=== PATIENT | male | born 1950 | race Caucasian/White ===

== ENCOUNTER 2019-04-28 14:21 | Inpatient (IN) | payer OTHER, MEDICARE ==
[2019-04-28] MEDS ORDERED: SODIUM CHLORIDE 0.9% 1,000 ML IV STA (14:56)
[2019-04-28] MEDS ORDERED: ONDANSETRON 4 MG/2 ML VIAL IVP STA (14:56)
--- NOTE | 2019-04-28 15:24 | ED ---
Nausea/Vomiting/Diarrhea HPI - General Source: patient, family Limitations: no limitations <Em Hall - Last Filed: 04/28/19 16:44> <Savannah Ariza - Last Filed: 05/03/19 15:07> - General Chief complaint: Nausea/Vomiting/Diarrhea Stated complaint: Nausea, Vomiting Time Seen by Provider: 04/28/19 14:30 - History of Present Illness Initial comments: 68-year-old male presented for chief complaint of nausea. Patient states he has been struggling with nausea since June 2018 secondary to what he believes is his Lasix therapy. Patient states he has also lost 60 pounds within the last 9 months. Patient states that nausea is chronic and comes and goes. He states it has been interfering with his activities of daily living. Patient states he feels weak. At times has vomiting randomly. Patient denies any severe abdominal pain he states that he has some cramping occasionally, patient upon arrival is tearful. (Em Hall) - Related Data Home Medications Medication Instructions Recorded Confirmed Acetaminophen Tab [Tylenol] 650 mg PO Q6H PRN 04/28/19 04/28/19 Lisinopril [Zestril] 20 mg PO BID 04/28/19 04/28/19 Omeprazole 20 mg PO DAILY 04/28/19 04/28/19 Pravastatin Sodium [Pravachol] 10 mg PO HS 04/28/19 04/28/19 Ranitidine HCl [Zantac] 150 mg PO BID 04/28/19 04/28/19 amLODIPine [Norvasc] 5 mg PO DAILY 04/28/19 04/28/19 Previous Rx's Medication Instructions Recorded Nicotine 21Mg/24Hr Patch [Habitrol] 1 patch TRANSDERM DAILY #30 patch 05/01/19 cloNIDine HCL [Catapres] 0.1 mg PO BID #60 tab 05/01/19 Allergies Allergy/AdvReac Type Severity Reaction Status Date / Time No Known Allergies Allergy Verified 04/28/19 15:22 Review of Systems ROS Other: All systems not noted in ROS Statement are negative. <Em Hall - Last Filed: 04/28/19 16:44> ROS Other: All systems not noted in ROS Statement are negative. <Savannah Ariza - Last Filed: 05/03/19 15:07> ROS Statement: Those systems with pertinent positive or pertinent negative responses have been documented in the HPI. Past Medical History Past Medical History: GERD/Reflux, Hyperlipidemia, Hypertension History of Any Multi-Drug Resistant Organisms: None Reported Past Surgical History: Back Surgery Past Psychological History: No Psychological Hx Reported Smoking Status: Former smoker Past Alcohol Use History: None Reported Past Drug Use History: None Reported <Em Hall - Last Filed: 04/28/19 16:44> General Exam Limitations: no limitations <Em Hall - Last Filed: 04/28/19 16:44> - General Exam Comments Initial Comments: General: The patient is awake and alert Eye: +3 mm pupils are equal, round and reactive to light, extra-ocular movements are intact. No nystagmus. There is normal conjunctiva bilaterally. No signs of icterus. Ears, nose, mouth and throat: There are dry mucous membranes and no oral lesions. Neck: The neck is supple, there is no tenderness or JVD. Cardiovascular: There is a regular rate and rhythm. No murmur, rub or gallop is appreciated. Respiratory: Lungs are clear to auscultation, respirations are non-labored, breath sounds are equal. No wheezes, stridor, rales, or rhonchi. Gastrointestinal: Soft, non-distended, diffusely tender abdomen without masses or organomegaly noted. There is no rebound or guarding present.. Bowel sounds are unremarkable. Musculoskeletal: Normal ROM, no tenderness. Strength 5/5. Sensation intact. Radial pulses equal bilaterally 2+. Neurological: A&O x 3. CN II-XII intact, There are no obvious motor or sensory deficits. Coordination appears grossly intact. Speech is normal. Skin: Skin is warm and dry and no rashes or lesions are noted. Psychiatric: Cooperative, appropriate mood & affect, normal judgment. (Em Hall) Course Vital Signs 04/28/19 04/28/19 04/28/19 14:23 15:16 16:26 Temperature 98.6 F Pulse Rate 88 79 88 Respiratory 20 18 18 Rate Blood Pressure 180/87 190/101 177/90 O2 Sat by Pulse 97 100 99 Oximetry 04/28/19 04/28/19 04/28/19 16:59 17:59 18:25 Temperature 97.9 F Pulse Rate 88 77 Respiratory 18 18 Rate Blood Pressure 168/100 184/95 O2 Sat by Pulse 99 98 Oximetry Medical Decision Making - Lab Data Result diagrams: 04/28/19 15:15 04/28/19 15:15 <Em Hall - Last Filed: 04/28/19 16:44> - Lab Data Result diagrams: 05/01/19 07:42 05/01/19 07:42 <Savannah Ariza - Last Filed: 05/03/19 15:07> - Medical Decision Making 68-year-old male presenting for vomiting and nausea. Patient sent by primary care provider for further evaluation. Patient is found to have moderate hyponatremia. Patient is dry and physical examination. Patient states the nausea that has been chronic since June 2018 began after taking Lasix. Patient was given IV hydration emergency department. Patient was placed on maintenance fluids. Patient was given Zofran for nausea which helped somewhat. Patient was then given additional dose of Reglan for continuous symptoms and emergency department. After discussed the case by attending provider Dr. Ariza we feel admission is appropriate for further evaluation. Patient agreeable and prefers admission. (Em Hall) I evaluated the patient myself. Due to the patients repetitive hospitalizations, hyponatremia and intractable nausea I did feel that admission was appropriate. I called and discussed the case with Dr. estrada who accepted admission of the patient. (Savannah Ariza) - Lab Data Lab Results 04/28/19 04/28/19 04/28/19 Range/Units 15:15 15:15 15:15 WBC 8.4 (3.8-10.6) k/uL RBC 4.43 (4.30-5.90) m/uL Hgb 13.8 (13.0-17.5) gm/dL Hct 39.6 (39.0-53.0) % MCV 89.4 (80.0-100.0) fL MCH 31.1 (25.0-35.0) pg MCHC 34.9 (31.0-37.0) g/dL RDW 13.5 (11.5-15.5) % Plt Count 258 (150-450) k/uL Neutrophils % 84 % Lymphocytes % 10 % Monocytes % 4 % Eosinophils % 1 % Basophils % 0 % Neutrophils # 7.1 (1.3-7.7) k/uL Lymphocytes # 0.8 L (1.0-4.8) k/uL Monocytes # 0.3 (0-1.0) k/uL Eosinophils # 0.1 (0-0.7) k/uL Basophils # 0.0 (0-0.2) k/uL Sodium 127 L (137-145) mmol/L Potassium 3.9 (3.5-5.1) mmol/L Chloride 92 L (98-107) mmol/L Carbon Dioxide 26 (22-30) mmol/L Anion Gap 9 mmol/L BUN 10 (9-20) mg/dL Creatinine 0.87 (0.66-1.25) mg/dL Est GFR (CKD-EPI)AfAm >90 (>60 ml/min/1.73 sqM) Est GFR (CKD-EPI)NonAf 88 (>60 ml/min/1.73 sqM) Glucose 97 (74-99) mg/dL Osmolality (280-301) mosm/kg Plasma Lactic Acid Arsenio 0.8 (0.7-2.0) mmol/L Uric Acid (3.5-8.5) mg/dL Calcium 8.9 (8.4-10.2) mg/dL Total Bilirubin 0.5 (0.2-1.3) mg/dL AST 20 (17-59) U/L ALT 22 (21-72) U/L Alkaline Phosphatase 57 (38-126) U/L Troponin I (0.000-0.034) ng/mL Total Protein 6.4 (6.3-8.2) g/dL Albumin 3.8 (3.5-5.0) g/dL Amylase 68 (30-110) U/L Lipase 158 (23-300) U/L TSH (0.465-4.680) mIU/L Cortisol ug/dL Urine Color Urine Appearance (Clear) Urine pH (5.0-8.0) Ur Specific [place] (1.001-1.035) Urine Protein (Negative) Urine Glucose (UA) (Negative) Urine Ketones (Negative) Urine Blood (Negative) Urine Nitrite (Negative) Urine Bilirubin (Negative) Urine Urobilinogen (<2.0) mg/dL Ur Leukocyte Esterase (Negative) Urine Osmolality (50-1400) mosm/kg Ur Random Creatinine mg/dL Ur Random Sodium mmol/L Ur Random Potassium mmol/L Ur Random Uric Acid mg/dL Ur Random Urea Nitrogn mg/dL 04/28/19 04/28/19 04/28/19 Range/Units 15:15 15:15 15:15 WBC (3.8-10.6) k/uL RBC (4.30-5.90) m/uL Hgb (13.0-17.5) gm/dL Hct (39.0-53.0) % MCV (80.0-100.0) fL MCH (25.0-35.0) pg MCHC (31.0-37.0) g/dL RDW (11.5-15.5) % Plt Count (150-450) k/uL Neutrophils % % Lymphocytes % % Monocytes % % Eosinophils % % Basophils % % Neutrophils # (1.3-7.7) k/uL Lymphocytes # (1.0-4.8) k/uL Monocytes # (0-1.0) k/uL Eosinophils # (0-0.7) k/uL Basophils # (0-0.2) k/uL Sodium (137-145) mmol/L Potassium (3.5-5.1) mmol/L Chloride (98-107) mmol/L Carbon Dioxide (22-30) mmol/L Anion Gap mmol/L BUN (9-20) mg/dL Creatinine (0.66-1.25) mg/dL Est GFR (CKD-EPI)AfAm (>60 ml/min/1.73 sqM) Est GFR (CKD-EPI)NonAf (>60 ml/min/1.73 sqM) Glucose (74-99) mg/dL Osmolality (280-301) mosm/kg Plasma Lactic Acid Arsenio (0.7-2.0) mmol/L Uric Acid (3.5-8.5) mg/dL Calcium (8.4-10.2) mg/dL Total Bilirubin (0.2-1.3) mg/dL AST (17-59) U/L ALT (21-72) U/L Alkaline Phosphatase (38-126) U/L Troponin I 0.014 (0.000-0.034) ng/mL Total Protein (6.3-8.2) g/dL Albumin (3.5-5.0) g/dL Amylase (30-110) U/L Lipase (23-300) U/L TSH (0.465-4.680) mIU/L Cortisol ug/dL Urine Color Colorless Urine Appearance Clear (Clear) Urine pH 7.0 (5.0-8.0) Ur Specific [place] 1.003 (1.001-1.035) Urine Protein Negative (Negative) Urine Glucose (UA) Negative (Negative) Urine Ketones Negative (Negative) Urine Blood Negative (Negative) Urine Nitrite Negative (Negative) Urine Bilirubin Negative (Negative) Urine Urobilinogen <2.0 (<2.0) mg/dL Ur Leukocyte Esterase Negative (Negative) Urine Osmolality (50-1400) mosm/kg Ur Random Creatinine 16.3 mg/dL Ur Random Sodium mmol/L Ur Random Potassium mmol/L Ur Random Uric Acid mg/dL Ur Random Urea Nitrogn mg/dL 04/28/19 04/28/19 04/28/19 Range/Units 15:15 15:15 15:15 WBC (3.8-10.6) k/uL RBC (4.30-5.90) m/uL Hgb (13.0-17.5) gm/dL Hct (39.0-53.0) % MCV (80.0-100.0) fL MCH (25.0-35.0) pg MCHC (31.0-37.0) g/dL RDW (11.5-15.5) % Plt Count (150-450) k/uL Neutrophils % % Lymphocytes % % Monocytes % % Eosinophils % % Basophils % % Neutrophils # (1.3-7.7) k/uL Lymphocytes # (1.0-4.8) k/uL Monocytes # (0-1.0) k/uL Eosinophils # (0-0.7) k/uL Basophils # (0-0.2) k/uL Sodium (137-145) mmol/L Potassium (3.5-5.1) mmol/L Chloride (98-107) mmol/L Carbon Dioxide (22-30) mmol/L Anion Gap mmol/L BUN (9-20) mg/dL Creatinine (0.66-1.25) mg/dL Est GFR (CKD-EPI)AfAm (>60 ml/min/1.73 sqM) Est GFR (CKD-EPI)NonAf (>60 ml/min/1.73 sqM) Glucose (74-99) mg/dL Osmolality (280-301) mosm/kg Plasma Lactic Acid Arsenio (0.7-2.0) mmol/L Uric Acid 2.1 L (3.5-8.5) mg/dL Calcium (8.4-10.2) mg/dL Total Bilirubin (0.2-1.3) mg/dL AST (17-59) U/L ALT (21-72) U/L Alkaline Phosphatase (38-126) U/L Troponin I (0.000-0.034) ng/mL Total Protein (6.3-8.2) g/dL Albumin (3.5-5.0) g/dL Amylase (30-110) U/L Lipase (23-300) U/L TSH 1.480 (0.465-4.680) mIU/L Cortisol 13 ug/dL Urine Color Urine Appearance (Clear) Urine pH (5.0-8.0) Ur Specific [place] (1.001-1.035) Urine Protein (Negative) Urine Glucose (UA) (Negative) Urine Ketones (Negative) Urine Blood (Negative) Urine Nitrite (Negative) Urine Bilirubin (Negative) Urine Urobilinogen (<2.0) mg/dL Ur Leukocyte Esterase (Negative) Urine Osmolality (50-1400) mosm/kg Ur Random Creatinine mg/dL Ur Random Sodium mmol/L Ur Random Potassium mmol/L Ur Random Uric Acid 6.9 mg/dL Ur Random Urea Nitrogn 98.0 mg/dL 04/28/19 04/28/19 04/28/19 Range/Units 15:15 15:15 15:15 WBC (3.8-10.6) k/uL RBC (4.30-5.90) m/uL Hgb (13.0-17.5) gm/dL Hct (39.0-53.0) % MCV (80.0-100.0) fL MCH (25.0-35.0) pg MCHC (31.0-37.0) g/dL RDW (11.5-15.5) % Plt Count (150-450) k/uL Neutrophils % % Lymphocytes % % Monocytes % % Eosinophils % % Basophils % % Neutrophils # (1.3-7.7) k/uL Lymphocytes # (1.0-4.8) k/uL Monocytes # (0-1.0) k/uL Eosinophils # (0-0.7) k/uL Basophils # (0-0.2) k/uL Sodium (137-145) mmol/L Potassium (3.5-5.1) mmol/L Chloride (98-107) mmol/L Carbon Dioxide (22-30) mmol/L Anion Gap mmol/L BUN (9-20) mg/dL Creatinine (0.66-1.25) mg/dL Est GFR (CKD-EPI)AfAm (>60 ml/min/1.73 sqM) Est GFR (CKD-EPI)NonAf (>60 ml/min/1.73 sqM) Glucose (74-99) mg/dL Osmolality 258 L (280-301) mosm/kg Plasma Lactic Acid Arsenio (0.7-2.0) mmol/L Uric Acid (3.5-8.5) mg/dL Calcium (8.4-10.2) mg/dL Total Bilirubin (0.2-1.3) mg/dL AST (17-59) U/L ALT (21-72) U/L Alkaline Phosphatase (38-126) U/L Troponin I (0.000-0.034) ng/mL Total Protein (6.3-8.2) g/dL Albumin (3.5-5.0) g/dL Amylase (30-110) U/L Lipase (23-300) U/L TSH (0.465-4.680) mIU/L Cortisol ug/dL Urine Color Urine Appearance (Clear) Urine pH (5.0-8.0) Ur Specific [place] (1.001-1.035) Urine Protein (Negative) Urine Glucose (UA) (Negative) Urine Ketones (Negative) Urine Blood (Negative) Urine Nitrite (Negative) Urine Bilirubin (Negative) Urine Urobilinogen (<2.0) mg/dL Ur Leukocyte Esterase (Negative) Urine Osmolality 148 (50-1400) mosm/kg Ur Random Creatinine mg/dL Ur Random Sodium mmol/L Ur Random Potassium 8.0 mmol/L Ur Random Uric Acid mg/dL Ur Random Urea Nitrogn mg/dL 04/28/19 Range/Units 15:15 WBC (3.8-10.6) k/uL RBC (4.30-5.90) m/uL Hgb (13.0-17.5) gm/dL Hct (39.0-53.0) % MCV (80.0-100.0) fL MCH (25.0-35.0) pg MCHC (31.0-37.0) g/dL RDW (11.5-15.5) % Plt Count (150-450) k/uL Neutrophils % % Lymphocytes % % Monocytes % % Eosinophils % % Basophils % % Neutrophils # (1.3-7.7) k/uL Lymphocytes # (1.0-4.8) k/uL Monocytes # (0-1.0) k/uL Eosinophils # (0-0.7) k/uL Basophils # (0-0.2) k/uL Sodium (137-145) mmol/L Potassium (3.5-5.1) mmol/L Chloride (98-107) mmol/L Carbon Dioxide (22-30) mmol/L Anion Gap mmol/L BUN (9-20) mg/dL Creatinine (0.66-1.25) mg/dL Est GFR (CKD-EPI)AfAm (>60 ml/min/1.73 sqM) Est GFR (CKD-EPI)NonAf (>60 ml/min/1.73 sqM) Glucose (74-99) mg/dL Osmolality (280-301) mosm/kg Plasma Lactic Acid Arsenio (0.7-2.0) mmol/L Uric Acid (3.5-8.5) mg/dL Calcium (8.4-10.2) mg/dL Total Bilirubin (0.2-1.3) mg/dL AST (17-59) U/L ALT (21-72) U/L Alkaline Phosphatase (38-126) U/L Troponin I (0.000-0.034) ng/mL Total Protein (6.3-8.2) g/dL Albumin (3.5-5.0) g/dL Amylase (30-110) U/L Lipase (23-300) U/L TSH (0.465-4.680) mIU/L Cortisol ug/dL Urine Color Urine Appearance (Clear) Urine pH (5.0-8.0) Ur Specific [place] (1.001-1.035) Urine Protein (Negative) Urine Glucose (UA) (Negative) Urine Ketones (Negative) Urine Blood (Negative) Urine Nitrite (Negative) Urine Bilirubin (Negative) Urine Urobilinogen (<2.0) mg/dL Ur Leukocyte Esterase (Negative) Urine Osmolality (50-1400) mosm/kg Ur Random Creatinine mg/dL Ur Random Sodium 43 mmol/L Ur Random Potassium mmol/L Ur Random Uric Acid mg/dL Ur Random Urea Nitrogn mg/dL Disposition Is patient prescribed a controlled substance at d/c from ED?: No Time of Disposition: 16:43 Decision to Admit Reason: Admit from EC Decision Date: 04/28/19 Decision Time: 16:43 <Em Hall - Last Filed: 04/28/19 16:44> <Savannah Ariza - Last Filed: 05/03/19 15:07> Clinical Impression: Hyponatremia, Vomiting, Nausea Disposition: ADMITTED IP TO THIS HOSP Condition: Stable
[2019-04-28 15:31] LABS: Appearance,Urine Clear (Clear); Bilirubin,Urine Negative (Negative); Blood,Urine Negative (Negative); Color,Urine Colorless; Glucose,Urine (UA) Negative (Negative); Ketones,Urine Negative (Negative); Leukocyte Esterase,Urine Negative (Negative); Nitrite,Urine Negative (Negative); Protein,Urine Negative (Negative); Specific Gravity,Urine 1.003 (1.001-1.035); Urobilinogen,Urine <2.0 mg/dL (<2.0)
[2019-04-28 15:41] LABS: ALT 22 U/L (21-72); AST 20 U/L (17-59); African American GFR (CKD) >90 (>60 ml/min/1.73 sqM); Albumin 3.8 g/dL (3.5-5.0); Alkaline Phosphatase 57 U/L (38-126); Amylase 68 U/L (30-110); Anion Gap 9 mmol/L; Blood Urea Nitrogen 10 mg/dL (9-20); Calcium 8.9 mg/dL (8.4-10.2); Carbon Dioxide 26 mmol/L (22-30); Chloride 92 mmol/L (98-107); Glucose 97 mg/dL (74-99); Potassium 3.9 mmol/L (3.5-5.1); Sodium 127 mmol/L (137-145); Total Bilirubin 0.5 mg/dL (0.2-1.3); Total Protein 6.4 g/dL (6.3-8.2)
[2019-04-28 15:42] LABS: Basophils % (A) 0 %; Eosinophils # (A) 0.1 k/uL (0-0.7); Eosinophils % (A) 1 %; HCT 39.6 % (39.0-53.0); HGB 13.8 gm/dL (13.0-17.5); Lymphocytes # (A) 0.8 k/uL (1.0-4.8); Lymphocytes % (A) 10 %; MCH 31.1 pg (25.0-35.0); MCHC 34.9 g/dL (31.0-37.0); MCV 89.4 fL (80.0-100.0); Mean Platelet Volume 6.3; Monocytes # (A) 0.3 k/uL (0-1.0); Monocytes % (A) 4 %; Neutrophils # (A) 7.1 k/uL (1.3-7.7); Neutrophils % (A) 84 %; Platelet Count 258 k/uL (150-450); RBC 4.43 m/uL (4.30-5.90); RDW 13.5 % (11.5-15.5); WBC 8.4 k/uL (3.8-10.6)
--- NOTE | 2019-04-28 16:15 | XR ---
EXAMINATION TYPE: XR chest 2V DATE OF EXAM: 04/28/2019 COMPARISON: None INDICATION: Pain nausea vomiting weakness TECHNIQUE: Frontal and lateral views of the chest are obtained. FINDINGS: The heart size is normal. The pulmonary vasculature is normal. The lungs are clear. IMPRESSION: 1. No acute pulmonary process.
--- NOTE | 2019-04-28 16:25 | CT ---
EXAMINATION TYPE: CT abdomen pelvis w con DATE OF EXAM: 04/28/2019 COMPARISON: None INDICATION: Nausea, vomiting, and low abdominal pain DLP: 720.9 mGycm, Automated exposure control for dose reduction was used. CONTRAST: 100 mL of Isovue 300. Study performed without Oral Contrast TECHNIQUE: Axial images were obtained from above the diaphragm to the pubic rami in the axial plane a t 5 mm thick sections. Reconstructed images are reviewed on the computer in the coronal plane. FINDINGS: Limited CT sections are obtained the lung bases. Pulmonary fibrosis at the posterior right lung base .. CT ABDOMEN: Liver: Normal Spleen: Normal Pancreas: Normal Adrenal glands: The adrenal glands are normal. Gallbladder: Normal Kidneys: No masses are evident. No hydronephrosis is present. There is a 2.8 cm cyst in the anterio r right mid kidney. 9 Hounsfield units. There is a 2.0 cm cyst in the posterior lateral left kidney m easuring 11 Hounsfield units. Delayed images were obtained through the kidneys, which remain unremark able. Aorta: Vascular calcification is within the aorta. Inferior vena cava: Normal. CT PELVIS: Loops of bowel within the abdomen and pelvis are normal. Study is performed without oral contrast limiting evaluation. Appendix: Visualized. No suspicious tubular structures are inflammatory changes are evident. Urinary bladder: Normal. Genitourinary structures: Prostate is prominent. Osseous structures: No suspicious lytic or sclerotic lesions. IMPRESSIONS: 1. Bilateral simple appearing renal cysts
[2019-04-28] MEDS ORDERED: NALOXONE 0.4 MG/ML 1 ML VIAL IV PRN (16:44)
[2019-04-28] MEDS ORDERED: METOCLOPRAMIDE 5 MG/ML 2 ML VIAL IVP STA (16:44)
[2019-04-28] MEDS: SODIUM CHLORIDE 0.9% 1,000 ML IV SCH (16:57)
[2019-04-28 17:34] LABS: Uric Acid 2.1 mg/dL (3.5-8.5)
[2019-04-28] MEDS ORDERED: amLODIPine 5 MG TAB PO STA (18:01)
[2019-04-28] MEDS ORDERED: TEMAZEPAM 15 MG CAP PO PRN (21:27)
[2019-04-28] MEDS ORDERED: HYDROcodone/APAP 5-325MG 1 EACH TAB PO PRN (21:27)
[2019-04-28] MEDS ORDERED: HYDROmorphone 0.5 MG/0.5 ML SYRINGE IVP PRN (21:27)
[2019-04-28] MEDS: LISINOPRIL 20 MG TAB PO SCH (23:02)
[2019-04-28 23:43] LABS: ALT 21 U/L (21-72); AST 18 U/L (17-59); African American GFR (CKD) >90 (>60 ml/min/1.73 sqM); Albumin 3.6 g/dL (3.5-5.0); Alkaline Phosphatase 41 U/L (38-126); Anion Gap 7 mmol/L; Blood Urea Nitrogen 8 mg/dL (9-20); Carbon Dioxide 26 mmol/L (22-30); Chloride 98 mmol/L (98-107); Glucose 84 mg/dL (74-99); Potassium 4.3 mmol/L (3.5-5.1); Sodium 131 mmol/L (137-145); Total Bilirubin 0.6 mg/dL (0.2-1.3); Total Protein 6.2 g/dL (6.3-8.2)
[2019-04-28 23:53] LABS: C Reactive Protein <5.0 mg/L (<10.0)
[2019-04-29] MEDS: SODIUM CHLORIDE 0.9% 1,000 ML IV SCH ×3 (02:15→20:27)
--- NOTE | 2019-04-29 05:19 | HP ---
HISTORY AND PHYSICAL DATE OF SERVICE: 04/28/2019 CHIEF COMPLAINT: Nausea, vomiting, weight loss. HISTORY OF PRESENT ILLNESS: This 68-year-old gentleman with a past medical history of multiple medical problems including CVA, TIA, GERD, hypertension, hyperlipidemia, history of back surgery, anxiety being followed by Dr. Rothman in the outpatient setting complaining of nausea, vomiting. Patient also started with nausea since June,. The patient was also admitted to [facility] a couple times according to him. The records are not available at this time. Currently the patient also reports weight loss of about 70 pounds during the several months. The patient also found to have severe hyponatremia with sodium 127. Patient admitted for further evaluation and treatment. Possibility of is suspected at this time. The patient also underwent a CAT scan of the abdomen and pelvis which showed bilateral simple appearing renal cyst and no other abnormality. There is no history of any fever, rigors or chills. No history of headache, loss of consciousness or seizures. PAST MEDICAL HISTORY: History of CVA, TIA, GERD, hypertension, hyperlipidemia, history of back surgery, tonsillectomy, anxiety. MEDICATIONS: Home medications are: 1. Norvasc 10 mg p.o. daily. 2. Zantac 150 mg p.o. b.i.d. 3. Pravachol 10 mg q.h.s. 4. Omeprazole 20 mg p.o. daily. 5. Zestril 20 mg p.o. b.i.d. 6. Tylenol 650 q.6 p.r.n. ALLERGIES: Allergies are none. FAMILY HISTORY: History of cancer, heart attack. SOCIAL HISTORY: Previous history of smoking, history of THC. REVIEW OF SYSTEMS: ENT: No diminished hearing or diminished vision. CARDIOVASCULAR SYSTEM: No angina. RESPIRATORY SYSTEM: No cough. GI: As mentioned earlier. : No dysuria. NERVOUS SYSTEM: No numbness. Generalized weakness. ALLERGY/IMMUNOLOGY: No asthma or hayfever. MUSCULOSKELETAL: As mentioned earlier. HEMATOLOGY/ONCOLOGY: No history of anemia. ENDOCRINE: No history of diabetes or hypothyroidism. CONSTITUTIONAL: As mentioned earlier. DERMATOLOGY: Negative. RHEUMATOLOGY: Negative. PSYCHIATRY: As mentioned earlier. PHYSICAL EXAMINATION: The patient is alert and oriented x3. Pulse 77, blood pressure 184/95, respiration 18, temperature 97.9, pulse ox 98% on room air. Blood pressure improved to 148/79. HEENT: Conjunctivae normal. Oral mucosa moist. Neck is no jugular venous distention. No carotid bruit. No lymph node enlargement. CARDIOVASCULAR: S1, S2, muffled. No S3, no S4. RESPIRATORY: Breath sounds diminished in the bases. No rhonchi, no crackles. ABDOMEN: Soft, scaphoid, nontender. No mass palpable. No ascites. No guarding. No rigidity. Bowel sounds present. LEGS: No edema, no swelling. NERVOUS SYSTEM: Higher function as mentioned earlier. Moves all 4 limbs. No focal motor or sensory deficits. There is some numbness around the left thigh, otherwise, no other motor deficit appreciated. SKIN: No ulcer, rash or bleeding. JOINTS: No active deforming arthropathy. LYMPHATICS: No lymphadenopathy of the neck, axillae or groin. LABS: CBC within normal limits. Sodium 127. ASSESSMENT: 1. Recurrent nausea, vomiting for evaluation, rule out acute gastritis. 2. Severe hyponatremia, possibly SIADH. 3. Elevated plasma lactic acid of undetermined etiology. 4. Weight loss of 70 pounds. 5. History of cerebrovascular accident, transient ischemic attack. 6. Gastroesophageal reflux disease. 7. Hypertension. 8. Hyperlipidemia. 9. History of back surgery. 10.History of anxiety. 11.Remote history of nicotine dependence. RECOMMENDATIONS AND DISCUSSION: In this 68-year-old gentleman who presented with multiple medical issues, at this time I recommend to continue current medication, provide symptomatic treatment, proton pump inhibitors empirically. Otherwise, I would also recommend gastroenterology evaluation for possible endoscopies. The patient has significant weight loss and gastrointestinal symptoms. Possibility of malignancy is high on the list, but however, I would also recommend a nephrology consultation for possible etiology of .The lactic acid elevated. There is no evidence of infection now, etiology unknown, possibly because of dehydration. We will hydrate the patient. Repeat lactic acid in the morning. Otherwise overall prognosis guarded because of multiple complex medical issues. Further recommendations to follow. A copy of dictation forwarded to Dr. Rothman who is the primary physician in the [facility]. MMODL / IJN: [id number] / MTDD
[2019-04-29 07:22] LABS: Basophils % (A) 1 %; Eosinophils # (A) 0.1 k/uL (0-0.7); Eosinophils % (A) 2 %; HGB 13.5 gm/dL (13.0-17.5); Lymphocytes # (A) 0.8 k/uL (1.0-4.8); Lymphocytes % (A) 15 %; MCH 29.9 pg (25.0-35.0); MCHC 32.8 g/dL (31.0-37.0); Mean Platelet Volume 6.8; Monocytes # (A) 0.3 k/uL (0-1.0); Monocytes % (A) 5 %; Neutrophils # (A) 4.3 k/uL (1.3-7.7); Neutrophils % (A) 77 %; Platelet Count 280 k/uL (150-450); RBC 4.51 m/uL (4.30-5.90); RDW 14.9 % (11.5-15.5); WBC 5.6 k/uL (3.8-10.6)
[2019-04-29] MEDS: PANTOPRAZOLE 40 MG TABLET PO SCH (07:34)
[2019-04-29] MEDS: ACETAMINOPHEN TAB 325 MG TAB PO PRN ×2 (07:38→14:08)
--- NOTE | 2019-04-29 08:35 | CT ---
EXAMINATION TYPE: CT chest wo con DATE OF EXAM: 04/29/2019 COMPARISON: None HISTORY: Weight loss CT DLP: 342.[address] of the chest was performed with lung and mediastinal window settings submitted. The la ck of contrast limits evaluation of the vascular, mediastinal and parenchymal structures including th e upper abdomen. LUNGS: Moderate emphysematous changes greatest right lower lobe. Calcified granuloma right upper lobe image 25. Noncalcified nodular density right upper lobe image 26 measures 4 mm. Additional noncalcif ied nodule right upper lobe image 30 measures 3 mm. Calcified pulmonary nodule right upper lobe image 32 measures 4 mm. Pleural-based nodular density right lower lobe image 36 measures 3 mm. Calcified n odule lateral segment right lower lobe. Nodular density right middle lobe measures 5 mm. 4 mm nodular density left lower lobe image 50. Calcified nodule left lower lobe. Calcified nodule left upper lobe image 33. Noncalcified nodular density left upper lobe image 30 measures of 4 mm. 6 mm nodule left l ower lobe pleural-based image 23. No evidence for infiltrate or mass. MEDIASTINUM/CK: Thoracic aorta is of normal caliber with limited evaluation given lack of contrast . The heart is not enlarged. Urinary artery calcifications identified. No evidence for mediastinal mass. No lymph nodes greater than 1cm. UPPER ABDOMEN: 2.7 cm hypoattenuating lesion right kidney may reflect a small cyst. Suspect nephrolit hiasis left kidney. OTHER: No significant other abnormality. IMPRESSION: 1. Nonspecific calcified and noncalcified pulmonary nodularity. Follow-up study in 6 months is advis ed. 2. Emphysematous changes.
[2019-04-29] MEDS: LISINOPRIL 20 MG TAB PO SCH ×2 (09:34→20:25)
[2019-04-29] MEDS: amLODIPine 5 MG TAB PO SCH (09:34)
[2019-04-29] MEDS: HEPARIN SODIUM,PORCINE 5,000 UNIT/ML 1 ML VIAL SQ SCH ×2 (09:34→20:25)
--- NOTE | 2019-04-29 12:39 | P.NPCON ---
History of Present Illness - Reason for Consult hyponatremia - History of Present Illness Reason for consultation: Hyponatremia History of present illness: Patient is a 68-year-old male seen in renal consultation for hyponatremia. Patient's sodium level was 127 on admission. He is currently maintained on IV fluids. Sodium level today is up to 131. Patient states he's been nauseous for the last few months. He's also lost over 50 pounds over the last 1 year. Oral intake has been poor. However he does admit to drinking a 2 L bottle of pop and also 2 bottles of water daily. He is not on any thiazide diuretics. No evidence of hypotension. Patient's CAT scan of the abdomen and pelvis revealed no evidence of hydronephrosis and no other acute abnormalities. No evidence of fluid overload. No edema. Denies use of nonsteroidals. No personal history of kidney disease. Urinalysis completely benign. Patient's urine osmolality was low and urine sodium was 43. Vital signs are stable. General: The patient appeared well nourished and normally developed. HEENT: Head exam is unremarkable. Neck is without jugular venous distension. LUNGS: Lungs are clear to auscultation and percussion. Breath sounds decreased. HEART: Rate and Rhythm are regular. First and second heart sounds normal. No mu rmurs, rubs or gallops. ABDOMEN: Abdominal exam reveals normal bowel sounds. Non-tender and non-dis tended. No evidence of peritonitis. EXTREMITITES: No clubbing, cyanosis, or edema. Past Medical History Past Medical History: CVA/TIA, GERD/Reflux, Hyperlipidemia, Hypertension History of Any Multi-Drug Resistant Organisms: None Reported Past Surgical History: Back Surgery, Tonsillectomy Past Anesthesia/Blood Transfusion Reactions: No Reported Reaction Past Psychological History: Anxiety Smoking Status: Former smoker Past Alcohol Use History: None Reported Additional Past Alcohol Use History / Comment(s): Start smoking at the age of 10, and still smokes a pack a day Past Drug Use History: None Reported - Past Family History Mother History Unknown: Yes Additional Family Medical History / Comment(s): of a heart attack Father Family Medical History: Cancer Additional Family Medical History / Comment(s): thoart cancer Medications and Allergies Home Medications Medication Instructions Recorded Confirmed Type Acetaminophen Tab [Tylenol Tab] 650 mg PO Q6H PRN 04/28/19 04/28/19 History Lisinopril [Zestril] 20 mg PO BID 04/28/19 04/28/19 History Omeprazole 20 mg PO DAILY 04/28/19 04/28/19 History Pravastatin Sodium [Pravachol] 10 mg PO HS 04/28/19 04/28/19 History Ranitidine HCl [Zantac] 150 mg PO BID 04/28/19 04/28/19 History amLODIPine [Norvasc] 5 mg PO DAILY 04/28/19 04/28/19 History Allergies Allergy/AdvReac Type Severity Reaction Status Date / Time No Known Allergies Allergy Verified 04/28/19 15:22 Physical Exam Vitals: Vital Signs Temp Pulse Pulse Resp BP BP Pulse Ox 04/29/19 07:00 98.9 F 79 17 164/88 97 04/29/19 04:12 16 04/29/19 02:05 98.3 F 73 16 147/85 98 04/29/19 00:15 16 04/28/19 20:15 18 04/28/19 20:01 98.2 F 80 18 148/79 97 04/28/19 18:25 97.9 F 04/28/19 17:59 77 18 184/95 98 04/28/19 16:59 88 18 168/100 99 04/28/19 16:26 88 18 177/90 99 04/28/19 15:16 79 18 190/101 100 04/28/19 14:23 98.6 F 88 20 180/87 97 Intake and Output 04/28/19 04/29/19 04/29/19 22:59 06:59 14:59 Intake Total 400 Output Total 650 1050 Balance -650 -650 Intake: Intake, IV Titration 400 Amount Sodium Chloride 0.9% 1, 400 000 ml @ 100 mls/hr IV . Q10H [facility] Rx#:[id number] Output: Urine 650 1050 Other: Voiding Method Urinal Urinal Urinal Results - Lab Results Most recent lab results Calcium 9.0 mg/dL (8.4-10.2) 04/28/19 22:58 04/29/19 06:36 04/28/19 22:58 Assessment and Plan Plan: Assessment: 1. Hypovolemic hyponatremia improving with IV hydration. Also component of poor solute intake in the setting of excessive fluid intake. Patient's low urine osmolality fits the picture. Additionally, nausea can induce SIADH. TSH normal. Uric acid level. 2. Benign hypertension. 3. Nausea with significant weight loss. Unclear etiology. No acute abnormality noted on CAT scan. GI consulted. Plan: Maintain normal saline at 100 mL an hour. 1200 mL fluid restriction. Encourage oral intake, particularly solute. Repeat electrolytes in the morning. Thank you for the consultation. I will continue to follow the patient during his hospital stay.
[2019-04-29 15:58] VITALS: BMI 23.4
[2019-04-29] MEDS ORDERED: PEG 3350-NA SULF,BICARB,CL/KCL 4,000 ML BOTTLE PO ONE (17:00)
[2019-04-29] MEDS: ALPRAZolam 0.25 MG TAB PO PRN (17:57)
[2019-04-29] MEDS: NICOTINE 21MG/24HR PATCH TRANSDERM SCH (19:00)
--- NOTE | 2019-04-29 19:51 | PN ---
PROGRESS NOTE DATE OF SERVICE: 04/29/2019. This 68-year-old gentleman admitted with nausea, vomiting and weight loss is being closely monitored at this time. The patient had multiple evaluations, including CT scan of abdomen and pelvis which showed bilateral simple-appearing renal cysts. CT of the chest was also done which showed nonspecific calcified and noncalcified pulmonary nodularity as well as emphysematous changes. The patient was also seen by Nephrology at this time for hyponatremia, thought to be mostly hypovolemic, improved with IV hydration. Past medical history reviewed. REVIEW OF SYSTEMS: CARDIOVASCULAR SYSTEM: No angina, palpitations. RESPIRATORY SYSTEM: As mentioned earlier. GI: As mentioned earlier. : No dysuria or retention. NERVOUS SYSTEM: No numbness, weakness. CURRENT MEDICATIONS: Reviewed. They include: 1. Tylenol 650 q.4 p.r.n. 2. [place] p.r.n. 3. Xanax 0.25 t.i.d. 4. Norvasc 5 mg daily. 5. Heparin 5000 units subcutaneously b.i.d. 6. Dilaudid p.r.n. 7. Zestril. 8. Narcan. 9. Protonix. 10.Restoril. PHYSICAL EXAMINATION: Alert, oriented x3. Pulse 77, blood pressure 116/78, respiration 16, temperature 98.4, pulse ox 98% on room air. HEENT: Conjunctivae normal. NECK: No jugular venous distention. CARDIOVASCULAR SYSTEM: S1, S2 muffled. RESPIRATORY SYSTEM: Breath sounds diminished at the bases. A few scattered rhonchi and crackles. ABDOMEN: Soft, non-tender. LEGS: No edema. No swelling. NERVOUS SYSTEM: No focal deficit. LABS: CBC within normal limits. Sodium 131. ASSESSMENT: 1. Recurrent nausea and vomiting for evaluation; possible acute gastritis; possibly hypovolemic in nature. 2. Severe hyponatremia, possibly syndrome of inappropriate antidiuretic hormone. 3. Weight loss of 70 pounds. Rule out gastrointestinal malignancy. 4. Elevated plasma lactic acid of undetermined etiology. 5. History of cerebrovascular accident, transient ischemic attack. 6. Gastroesophageal reflux disease. 7. Hypertension. 8. Hyperlipidemia. 9. History of back surgery. 10.History of anxiety. 11.Remote history of nicotine dependence. RECOMMENDATIONS AND DISCUSSION: I recommend to continue current medications, continue with the monitoring, symptomatic treatment. Otherwise, basic labs do not show any evidence of malignancy at this time. Sodium is improving with IV hydration; it mostly could be due to hypovolemic hyponatremia. I would also recommend a gastroenterology evaluation and possible endoscopies as well. The overall prognosis is guarded because of multiple complex medical issues. Further recommendations to follow. Discussed with the patient, who understands and agrees. MMODL / IJN: [id number] /
--- NOTE | 2019-04-29 23:27 | CONS ---
CONSULTATION DATE OF DICTATION: 04/29/2019. REASON FOR CONSULTATION: Abdominal pain, nausea, vomiting, weight loss. HISTORY OF PRESENT ILLNESS: The patient is a 68-year-old pleasant white male with a history of anxiety, depression, hypertension and hyperlipidemia who came into the emergency room complaining of abdominal discomfort, nausea, vomiting, worsening anxiety for the last several months' duration. He lost about 70 pounds in the last 10 months. He states his appetite has been decreasing. He denies any fever, chills, night sweats. He reports no rectal bleeding or melena. He did have a CT of the abdomen and pelvis done that showed small renal cysts; otherwise it was unremarkable. PAST MEDICAL HISTORY: His past medical history is significant for: 1. Gastroesophageal reflux disease, for which he takes Zantac on an outpatient basis. 2. History of hypertension. 3. Hyperlipidemia. 4. Severe anxiety and depression. 5. History of CVA in the past. 6. Chronic hepatitis C that was treated in 2000. MEDICATIONS: Medications at home include: 1. Norvasc. 2. Zantac. 3. Omeprazole. 4. Pravachol. 5. Zestril. 6. Tylenol. ALLERGIES: NONE. SOCIAL HISTORY: Prior history of smoking but no alcohol use. FAMILY HISTORY: Mother had coronary artery disease and [place]. Father had some kind of cancer. REVIEW OF SYSTEMS: CARDIOPULMONARY: He denies any chest pain or shortness of breath. GENITOURINARY: No dysuria or hematuria. MUSCULOSKELETAL: Unremarkable except for chronic back pain. PSYCHIATRY: Severe anxiety and depression. He feels the anxiety has been progressively getting worse lately and is part of the reason his appetite is decreased. NEUROLOGY: Unremarkable. ENT/VISION: Unremarkable. CONSTITUTIONAL: Weight loss of 70 pounds. No fever, chills, night sweats. ENDOCRINE: Unremarkable. HEMATOLOGY: Unremarkable. PHYSICAL EXAMINATION: He appears comfortable. No apparent distress. VITAL SIGNS: Stable. Blood pressure is 112/85, pulse rate 73, temperature 98.3. HEENT examination unremarkable. Conjunctivae pink. Sclerae anicteric. Oral cavity no lesions. NECK: No JVD or lymph node enlargement. CHEST: Clear to auscultation. HEART: Regular rate and rhythm. ABDOMEN: Soft. It was non-tender, non-distended. Bowel sounds are positive. No organomegaly. EXTREMITIES: No pedal edema. SKIN: No rashes. NEUROLOGIC: Alert and oriented x3. No focal deficits. LABS/IMAGING: Labs done at the time of admission to the hospital showed WBC 8.4, hemoglobin 13.8, platelets normal. Basic metabolic panel showed a sodium of 127, but today it is 131. BUN and creatinine normal. ALT, AST, T-bilirubin and alkaline phosphatase are normal. TSH is normal. Lipase is normal. Cortisol is 13. Urinalysis is negative. CT of the abdomen and pelvis shows renal cysts but otherwise unremarkable. IMPRESSION: 1. This is a patient who presented to the hospital with progressive weakness, fatigue, nausea, vomiting, abdominal pain and progressive weight loss of 70 pounds in the last [address] of the abdomen was unremarkable. 2. Severe anxiety. 3. Remote history of chronic hepatitis C infection that was treated in 2010 and had a sustained virological response. RECOMMENDATIONS: Will proceed with an EGD and colonoscopy tomorrow. Discussed with the patient risks, benefits and complications of the procedure and he is agreeable to it. In the meantime, continue with Protonix 40 mg daily. Further recommendations will follow based on the endoscopic evaluation. Thank you for this consultation. MMODL / IJN: [id number] /
[2019-04-30 07:50] LABS: Calcium 9.2 mg/dL (8.4-10.2)
[2019-04-30] MEDS: amLODIPine 5 MG TAB PO SCH (08:25)
[2019-04-30] MEDS: PANTOPRAZOLE 40 MG TABLET PO SCH (08:25)
[2019-04-30] MEDS: LISINOPRIL 20 MG TAB PO SCH ×2 (08:25→21:53)
[2019-04-30] MEDS: NICOTINE 21MG/24HR PATCH TRANSDERM SCH (08:25)
[2019-04-30] MEDS: HEPARIN SODIUM,PORCINE 5,000 UNIT/ML 1 ML VIAL SQ SCH ×2 (08:27→21:54)
[2019-04-30 09:42] LABS: Basophils # (A) 0.1 k/uL (0-0.2); Basophils % (A) 1 %; Eosinophils # (A) 0.1 k/uL (0-0.7); Eosinophils % (A) 2 %; HCT 44.6 % (39.0-53.0); HGB 14.6 gm/dL (13.0-17.5); Lymphocytes % (A) 19 %; MCH 29.6 pg (25.0-35.0); MCHC 32.8 g/dL (31.0-37.0); MCV 90.1 fL (80.0-100.0); Mean Platelet Volume 6.7; Monocytes # (A) 0.3 k/uL (0-1.0); Monocytes % (A) 6 %; Neutrophils # (A) 3.9 k/uL (1.3-7.7); Neutrophils % (A) 71 %; Platelet Count 273 k/uL (150-450); RBC 4.95 m/uL (4.30-5.90); RDW 13.7 % (11.5-15.5); WBC 5.5 k/uL (3.8-10.6)
[2019-04-30] MEDS ORDERED: hydrALAZINE HCL 20 MG/ML 1 ML VIAL IVP PRN (12:16)
--- NOTE | 2019-04-30 12:17 | P.PN ---
Subjective Patient is seen in follow-up for hyponatremia. Sodium level is 134 today. He is maintained on IV fluids. Feels tired as didn't sleep well last night. Vital signs are stable. General: The patient appeared well nourished and normally developed. HEENT: Head exam is unremarkable. Neck is without jugular venous distension. LUNGS: Lungs are clear to auscultation and percussion. Breath sounds decreased. HEART: Rate and Rhythm are regular. First and second heart sounds normal. No murmurs, rubs or gallops. ABDOMEN: Abdominal exam reveals normal bowel sounds. Non-tender and non- distended. No evidence of peritonitis. EXTREMITITES: No clubbing, cyanosis, or edema. Objective - Vital Signs Vital signs: Vital Signs Temp 98 F 04/30/19 07:00 Pulse 77 04/30/19 08:00 Resp 15 04/30/19 08:00 BP 160/96 04/30/19 07:00 Pulse Ox 97 04/30/19 07:00 Intake & Output 04/29/19 04/30/19 04/30/19 18:59 06:59 18:59 Intake Total 800 400 Balance 800 400 Weight 75.296 kg Intake: IV 800 Sodium Chloride 0.9% 1, 800 000 ml @ 100 mls/hr IV . Q10H [facility] Rx#:[id number] Oral 400 Other: Voiding Method Toilet Toilet Urinal Urinal # Bowel Movements 1 - Labs CBC & Chem 7: 04/30/19 07:16 04/30/19 07:16 Labs: Abnormal Lab Results - Last 24 Hours (Table) 04/30/19 Range/Units 07:16 Sodium 134 L (137-145) mmol/L Assessment and Plan Plan: Assessment: 1. Hypovolemic hyponatremia improving with IV hydration. Also component of poor solute intake in the setting of excessive fluid intake. Patient's low urine osmolality fits the picture. Additionally, nausea can induce SIADH. TSH normal. Uric acid level. 2. Benign hypertension. 3. Nausea with significant weight loss. Unclear etiology. No acute abnormality noted on CAT scan. GI following. Scheduled for EGD and colonoscopy today. Plan: Decrease NS to 70 mL an hour. 1200 mL fluid restriction. Encourage oral intake, particularly solute. Repeat electrolytes in the morning. Add hydralazine as needed for systolic blood pressure greater than 160.
[2019-04-30 14:39] VITALS: RESP 16
[2019-04-30] MEDS ORDERED: PROPOFOL 10 MG/ML 20 ML VIAL IV ONE (15:10)
[2019-04-30] MEDS ORDERED: IV FLUID CONTINUATION 1,000 ML IV ONE (15:32)
--- NOTE | 2019-04-30 15:39 | P.PCN ---
Date of Procedure: 04/30/19 Procedure(s) Performed: Brief history: Patient is a pleasant 68-year-old white male scheduled for an elective upper endoscopy as well as colonoscopy as a part of evaluation of abdominal pain, intermittent nausea vomiting and progressive weight loss of 30 pounds in the last few months duration. Procedure performed: Esophagogastroduodenoscopy with biopsy Colonoscopy with snare polypectomy Preoperative diagnosis: Abdominal pain/intermittent nausea vomiting Progressive weight loss of 30 pounds in the last few months duration Anesthesia: MAC Procedure: After informed consent was obtained from the patient was brought into the endoscopy unit and IV sedation was administered by anesthesia under continuous monitoring. Initially upper endoscopy was done. The Olympus GF 160 video endoscope was inserted inserted into the mouth and esophagus intubated without any difficulty and was gradually advanced into the stomach and duodenum and carefully examined. The bulb and second part of the duodenum had mild duodenitis. Biopsy were done from the duodenum to rule out celiac disease. The scope was then withdrawn into the stomach adequately insufflated with air and upon careful examination the antrum had mild diffuse gastritis and biopsies were done from this area. The body, cardia and fundus appeared normal. The scope was then withdrawn into the esophagus. The GE junction was located at 40 cm to the incisors. It appeared regular with no erythema erosions or ulcerations. Rest of the esophagus appeared normal. Patient tolerated the procedure well. At this time the patient continued to remain sedation. Initial digital rectal examination was normal. Olympus CF 160 video colonoscope was then inserted into the rectum and gradually advanced to the cecum without any difficulty. Careful examination was performed as the scope was gradually being withdrawn. The prep was excellent. The cecum, ascending colon, transverse colon, descending colon, appeared normal. In the distal sigmoid: There was a 1 cm polyp that was removed by snare polypectomy. Rest of the sigmoid colon and rectum appeared normal. Retroflexion was performed in the rectum and no lesions were noted. Patient tolerated the procedure well. Impression: 1. Upper endoscopy revealed minimal antral gastritis 2. Coloscopy revealed 1 cm distal sigmoid colon polyp status post polypectomy Recommendations: Findings of this examination were discussed with the patient . He was advised to follow with the biopsy results. If the biopsy the colon polyp shows an adenoma, he can have a repeat colonoscopy in 3 years
[2019-04-30] MEDS: amLODIPine 10 MG TAB PO SCH (17:14)
[2019-04-30] MEDS: ALPRAZolam 0.25 MG TAB PO PRN (17:49)
[2019-04-30] MEDS: SODIUM CHLORIDE 0.9% 1,000 ML IV SCH ×2 (19:09→21:47)
--- NOTE | 2019-04-30 20:51 | PN ---
PROGRESS NOTE DATE OF SERVICE: 04/30/2019 This 68-year-old gentleman admitted with weight loss and weakness is being closely monitored. The patient also had hyponatremia. Dr. Vizcaino is following the patient closely. Patient underwent EGD, colonoscopy which showed antral gastritis and a 1 cm distal sigmoid colon polyp. No chest pain. No palpitations. No fever. PHYSICAL EXAMINATION: Alert and oriented x3. Pulse 102, blood pressure 132/103, respirations 16, temperature 97.6, pulse ox 98% on room air. HEENT: Conjunctivae normal. NECK: No jugular venous distention. CARDIOVASCULAR SYSTEM: S1, S2 muffled. RESPIRATORY SYSTEM: Breath sounds diminished at the bases. No rhonchi. No crackles. ABDOMEN: Soft, non-tender. LEGS: No edema. No swelling. NERVOUS SYSTEM: No focal deficit. LABS: CBC within normal limits. Sodium 134. ASSESSMENT: 1. Recurrent nausea and vomiting; possibly acute gastritis, possibly hypovolemic in nature. 2. Severe hyponatremia, possibly hypovolemic in nature, improving with IV supplementation. 3. Weight loss of 70 pounds. Upper endoscopy showed minimal gastritis and colonoscopy revealed a 1 cm distal sigmoid colon polyp. No evidence of malignancy at this time. 4. Elevated plasma lactic acid of undetermined etiology, improving. 5. History of cerebrovascular accident, transient ischemic attack. 6. Gastroesophageal reflux disease. 7. Hypertension. 8. Hyperlipidemia. 10.History of back surgery. 11.History of anxiety. 12.Remote history of nicotine dependence. RECOMMENDATIONS AND DISCUSSION: I recommend to continue current medications, continue with the monitoring, symptomatic treatment. Repeat labs. Increase ambulation. I would recommend continuing with Norvasc and Zestril. Increase the dose of Norvasc. Continue with p.r.n. medications. Guarded prognosis because of multiple complex medical issues. Further recommendations to follow. I would also initiate clonidine. MMODL / IJN: [id number] / [facility]
[2019-04-30 21:24] LABS: Glucose,Whole Blood 88 mg/dL (75-99)
[2019-04-30] MEDS: cloNIDine HCL 0.1 MG TAB PO SCH (21:53)
[2019-04-30] MEDS: ACETAMINOPHEN TAB 325 MG TAB PO PRN (22:02)
[2019-05-01 07:24] VITALS: BP 114/71; PULSE 83; TEMP 98.3
[2019-05-01] MEDS: PANTOPRAZOLE 40 MG TABLET PO SCH (07:27)
[2019-05-01 08:10] LABS: Basophils % (A) 1 %; Eosinophils # (A) 0.1 k/uL (0-0.7); Eosinophils % (A) 1 %; HCT 45.5 % (39.0-53.0); HGB 15.1 gm/dL (13.0-17.5); Lymphocytes % (A) 12 %; MCH 30.1 pg (25.0-35.0); MCHC 33.2 g/dL (31.0-37.0); MCV 90.8 fL (80.0-100.0); Mean Platelet Volume 6.7; Monocytes # (A) 0.3 k/uL (0-1.0); Monocytes % (A) 3 %; Neutrophils # (A) 6.8 k/uL (1.3-7.7); Neutrophils % (A) 82 %; Platelet Count 321 k/uL (150-450); RBC 5.01 m/uL (4.30-5.90); WBC 8.3 k/uL (3.8-10.6)
[2019-05-01 08:17] LABS: Calcium 9.7 mg/dL (8.4-10.2); Magnesium 2.1 mg/dL (1.6-2.3); Potassium 3.8 mmol/L (3.5-5.1)
[2019-05-01] MEDS: SODIUM CHLORIDE 0.9% 1,000 ML IV SCH ×2 (09:03→09:05)
[2019-05-01] MEDS: amLODIPine 10 MG TAB PO SCH (09:04)
[2019-05-01] MEDS: cloNIDine HCL 0.1 MG TAB PO SCH (09:04)
[2019-05-01] MEDS: NICOTINE 21MG/24HR PATCH TRANSDERM SCH (09:04)
[2019-05-01] MEDS: LISINOPRIL 20 MG TAB PO SCH (09:04)
[2019-05-01] MEDS: HEPARIN SODIUM,PORCINE 5,000 UNIT/ML 1 ML VIAL SQ SCH (09:04)
--- NOTE | 2019-05-01 09:50 | P.PN ---
Subjective Patient is seen in follow-up for hyponatremia. Sodium level is stable at 134 today. He is maintained on IV fluids. Oral intake is fair. Continues to complain of discomfort in his stomach. Vital signs are stable. General: The patient appeared well nourished and normally developed. HEENT: Head exam is unremarkable. Neck is without jugular venous distension. LUNGS: Lungs are clear to auscultation and percussion. Breath sounds decreased. HEART: Rate and Rhythm are regular. First and second heart sounds normal. No murmurs, rubs or gallops. ABDOMEN: Abdominal exam reveals normal bowel sounds. Non-tender and non- distended. No evidence of peritonitis. EXTREMITITES: No clubbing, cyanosis, or edema. Objective - Vital Signs Vital signs: Vital Signs Temp 98.3 F 05/01/19 07:23 Pulse 83 05/01/19 07:23 Resp 16 05/01/19 07:23 BP 114/71 05/01/19 07:23 Pulse Ox 99 05/01/19 07:23 Intake & Output 04/30/19 05/01/19 05/01/19 18:59 06:59 18:59 Intake Total 790 360 Output Total 350 Balance 440 360 Intake: IV 300 Intake, IV Titration 490 Amount Sodium Chloride 0.9% 1, 490 000 ml @ 70 mls/hr IV . [id number] [facility] Rx#:[id number] Oral 360 Output: Urine 350 Other: Voiding Method Toilet Toilet Urinal Urinal # Voids 1 - Labs CBC & Chem 7: 05/01/19 07:42 05/01/19 07:42 Labs: Abnormal Lab Results - Last 24 Hours (Table) 05/01/19 Range/Units 07:42 Sodium 134 L (137-145) mmol/L Chloride 97 L (98-107) mmol/L BUN 21 H (9-20) mg/dL Creatinine 1.37 H (0.66-1.25) mg/dL Glucose 129 H (74-99) mg/dL Assessment and Plan Plan: Assessment: 1. Hypovolemic hyponatremia improving with IV hydration. Also component of po or solute intake in the setting of excessive fluid intake. Patient's low urine osmolality fits the picture. Additionally, nausea can induce SIADH. TSH normal. Uric acid level. Stable. Sodium level 134 today. 2. Benign hypertension. Controlled. 3. Nausea with significant weight loss. Unclear etiology. No acute abnormality noted on CAT scan. GI following. Status post EGD and colonoscopy in April 30 which revealed antral gastritis and a sigmoid colon polyp that was removed. Plan: Maintain normal saline at 70 mL an hour. 1200 mL fluid restriction. Encourage oral intake, particularly solute. Repeat electrolytes in the morning.
--- NOTE | 2019-05-02 00:10 | DS ---
DISCHARGE SUMMARY DATE OF SERVICE: 05/01/2019. FINAL DIAGNOSES: 1. Recurrent nausea, vomiting, possible acute gastritis. 2. Hyponatremia possibly hypovolemic in nature, improved. 3. Weight loss 70 pounds. Upper endoscopy showed minimal gastritis and colonoscopy showed only 1 cm distal sigmoid colonic polyps and no evidence of malignancy in the endoscopies at this time. 4. Elevated plasma lactic acid, undetermined etiology, improved. 5. History of cerebrovascular accident, transient ischemic attack. 6. Gastroesophageal reflux disease. 7. Hypertension. 8. History of hyperlipidemia. 9. History of back surgery. 10.History of anxiety. 11.Remote history of nicotine dependence. DISCHARGE DISPOSITION: The patient will be discharged in stable condition with guarded prognosis. HISTORY OF PRESENT ILLNESS: This 68-year-old gentleman with a past medical history of multiple medical problems admitted with nausea, vomiting, and hyponatremia. Patient treated symptomatically with fluids. Patient improved significantly. He was seen by Nephrology and Gastroenterology performed a complete workup including CT scans and as well as endoscopy which was negative for malignancy. The patient improved significantly. On exam, vitals are stable. Cardio system: S1, S2 muffled. Abdomen soft. Nervous system: No focal deficits. DISCHARGE DISPOSITION: The patient is being discharged in a stable condition with guarded prognosis with the following advice and medications: 1. Diet is cardiac diet. 2. Activity limited until followup. 3. Follow up with Dr. Vizcaino in 2 weeks. 4. Follow up with [facility] in 1-2 days. DISCHARGE MEDICATIONS: 1. Norvasc 5 mg p.o. daily. 2. Omeprazole 20 mg p.o. daily. 3. Pravachol 10 mg p.o. q.h.s. 4. Tylenol 650 q.6h p.r.n. 5. Zantac 150 mg p.o. b.i.d. 6. Zestril 20 mg p.o. b.i.d. 7. Catapres 0.1 p.o. b.i.d. 8. Habitrol 21 daily. Once again the patient being discharged in stable condition with guarded prognosis. MMODL / IJN: [id number] /
== END 2019-05-01 14:59 | disposition home or self-care (01) | DRG 641 ==
LOC: EC 14:21 → 4SSUR 17:33
PROVIDERS: ADMIT Hospitalist; ATTEND Hospitalist
PROC: 0DBN8ZX Excision of Sigmoid Colon, Via Natural or Artificial Opening Endoscopic, Diagnostic (ICD-10-PCS; 2019-04-30)
PROC: 0DB98ZX Excision of Duodenum, Via Natural or Artificial Opening Endoscopic, Diagnostic (ICD-10-PCS; principal; 2019-04-30 08:05)
PROC: 0DB78ZX Excision of Stomach, Pylorus, Via Natural or Artificial Opening Endoscopic, Diagnostic (ICD-10-PCS; 2019-04-30 08:05)
DX: E87.1 Hypo-osmolality and hyponatremia (principal); N28.1 Cyst of kidney, acquired; E86.1 Hypovolemia; D12.5 Benign neoplasm of sigmoid colon; K29.70 Gastritis, unspecified, without bleeding; K29.80 Duodenitis without bleeding; K21.9 Gastro-esophageal reflux disease without esophagitis; E78.5 Hyperlipidemia, unspecified; I10 Essential (primary) hypertension; F41.9 Anxiety disorder, unspecified; F32.9 Major depressive disorder, single episode, unspecified; R63.4 Abnormal weight loss; Z79.899 Other long term (current) drug therapy; Z87.891 Personal history of nicotine dependence; Z86.73 Personal history of transient ischemic attack (TIA), and cerebral infarction without residual deficits; Z82.49 Family history of ischemic heart disease and other diseases of the circulatory system; Z80.8 Family history of malignant neoplasm of other organs or systems; Z86.19 Personal history of other infectious and parasitic diseases
CPT/HCPCS: 36415; 43239; 45385; 71046; 71250; 74177; 80048; 80053; 81003; 82150; 82533; 82570; 83605; 83690; 83735; 83930; 83935; 84133; 84300; 84443; 84484; 84540; 84550; 84560; 85025; 85652; 86140; 88305; 96361; 96374; 96375; 99285

== ENCOUNTER 2019-05-04 23:36 | Emergency (ER) | payer OTHER, MEDICARE ==
[2019-05-04 23:39] VITALS: TEMP 97.7
[2019-05-05] MEDS ORDERED: SODIUM CHLORIDE 0.9% 1,000 ML IV STA (00:06)
[2019-05-05] MEDS ORDERED: ONDANSETRON 4 MG/2 ML VIAL IVP STA (00:06)
[2019-05-05] MEDS ORDERED: MORPHINE SULFATE 4 MG/ML SYRINGE IVP STA (00:08)
[2019-05-05 00:35] LABS: Basophils % (A) 1 %; Eosinophils # (A) 0.1 k/uL (0-0.7); Eosinophils % (A) 2 %; HCT 39.5 % (39.0-53.0); HGB 13.4 gm/dL (13.0-17.5); Lymphocytes # (A) 1.1 k/uL (1.0-4.8); Lymphocytes % (A) 18 %; MCH 30.7 pg (25.0-35.0); MCV 90.4 fL (80.0-100.0); Mean Platelet Volume 6.8; Monocytes # (A) 0.3 k/uL (0-1.0); Monocytes % (A) 6 %; Neutrophils # (A) 4.2 k/uL (1.3-7.7); Neutrophils % (A) 72 %; Platelet Count 250 k/uL (150-450); RBC 4.37 m/uL (4.30-5.90); RDW 15.6 % (11.5-15.5); WBC 5.9 k/uL (3.8-10.6)
[2019-05-05 00:42] VITALS: RESP 16
[2019-05-05 00:54] LABS: Albumin 3.8 g/dL (3.5-5.0); Calcium 9.7 mg/dL (8.4-10.2); Potassium 4.5 mmol/L (3.5-5.1); Total Bilirubin 0.5 mg/dL (0.2-1.3); Total Protein 6.5 g/dL (6.3-8.2)
[2019-05-05 01:34] LABS: Appearance,Urine Clear (Clear); Bilirubin,Urine Negative (Negative); Blood,Urine Negative (Negative); Color,Urine Light Yellow; Glucose,Urine (UA) Negative (Negative); Ketones,Urine Negative (Negative); Leukocyte Esterase,Urine Negative (Negative); Nitrite,Urine Negative (Negative); Protein,Urine Negative (Negative); Specific Gravity,Urine 1.008 (1.001-1.035); Urobilinogen,Urine <2.0 mg/dL (<2.0)
[2019-05-05] MEDS ORDERED: ACET/COD 300 MG/30 MG STARTER PACK 6 TAB BTL PO STA (01:36)
[2019-05-05] MEDS ORDERED: MAGNESIUM CITRATE 296 ML BOTTLE PO ONE (01:36)
--- NOTE | 2019-05-05 02:01 | ED ---
Abdominal Pain HPI - General Chief Complaint: Abdominal Pain Stated Complaint: abd pain Time Seen by Provider: 05/04/19 23:42 Source: patient Mode of arrival: ambulatory Limitations: no limitations - History of Present Illness Initial Comments: Patient is 68-year-old female presenting to emergency Department with a chief complaint of abdominal pain. His son is also present in the room as a historian. Son reports the patient has developed abdominal pain in the epigastric region. Along with nausea and vomiting for approximately over a year. Son states they have been going to the emergency department at [facility] multiple times a month without a source of his symptoms. Son reports the patient has developed similar symptoms approximately 1 week ago and they came to the ED here where the patient was admitted to The hospital for 3 days. Nephrology was consulted for hyponatremia which was corrected using fluids. GI was also consulted. Patient was discharged 4 days ago without symptoms. The son stated the patient has developed the same symptoms today again. Patient reports he drinks a lot of water but is also urinating a lot. Patient reports the pain is not related to oral fluid intake. Patient reports "has not slept a few days". Patient denies hematuria, hematochezia or melena. Patient reports daily bowel movements that have decreased over the past few days. Patient denies taking medication to alleviate the symptoms. Patient reports she has lost "60 pounds"since last year. - Related Data Home Medications Medication Instructions Recorded Confirmed Acetaminophen Tab [Tylenol] 650 mg PO Q6H PRN 04/28/19 04/28/19 Lisinopril [Zestril] 20 mg PO BID 04/28/19 04/28/19 Omeprazole 20 mg PO DAILY 04/28/19 04/28/19 Pravastatin Sodium [Pravachol] 10 mg PO HS 04/28/19 04/28/19 Ranitidine HCl [Zantac] 150 mg PO BID 04/28/19 04/28/19 amLODIPine [Norvasc] 5 mg PO DAILY 04/28/19 04/28/19 Previous Rx's Medication Instructions Recorded Nicotine 21Mg/24Hr Patch [Habitrol] 1 patch TRANSDERM DAILY #30 patch 05/01/19 cloNIDine HCL [Catapres] 0.1 mg PO BID #60 tab 05/01/19 Dicyclomine [Bentyl] 20 mg PO TID #30 tablet 05/05/19 Ondansetron Odt [Zofran Odt] 4 mg PO Q8HR PRN #10 tab 05/05/19 Allergies Allergy/AdvReac Type Severity Reaction Status Date / Time No Known Allergies Allergy Verified 05/04/19 23:39 Review of Systems ROS Statement: Those systems with pertinent positive or pertinent negative responses have been documented in the HPI. ROS Other: All systems not noted in ROS Statement are negative. Past Medical History Past Medical History: CVA/TIA, GERD/Reflux, Hyperlipidemia, Hypertension History of Any Multi-Drug Resistant Organisms: None Reported Past Surgical History: Back Surgery, Tonsillectomy Past Anesthesia/Blood Transfusion Reactions: No Reported Reaction Past Psychological History: Anxiety Smoking Status: Former smoker Past Alcohol Use History: None Reported Past Drug Use History: None Reported - Past Family History Mother History Unknown: Yes Additional Family Medical History / Comment(s): of a heart attack Father Family Medical History: Cancer Additional Family Medical History / Comment(s): thoart cancer General Exam Limitations: no limitations General appearance: alert, in no apparent distress Head exam: Present: atraumatic, normocephalic, normal inspection Eye exam: Present: normal appearance, PERRL, EOMI Pupils: Present: normal accommodation ENT exam: Present: normal exam, normal oropharynx, mucous membranes dry, TM's normal bilaterally, normal external ear exam Neck exam: Present: normal inspection, full ROM Respiratory exam: Present: normal lung sounds bilaterally Cardiovascular Exam: Present: regular rate, normal rhythm, normal heart sounds GI/Abdominal exam: Present: soft, tenderness (Epigastric), normal bowel sounds. Absent: guarding, rebound, mass Extremities exam: Present: normal inspection, full ROM Back exam: Present: normal inspection, full ROM Neurological exam: Present: alert, oriented X3 Psychiatric exam: Present: normal affect, normal mood Skin exam: Present: warm, intact, normal color Course Vital Signs 05/04/19 05/05/19 05/05/19 23:36 00:38 02:09 Temperature 97.7 F Pulse Rate 94 68 77 Respiratory 18 16 16 Rate Blood Pressure 190/88 162/87 162/86 O2 Sat by Pulse 99 97 99 Oximetry Medical Decision Making - Medical Decision Making Patient is 68-year-old male presenting to emergency Department with a chief complaint of nausea vomiting abdominal pain. Patient was released 4 days ago from this hospital. Nephrology was able to correct the hyponatremia with fluids. GI was also consulted and performed upper GI scope and coloscopy. Upper GI detect mild gastritis and colonoscopy to turn 1 cm sigmoid polyp that was not malignant. Patient showed improvement on discharge. Patient reports symptoms of nausea vomiting and abdominal pain has recurred today. Patient has had this issue for approximately one year and no exact cause has been determined. KUB is indicative of moderate stool impaction with no obstruction noted. No acute abdomen. Physical examination patient does have epigastric pain with no rebound tenderness. Negative Black sign. Negative McBurney point tenderness. Patient was given analgesia and antiemetic medication. Patient also given fluids. Patient given mag citrate and advised to only use small amounts to eliminate some of the stool impaction. Patient appears to have mild hyponatremia of 131. Patient will be discharged and advised to follow-up with a petrophysical engineer. Patient also discharged with Bentyl. Strict return parameters were thoroughly discussed with patient and son sheri dobbins and agreeable. Case discussed with physician. - Lab Data Result diagrams: 05/05/19 00:28 05/05/19 00:28 Lab Results 05/05/19 05/05/19 05/05/19 Range/Units 00:28 00:28 01:23 WBC 5.9 (3.8-10.6) k/uL RBC 4.37 (4.30-5.90) m/uL Hgb 13.4 (13.0-17.5) gm/dL Hct 39.5 (39.0-53.0) % MCV 90.4 (80.0-100.0) fL MCH 30.7 (25.0-35.0) pg MCHC 34.0 (31.0-37.0) g/dL RDW 15.6 H (11.5-15.5) % Plt Count 250 (150-450) k/uL Neutrophils % 72 % Lymphocytes % 18 % Monocytes % 6 % Eosinophils % 2 % Basophils % 1 % Neutrophils # 4.2 (1.3-7.7) k/uL Lymphocytes # 1.1 (1.0-4.8) k/uL Monocytes # 0.3 (0-1.0) k/uL Eosinophils # 0.1 (0-0.7) k/uL Basophils # 0.0 (0-0.2) k/uL Sodium 131 L (137-145) mmol/L Potassium 4.5 (3.5-5.1) mmol/L Chloride 95 L (98-107) mmol/L Carbon Dioxide 29 (22-30) mmol/L Anion Gap 7 mmol/L BUN 21 H (9-20) mg/dL Creatinine 1.01 (0.66-1.25) mg/dL Est GFR (CKD-EPI)AfAm 87 (>60 ml/min/1.73 sqM) Est GFR (CKD-EPI)NonAf 75 (>60 ml/min/1.73 sqM) Glucose 97 (74-99) mg/dL Calcium 9.7 (8.4-10.2) mg/dL Total Bilirubin 0.5 (0.2-1.3) mg/dL AST 15 L (17-59) U/L ALT 20 L (21-72) U/L Alkaline Phosphatase 47 (38-126) U/L Total Protein 6.5 (6.3-8.2) g/dL Albumin 3.8 (3.5-5.0) g/dL Amylase 76 (30-110) U/L Lipase 121 (23-300) U/L Urine Color Light Yellow Urine Appearance Clear (Clear) Urine pH 6.0 (5.0-8.0) Ur Specific [place] 1.008 (1.001-1.035) Urine Protein Negative (Negative) Urine Glucose (UA) Negative (Negative) Urine Ketones Negative (Negative) Urine Blood Negative (Negative) Urine Nitrite Negative (Negative) Urine Bilirubin Negative (Negative) Urine Urobilinogen <2.0 (<2.0) mg/dL Ur Leukocyte Esterase Negative (Negative) Disposition Clinical Impression: Abdominal pain Disposition: HOME SELF-CARE Condition: Stable Instructions (If sedation given, give patient instructions): Abdominal Pain (ED ) Additional Instructions: Please see prescribe medication as directed. Alternate between Tylenol and ibuprofen for pain control. Please return to emergency department if symptoms worsen. Prescriptions: Dicyclomine [Bentyl] 20 mg PO TID #30 tablet Is patient prescribed a controlled substance at d/c from ED?: No Referrals: [facility],Clinic [Primary Care Provider] - 1-2 days Time of Disposition: 02:00
[2019-05-05 02:11] VITALS: BP 162/86; PULSE 77
--- NOTE | 2019-05-05 03:04 | XR ---
EXAM: XR Abdomen, 1 View CLINICAL HISTORY: ITS.REASON XR Reason: abdominal pain TECHNIQUE: Frontal supine view of the abdomen/pelvis. 2 images COMPARISON: No relevant prior studies available. FINDINGS: Gastrointestinal tract: Moderate fecal material throughout the colon. No dilation. Bones/joints: Degenerative changes and mild scoliosis of the lumbosacral spine. Vasculature: Bilateral femoral artery calcifications noted. IMPRESSION: No acute findings.
== END 2019-05-05 02:07 | disposition home or self-care (01) ==
LOC: EC 23:36
DX: R10.13 Epigastric pain (principal); R11.2 Nausea with vomiting, unspecified; K21.9 Gastro-esophageal reflux disease without esophagitis; E78.5 Hyperlipidemia, unspecified; I10 Essential (primary) hypertension; Z87.891 Personal history of nicotine dependence; Z86.73 Personal history of transient ischemic attack (TIA), and cerebral infarction without residual deficits; Z79.899 Other long term (current) drug therapy
CPT/HCPCS: 36415; 80053; 82150; 83690; 85025; 81003; 74018; 99284; 96374; 96375; 96361; J2270; J2405

== ENCOUNTER 2019-05-11 12:21 | Emergency (ER) | payer OTHER, MEDICARE ==
[2019-05-11 13:23] LABS: Basophils # (A) 0.1 k/uL (0-0.2); Basophils % (A) 1 %; Eosinophils # (A) 0.1 k/uL (0-0.7); Eosinophils % (A) 1 %; HCT 40.9 % (39.0-53.0); HGB 13.7 gm/dL (13.0-17.5); Lymphocytes # (A) 1.1 k/uL (1.0-4.8); Lymphocytes % (A) 14 %; MCH 30.2 pg (25.0-35.0); MCHC 33.5 g/dL (31.0-37.0); MCV 90.3 fL (80.0-100.0); Mean Platelet Volume 6.6; Monocytes # (A) 0.4 k/uL (0-1.0); Monocytes % (A) 5 %; Neutrophils % (A) 78 %; Platelet Count 290 k/uL (150-450); RBC 4.53 m/uL (4.30-5.90); RDW 13.7 % (11.5-15.5); WBC 7.7 k/uL (3.8-10.6)
[2019-05-11 13:32] LABS: Albumin 4.5 g/dL (3.5-5.0); Calcium 9.8 mg/dL (8.4-10.2); Potassium 5.2 mmol/L (3.5-5.1); Total Bilirubin 0.5 mg/dL (0.2-1.3); Total Protein 7.5 g/dL (6.3-8.2)
[2019-05-11] MEDS ORDERED: SODIUM CHLORIDE 0.9% 1,000 ML IV ONE (14:03)
[2019-05-11 14:08] VITALS: TEMP 97.9
--- NOTE | 2019-05-11 15:14 | ED ---
General Adult HPI - General Chief complaint: Recheck/Abnormal Lab/Rx Stated complaint: Abn labs Time Seen by Provider: 05/11/19 12:30 Source: patient Mode of arrival: ambulatory Limitations: no limitations - History of Present Illness Initial comments: Patient is a 68-year-old male who presents emergency department from his primary care office. The patient was recently hospitalized for low sodium levels. He followed up in his primary care physician office today. Laboratory studies were conducted the patient was told that his sodium level was low. He was instructed to come to the emergency room for replacement. The patient's does not have any laboratory studies to provide to me. He states he is asymptomatic at this time. He denies any dizziness, nausea or vomiting. She denies any weakness, syncope or presyncope. The patient is unsure of his etiology of recurrent hyponatremia. I did review the patient's records and it does demonstrate that the patient has poor solute intake. The patient denies any recent nausea or vomiting or diap horesis. Does report to good oral intake. Admits to urinary frequency which has been chronic for him. He denies any additional symptoms include chest pain, shortness of breath or lower extremity edema. No headaches or visual changes. There are no other alleviating, precipitating or modifying factors - Related Data Home Medications Medication Instructions Recorded Confirmed Pravastatin Sodium [Pravachol] 10 mg PO HS@1600 04/28/19 05/17/19 Ranitidine HCl [Zantac] 150 mg PO BID 04/28/19 05/17/19 Acetaminophen Tab [Tylenol] 650 mg PO Q6H PRN 05/13/19 05/17/19 Omeprazole 20 mg PO DAILY 05/13/19 05/17/19 Dicyclomine [Bentyl] 20 mg PO TID 05/17/19 05/17/19 Previous Rx's Medication Instructions Recorded Lisinopril [Zestril] 20 mg PO DAILY tab 05/18/19 amLODIPine [Norvasc] 5 mg PO DAILY tab 05/18/19 Allergies Allergy/AdvReac Type Severity Reaction Status Date / Time No Known Allergies Allergy Verified 05/17/19 18:16 Review of Systems ROS Statement: Those systems with pertinent positive or pertinent negative responses have been documented in the HPI. ROS Other: All systems not noted in ROS Statement are negative. Past Medical History Past Medical History: CVA/TIA, GERD/Reflux, Hyperlipidemia, Hypertension History of Any Multi-Drug Resistant Organisms: None Reported Past Surgical History: Back Surgery, Tonsillectomy Past Anesthesia/Blood Transfusion Reactions: No Reported Reaction Past Psychological History: Anxiety Smoking Status: Former smoker Past Alcohol Use History: None Reported Past Drug Use History: None Reported - Past Family History Mother History Unknown: Yes Additional Family Medical History / Comment(s): of a heart attack Father Family Medical History: Cancer Additional Family Medical History / Comment(s): thoart cancer General Exam Limitations: no limitations General appearance: alert, in no apparent distress Head exam: Present: atraumatic, normocephalic, normal inspection Eye exam: Present: normal appearance, PERRL, EOMI. Absent: scleral icterus, conjunctival injection, periorbital swelling ENT exam: Present: normal exam, mucous membranes moist Neck exam: Present: normal inspection. Absent: tenderness, meningismus, lymphadenopathy Respiratory exam: Present: normal lung sounds bilaterally. Absent: respiratory distress, wheezes, rales, rhonchi, stridor Cardiovascular Exam: Present: regular rate, normal rhythm, normal heart sounds. Absent: systolic murmur, diastolic murmur, rubs, gallop, clicks GI/Abdominal exam: Present: soft, normal bowel sounds. Absent: distended, tenderness, guarding, rebound, rigid Extremities exam: Present: normal inspection, full ROM, normal capillary refill. Absent: tenderness, pedal edema, joint swelling, calf tenderness Back exam: Present: normal inspection Neurological exam: Present: alert, oriented X3, CN II-XII intact Psychiatric exam: Present: normal affect, anxious Skin exam: Present: warm, dry, intact, normal color. Absent: rash Course Vital Signs 05/11/19 05/11/19 12:26 15:27 Temperature 97.9 F Pulse Rate 82 89 Respiratory 20 16 Rate Blood Pressure 130/76 137/90 O2 Sat by Pulse 98 98 Oximetry Medical Decision Making - Medical Decision Making Upon arrival the patient was placed into room 10. A thorough history and physical exam was performed. Peripheral IV was established. Laboratory studies were conducted. On review, the patient's sodium levels noted to be 131. Potassium is 5.2. I did provide the patient with a liter bolus of normal saline. As the patient is asymptomatic, the patient will be discharged to follow-up with his primary care physician. The patient also saw Dr. Vizcaino in the hospital. I will provide him with his follow-up information as the patient was supposed to follow-up in 2 weeks of his hospital discharge. The patient agreed to the treatment plan. If he has any new or worsening symptoms he should return to the emergency room. The patient was discharged in stable condition - Lab Data Result diagrams: 05/11/19 12:57 05/11/19 12:57 Lab Results 05/11/19 05/11/19 Range/Units 12:57 12:57 WBC 7.7 (3.8-10.6) k/uL RBC 4.53 (4.30-5.90) m/uL Hgb 13.7 (13.0-17.5) gm/dL Hct 40.9 (39.0-53.0) % MCV 90.3 (80.0-100.0) fL MCH 30.2 (25.0-35.0) pg MCHC 33.5 (31.0-37.0) g/dL RDW 13.7 (11.5-15.5) % Plt Count 290 (150-450) k/uL Neutrophils % 78 % Lymphocytes % 14 % Monocytes % 5 % Eosinophils % 1 % Basophils % 1 % Neutrophils # 6.0 (1.3-7.7) k/uL Lymphocytes # 1.1 (1.0-4.8) k/uL Monocytes # 0.4 (0-1.0) k/uL Eosinophils # 0.1 (0-0.7) k/uL Basophils # 0.1 (0-0.2) k/uL Sodium 131 L (137-145) mmol/L Potassium 5.2 H (3.5-5.1) mmol/L Chloride 93 L (98-107) mmol/L Carbon Dioxide 25 (22-30) mmol/L Anion Gap 13 mmol/L BUN 20 (9-20) mg/dL Creatinine 1.09 (0.66-1.25) mg/dL Est GFR (CKD-EPI)AfAm 79 (>60 ml/min/1.73 sqM) Est GFR (CKD-EPI)NonAf 68 (>60 ml/min/1.73 sqM) Glucose 93 (74-99) mg/dL Osmolality 269 L (280-301) mosm/kg Calcium 9.8 (8.4-10.2) mg/dL Total Bilirubin 0.5 (0.2-1.3) mg/dL AST 17 (17-59) U/L ALT 26 (21-72) U/L Alkaline Phosphatase 57 (38-126) U/L Total Protein 7.5 (6.3-8.2) g/dL Albumin 4.5 (3.5-5.0) g/dL Disposition Clinical Impression: Hyponatremia Disposition: HOME SELF-CARE Condition: Stable Instructions (If sedation given, give patient instructions): Hyponatremia (ED) Additional Instructions: Please follow-up with Dr. Vizcaino in office. Return to the emergency room for any new or worsening symptoms Is patient prescribed a controlled substance at d/c from ED?: No Referrals: [facility],Clinic [Primary Care Provider] - 1-2 days Matty Vizcaino DO [STAFF PHYSICIAN] - 1-2 days Time of Disposition: 15:14
[2019-05-11 15:29] VITALS: BP 137/90; PULSE 89; RESP 16
== END 2019-05-11 15:29 | disposition home or self-care (01) ==
LOC: EC 12:21
DX: E87.1 Hypo-osmolality and hyponatremia (principal); K21.9 Gastro-esophageal reflux disease without esophagitis; I10 Essential (primary) hypertension; E78.5 Hyperlipidemia, unspecified; Z79.51 Long term (current) use of inhaled steroids; Z79.899 Other long term (current) drug therapy; Z87.891 Personal history of nicotine dependence
CPT/HCPCS: 36415; 80053; 83930; 85025; 96360; 99283

== ENCOUNTER 2019-05-13 10:06 | Emergency (ER) | payer OTHER, MEDICARE ==
[2019-05-13 10:29] VITALS: TEMP 98.1
[2019-05-13] MEDS ORDERED: ONDANSETRON 4 MG/2 ML VIAL IVP STA (11:25)
[2019-05-13] MEDS ORDERED: SODIUM CHLORIDE 0.9% 1,000 ML IV ONE (11:25)
[2019-05-13] MEDS ORDERED: LORazepam 2 MG/ML INJ IV STA (11:26)
[2019-05-13 12:18] LABS: Basophils % (A) 0 %; Eosinophils # (A) 0.1 k/uL (0-0.7); Eosinophils % (A) 1 %; HCT 37.3 % (39.0-53.0); HGB 12.9 gm/dL (13.0-17.5); Lymphocytes # (A) 0.8 k/uL (1.0-4.8); Lymphocytes % (A) 10 %; MCH 30.9 pg (25.0-35.0); MCHC 34.6 g/dL (31.0-37.0); MCV 89.3 fL (80.0-100.0); Mean Platelet Volume 6.8; Monocytes # (A) 0.4 k/uL (0-1.0); Monocytes % (A) 5 %; Neutrophils # (A) 6.5 k/uL (1.3-7.7); Neutrophils % (A) 83 %; Platelet Count 304 k/uL (150-450); RBC 4.18 m/uL (4.30-5.90); RDW 15.1 % (11.5-15.5); WBC 7.9 k/uL (3.8-10.6)
[2019-05-13 12:27] LABS: Calcium 9.4 mg/dL (8.4-10.2); Potassium 4.6 mmol/L (3.5-5.1); Total Bilirubin 0.4 mg/dL (0.2-1.3); Total Protein 6.7 g/dL (6.3-8.2)
--- NOTE | 2019-05-13 12:46 | CT ---
EXAMINATION TYPE: CT brain wo con DATE OF EXAM: 05/13/2019 COMPARISON: None HISTORY: 68-year-old male Dizziness TECHNIQUE: Examination was done in axial plane without intravenous contrast. Coronal and sagittal r econstructions performed. CT DLP: 1099.4 mGycm Automated exposure control for dose reduction was used. FINDINGS: There is no evidence of acute intracranial hemorrhage, acute ischemic changes, mass, mass-effect, or extra-axial fluid collection. There is no effacement of cerebral sulci or basal subarachnoid cister ns. There is no hydrocephalus. There is no midline shift. Bliss-white matter distinction is preserv ed. Mild cerebral cortical atrophy. Encephalomalacia left occipital lobe related to prior infarct. Second fely asymmetric dilatation atrium and occipital horn of the left lateral ventricle. Additional small infarcts within both right and left cerebellar hemispheres, axial image 16 and 18, r espectively. Paranasal sinuses and mastoid air cells are well pneumatized. Orbits and globes appear intact. IMPRESSION: Old left occipital lobe infarct. Additional small infarcts within both cerebellar hemispheres. Mild g eneralized atrophy. No acute intracranial abnormality seen.
[2019-05-13 12:48] LABS: Appearance,Urine Clear (Clear); Bilirubin,Urine Negative (Negative); Blood,Urine Negative (Negative); Color,Urine Yellow; Glucose,Urine (UA) Negative (Negative); Ketones,Urine Negative (Negative); Leukocyte Esterase,Urine Negative (Negative); Nitrite,Urine Negative (Negative); PH, Urine 5.5 (5.0-8.0); Protein,Urine Negative (Negative); Specific Gravity,Urine 1.014 (1.001-1.035); Urobilinogen,Urine <2.0 mg/dL (<2.0)
[2019-05-13 13:37] VITALS: BP 138/76; PULSE 78; RESP 18
--- NOTE | 2019-05-13 14:15 | ED ---
General Adult HPI - General Chief complaint: Recheck/Abnormal Lab/Rx Stated complaint: abn labs Source: patient Mode of arrival: ambulatory Limitations: no limitations - History of Present Illness Initial comments: The patient is a 68-year-old male with past medical history of CVA and hyponatremia who presents to the emergency department with reported nausea. The patient states that he will suffer from nausea when his sodium is low. The patient was seen in the emergency department 2 days ago and had evaluation in the sodium at that time. He was on the low end of normal and he was given fluids. He was asymptomatic at that time and went home. Reports that he called his welder apprentice arc however cannot get an appointment until June to see him. He has been able to eat and drink without difficulty however states that he is nauseated. Denies any abdominal pain. Admits to increased frequency of urination. Denies any dysuria or hematuria. Denies any changes in his bowel habits to include melanotic stools or hematochezia. No fevers or chills. He denies any back or flank pain. The patient denies any headaches or visual changes. Does admit to mild dizziness. Denies presyncope or syncope no blunt head trauma. No recent medication changes. He that he has been taking his medications as directed. He has been following up with his primary care physician in office. He is currently undergoing further testing for his low sodium. He states that he was told not to use any salt in his food. He denies any chest pain or shortness of breath. There are no other alleviating, precipitating or modifying factors - Related Data Home Medications Medication Instructions Recorded Confirmed Lisinopril [Zestril] 20 mg PO BID 04/28/19 05/13/19 Pravastatin Sodium [Pravachol] 20 mg PO HS 04/28/19 05/13/19 Ranitidine HCl [Zantac] 150 mg PO BID 04/28/19 05/13/19 Acetaminophen Tab [Tylenol Tab] 650 mg PO Q6H PRN 05/13/19 05/13/19 Azithromycin [Zithromax Z-pack] See Taper PO DIRECTED 05/13/19 05/13/19 Omeprazole 20 mg PO DAILY 05/13/19 05/13/19 Ondansetron HCl [Zofran] 4 mg PO Q8H PRN 05/13/19 05/13/19 amLODIPine [Norvasc] 5 mg PO DAILY 05/13/19 05/13/19 Previous Rx's Medication Instructions Recorded Dicyclomine [Bentyl] 20 mg PO TID #30 tablet 05/05/19 Allergies Allergy/AdvReac Type Severity Reaction Status Date / Time No Known Allergies Allergy Verified 05/13/19 10:58 Review of Systems ROS Statement: Those systems with pertinent positive or pertinent negative responses have been documented in the HPI. ROS Other: All systems not noted in ROS Statement are negative. Past Medical History Past Medical History: CVA/TIA, GERD/Reflux, Hyperlipidemia, Hypertension Additional Past Medical History / Comment(s): Low sodium History of Any Multi-Drug Resistant Organisms: None Reported Past Surgical History: Back Surgery, Tonsillectomy Past Anesthesia/Blood Transfusion Reactions: No Reported Reaction Past Psychological History: Anxiety Smoking Status: Former smoker Past Alcohol Use History: None Reported Past Drug Use History: None Reported - Past Family History Mother History Unknown: Yes Additional Family Medical History / Comment(s): of a heart attack Father Family Medical History: Cancer Additional Family Medical History / Comment(s): thoart cancer General Exam Limitations: no limitations Course Vital Signs 05/13/19 05/13/19 05/13/19 10:25 13:36 14:26 Temperature 98.1 F 98.1 F Pulse Rate 79 78 78 Respiratory 16 18 18 Rate Blood Pressure 131/85 138/76 138/76 O2 Sat by Pulse 97 96 96 Oximetry Medical Decision Making - Medical Decision Making Upon arrival the patient is placed into room well. He is hooked up to continuous pulse ox and cardiac monitoring. A 12-lead EKG is performed on the patient which demonstrates no acute ST segment elevations. Peripheral IV is established. The patient is given a liter of normal saline. He is also provided with 4 mg of Zofran. Laboratory studies were conducted and the patient was sent for a CT of his brain as I am concerned for the patient's persistent nausea. NIH stroke scale demonstrates no focal neurologic deficits. Laboratory studies show a hemoglobin of 12.9. Sodium is 130. Chloride 95. Urinalysis is unremarkable. CT brain demonstrates old left occipital lobe infarct. Additional small infarcts within both cerebellar hemispheres. Mild generalized atrophy. No acute intracranial abnormality seen. I did discuss these results with the patient. He states he does feel improved at this time. I did recommend hospital admission in order to continue to hydrate the patient. This is his second visit in the emergency department in 2 days. He is unable to see his welder apprentice arc before June therefore I do recommend consult with nephrolog y. The patient refuses. He states he does not want to be hospitalized. I did discuss the risks and benefits of possible admission however the patient refused and stated he wanted to go home. Patient will be discharged home. He does have Zofran at home to take for his nausea. I did instruct him that he may incorporate some sodium into his meals. He is to follow closely with his primary care physician for reevaluation. He has any new or worsening symptoms he should return to the emergency room. He must have his laboratory studies drawn next week. The patient understood this and he was discharged home in stable condition - Lab Data Result diagrams: 05/13/19 12:00 05/13/19 12:00 Lab Results 05/13/19 05/13/19 05/13/19 Range/Units 12:00 12:00 12:00 WBC 7.9 (3.8-10.6) k/uL RBC 4.18 L (4.30-5.90) m/uL Hgb 12.9 L (13.0-17.5) gm/dL Hct 37.3 L (39.0-53.0) % MCV 89.3 (80.0-100.0) fL MCH 30.9 (25.0-35.0) pg MCHC 34.6 (31.0-37.0) g/dL RDW 15.1 (11.5-15.5) % Plt Count 304 (150-450) k/uL Neutrophils % 83 % Lymphocytes % 10 % Monocytes % 5 % Eosinophils % 1 % Basophils % 0 % Neutrophils # 6.5 (1.3-7.7) k/uL Lymphocytes # 0.8 L (1.0-4.8) k/uL Monocytes # 0.4 (0-1.0) k/uL Eosinophils # 0.1 (0-0.7) k/uL Basophils # 0.0 (0-0.2) k/uL Sodium 130 L (137-145) mmol/L Potassium 4.6 (3.5-5.1) mmol/L Chloride 95 L (98-107) mmol/L Carbon Dioxide 24 (22-30) mmol/L Anion Gap 11 mmol/L BUN 19 (9-20) mg/dL Creatinine 0.99 (0.66-1.25) mg/dL Est GFR (CKD-EPI)AfAm 89 (>60 ml/min/1.73 sqM) Est GFR (CKD-EPI)NonAf 77 (>60 ml/min/1.73 sqM) Glucose 98 (74-99) mg/dL Plasma Lactic Acid Arsenio 0.8 (0.7-2.0) mmol/L Calcium 9.4 (8.4-10.2) mg/dL Total Bilirubin 0.4 (0.2-1.3) mg/dL AST 15 L (17-59) U/L ALT 22 (21-72) U/L Alkaline Phosphatase 51 (38-126) U/L Total Protein 6.7 (6.3-8.2) g/dL Albumin 4.0 (3.5-5.0) g/dL Lipase 176 (23-300) U/L TSH 0.851 (0.465-4.680) mIU/L Urine Color Urine Appearance (Clear) Urine pH (5.0-8.0) Ur Specific [place] (1.001-1.035) Urine Protein (Negative) Urine Glucose (UA) (Negative) Urine Ketones (Negative) Urine Blood (Negative) Urine Nitrite (Negative) Urine Bilirubin (Negative) Urine Urobilinogen (<2.0) mg/dL Ur Leukocyte Esterase (Negative) 05/13/19 Range/Units 12:20 WBC (3.8-10.6) k/uL RBC (4.30-5.90) m/uL Hgb (13.0-17.5) gm/dL Hct (39.0-53.0) % MCV (80.0-100.0) fL MCH (25.0-35.0) pg MCHC (31.0-37.0) g/dL RDW (11.5-15.5) % Plt Count (150-450) k/uL Neutrophils % % Lymphocytes % % Monocytes % % Eosinophils % % Basophils % % Neutrophils # (1.3-7.7) k/uL Lymphocytes # (1.0-4.8) k/uL Monocytes # (0-1.0) k/uL Eosinophils # (0-0.7) k/uL Basophils # (0-0.2) k/uL Sodium (137-145) mmol/L Potassium (3.5-5.1) mmol/L Chloride (98-107) mmol/L Carbon Dioxide (22-30) mmol/L Anion Gap mmol/L BUN (9-20) mg/dL Creatinine (0.66-1.25) mg/dL Est GFR (CKD-EPI)AfAm (>60 ml/min/1.73 sqM) Est GFR (CKD-EPI)NonAf (>60 ml/min/1.73 sqM) Glucose (74-99) mg/dL Plasma Lactic Acid Arsenio (0.7-2.0) mmol/L Calcium (8.4-10.2) mg/dL Total Bilirubin (0.2-1.3) mg/dL AST (17-59) U/L ALT (21-72) U/L Alkaline Phosphatase (38-126) U/L Total Protein (6.3-8.2) g/dL Albumin (3.5-5.0) g/dL Lipase (23-300) U/L TSH (0.465-4.680) mIU/L Urine Color Yellow Urine Appearance Clear (Clear) Urine pH 5.5 (5.0-8.0) Ur Specific [place] 1.014 (1.001-1.035) Urine Protein Negative (Negative) Urine Glucose (UA) Negative (Negative) Urine Ketones Negative (Negative) Urine Blood Negative (Negative) Urine Nitrite Negative (Negative) Urine Bilirubin Negative (Negative) Urine Urobilinogen <2.0 (<2.0) mg/dL Ur Leukocyte Esterase Negative (Negative) Disposition Clinical Impression: Hyponatremia, Nausea Disposition: HOME SELF-CARE Condition: Stable Instructions (If sedation given, give patient instructions): Hyponatremia (ED) Additional Instructions: Please follow-up with your primary care doctor for recheck of your sodium level. Incorporate a small amount of salt in your diet. Call to obtain a sooner appointment with Dr. Vizcaino. Return to the emergency department for any new or worsening symptoms. I did recommend hospital admission Is patient prescribed a controlled substance at d/c from ED?: No Referrals: [facility],Clinic [Primary Care Provider] - 1-2 days VizcainoMatty cabrear DO [STAFF PHYSICIAN] - 1-2 days Time of Disposition: 14:15
== END 2019-05-13 14:26 | disposition home or self-care (01) ==
LOC: EC 10:06
DX: E87.1 Hypo-osmolality and hyponatremia (principal); R11.0 Nausea; K21.9 Gastro-esophageal reflux disease without esophagitis; I10 Essential (primary) hypertension; E78.5 Hyperlipidemia, unspecified; Z79.899 Other long term (current) drug therapy; Z87.891 Personal history of nicotine dependence; Z86.73 Personal history of transient ischemic attack (TIA), and cerebral infarction without residual deficits
CPT/HCPCS: 36415; 80053; 84443; 83605; 83690; 85025; 81003; 70450; 99283; 96374; 96375; 96361 ×2; J2060; J2405

== ENCOUNTER 2019-05-15 10:16 | Emergency (ER) | payer OTHER, MEDICARE ==
[2019-05-15 10:20] VITALS: RESP 18
[2019-05-15] MEDS ORDERED: SODIUM CHLORIDE 0.9% 500 ML 500 ML IV STA (11:00)
[2019-05-15 11:54] LABS: Basophils % (A) 1 %; Eosinophils % (A) 1 %; HCT 39.2 % (39.0-53.0); HGB 13.3 gm/dL (13.0-17.5); Lymphocytes # (A) 0.7 k/uL (1.0-4.8); Lymphocytes % (A) 10 %; MCV 91.1 fL (80.0-100.0); Mean Platelet Volume 6.5; Monocytes # (A) 0.4 k/uL (0-1.0); Monocytes % (A) 6 %; Neutrophils # (A) 5.5 k/uL (1.3-7.7); Neutrophils % (A) 82 %; Platelet Count 300 k/uL (150-450); RDW 13.8 % (11.5-15.5); WBC 6.7 k/uL (3.8-10.6)
[2019-05-15 11:55] LABS: Appearance,Urine Clear (Clear); Bilirubin,Urine Negative (Negative); Blood,Urine Negative (Negative); Color,Urine Yellow; Glucose,Urine (UA) Negative (Negative); Ketones,Urine Negative (Negative); Leukocyte Esterase,Urine Negative (Negative); Nitrite,Urine Negative (Negative); PH, Urine 5.5 (5.0-8.0); Protein,Urine Negative (Negative); Specific Gravity,Urine 1.022 (1.001-1.035); Urobilinogen,Urine <2.0 mg/dL (<2.0)
--- NOTE | 2019-05-15 11:58 | ED ---
General Adult HPI - General Chief complaint: Recheck/Abnormal Lab/Rx Stated complaint: Low sodium Time Seen by Provider: 05/15/19 10:20 Source: patient, RN notes reviewed Mode of arrival: ambulatory Limitations: no limitations - History of Present Illness Initial comments: This is a 5-year-old male who presents emergency Department complaining that he feels weak. Patient states he's been having issues with the sodium and every time he gets low he feels weak so he comes into the emergency department. Patient denies any pain. Patient denies any chest pain palpitations difficulty breathing or shortness of breath per patient has any fever chills or cough per patient denies any vomiting or diarrhea. Patient states he is nauseated often and does not eat well. Patient denies any swelling to legs or calf tenderness. Patient denies any lightheadedness or dizziness per patient denies any injury or trauma. Patient's main complaint is just generalized weakness. - Related Data Home Medications Medication Instructions Recorded Confirmed Lisinopril [Zestril] 20 mg PO BID 04/28/19 05/15/19 Pravastatin Sodium [Pravachol] 10 mg PO HS 04/28/19 05/15/19 Ranitidine HCl [Zantac] 150 mg PO BID 04/28/19 05/15/19 Acetaminophen Tab [Tylenol Tab] 650 mg PO Q6H PRN 05/13/19 05/15/19 Omeprazole 20 mg PO DAILY 05/13/19 05/15/19 amLODIPine [Norvasc] 5 mg PO BID 05/13/19 05/15/19 Previous Rx's Medication Instructions Recorded Dicyclomine [Bentyl] 20 mg PO TID #30 tablet 05/05/19 Allergies Allergy/AdvReac Type Severity Reaction Status Date / Time No Known Allergies Allergy Verified 05/15/19 11:30 Review of Systems ROS Statement: Those systems with pertinent positive or pertinent negative responses have been documented in the HPI. ROS Other: All systems not noted in ROS Statement are negative. Past Medical History Past Medical History: CVA/TIA, GERD/Reflux, Hyperlipidemia, Hypertension Additional Past Medical History / Comment(s): Low sodium History of Any Multi-Drug Resistant Organisms: None Reported Past Surgical History: Back Surgery, Tonsillectomy Past Anesthesia/Blood Transfusion Reactions: No Reported Reaction Past Psychological History: Anxiety Smoking Status: Former smoker Past Alcohol Use History: None Reported Past Drug Use History: None Reported - Past Family History Mother History Unknown: Yes Additional Family Medical History / Comment(s): of a heart attack Father Family Medical History: Cancer Additional Family Medical History / Comment(s): thoart cancer General Exam - General Exam Comments Initial Comments: GENERAL: Patient is well-developed and well-nourished. Patient is nontoxic and well- hydrated and is in mild distress. ENT: Neck is soft and supple. No significant lymphadenopathy is noted. Oropharynx is clear. Moist mucous membranes. Neck has full range of motion without eliciting any pain. EYES: The sclera were anicteric and conjunctiva were pink and moist. Extraocular movements were intact and pupils were equal round and reactive to light. Eyelids were unremarkable. PULMONARY: Patient has diminished breath sounds left base otherwise lung sounds are clear CARDIOVASCULAR: There is a regular rate and rhythm without any murmurs gallops or rubs. ABDOMEN: Soft and nontender with normal bowel sounds. No palpable organomegaly was noted. There is no palpable pulsatile mass. SKIN: Skin is clear with no lesions or rashes and otherwise unremarkable. NEUROLOGIC: Patient is alert and oriented x3. Cranial nerves II through XII are grossly intact. Motor and sensory are also intact. Normal speech, volume and content. Symmetrical smile. MUSCULOSKELETAL: Normal extremities with adequate strength and full range of motion. LYMPHATICS: No significant lymphadenopathy is noted PSYCHIATRIC: Normal psychiatric evaluation. Limitations: no limitations Course Vital Signs 05/15/19 10:18 Temperature 98.1 F Pulse Rate 86 Respiratory 18 Rate Blood Pressure 124/73 O2 Sat by Pulse 98 Oximetry Medical Decision Making - Medical Decision Making Patient was given hydralazine for blood pressure and her pressure dropped and she felt a little dizzy and had a little pressure in her chest so EKG was repeated showed a normal sinus rhythm at 65 bpm [place] interval 158 QRSs 82 QT interval 444 QTC is 461. Patient's EKG continued to show ST segment depression in leads II, III, and F aVF. There is no longer any T-wave inversion. I reviewed all the patient's previous lab work in April and CAT scans as well as endoscopy. I could find no reason why the patient was weak. Patient had no problem getting up and out of bed and getting dressed and ambulating. - Lab Data Result diagrams: 05/15/19 11:34 09/21/19 11:34 Lab Results 05/15/19 05/15/19 05/15/19 Range/Units 10:22 11:34 11:34 WBC 6.7 (3.8-10.6) k/uL RBC 4.30 (4.30-5.90) m/uL Hgb 13.3 (13.0-17.5) gm/dL Hct 39.2 (39.0-53.0) % MCV 91.1 (80.0-100.0) fL MCH 31.0 (25.0-35.0) pg MCHC 34.0 (31.0-37.0) g/dL RDW 13.8 (11.5-15.5) % Plt Count 300 (150-450) k/uL Neutrophils % 82 % Lymphocytes % 10 % Monocytes % 6 % Eosinophils % 1 % Basophils % 1 % Neutrophils # 5.5 (1.3-7.7) k/uL Lymphocytes # 0.7 L (1.0-4.8) k/uL Monocytes # 0.4 (0-1.0) k/uL Eosinophils # 0.0 (0-0.7) k/uL Basophils # 0.0 (0-0.2) k/uL PT (9.0-12.0) sec INR (<1.2) APTT (22.0-30.0) sec Sodium 131 L (137-145) mmol/L Potassium 4.9 (3.5-5.1) mmol/L Chloride 95 L (98-107) mmol/L Carbon Dioxide 25 (22-30) mmol/L Anion Gap 11 mmol/L BUN 20 (9-20) mg/dL Creatinine 0.96 (0.66-1.25) mg/dL Est GFR (CKD-EPI)AfAm >90 (>60 ml/min/1.73 sqM) Est GFR (CKD-EPI)NonAf 80 (>60 ml/min/1.73 sqM) Glucose 87 (74-99) mg/dL Plasma Lactic Acid Arsenio (0.7-2.0) mmol/L Calcium 9.2 (8.4-10.2) mg/dL Magnesium 2.3 (1.6-2.3) mg/dL Total Bilirubin 0.4 (0.2-1.3) mg/dL AST 15 L (17-59) U/L ALT 24 (21-72) U/L Alkaline Phosphatase 47 (38-126) U/L Troponin I (0.000-0.034) ng/mL Total Protein 6.7 (6.3-8.2) g/dL Albumin 4.0 (3.5-5.0) g/dL Urine Color Yellow Urine Appearance Clear (Clear) Urine pH 5.5 (5.0-8.0) Ur Specific [place] 1.022 (1.001-1.035) Urine Protein Negative (Negative) Urine Glucose (UA) Negative (Negative) Urine Ketones Negative (Negative) Urine Blood Negative (Negative) Urine Nitrite Negative (Negative) Urine Bilirubin Negative (Negative) Urine Urobilinogen <2.0 (<2.0) mg/dL Ur Leukocyte Esterase Negative (Negative) 05/15/19 05/15/19 05/15/19 Range/Units 11:34 11:34 11:34 WBC (3.8-10.6) k/uL RBC (4.30-5.90) m/uL Hgb (13.0-17.5) gm/dL Hct (39.0-53.0) % MCV (80.0-100.0) fL MCH (25.0-35.0) pg MCHC (31.0-37.0) g/dL RDW (11.5-15.5) % Plt Count (150-450) k/uL Neutrophils % % Lymphocytes % % Monocytes % % Eosinophils % % Basophils % % Neutrophils # (1.3-7.7) k/uL Lymphocytes # (1.0-4.8) k/uL Monocytes # (0-1.0) k/uL Eosinophils # (0-0.7) k/uL Basophils # (0-0.2) k/uL PT 9.8 (9.0-12.0) sec INR 0.9 (<1.2) APTT 25.3 (22.0-30.0) sec Sodium (137-145) mmol/L Potassium (3.5-5.1) mmol/L Chloride (98-107) mmol/L Carbon Dioxide (22-30) mmol/L Anion Gap mmol/L BUN (9-20) mg/dL Creatinine (0.66-1.25) mg/dL Est GFR (CKD-EPI)AfAm (>60 ml/min/1.73 sqM) Est GFR (CKD-EPI)NonAf (>60 ml/min/1.73 sqM) Glucose (74-99) mg/dL Plasma Lactic Acid Arsenio 1.0 (0.7-2.0) mmol/L Calcium (8.4-10.2) mg/dL Magnesium (1.6-2.3) mg/dL Total Bilirubin (0.2-1.3) mg/dL AST (17-59) U/L ALT (21-72) U/L Alkaline Phosphatase (38-126) U/L Troponin I <0.012 (0.000-0.034) ng/mL Total Protein (6.3-8.2) g/dL Albumin (3.5-5.0) g/dL Urine Color Urine Appearance (Clear) Urine pH (5.0-8.0) Ur Specific [place] (1.001-1.035) Urine Protein (Negative) Urine Glucose (UA) (Negative) Urine Ketones (Negative) Urine Blood (Negative) Urine Nitrite (Negative) Urine Bilirubin (Negative) Urine Urobilinogen (<2.0) mg/dL Ur Leukocyte Esterase (Negative) Disposition Clinical Impression: Weakness Disposition: HOME SELF-CARE Condition: Good Instructions (If sedation given, give patient instructions): Weakness (ED), Hyponatremia (ED) Is patient prescribed a controlled substance at d/c from ED?: No Referrals: [facility],Clinic [Primary Care Provider] - 1-2 days Time of Disposition: 13:36
[2019-05-15 12:02] LABS: INR 0.9 (<1.2); Partial Thromboplastin Time 25.3 sec (22.0-30.0); Prothrombin Time 9.8 sec (9.0-12.0)
--- NOTE | 2019-05-15 12:02 | XR ---
EXAMINATION TYPE: XR chest 2V DATE OF EXAM: 05/15/2019 HISTORY: Weakness. REFERENCE: Previous study dated 04/28/2019. FINDINGS: Lung volumes are prominent. The lungs are clear. Pleural spaces are clear. The heart is not enlarged IMPRESSION: NO ACUTE INTRATHORACIC ABNORMALITY.
[2019-05-15 12:04] LABS: ALT 24 U/L (21-72); AST 15 U/L (17-59); African American GFR (CKD) >90 (>60 ml/min/1.73 sqM); Alkaline Phosphatase 47 U/L (38-126); Anion Gap 11 mmol/L; Blood Urea Nitrogen 20 mg/dL (9-20); Calcium 9.2 mg/dL (8.4-10.2); Carbon Dioxide 25 mmol/L (22-30); Chloride 95 mmol/L (98-107); Glucose 87 mg/dL (74-99); Magnesium 2.3 mg/dL (1.6-2.3); Potassium 4.9 mmol/L (3.5-5.1); Sodium 131 mmol/L (137-145); Total Bilirubin 0.4 mg/dL (0.2-1.3); Total Protein 6.7 g/dL (6.3-8.2)
[2019-05-15 13:47] VITALS: BP 126/70; PULSE 78; TEMP 98
== END 2019-05-15 13:54 | disposition home or self-care (01) ==
LOC: EC 10:16
DX: R53.1 Weakness (principal); E87.1 Hypo-osmolality and hyponatremia; R03.1 Nonspecific low blood-pressure reading; R42 Dizziness and giddiness; R07.89 Other chest pain; R94.31 Abnormal electrocardiogram [ECG] [EKG]; I10 Essential (primary) hypertension; K21.9 Gastro-esophageal reflux disease without esophagitis; E78.5 Hyperlipidemia, unspecified; Z79.899 Other long term (current) drug therapy; Z90.89 Acquired absence of other organs; Z87.891 Personal history of nicotine dependence
CPT/HCPCS: 36415; 71046; 80053; 81003; 83605; 83735; 84484; 85025; 85610; 85730; 96360; 99284

== ENCOUNTER 2019-05-16 16:00 | Emergency (ER) | payer OTHER, MEDICARE ==
--- NOTE | 2019-05-16 16:26 | ED ---
General Adult HPI - General Chief complaint: Weakness Stated complaint: Dehydrated, high BP Time Seen by Provider: 05/16/19 16:06 Source: patient Mode of arrival: ambulatory Limitations: no limitations - History of Present Illness Initial comments: Dictation was produced using [employer] dictation software. please excuse any grammatical, word or spelling errors. Chief Complaint: 68-year-old male presents with nausea and generalized weakness. History of Present Illness: 68-year-old male this is his sixth visit to our emergency department this month. Patient states that he has past medical history of significant hyponatremia and gastritis. Patient states that he is having a lot of epigastric abdominal pain. Patient was admitted and had multiple workups to evaluate his symptoms. He was admitted earlier this month had upper and lower endoscopy. EGD showed minimal gastritis. Patient was also evaluated by nephrology earlier this month for hyponatremia. Chart review shows that he was diagnosed with hypovolemic hyponatremia. Patient states that he is also nauseated. Denies vertiginous symptoms. He does complain of some worsening with oral intake. Patient reports a safe living situation at home. Patient requests to be admitted to the hospital to fix his issues. He lives at home with his son, son's and 2 kids. She needs to establish care at the [facility]. The ROS documented in this emergency department record has been reviewed and confirmed by me. Those systems with pertinent positive or negative responses have been documented in the HPI. All other systems are other negative and/or noncontributory. PHYSICAL EXAM: General Impression: Alert and oriented x3, not in acute distress HEENT: Normocephalic atraumatic, extra-ocular movements intact, pupils equal and reactive to light bilaterally, mucous membranes moist. Cardiovascular: Heart regular rate and rhythm, S1&S2 audible, no murmurs, rubs or gallops Chest: Lungs clear to auscultation bilaterally, no rhonchi, no wheeze, no rales Abdomen: Bowel sounds present, abdomen soft, mild tenderness diffusely, non- distended, no organomegaly Musculoskeletal: Pulses present and equal in all extremities, no peripheral edema Motor: no focal deficits noted Neurological: CN II-XII grossly intact, no focal motor or sensory deficits noted Skin: Intact with no visualized rashes Psych: Tearful ED course: 68-year-old male presents with chief complaint of nausea vomiting and hyponatremia. As upon arrival are within acceptable limits. Patient is well- appearing. Patient appears depressed about his symptoms. Chart review shows that patient had extensive workup for his complaints without any clear source of his symptoms. Earlier this month he had a abdomen pelvis CT showing no acute processes. CT chest showing no acute processes. He had an EGD and colonoscopy performed earlier this month as well showing minimal antral gastritis and small 1 cm distal sigmoid colon polyp. 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 He was evaluated by nephrology. He was told to increase his oral intake with an emphasis on intake solute.Ultrasound abdomen was seen showing no acute processes. Patient observed in emergency department. At this point there is no clear source of patient's symptoms. He is slightly h yponatremic. Is given fluids. Patient is encouraged to increase in the salt in his diet. He does have a good outpatient follow-up with his PCP on nephrology. EKG interpretation: Ventricular rate 79, normal sinus rhythm, GA interval 192, care is 74, QTC 408. No GA prolongation, no QTC prolongation, no ST or T-wave changes noted. No old EKG for comparison Overall, this EKG is unremarkable - Related Data Home Medications Medication Instructions Recorded Confirmed Lisinopril [Zestril] 20 mg PO BID 04/28/19 05/16/19 Pravastatin Sodium [Pravachol] 10 mg PO HS 04/28/19 05/16/19 Ranitidine HCl [Zantac] 150 mg PO BID 04/28/19 05/16/19 Acetaminophen Tab [Tylenol Tab] 650 mg PO Q6H PRN 05/13/19 05/16/19 Omeprazole 20 mg PO DAILY 05/13/19 05/16/19 amLODIPine [Norvasc] 5 mg PO BID 05/13/19 05/16/19 Previous Rx's Medication Instructions Recorded Dicyclomine [Bentyl] 20 mg PO TID #30 tablet 05/05/19 Allergies Allergy/AdvReac Type Severity Reaction Status Date / Time No Known Allergies Allergy Verified 05/16/19 16:15 Review of Systems ROS Statement: Those systems with pertinent positive or pertinent negative responses have been documented in the HPI. ROS Other: All systems not noted in ROS Statement are negative. Past Medical History Past Medical History: CVA/TIA, GERD/Reflux, Hyperlipidemia, Hypertension Additional Past Medical History / Comment(s): Low sodium History of Any Multi-Drug Resistant Organisms: None Reported Past Surgical History: Back Surgery, Tonsillectomy Past Anesthesia/Blood Transfusion Reactions: No Reported Reaction Past Psychological History: Anxiety Smoking Status: Former smoker Past Alcohol Use History: None Reported Past Drug Use History: None Reported - Past Family History Mother History Unknown: Yes Additional Family Medical History / Comment(s): of a heart attack Father Family Medical History: Cancer Additional Family Medical History / Comment(s): thoart cancer General Exam Limitations: no limitations Course Vital Signs 05/16/19 05/16/19 05/16/19 16:02 17:33 20:28 Temperature 97.8 F 97.9 F Pulse Rate 100 98 78 Respiratory 20 16 18 Rate Blood Pressure 141/84 155/83 137/80 O2 Sat by Pulse 100 98 98 Oximetry Medical Decision Making - Lab Data Result diagrams: 05/16/19 16:48 05/16/19 16:48 Lab Results 05/16/19 05/16/19 Range/Units 16:48 16:48 WBC 8.9 (3.8-10.6) k/uL RBC 4.32 (4.30-5.90) m/uL Hgb 13.2 (13.0-17.5) gm/dL Hct 39.0 (39.0-53.0) % MCV 90.1 (80.0-100.0) fL MCH 30.5 (25.0-35.0) pg MCHC 33.8 (31.0-37.0) g/dL RDW 13.7 (11.5-15.5) % Plt Count 302 (150-450) k/uL Neutrophils % 80 % Lymphocytes % 13 % Monocytes % 5 % Eosinophils % 0 % Basophils % 0 % Neutrophils # 7.1 (1.3-7.7) k/uL Lymphocytes # 1.1 (1.0-4.8) k/uL Monocytes # 0.5 (0-1.0) k/uL Eosinophils # 0.0 (0-0.7) k/uL Basophils # 0.0 (0-0.2) k/uL Sodium 129 L (137-145) mmol/L Potassium 4.3 (3.5-5.1) mmol/L Chloride 95 L (98-107) mmol/L Carbon Dioxide 24 (22-30) mmol/L Anion Gap 10 mmol/L BUN 18 (9-20) mg/dL Creatinine 0.84 (0.66-1.25) mg/dL Est GFR (CKD-EPI)AfAm >90 (>60 ml/min/1.73 sqM) Est GFR (CKD-EPI)NonAf 89 (>60 ml/min/1.73 sqM) Glucose 104 H (74-99) mg/dL Calcium 9.4 (8.4-10.2) mg/dL Magnesium 2.0 (1.6-2.3) mg/dL Total Bilirubin 0.4 (0.2-1.3) mg/dL AST 15 L (17-59) U/L ALT 24 (21-72) U/L Alkaline Phosphatase 49 (38-126) U/L Total Protein 6.8 (6.3-8.2) g/dL Albumin 4.0 (3.5-5.0) g/dL Lipase 166 (23-300) U/L Disposition Clinical Impression: Abdominal pain Disposition: HOME SELF-CARE Condition: Good Instructions (If sedation given, give patient instructions): Abdominal Pain (ED) Is patient prescribed a controlled substance at d/c from ED?: No Referrals: [facility],Clinic [Primary Care Provider] - 1-2 days Matty Vizcaino DO [STAFF PHYSICIAN] - 1-2 days Time of Disposition: 20:50
[2019-05-16 17:04] LABS: Basophils % (A) 0 %; Eosinophils % (A) 0 %; HGB 13.2 gm/dL (13.0-17.5); Lymphocytes # (A) 1.1 k/uL (1.0-4.8); Lymphocytes % (A) 13 %; MCH 30.5 pg (25.0-35.0); MCHC 33.8 g/dL (31.0-37.0); MCV 90.1 fL (80.0-100.0); Mean Platelet Volume 6.5; Monocytes # (A) 0.5 k/uL (0-1.0); Monocytes % (A) 5 %; Neutrophils # (A) 7.1 k/uL (1.3-7.7); Neutrophils % (A) 80 %; Platelet Count 302 k/uL (150-450); RBC 4.32 m/uL (4.30-5.90); RDW 13.7 % (11.5-15.5); WBC 8.9 k/uL (3.8-10.6)
[2019-05-16 17:12] LABS: ALT 24 U/L (21-72); AST 15 U/L (17-59); African American GFR (CKD) >90 (>60 ml/min/1.73 sqM); Alkaline Phosphatase 49 U/L (38-126); Anion Gap 10 mmol/L; Blood Urea Nitrogen 18 mg/dL (9-20); Calcium 9.4 mg/dL (8.4-10.2); Carbon Dioxide 24 mmol/L (22-30); Chloride 95 mmol/L (98-107); Glucose 104 mg/dL (74-99); Potassium 4.3 mmol/L (3.5-5.1); Sodium 129 mmol/L (137-145); Total Bilirubin 0.4 mg/dL (0.2-1.3); Total Protein 6.8 g/dL (6.3-8.2)
[2019-05-16] MEDS ORDERED: SODIUM CHLORIDE 0.9% 1,000 ML IV STA (17:19)
[2019-05-16] MEDS ORDERED: MAG HYDROX/AL HYDROX/SIMETH 30 ML, HYOSCYAMINE ELIXIR 10 ML, CIMETIDINE HCL 300 MG, LID... PO STA ×4 (17:47)
[2019-05-16 20:31] VITALS: BP 137/80; PULSE 78; RESP 18; TEMP 97.9
--- NOTE | 2019-05-16 20:44 | US ---
EXAMINATION TYPE: US abdomen complete DATE OF EXAM: 05/16/2019 COMPARISON: CT CLINICAL HISTORY: pain; paraumbilical pain EXAM MEASUREMENTS: Liver Length: 13.9 cm Gallbladder Wall: 0.2 cm CBD: 0.2 cm Spleen: 9.8 cm Right Kidney: 10.4 x 6.9 x 4.4 cm Left Kidney: 10.0 x 6.3 x 4.9 cm Pancreas: Mid and Tail obscured by bowel gas Liver: complex oval mass with peripheral color flow is seen in left lobe = 3.5 x 4.0 x 3.1cm.; righ t lobe is attenuated posteriorly Gallbladder: multiple, small and mobile shadowing stones within gallbladder Evidence for sonographic Black's sign: paraumbilical pain CBD: wnl Spleen: wnl Right Kidney: couple of renal cysts with larger seen mid pole = 3.3 x 2.8 x 2.7cm Left Kidney: couple of cysts with larger mid pole = 2.2 x 2.2 x 1.6cm Upper IVC: wnl Abd Aorta: widened upper aorta is noted at 2.7cm A/P and 2.9cm Transverse; irregular hyperechoic wal l changes are noted throughout aorta. IMPRESSION: Isoechoic area in the left lobe of the liver of uncertain significance. No renal obstruction. Cholelithiasis. No dilated ducts. Multiple renal cysts.
== END 2019-05-16 21:02 | disposition home or self-care (01) ==
LOC: EC 16:00
DX: R10.84 Generalized abdominal pain (principal); R11.2 Nausea with vomiting, unspecified; E87.1 Hypo-osmolality and hyponatremia; F32.9 Major depressive disorder, single episode, unspecified; K63.5 Polyp of colon; E86.1 Hypovolemia; R53.1 Weakness; K29.50 Unspecified chronic gastritis without bleeding; K21.9 Gastro-esophageal reflux disease without esophagitis; E78.5 Hyperlipidemia, unspecified; I10 Essential (primary) hypertension; Z79.899 Other long term (current) drug therapy; Z86.73 Personal history of transient ischemic attack (TIA), and cerebral infarction without residual deficits
CPT/HCPCS: 36415; 76700; 80053; 83690; 83735; 85025; 93005; 96360; 96361; 99285

== ENCOUNTER 2019-05-17 18:08 | Inpatient (IN) | payer OTHER, MEDICARE ==
--- NOTE | 2019-05-17 18:45 | ED ---
General Adult HPI - General Chief complaint: Recheck/Abnormal Lab/Rx Stated complaint: heart concerns-sent by Time Seen by Provider: 05/17/19 18:37 Source: patient Mode of arrival: wheelchair Limitations: no limitations - History of Present Illness Initial comments: Dictation was produced using [employer] dictation software. please excuse any grammatical, word or spelling errors. Chief Complaint: 68-year-old male presents today with instruction by myself to come for admission. History of Present Illness: 68-year-old male. He was seen in the emergency department multiple times over the past month. Patient was seen 6 times in the last month for concerns of nausea, abdominal pain. Symptoms were vague. Patient multiple workups which were all found to be unremarkable. Patient does have this persistent hyponatremia. Patient is in stable condition since being discharged yesterday. However he still does have some mild abdominal tenderness. The ROS documented in this emergency department record has been reviewed and confirmed by me. Those systems with pertinent positive or negative responses have been documented in the HPI. All other systems are other negative and/or noncontributory. PHYSICAL EXAM: General Impression: Alert and oriented x3, not in acute distress HEENT: Normocephalic atraumatic, extra-ocular movements intact, pupils equal and reactive to light bilaterally, mucous membranes moist. Cardiovascular: Heart regular rate and rhythm, S1&S2 audible, no murmurs, rubs or gallops Chest: Lungs clear to auscultation bilaterally, no rhonchi, no wheeze, no rales Abdomen: Bowel sounds present, abdomen soft, epigastric abdominal tenderness Musculoskeletal: Pulses present and equal in all extremities, no peripheral edema Motor: no focal deficits noted Neurological: CN II-XII grossly intact, no focal motor or sensory deficits noted Skin: Intact with no visualized rashes Psych: Normal affect and mood ED course: Patient is a 68-year-old male. He had multiple workups performed in the emergency department for complaints of abdominal pain, nausea vomiting. Patient had initially negative workup except for persistent hyponatremia that has been managed by a splunk developer. Signs upon arrival are within acceptable limits. Patient has some mild epigastric abdominal tenderness however is ot herwise well-appearing. He was notified of an addendum made by radiology to patient's CT. Patient's abdominal ultrasound was reviewed by radiology showing isoechoic area in the liver of uncertain significance. CT abdomen and pelvis from 18 days ago was reviewed and addendum was made which showed a 4.1 x 5.6 hypodensity. There is concern of a new neoplasm. Patient has history of hepatitis C. discussed patient case with Dr. Doan from Dr. Bryan's group. Dr. Najera request ordering alpha-fetoprotein level and hep C viral load level. GI will be consulted. - Related Data Home Medications Medication Instructions Recorded Confirmed Lisinopril [Zestril] 20 mg PO BID 04/28/19 05/17/19 Pravastatin Sodium [Pravachol] 10 mg PO HS@1600 04/28/19 05/17/19 Ranitidine HCl [Zantac] 150 mg PO BID 04/28/19 05/17/19 Acetaminophen Tab [Tylenol Tab] 650 mg PO Q6H PRN 05/13/19 05/17/19 Omeprazole 20 mg PO DAILY 05/13/19 05/17/19 amLODIPine [Norvasc] 5 mg PO BID 05/13/19 05/17/19 Dicyclomine [Bentyl] 20 mg PO TID 05/17/19 05/17/19 Allergies Allergy/AdvReac Type Severity Reaction Status Date / Time No Known Allergies Allergy Verified 05/17/19 18:16 Review of Systems ROS Statement: Those systems with pertinent positive or pertinent negative responses have been documented in the HPI. ROS Other: All systems not noted in ROS Statement are negative. Past Medical History Past Medical History: CVA/TIA, GERD/Reflux, Hyperlipidemia, Hypertension Additional Past Medical History / Comment(s): Low sodium History of Any Multi-Drug Resistant Organisms: None Reported Past Surgical History: Back Surgery, Tonsillectomy Past Anesthesia/Blood Transfusion Reactions: No Reported Reaction Past Psychological History: Anxiety Smoking Status: Former smoker Past Alcohol Use History: None Reported Past Drug Use History: None Reported - Past Family History Mother History Unknown: Yes Additional Family Medical History / Comment(s): of a heart attack Father Family Medical History: Cancer Additional Family Medical History / Comment(s): thoart cancer General Exam Limitations: no limitations Course Vital Signs 05/17/19 18:12 Temperature 97.9 F Pulse Rate 89 Respiratory 18 Rate Blood Pressure 150/78 O2 Sat by Pulse 100 Oximetry Disposition Clinical Impression: Liver mass Disposition: ADMITTED IP TO THIS HOSP Condition: Fair Referrals: [facility],Clinic [Primary Care Provider] - 1-2 days Decision Time: 19:19
[2019-05-17] MEDS ORDERED: NALOXONE 0.4 MG/ML 1 ML VIAL IV PRN (19:17)
[2019-05-17] MEDS: SODIUM CHLORIDE 0.9% 1,000 ML IV SCH (22:00)
[2019-05-18 00:18] VITALS: BMI 24.3
[2019-05-18] MEDS: KETOROLAC 30 MG/ML 1 ML VIAL IVP SCH ×3 (01:24→13:54)
[2019-05-18] MEDS: SODIUM CHLORIDE 0.9% 1,000 ML IV SCH ×3 (01:27→19:20)
[2019-05-18] MEDS ORDERED: NICOTINE 21MG/24HR PATCH TRANSDERM STA (03:07)
[2019-05-18] MEDS ORDERED: ACETAMINOPHEN TAB 325 MG TAB PO PRN (09:20)
[2019-05-18] MEDS ORDERED: amLODIPine 5 MG TAB PO SCH (09:30)
[2019-05-18] MEDS ORDERED: LISINOPRIL 20 MG TAB PO SCH (09:30)
[2019-05-18] MEDS: PANTOPRAZOLE 40 MG TABLET PO SCH (09:37)
[2019-05-18] MEDS: DICYCLOMINE 20 MG TAB PO SCH ×3 (09:37→21:59)
[2019-05-18] MEDS: FAMOTIDINE 20 MG TAB PO SCH ×2 (09:38→21:59)
[2019-05-18 13:21] LABS: Basophils % (A) 0 %; Eosinophils # (A) 0.1 k/uL (0-0.7); Eosinophils % (A) 1 %; HCT 39.6 % (39.0-53.0); HGB 13.3 gm/dL (13.0-17.5); Lymphocytes # (A) 1.2 k/uL (1.0-4.8); Lymphocytes % (A) 17 %; MCH 30.4 pg (25.0-35.0); MCHC 33.4 g/dL (31.0-37.0); MCV 90.8 fL (80.0-100.0); Mean Platelet Volume 6.4; Monocytes # (A) 0.5 k/uL (0-1.0); Monocytes % (A) 6 %; Neutrophils # (A) 5.4 k/uL (1.3-7.7); Neutrophils % (A) 74 %; Platelet Count 330 k/uL (150-450); RBC 4.36 m/uL (4.30-5.90); RDW 13.8 % (11.5-15.5); WBC 7.4 k/uL (3.8-10.6)
[2019-05-18 13:29] LABS: Albumin 4.2 g/dL (3.5-5.0); Calcium 9.4 mg/dL (8.4-10.2); Potassium 5.2 mmol/L (3.5-5.1); Total Bilirubin 0.6 mg/dL (0.2-1.3); Total Protein 6.9 g/dL (6.3-8.2)
--- NOTE | 2019-05-18 14:28 | P.HPIM ---
History of Present Illness Patient is a very pleasant 68-year-old gentleman came in after he was called by the ER physician because of abnormality in in his radiological imaging that was done during his last hospitalization ultrasound of the liver showed possible lesion and had a CAT scan did show the same lesion which is not characterizable.. Patient does have significant weight loss. Patient will undergo MRI here. Additionally patient does have hyponatremia with sodium of 120 9D appears like patient has a same hyponatremic during his last hospitaliz ation was treated for hypovolemic hyponatremia patient did have weight loss which is significant unintentional and recent. Patient will lead prior authorization for MRI because of which will order an MRI of the liver here depending on MRI results if needed patient will undergo biopsy. Patient denied any symptoms today. Review of Systems REVIEW OF SYSTEMS: CONSTITUTIONAL: No fever, no malaise, no fatigue. HEENT: No recent visual problems or hearing problems. Denied any sore throat. CARDIOVASCULAR: No chest pain, orthopnea, PND, no palpitations, no syncope. PULMONARY: No shortness of breath, no cough, no hemoptysis. GASTROINTESTINAL: No diarrhea, no nausea, no vomiting, no abdominal pain. NEUROLOGICAL: No headaches, no weakness, no numbness. HEMATOLOGICAL: Denies any bleeding or petechiae. GENITOURINARY: Denies any burning micturition, frequency, or urgency. MUSCULOSKELETAL/RHEUMATOLOGICAL: Denies any joint pain, swelling, or any muscle pain. ENDOCRINE: Denies any polyuria or polydipsia. The rest of the 14-point review of systems is negative. Past Medical History Past Medical History: CVA/TIA, GERD/Reflux, Hyperlipidemia, Hypertension Additional Past Medical History / Comment(s): Low sodium History of Any Multi-Drug Resistant Organisms: None Reported Past Surgical History: Back Surgery, Tonsillectomy Past Anesthesia/Blood Transfusion Reactions: No Reported Reaction Past Psychological History: Anxiety Smoking Status: Former smoker Past Alcohol Use History: None Reported Additional Past Alcohol Use History / Comment(s): Start smoking at the age of 10, and still smokes a pack a day Past Drug Use History: None Reported - Past Family History Mother History Unknown: Yes Additional Family Medical History / Comment(s): of a heart attack Father Family Medical History: Cancer Additional Family Medical History / Comment(s): thoart cancer Medications and Allergies Home Medications Medication Instructions Recorded Confirmed Type Pravastatin Sodium [Pravachol] 10 mg PO HS@1600 04/28/19 05/17/19 History Ranitidine HCl [Zantac] 150 mg PO BID 04/28/19 05/17/19 History Acetaminophen Tab [Tylenol Tab] 650 mg PO Q6H PRN 05/13/19 05/17/19 History Omeprazole 20 mg PO DAILY 05/13/19 05/17/19 History Dicyclomine [Bentyl] 20 mg PO TID 05/17/19 05/17/19 History Lisinopril [Zestril] 20 mg PO DAILY tab 05/18/19 Rx amLODIPine [Norvasc] 5 mg PO DAILY tab 05/18/19 Rx Allergies Allergy/AdvReac Type Severity Reaction Status Date / Time No Known Allergies Allergy Verified 05/17/19 18:16 Physical Exam Vitals: Vital Signs Temp Pulse Pulse Resp BP BP Pulse Ox 05/18/19 06:17 98.5 F 78 18 130/70 99 05/18/19 00:00 82 18 05/17/19 22:29 98.9 F 82 18 111/63 99 05/17/19 18:12 97.9 F 89 18 150/78 100 Intake and Output 05/17/19 05/18/19 05/18/19 22:59 06:59 14:59 Other: Voiding Method Urinal Weight 77.111 kg PHYSICAL EXAMINATION: GENERAL: The patient is alert and oriented x3, not in any acute distress. Well developed, well nourished. HEENT: Pupils are round and equally reacting to light. EOMI. No scleral icterus. No conjunctival pallor. Normocephalic, atraumatic. No pharyngeal erythema. No thyromegaly. CARDIOVASCULAR: S1 and S2 present. No murmurs, rubs, or gallops. PULMONARY: Chest is clear to auscultation, no wheezing or crackles. ABDOMEN: Soft, nontender, nondistended, normoactive bowel sounds. No palpable organomegaly. MUSCULOSKELETAL: No joint swelling or deformity. EXTREMITIES: No cyanosis, clubbing, or pedal edema. NEUROLOGICAL: Gross neurological examination did not reveal any focal deficits. SKIN: No rashes. Results CBC & Chem 7: 05/18/19 12:56 05/18/19 12:56 Labs: Abnormal Lab Results - Last 24 Hours (Table) 05/18/19 Range/Units 12:56 Sodium 129 L (137-145) mmol/L Potassium 5.2 H (3.5-5.1) mmol/L Chloride 93 L (98-107) mmol/L AST 16 L (17-59) U/L ALT 17 L (21-72) U/L Thrombosis Risk Factor Assmnt - Choose All That Apply Any of the Below Risk Factors Present?: No Other Risk Factors: Yes Each Risk Factor Represents 2 Points: Age 61-74 years Thrombosis Risk Factor Assessment Total Risk Factor Score: 2 Thrombosis Risk Factor Assessment Level: Low Risk Assessment and Plan Plan: -Hyponatremia will treat for hypervolemic hyponatremia extensively worked up during her last hospitalization. Although ascites cannot be ruled out. Not do any further workup Hyponatremia for IV fluids and recheck the basic metabolic profile tomorrow. -Liver lesion will obtain MRCP to better characterize the lesion depending on the MRCP results patient will undergo biopsy. -Mild hyperkalemia secondary to lisinopril patient blood pressure is not that high it's actually low-normal because of which will cut down the lisinopril to half. -Significant weight loss because of which patient is undergoing workup as mentioned above -Gastroesophageal reflux disease -Hyperlipidemia -Anxiety disorder. -Continue nicotine use: Counseling was provided DVT prophylaxis early ambulation
[2019-05-18] MEDS ORDERED: PRAVASTATIN SODIUM 20 MG TAB PO SCH (16:00)
[2019-05-18] MEDS: NICOTINE 21MG/24HR PATCH TRANSDERM SCH (19:09)
[2019-05-18] MEDS ORDERED: KETOROLAC 30 MG/ML 1 ML VIAL IVP ONE (19:15)
[2019-05-18] MEDS ORDERED: KETOROLAC 30 MG/ML 1 ML VIAL IM PRN (19:31)
[2019-05-18] MEDS ORDERED: ZOLPIDEM 5 MG TAB PO PRN (19:31)
[2019-05-18] MEDS: ALPRAZolam 0.25 MG TAB PO PRN (19:37)
[2019-05-18] MEDS ORDERED: POLYETHYLENE GLYCOL 3350 17 GM POWD.PACK PO SCH (21:30)
--- NOTE | 2019-05-18 22:06 | P.CONS ---
History of Present Illness - Reason for Consult Consult date: 05/18/[address] scan, liver mass Requesting physician: Dalton Holbrook - Chief Complaint Nausea, vomiting weakness - History of Present Illness 68 with a medical history significant for hypertension, hyponatremia, previous CVA/TIA and hyperlipidemia who presented to the hospital after recent US abdomen was concerning for possible hepatic mass. US was performed on recent ER visit and compared to prior CT where the mas could be seen. The patient was recently admitted at the beginning of the month and reports symptoms of weakness, dehydration, weight loss and nausea. Previously the patient had evaluation on 04/30/19 with EGD significant on for gastritis and colonoscopy significant only for polyp. According to the patient the symptoms all started after being initiated on a new medication last June. Previous history of hepatitis C which was treated in 2000. The patient denies any change in bowel habits or blood per rectum. He reports constipation at baseline. Review of Systems REVIEW OF SYSTEMS: CONSTITUTIONAL: Denies any fevers, chills, but does report significant weight change since June of last year as well as fatigue. CARDIOVASCULAR: Denies any chest pain, palpitations high or low blood pressures RESPIRATORY: Denies any shortness of breath, hemoptysis or cough. GENITOURINARY: No dysuria or hematuria. MUSCULOSKELETAL: No focal weakness reported. SKIN: Denies any new rashes or lesions, jaundice or pallor. PSYCHIATRIC: Denies any depression or anxiety. NEUROLOGY: Denies headache, denies any new focal deficits. EARS/NOSE/THROAT: No recent hearing change, congestion, nasal discharge or sore throat. EYES: No pain in eyes, discharge or change in vision. GASTROINTESTINAL: As per HPI. Past Medical History Past Medical History: CVA/TIA, GERD/Reflux, Hyperlipidemia, Hypertension Additional Past Medical History / Comment(s): Low sodium History of Any Multi-Drug Resistant Organisms: None Reported Past Surgical History: Back Surgery, Tonsillectomy Past Anesthesia/Blood Transfusion Reactions: No Reported Reaction Past Psychological History: Anxiety Smoking Status: Former smoker Past Alcohol Use History: None Reported Additional Past Alcohol Use History / Comment(s): Start smoking at the age of 10, and still smokes a pack a day Past Drug Use History: None Reported - Past Family History Mother History Unknown: Yes Additional Family Medical History / Comment(s): of a heart attack Father Family Medical History: Cancer Additional Family Medical History / Comment(s): thoart cancer Medications and Allergies Home Medications Medication Instructions Recorded Confirmed Type Pravastatin Sodium [Pravachol] 10 mg PO HS@1600 04/28/19 05/17/19 History Ranitidine HCl [Zantac] 150 mg PO BID 04/28/19 05/17/19 History Acetaminophen Tab [Tylenol] 650 mg PO Q6H PRN 05/13/19 05/17/19 History Omeprazole 20 mg PO DAILY 05/13/19 05/17/19 History Dicyclomine [Bentyl] 20 mg PO TID 05/17/19 05/17/19 History Lisinopril [Zestril] 20 mg PO DAILY tab 05/18/19 Rx amLODIPine [Norvasc] 5 mg PO DAILY tab 05/18/19 Rx Allergies Allergy/AdvReac Type Severity Reaction Status Date / Time No Known Allergies Allergy Verified 05/17/19 18:16 Physical Exam Vitals: Vital Signs Temp Pulse Pulse Resp BP BP BP 05/18/19 19:22 97.5 F L 83 148/69 05/18/19 13:24 97.1 F L 78 18 114/67 05/18/19 06:17 98.5 F 78 18 130/70 05/18/19 00:00 82 18 05/17/19 22:29 98.9 F 82 18 111/63 Pulse Ox 05/18/19 19:22 98 05/18/19 13:24 99 05/18/19 06:17 99 05/18/19 00:00 05/17/19 22:29 99 Intake and Output 05/18/19 05/18/19 05/18/19 06:59 14:59 22:59 Intake Total 40 Balance 40 Intake: Intake, IV Titration 40 Amount Sodium Chloride 0.9% 1, 40 000 ml @ 20 mls/hr IV . Q24H [facility] Rx#:[id number] Other: Voiding Method Urinal Urinal On physical examination, patient appears comfortable in no apparent distress. HEAD: Normocephalic, atraumatic. EYES: No scleral icterus. No conjunctival injection. MOUTH: No lesions, tongue midline. NECK: Trachea midline, no gross abnormalities. CHEST: Clear to auscultation with no wheezing or rhonchi appreciated. HEART: Regular rate and rhythm. ABDOMEN: Soft. Bowel sounds are positive. No organomegaly. No guarding or rigidity. EXTREMITIES: No pedal edema. SKIN: No rashes, no jaundice. NEUROLOGIC: Alert and oriented. No focal deficits. Results CBC & Chem 7: 05/18/19 12:56 05/18/19 12:56 Labs: Abnormal Lab Results - Last 24 Hours (Table) 05/18/19 Range/Units 12:56 Sodium 129 L (137-145) mmol/L Potassium 5.2 H (3.5-5.1) mmol/L Chloride 93 L (98-107) mmol/L AST 16 L (17-59) U/L ALT 17 L (21-72) U/L US - abdomen: report reviewed (Ultrasound abdomen with findings of stones and left lobe isoechoic area suspicious for mass) Assessment and Plan (1) Liver mass Narrative/Plan: 68-year-old male with a known history of hepatitis C treated in 2000 and persistent symptoms of nausea with associated weight loss over the past year. Previous EGD significant only for gastritis and colonoscopy significant only for polypectomy. Patient recent imaging with ultrasound which showed cholelithiasis as well as a suspicious isoechoic region and the left lobe of the liver. AFP normal. Unclear if the area is truly a mass or focal fatty infiltration. Current Visit: Yes Status: Acute Code(s): R16.0 - HEPATOMEGALY, NOT ELSEWHERE CLASSIFIED SNOMED Code(s): 842979448 (2) Abdominal pain Current Visit: No Status: Acute Code(s): R10.9 - UNSPECIFIED ABDOMINAL PAIN SNOMED Code(s): 16967286 (3) Hyponatremia Current Visit: No Status: Acute Code(s): E87.1 - HYPO-OSMOLALITY AND HYPONATREMIA SNOMED Code(s): 62653306 (4) Nausea Current Visit: No Status: Acute Code(s): R11.0 - NAUSEA SNOMED Code(s): 429144054 Plan: Supportive care Okay for diet as tolerated Patient has been seen by nephrology in the past for treatment of hyponatremia which is likely a large contributor to his symptoms of weakness, fatigue and general unwellness AFP ordered and normal Plan for MRI of the abdomen for further evaluation of left lobe of liver to rule out mass Thank you for allowing us to dissipate in the care of the patient we will continue to follow
[2019-05-19] MEDS: SODIUM CHLORIDE 0.9% 1,000 ML IV SCH ×2 (00:01→11:26)
[2019-05-19] MEDS: ALPRAZolam 0.25 MG TAB PO PRN ×2 (04:15→11:26)
[2019-05-19 07:36] LABS: Potassium 4.8 mmol/L (3.5-5.1)
[2019-05-19] MEDS: PANTOPRAZOLE 40 MG TABLET PO SCH (08:17)
[2019-05-19] MEDS: DICYCLOMINE 20 MG TAB PO SCH (08:18)
[2019-05-19] MEDS: NICOTINE 21MG/24HR PATCH TRANSDERM SCH (08:18)
[2019-05-19] MEDS: FAMOTIDINE 20 MG TAB PO SCH (08:18)
[2019-05-19] MEDS ORDERED: LISINOPRIL 20 MG TAB PO SCH (09:00)
[2019-05-19] MEDS ORDERED: amLODIPine 5 MG TAB PO SCH (09:00)
--- NOTE | 2019-05-19 11:38 | MR ---
EXAMINATION TYPE: MR MRCP DATE OF EXAM: 05/19/2019 COMPARISON: Ultrasound abdomen [address] abdomen 3 weeks ago. HISTORY: Liver lesion Standard multiplanar, multisequence MRI departmental protocol Multiplanar, multisequence images of the abdomen were acquired. Thin and thick slice MRCP imaging is created on the MRI scanner. FINDINGS: Liver/gallbladder/pancreas/biliary system: Liver is overall normal in size. There is confirmation of 3.7 x 3.0 cm left hepatic lobe lesion of slight T1 hypointensity and T2 hyperintensity that warrants follow-up it is present on CT as hypodense lesion axial image 11. No Signal dropout noted. Gallbladde r has distended without definite intraluminal gallstones. Focal wall irregularity towards the fundus could reflect focal adenomyosis axial image 19. No surrounding inflammatory change. Pancreas is kizzy l in size without solid or cystic mass. MRCP images show visualized portion pancreatic duct to be within normal limits. There is some artifac t near the ampulla noted. Ducts are nondilated making evaluation of this level suboptimal. There is n o intrahepatic or extra hepatic biliary dilatation. Intrahepatic ducts are poorly distended and subop timally evaluated. Slight beading is felt present. Other: Lung bases show some dependent atelectasis, right greater than left. Slight thickening left ad renal gland shows signal dropout consistent with benign lipid rich hyperplasia. There are some scatte red simple appearing thin-walled cysts throughout both kidneys. Specific bowel dilatation. No abdomin al ascites. Slight S-shaped scoliotic curvature redemonstrated with multilevel spurring. IMPRESSION: 1. Slight beaded appearance of the intrahepatic and extrahepatic biliary ducts without significant fo irineo dilatation. Cannot exclude a mild type 4 choledochal cyst. More concerning is solid lesion deep i n the left hepatic lobe. Follow up liver protocol contrast-enhanced CT or MRI is advised to better ev aluate and characterize.
[2019-05-19 12:19] VITALS: BP 143/78; PULSE 77; RESP 18; TEMP 97.5
--- NOTE | 2019-05-19 13:35 | P.DS ---
Providers Date of admission: 05/17/19 19:17 Attending physician: Sylwia Bryan Consults: 05/17/19 19:19 Consult Physician Routine Consulting Provider: El Garcia Consult Reason/Comments: liver mass Do you want consulting provider notified?: Yes Primary care physician: [facility] Course: Patient is a very pleasant 68-year-old gentleman came in after he was called by the ER physician because of abnormality in in his radiological imaging that was done during his last hospitalization ultrasound of the liver showed possible lesion and had a CAT scan did show the same lesion which is not characterizable.. Patient does have significant weight loss. Patient will undergo MRI here. Additionally patient does have hyponatremia with sodium of 120 9D appears like patient has a same hyponatremic during his last hospitalization was treated for hypovolemic hyponatremia patient did have weight loss which is significant unintentional and recent. Patient will lead prior authorization for MRI because of which will order an MRI of the liver here depending on MRI results if needed patient will undergo biopsy. Patient denied any symptoms today. 05/19/2019 Patient had an MRCP which did not reveal any obvious mass although deep solid mass cannot rule out because of which a follow-up CAT scan was recommended by radiologist although patient has normal alpha-fetoprotein because of this being a hepatus alert carcinoma is low patient will follow with gastroenterology as an outpatient. But patient did have significant weight loss for which patient will need age appropriate cancer screening as an outpatient. She remains hyponatremic in spite of IV fluids and patient has chronic hyponatremia which is being addressed by nephrology and patient will followed nephrology as an outpatient. PHYSICAL EXAMINATION: GENERAL: The patient is alert and oriented x3, not in any acute distress. Well developed, well nourished. HEENT: Pupils are round and equally reacting to light. EOMI. No scleral icterus. No conjunctival pallor. Normocephalic, atraumatic. No pharyngeal erythema. No thyromegaly. CARDIOVASCULAR: S1 and S2 present. No murmurs, rubs, or gallops. PULMONARY: Chest is clear to auscultation, no wheezing or crackles. ABDOMEN: Soft, nontender, nondistended, normoactive bowel sounds. No palpable organomegaly. MUSCULOSKELETAL: No joint swelling or deformity. EXTREMITIES: No cyanosis, clubbing, or pedal edema. NEUROLOGICAL: Gross neurological examination did not reveal any focal deficits. SKIN: No rashes. For rest of the hospitalization course medical problems please refer to my HPI from yesterday Patient Condition at Discharge: Fair Plan - Discharge Summary Discharge Rx Participant: No New Discharge Prescriptions: New amLODIPine [Norvasc] 5 mg PO DAILY tab Lisinopril [Zestril] 20 mg PO DAILY tab Continue Ranitidine HCl [Zantac] 150 mg PO BID Pravastatin Sodium [Pravachol] 10 mg PO HS@1600 Omeprazole 20 mg PO DAILY Acetaminophen Tab [Tylenol] 650 mg PO Q6H PRN PRN Reason: Pain Dicyclomine [Bentyl] 20 mg PO TID Discontinued Lisinopril [Zestril] 20 mg PO BID amLODIPine [Norvasc] 5 mg PO BID Discharge Medication List Pravastatin Sodium [Pravachol] 10 mg PO HS@1600 04/28/19 [History] Ranitidine HCl [Zantac] 150 mg PO BID 04/28/19 [History] Acetaminophen Tab [Tylenol] 650 mg PO Q6H PRN 05/13/19 [History] Omeprazole 20 mg PO DAILY 05/13/19 [History] Dicyclomine [Bentyl] 20 mg PO TID 05/17/19 [History] Lisinopril [Zestril] 20 mg PO DAILY tab 05/18/19 [Rx] amLODIPine [Norvasc] 5 mg PO DAILY tab 05/18/19 [Rx] Follow up Appointment(s)/Referral(s): Matty Vizcaino DO [STAFF PHYSICIAN] - 3 Days El Garcia MD [STAFF PHYSICIAN] - 1 Week [facility] [Primary Care Provider] - 3 Days Patient Instructions/Handouts: Hyponatremia (DC), Anxiety (ED) Discharge Disposition: HOME SELF-CARE
[2019-05-19 15:49] LABS: Hepatits C Virus RNA Not detected (Not detected); Hepatits C Virus RNA, Quant <12 IU/mL (<12); LOG HCV IU/mL <1.08 (<1.08)
== END 2019-05-19 14:47 | disposition home or self-care (01) | DRG 641 ==
LOC: EC 18:08 → 3NMEDONC 19:17
PROVIDERS: ADMIT Hospitalist; ATTEND Hospitalist
DX: E87.1 Hypo-osmolality and hyponatremia (principal); E87.5 Hyperkalemia; E86.1 Hypovolemia; T46.4X5A Adverse effect of angiotensin-converting-enzyme inhibitors, initial encounter; K21.9 Gastro-esophageal reflux disease without esophagitis; E78.5 Hyperlipidemia, unspecified; F41.9 Anxiety disorder, unspecified; I10 Essential (primary) hypertension; K76.9 Liver disease, unspecified; K80.20 Calculus of gallbladder without cholecystitis without obstruction; K59.00 Constipation, unspecified; R63.4 Abnormal weight loss; K29.70 Gastritis, unspecified, without bleeding; F17.210 Nicotine dependence, cigarettes, uncomplicated; Z71.6 Tobacco abuse counseling; Z79.899 Other long term (current) drug therapy; Z86.19 Personal history of other infectious and parasitic diseases; Z86.73 Personal history of transient ischemic attack (TIA), and cerebral infarction without residual deficits; Z82.49 Family history of ischemic heart disease and other diseases of the circulatory system; Z80.0 Family history of malignant neoplasm of digestive organs
CPT/HCPCS: 74181; 80048; 80053; 82105; 85025; 86301; 87522; 96374; 99285

== ENCOUNTER 2019-05-23 02:22 | Inpatient (IN) | payer OTHER, MEDICARE ==
[2019-05-23] MEDS ORDERED: ONDANSETRON 4 MG/2 ML VIAL IVP STA (03:13)
[2019-05-23 03:30] LABS: Basophils % (A) 0 %; Eosinophils # (A) 0.1 k/uL (0-0.7); Eosinophils % (A) 1 %; HCT 37.7 % (39.0-53.0); HGB 12.8 gm/dL (13.0-17.5); Lymphocytes # (A) 1.2 k/uL (1.0-4.8); Lymphocytes % (A) 14 %; MCH 30.1 pg (25.0-35.0); MCV 88.4 fL (80.0-100.0); Monocytes # (A) 0.5 k/uL (0-1.0); Monocytes % (A) 5 %; Neutrophils # (A) 7.2 k/uL (1.3-7.7); Neutrophils % (A) 79 %; Platelet Count 279 k/uL (150-450); RBC 4.27 m/uL (4.30-5.90); RDW 13.5 % (11.5-15.5); WBC 9.1 k/uL (3.8-10.6)
[2019-05-23 03:38] LABS: ALT 16 U/L (21-72); AST 15 U/L (17-59); African American GFR (CKD) >90 (>60 ml/min/1.73 sqM); Albumin 4.2 g/dL (3.5-5.0); Alkaline Phosphatase 56 U/L (38-126); Amylase 90 U/L (30-110); Anion Gap 11 mmol/L; Blood Urea Nitrogen 15 mg/dL (9-20); Calcium 10.1 mg/dL (8.4-10.2); Carbon Dioxide 27 mmol/L (22-30); Chloride 90 mmol/L (98-107); Glucose 97 mg/dL (74-99); Potassium 4.2 mmol/L (3.5-5.1); Sodium 128 mmol/L (137-145); Total Bilirubin 0.4 mg/dL (0.2-1.3); Total Protein 7.1 g/dL (6.3-8.2)
[2019-05-23 03:59] LABS: Appearance,Urine Clear (Clear); Bilirubin,Urine Negative (Negative); Blood,Urine Negative (Negative); Color,Urine Light Yellow; Glucose,Urine (UA) Negative (Negative); Ketones,Urine Negative (Negative); Leukocyte Esterase,Urine Negative (Negative); Nitrite,Urine Negative (Negative); Protein,Urine Negative (Negative); Urobilinogen,Urine <2.0 mg/dL (<2.0)
[2019-05-23] MEDS ORDERED: SODIUM CHLORIDE 0.9% 1,000 ML IV ONE (04:22)
[2019-05-23] MEDS ORDERED: NALOXONE 0.4 MG/ML 1 ML VIAL IV PRN (05:06)
--- NOTE | 2019-05-23 05:06 | ED ---
Nausea/Vomiting/Diarrhea HPI - General Source: patient, family Mode of arrival: ambulatory Limitations: no limitations <Melva Gastelum - Last Filed: 05/23/19 05:09> <Jluis Ingram - Last Filed: 05/25/19 08:18> - General Chief complaint: Nausea/Vomiting/Diarrhea Stated complaint: nauseous Time Seen by Provider: 05/23/19 02:46 - History of Present Illness Initial comments: 68-year-old male patient presents to the emergency department today for evaluation of weakness and nausea. Patient states that symptoms have been worsening over the last one or 2 days. Patient has history of hyponatremia and feels that his sodium may be low again. Patient denies any chest pain or shortness of breath. Denies any abdominal pain. States he is having normal bowel movements. He denies any headache, blurred vision, or double vision. Denies any numbness, tingling, or focal weakness to his extremities. Patient denies any recent rash, fever, chills, hematuria, dysuria, urinary urgency, urinary frequency, or any other complaints. (Melva Gastelum) - Related Data Home Medications Medication Instructions Recorded Confirmed Pravastatin Sodium [Pravachol] 10 mg PO HS 04/28/19 05/23/19 Acetaminophen Tab [Tylenol] 650 mg PO Q6H PRN 05/13/19 05/23/19 Omeprazole 20 mg PO DAILY 05/13/19 05/23/19 Dicyclomine [Bentyl] 20 mg PO TID 05/17/19 05/23/19 Previous Rx's Medication Instructions Recorded Lisinopril [Zestril] 20 mg PO DAILY tab 05/18/19 amLODIPine [Norvasc] 5 mg PO DAILY tab 05/18/19 Ensure 1 can PO TID BETWEEN MEALS #18 can 05/24/19 Mirtazapine [Remeron] 15 mg PO HS 30 Days #30 tab 05/24/19 Nicotine 21Mg/24Hr Patch [Habitrol] 1 patch TRANSDERM DAILY #20 patch 05/24/19 Omeprazole [PriLOSEC] 20 mg PO AC-BID 30 Days #60 cap 05/24/19 Allergies Allergy/AdvReac Type Severity Reaction Status Date / Time No Known Allergies Allergy Verified 05/23/19 07:37 Review of Systems ROS Other: All systems not noted in ROS Statement are negative. <Melva Gastelum - Last Filed: 05/23/19 05:09> ROS Other: All systems not noted in ROS Statement are negative. <Jluis Ingram - Last Filed: 05/25/19 08:18> ROS Statement: Those systems with pertinent positive or pertinent negative responses have been documented in the HPI. Past Medical History Past Medical History: CVA/TIA, GERD/Reflux, Hyperlipidemia, Hypertension Additional Past Medical History / Comment(s): Low sodium History of Any Multi-Drug Resistant Organisms: None Reported Past Surgical History: Back Surgery, Tonsillectomy Past Anesthesia/Blood Transfusion Reactions: No Reported Reaction Past Psychological History: Anxiety Smoking Status: Former smoker Past Alcohol Use History: None Reported Past Drug Use History: None Reported - Past Family History Mother History Unknown: Yes Additional Family Medical History / Comment(s): of a heart attack Father Family Medical History: Cancer Additional Family Medical History / Comment(s): thoart cancer <Melva Gastelum - Last Filed: 05/23/19 05:09> General Exam Limitations: no limitations General appearance: alert, in no apparent distress, other (This is a well- developed, well-nourished elderly male patient in no acute distress. Vital signs upon presentation are temperature 97.4F, pulse 91, respirations 20, blood pressure 135/85, pulse ox 99% on room air.) Eye exam: Present: normal appearance, PERRL, EOMI. Absent: scleral icterus, conjunctival injection, periorbital swelling ENT exam: Present: normal exam, normal oropharynx, mucous membranes moist Respiratory exam: Present: normal lung sounds bilaterally. Absent: respiratory distress, wheezes, rales, rhonchi, stridor Cardiovascular Exam: Present: regular rate, normal rhythm, normal heart sounds. Absent: systolic murmur, diastolic murmur, rubs, gallop, clicks GI/Abdominal exam: Present: soft, normal bowel sounds. Absent: distended, tenderness, guarding, rebound, rigid Neurological exam: Present: alert, oriented X3, CN II-XII intact, other (Strength in all 4 extremities is 5/5) Psychiatric exam: Present: normal affect, normal mood Skin exam: Present: warm, dry, intact, normal color. Absent: rash <Melva Gastelum - Last Filed: 05/23/19 05:09> Course Vital Signs 05/23/19 05/23/19 05/23/19 02:24 03:31 05:22 Temperature 97.4 F L 98 F Pulse Rate 91 90 84 Respiratory 20 19 Rate Blood Pressure 155/85 174/94 154/74 O2 Sat by Pulse 99 98 98 Oximetry Medical Decision Making - Lab Data Result diagrams: 05/23/19 02:38 05/23/19 02:38 - EKG Data -: EKG Interpreted by Me <Melva Gastelum - Last Filed: 05/23/19 05:09> - Lab Data Result diagrams: 05/23/19 02:38 05/24/19 07:08 <Jluis Ingram - Last Filed: 05/25/19 08:18> - Medical Decision Making 68-year-old male patient presents to the emergency department today for evaluation of weakness, dizziness, and nausea. Physical examination is unremarkable. He is neurologically intact with no focal deficits. Labs reviewed and did reveal sodium of 128, patient has had multiple visits over the last month with similar sodium levels. Patient was given IV fluids and nausea medication here in the emergency department. Upon reevaluation he reports he feels too ill to be discharged. He'll be admitted for observation and further evaluation. (Melva Gastelum) I saw this patient in conjunction with the physician recycling assistant. I performed independent history and physical exam. Agree with case management. (Jluis Ingram) - Lab Data Lab Results 05/23/19 05/23/19 05/23/19 Range/Units 02:38 02:38 02:38 WBC 9.1 (3.8-10.6) k/uL RBC 4.27 L (4.30-5.90) m/uL Hgb 12.8 L (13.0-17.5) gm/dL Hct 37.7 L (39.0-53.0) % MCV 88.4 (80.0-100.0) fL MCH 30.1 (25.0-35.0) pg MCHC 34.0 (31.0-37.0) g/dL RDW 13.5 (11.5-15.5) % Plt Count 279 (150-450) k/uL Neutrophils % 79 % Lymphocytes % 14 % Monocytes % 5 % Eosinophils % 1 % Basophils % 0 % Neutrophils # 7.2 (1.3-7.7) k/uL Lymphocytes # 1.2 (1.0-4.8) k/uL Monocytes # 0.5 (0-1.0) k/uL Eosinophils # 0.1 (0-0.7) k/uL Basophils # 0.0 (0-0.2) k/uL Sodium 128 L (137-145) mmol/L Potassium 4.2 (3.5-5.1) mmol/L Chloride 90 L (98-107) mmol/L Carbon Dioxide 27 (22-30) mmol/L Anion Gap 11 mmol/L BUN 15 (9-20) mg/dL Creatinine 0.86 (0.66-1.25) mg/dL Est GFR (CKD-EPI)AfAm >90 (>60 ml/min/1.73 sqM) Est GFR (CKD-EPI)NonAf 88 (>60 ml/min/1.73 sqM) Glucose 97 (74-99) mg/dL Calcium 10.1 (8.4-10.2) mg/dL Total Bilirubin 0.4 (0.2-1.3) mg/dL AST 15 L (17-59) U/L ALT 16 L (21-72) U/L Alkaline Phosphatase 56 (38-126) U/L Troponin I <0.012 (0.000-0.034) ng/mL Total Protein 7.1 (6.3-8.2) g/dL Albumin 4.2 (3.5-5.0) g/dL Amylase 90 (30-110) U/L Lipase 136 (23-300) U/L Urine Color Urine Appearance (Clear) Urine pH (5.0-8.0) Ur Specific [place] (1.001-1.035) Urine Protein (Negative) Urine Glucose (UA) (Negative) Urine Ketones (Negative) Urine Blood (Negative) Urine Nitrite (Negative) Urine Bilirubin (Negative) Urine Urobilinogen (<2.0) mg/dL Ur Leukocyte Esterase (Negative) 05/23/19 Range/Units 03:53 WBC (3.8-10.6) k/uL RBC (4.30-5.90) m/uL Hgb (13.0-17.5) gm/dL Hct (39.0-53.0) % MCV (80.0-100.0) fL MCH (25.0-35.0) pg MCHC (31.0-37.0) g/dL RDW (11.5-15.5) % Plt Count (150-450) k/uL Neutrophils % % Lymphocytes % % Monocytes % % Eosinophils % % Basophils % % Neutrophils # (1.3-7.7) k/uL Lymphocytes # (1.0-4.8) k/uL Monocytes # (0-1.0) k/uL Eosinophils # (0-0.7) k/uL Basophils # (0-0.2) k/uL Sodium (137-145) mmol/L Potassium (3.5-5.1) mmol/L Chloride (98-107) mmol/L Carbon Dioxide (22-30) mmol/L Anion Gap mmol/L BUN (9-20) mg/dL Creatinine (0.66-1.25) mg/dL Est GFR (CKD-EPI)AfAm (>60 ml/min/1.73 sqM) Est GFR (CKD-EPI)NonAf (>60 ml/min/1.73 sqM) Glucose (74-99) mg/dL Calcium (8.4-10.2) mg/dL Total Bilirubin (0.2-1.3) mg/dL AST (17-59) U/L ALT (21-72) U/L Alkaline Phosphatase (38-126) U/L Troponin I (0.000-0.034) ng/mL Total Protein (6.3-8.2) g/dL Albumin (3.5-5.0) g/dL Amylase (30-110) U/L Lipase (23-300) U/L Urine Color Light Yellow Urine Appearance Clear (Clear) Urine pH 7.0 (5.0-8.0) Ur Specific [place] 1.010 (1.001-1.035) Urine Protein Negative (Negative) Urine Glucose (UA) Negative (Negative) Urine Ketones Negative (Negative) Urine Blood Negative (Negative) Urine Nitrite Negative (Negative) Urine Bilirubin Negative (Negative) Urine Urobilinogen <2.0 (<2.0) mg/dL Ur Leukocyte Esterase Negative (Negative) - EKG Data EKG Comments: EKG obtained at 0510 shows normal sinus rhythm with a ventricular rate of 78, DC interval 186, QRS duration 72, QT 364, QTC 414. No evidence of ST elevation or depression. (Mleva Gastelum) Disposition Decision to Admit Reason: Admit from EC Decision Date: 05/23/19 Decision Time: 05:04 <Melva Gastelum - Last Filed: 05/23/19 05:09> <Jluis Ingram - Last Filed: 05/25/19 08:18> Clinical Impression: Hyponatremia, Intractable nausea and vomiting Disposition: ADMITTED IP TO THIS [facility] Condition: Fair
[2019-05-23] MEDS ORDERED: ONDANSETRON 4 MG/2 ML VIAL IVP PRN (05:07)
[2019-05-23] MEDS ORDERED: SODIUM CHLORIDE 0.9% 1,000 ML IV SCH (05:15)
[2019-05-23 06:11] VITALS: BMI 24.7
[2019-05-23] MEDS: NICOTINE 21MG/24HR PATCH TRANSDERM SCH (10:37)
[2019-05-23] MEDS: PANTOPRAZOLE 40 MG/10 ML VIAL IVP SCH ×2 (10:37→20:31)
[2019-05-23] MEDS: SODIUM CHLORIDE 0.9% 1,000 ML IV SCH ×2 (10:37→20:42)
--- NOTE | 2019-05-23 11:04 | P.HPIM ---
History of Present Illness 68-year-old male was recently discharged from the hospital came back again with nausea vomiting and epigastric abdominal burning sensation patient does have peptic ulcer disease patient was started on Protonix. Patient also has hypo natremia which is chronic and which is being addressed as an outpatient by nephrology. 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 Patient appears to be depressed patient is crying anxious. Patient had a recent workup for her his possible liver lesion which was not really evident on the MRCP and I'm consulting [facility] as well to have a look at the MRCP results and also for the upper GI symptoms. Patient had normal alpha-fetoprotein no obvious evidence of any malignancy. His loss of weight is probably because of his depression and anxiety. Patient lost about 60 pounds since last June as per the patient. Psychiatric consult and. Review of Systems REVIEW OF SYSTEMS: CONSTITUTIONAL: No fever, no malaise, no fatigue. HEENT: No recent visual problems or hearing problems. Denied any sore throat. CARDIOVASCULAR: No chest pain, orthopnea, PND, no palpitations, no syncope. PULMONARY: No shortness of breath, no cough, no hemoptysis. GASTROINTESTINAL: As mentioned in HPI NEUROLOGICAL: No headaches, no weakness, no numbness. HEMATOLOGICAL: Denies any bleeding or petechiae. GENITOURINARY: Denies any burning micturition, frequency, or urgency. MUSCULOSKELETAL/RHEUMATOLOGICAL: Denies any joint pain, swelling, or any muscle pain. ENDOCRINE: Denies any polyuria or polydipsia. The rest of the 14-point review of systems is negative. Past Medical History Past Medical History: CVA/TIA, GERD/Reflux, Hyperlipidemia, Hypertension Additional Past Medical History / Comment(s): Low sodium, Hepatitis C History of Any Multi-Drug Resistant Organisms: None Reported Past Surgical History: Back Surgery, Tonsillectomy Past Anesthesia/Blood Transfusion Reactions: No Reported Reaction Past Psychological History: Anxiety Smoking Status: Current every day smoker Past Alcohol Use History: None Reported Additional Past Alcohol Use History / Comment(s): Start smoking at the age of 10, and still smokes a pack a day Past Drug Use History: None Reported - Past Family History Mother History Unknown: Yes Additional Family Medical History / Comment(s): of a heart attack Father Family Medical History: Cancer Additional Family Medical History / Comment(s): thoart cancer Medications and Allergies Home Medications Medication Instructions Recorded Confirmed Type Pravastatin Sodium [Pravachol] 10 mg PO HS 04/28/19 05/23/19 History Ranitidine HCl [Zantac] 150 mg PO BID 04/28/19 05/23/19 History Acetaminophen Tab [Tylenol] 650 mg PO Q6H PRN 05/13/19 05/23/19 History Omeprazole 20 mg PO DAILY 05/13/19 05/23/19 History Dicyclomine [Bentyl] 20 mg PO TID 05/17/19 05/23/19 History Lisinopril [Zestril] 20 mg PO DAILY tab 05/18/19 05/23/19 Rx amLODIPine [Norvasc] 5 mg PO DAILY tab 05/18/19 05/23/19 Rx Allergies Allergy/AdvReac Type Severity Reaction Status Date / Time No Known Allergies Allergy Verified 05/23/19 07:37 Physical Exam Vitals: Vital Signs Temp Pulse Pulse Resp BP BP Pulse Ox 05/23/19 07:00 98.4 F 81 15 151/71 99 05/23/19 05:22 98 F 84 19 154/74 98 05/23/19 03:31 90 174/94 98 05/23/19 02:24 97.4 F L 91 20 155/85 99 Intake and Output 05/22/19 05/23/19 05/23/19 22:59 06:59 14:59 Other: Weight 78.018 kg PHYSICAL EXAMINATION: GENERAL: The patient is alert and oriented x3, not in any acute distress. Well developed, well nourished. HEENT: Pupils are round and equally reacting to light. EOMI. No scleral icterus. No conjunctival pallor. Normocephalic, atraumatic. No pharyngeal erythema. No thyromegaly. CARDIOVASCULAR: S1 and S2 present. No murmurs, rubs, or gallops. PULMONARY: Chest is clear to auscultation, no wheezing or crackles. ABDOMEN: Soft, nontender, nondistended, normoactive bowel sounds. No palpable organomegaly. MUSCULOSKELETAL: No joint swelling or deformity. EXTREMITIES: No cyanosis, clubbing, or pedal edema. NEUROLOGICAL: Gross neurological examination did not reveal any focal deficits. SKIN: No rashes. Results CBC & Chem 7: 05/23/19 02:38 05/23/19 02:38 Labs: Abnormal Lab Results - Last 24 Hours (Table) 05/23/19 05/23/19 05/23/19 Range/Units 02:38 02:38 05:00 RBC 4.27 L (4.30-5.90) m/uL Hgb 12.8 L (13.0-17.5) gm/dL Hct 37.7 L (39.0-53.0) % Sodium 128 L (137-145) mmol/L Chloride 90 L (98-107) mmol/L Osmolality 262 L (280-301) mosm/kg Uric Acid (3.5-8.5) mg/dL AST 15 L (17-59) U/L ALT 16 L (21-72) U/L 05/23/19 Range/Units 05:00 RBC (4.30-5.90) m/uL Hgb (13.0-17.5) gm/dL Hct (39.0-53.0) % Sodium (137-145) mmol/L Chloride (98-107) mmol/L Osmolality (280-301) mosm/kg Uric Acid 2.6 L (3.5-8.5) mg/dL AST (17-59) U/L ALT (21-72) U/L Thrombosis Risk Factor Assmnt - Choose All That Apply Any of the Below Risk Factors Present?: No Other Risk Factors: Yes Each Risk Factor Represents 2 Points: Age 61-74 years Other congenital or acquired thrombophilia - If yes, enter type in comment: No Thrombosis Risk Factor Assessment Total Risk Factor Score: 2 Thrombosis Risk Factor Assessment Level: Low Risk Assessment and Plan Plan: -Nausea vomiting epigastric burning sensation secondary to peptic ulcer disease patient was started on IV Protonix as an to reduce consult as mentioned above -Hyponatremia patient was diagnosed with hypotonic hyponatremia in the past will rest the floor will give IV normal saline and the hyponatremia workup was ordered. -Depression and anxiety disorder probably contributed and all his issues and multiple hospital patient spiked secondary to that consulting psychiatry for that reason. Most SSRIs cannot be used because possibly of SIADH and hyponatremia. -Liver lesion: That was extensively worked up during his previous hospitalization as mentioned above. -Hypertension -Hyperlipidemia -CVA in the past -History of hepatitis C -Continued nicotine use: Counseling was provided
--- NOTE | 2019-05-23 11:46 | P.NPCON ---
History of Present Illness - Reason for Consult Consult date: 05/23/19 hyponatremia - Chief Complaint Nausea and decreased oral intake - History of Present Illness Recurrent hospital admissions with similar problems. Extensive workup was done in the past including CAT scans, which were negative. He has chronic hyponatremia with a serum sodium ranging from 127-131. He was admitted with a sodium of 128. He admits he is sick but does not define what it means. He has some abdominal discomfort. Nausea denies nausea vomiting. No diarrhea. Chronic weight loss. He denies taking antidepressants, antipsychotics or diuretic use. No history of malignancy. Review of Systems Constitutional: Reports as per HPI Past Medical History Past Medical History: CVA/TIA, GERD/Reflux, Hyperlipidemia, Hypertension Additional Past Medical History / Comment(s): Low sodium, Hepatitis C History of Any Multi-Drug Resistant Organisms: None Reported Past Surgical History: Back Surgery, Tonsillectomy Past Anesthesia/Blood Transfusion Reactions: No Reported Reaction Past Psychological History: Anxiety Smoking Status: Current every day smoker Past Alcohol Use History: None Reported Additional Past Alcohol Use History / Comment(s): Start smoking at the age of 10, and still smokes a pack a day Past Drug Use History: None Reported - Past Family History Mother History Unknown: Yes Additional Family Medical History / Comment(s): of a heart attack Father Family Medical History: Cancer Additional Family Medical History / Comment(s): thoart cancer Medications and Allergies Home Medications Medication Instructions Recorded Confirmed Type Pravastatin Sodium [Pravachol] 10 mg PO HS 04/28/19 05/23/19 History Ranitidine HCl [Zantac] 150 mg PO BID 04/28/19 05/23/19 History Acetaminophen Tab [Tylenol] 650 mg PO Q6H PRN 05/13/19 05/23/19 History Omeprazole 20 mg PO DAILY 05/13/19 05/23/19 History Dicyclomine [Bentyl] 20 mg PO TID 05/17/19 05/23/19 History Lisinopril [Zestril] 20 mg PO DAILY tab 05/18/19 05/23/19 Rx amLODIPine [Norvasc] 5 mg PO DAILY tab 05/18/19 05/23/19 Rx Allergies Allergy/AdvReac Type Severity Reaction Status Date / Time No Known Allergies Allergy Verified 05/23/19 07:37 Physical Exam Vitals: Vital Signs Temp Pulse Pulse Resp BP BP Pulse Ox 05/23/19 07:00 98.4 F 81 15 151/71 99 05/23/19 05:22 98 F 84 19 154/74 98 05/23/19 03:31 90 174/94 98 05/23/19 02:24 97.4 F L 91 20 155/85 99 Intake and Output 05/22/19 05/23/19 05/23/19 22:59 06:59 14:59 Other: Weight 78.018 kg No acute distress S1-S2 heard Lungs clear No edema Results - Lab Results Most recent lab results Calcium 10.1 mg/dL (8.4-10.2) 05/23/19 02:38 05/23/19 02:38 05/23/19 02:38 Assessment and Plan Assessment: #1 acute on chronic hypotonic hyponatremia. Suspect hypovolemia. SIADH is a p ossibility with persistent nausea / free water intake and low uric acid.. #2 essential hypertension #3 GERD Plan: #1 continue IV fluids. Urine sodium pending. #2 consider psychiatric evaluation with suspected underlying depression/anxiety disorder. #3 follow-up BMP in the morning.
[2019-05-23] MEDS: SIMETHICONE 80 MG CHEWABLE PO SCH ×3 (13:07→20:41)
[2019-05-23 16:44] VITALS: RESP 18
[2019-05-23] MEDS: ACETAMINOPHEN TAB 325 MG TAB PO PRN (17:01)
[2019-05-23] MEDS: DICYCLOMINE 20 MG TAB PO SCH ×2 (17:01→20:31)
[2019-05-23] MEDS ORDERED: PRAVASTATIN SODIUM 20 MG TAB PO SCH (21:00)
[2019-05-24] MEDS: ACETAMINOPHEN TAB 325 MG TAB PO PRN ×2 (02:15→12:17)
[2019-05-24] MEDS: SODIUM CHLORIDE 0.9% 1,000 ML IV SCH (05:49)
[2019-05-24] MEDS: NICOTINE 21MG/24HR PATCH TRANSDERM SCH (07:36)
[2019-05-24] MEDS: PANTOPRAZOLE 40 MG/10 ML VIAL IVP SCH (07:37)
[2019-05-24] MEDS: DICYCLOMINE 20 MG TAB PO SCH (07:37)
[2019-05-24] MEDS: SIMETHICONE 80 MG CHEWABLE PO SCH ×2 (07:45→12:20)
[2019-05-24 07:55] LABS: ALT 19 U/L (21-72); AST 14 U/L (17-59); African American GFR (CKD) >90 (>60 ml/min/1.73 sqM); Albumin 3.6 g/dL (3.5-5.0); Alkaline Phosphatase 46 U/L (38-126); Anion Gap 8 mmol/L; Blood Urea Nitrogen 18 mg/dL (9-20); Calcium 9.1 mg/dL (8.4-10.2); Carbon Dioxide 26 mmol/L (22-30); Chloride 98 mmol/L (98-107); Glucose 87 mg/dL (74-99); Potassium 4.8 mmol/L (3.5-5.1); Sodium 132 mmol/L (137-145); Total Bilirubin 0.4 mg/dL (0.2-1.3); Total Protein 6.4 g/dL (6.3-8.2)
[2019-05-24] MEDS ORDERED: amLODIPine 5 MG TAB PO SCH (09:00)
[2019-05-24] MEDS ORDERED: LISINOPRIL 20 MG TAB PO SCH (09:00)
--- NOTE | 2019-05-24 12:12 | P.PN ---
Subjective Patient is seen in follow-up for hyponatremia. He is currently maintained on normal saline at 100 mL an hour. Sodium level is up to 132 today. Denies any abdominal pain. Oral intake is fair. No vomiting or diarrhea. Does feel nauseous at times. Vital signs are stable. General: The patient appeared well nourished and normally developed. HEENT: Head exam is unremarkable. Neck is without jugular venous distension. LUNGS: Lungs are clear to auscultation and percussion. Breath sounds decreased. HEART: Rate and Rhythm are regular. First and second heart sounds normal. No murmurs, rubs or gallops. ABDOMEN: Abdominal exam reveals normal bowel sounds. Non-tender and non- distended. No evidence of peritonitis. EXTREMITITES: No clubbing, cyanosis, or edema. Objective - Vital Signs Vital signs: Vital Signs Temp 97.2 F L 05/24/19 05:00 Pulse 78 05/24/19 05:00 Resp 18 05/24/19 08:00 BP 140/74 05/24/19 05:00 Pulse Ox 99 05/24/19 05:00 Intake & Output 05/23/19 05/24/19 05/24/19 18:59 06:59 18:59 Intake Total 800 400 Balance 800 400 Intake: Intake, IV Titration 800 Amount Sodium Chloride 0.9% 1, 800 000 ml @ 100 mls/hr IV . Q10H [facility] Rx#:[id number] Oral 400 Other: Voiding Method Toilet Toilet Urinal Urinal # Voids 1 - Labs CBC & Chem 7: 05/23/19 02:38 05/24/19 07:08 Labs: Abnormal Lab Results - Last 24 Hours (Table) 05/24/19 Range/Units 07:08 Sodium 132 L (137-145) mmol/L AST 14 L (17-59) U/L ALT 19 L (21-72) U/L Assessment and Plan Plan: Assessment: 1. Acute on chronic hypotonic hyponatremia. Currently improving with IV hydration. Sodium level up to 132 today. Concern for underlying SIADH secondary to nausea and poor solute intake. TSH normal. Uric acid level which fits with SIADH. 2. Benign hypertension. Controlled. 3. GERD. Recent EGD and colonoscopy revealed minimal gastric antritis and a sigmoid polyp. GI consulted. Plan: Continue with normal saline at 100 mL an hour. 1200 mL fluid resection. Repeat electrolytes in the morning.
--- NOTE | 2019-05-24 13:41 | P.PN ---
Subjective Progress Note Date: 05/24/19 Principal diagnosis: 68-year-old male was recently discharged from the hospital came back again with nausea vomiting and epigastric abdominal burning sensation patient does have pep tic ulcer disease patient was started on Protonix. Patient also has hyponatremia which is chronic and which is being addressed as an outpatient by nephrology. Hyponatremia workup was ordered and nephrology was consulted here again patient was started on IV fluids and restriction of [place]. Patient appears to be depressed patient is crying anxious. Patient had a recent workup for her his possible liver lesion which was not really evident on the MRCP and I'm consulting [facility] as well to have a look at the MRCP results and also for the upper GI symptoms. Patient had normal alpha-fetoprotein no obvious evidence of any malignancy. His loss of weight is probably because of his depression and anxiety. Patient lost about 60 pounds since last June as per the patient. Psychiatric consulted. 05/24/2019 Patient is sitting up at the side of the bed in no acute distress. Patient is mildly anxious as he states "he wants to know what is wrong with him". Patient denies any chest pain, shortness of breath, or palpitations at this time. Patient denies any vomiting but is having some mild nausea at times and not eating very much. Patient has been up and walking the halls with no difficulties. Currently patient is waiting for a psychiatric consult for depression and anxiety. Nephrology is following. Objective - Vital Signs Vital signs: Vital Signs Temp 97.2 F L 05/24/19 05:00 Pulse 78 05/24/19 05:00 Resp 18 05/24/19 08:00 BP 140/74 05/24/19 05:00 Pulse Ox 99 05/24/19 05:00 Intake & Output 05/23/19 05/24/19 05/24/19 18:59 06:59 18:59 Intake Total 800 400 Balance 800 400 Intake: Intake, IV Titration 800 Amount Sodium Chloride 0.9% 1, 800 000 ml @ 100 mls/hr IV . Q10H [facility] Rx#:[id number] Oral 400 Other: Voiding Method Toilet Toilet Urinal Urinal # Voids 1 - Exam GENERAL: The patient is alert and oriented x3, not in any acute distress. Well developed, well nourished. HEENT: Pupils are round and equally reacting to light. EOMI. No scleral icterus. No conjunctival pallor. Normocephalic, atraumatic. No pharyngeal erythema. No thyromegaly. CARDIOVASCULAR: S1 and S2 present. No murmurs, rubs, or gallops. PULMONARY: Chest is clear to auscultation, no wheezing or crackles. ABDOMEN: Soft, nontender, nondistended, normoactive bowel sounds. No palpable organomegaly. MUSCULOSKELETAL: No joint swelling or deformity. EXTREMITIES: No cyanosis, clubbing, or pedal edema. NEUROLOGICAL: Gross neurological examination did not reveal any focal deficits. Mildly anxious. SKIN: No rashes. - Labs CBC & Chem 7: 05/23/19 02:38 05/24/19 07:08 Labs: Abnormal Lab Results - Last 24 Hours (Table) 05/24/19 Range/Units 07:08 Sodium 132 L (137-145) mmol/L AST 14 L (17-59) U/L ALT 19 L (21-72) U/L Assessment and Plan Assessment: -Nausea vomiting epigastric burning sensation secondary to peptic ulcer disease patient was started on IV Protonix as an to reduce consult as mentioned above -Hyponatremia patient was diagnosed with hypotonic hyponatremia in the past will rest the floor will give IV normal saline and the hyponatremia workup was ordered. Nephrology is following -Depression and anxiety disorder probably contributed and all his issues and multiple hospital patient spiked secondary to that consulting psychiatry for that reason. Most SSRIs cannot be used because possibly of SIADH and hyponatremia. Awaiting psychiatric consult. -Liver lesion: That was extensively worked up during his previous hospitalizatio n as mentioned above. -Hypertension -Hyperlipidemia -CVA in the past -History of hepatitis C -Continued nicotine use: Counseling was provided Conditions and discussion: Comment continue current medications, management, and symptomatic treatment. Nephrology is following. We'll continue to monitor vital signs and labs. Awaiting Psychiatric consult. Further recommendations to follow. Guarded pr ognosis. Possible discharge in 24 hours.
[2019-05-24 14:53] VITALS: BP 145/74; PULSE 89; TEMP 98.6
--- NOTE | 2019-05-24 15:32 | P.DS ---
Providers Date of admission: 05/23/19 04:57 Expected date of discharge: 05/24/19 Attending physician: Sylwia Bryan Consults: 05/23/19 05:37 Consult Physician Routine Consulting Provider: Matty Vizcaino Consult Reason/Comments: hyponatremia Do you want consulting provider notified?: Yes 05/23/19 09:44 Consult Physician Routine Consulting Provider: Leslie Hutson Consult Reason/Comments: abdominal pain Do you want consulting provider notified?: Yes 05/23/19 10:56 Consult Physician Routine Consulting Provider: Terry Dolan Consult Reason/Comments: Depression Do you want consulting provider notified?: Already Contacted Primary care physician: [facility] Course: Final diagnosis Nausea/vomiting with epigastric burning sensation secondary to peptic ulcer disease Hyponatremia with hypotonic hyponatremia Depression and anxiety Possible SIADH and hyponatremia liver lesion Hypertension Hyperlipidemia CVA in the past History of hepatitis C Continued nicotine use Discharge disposition Patient is being discharged in a stable condition with guarded prognosis to home and will follow up with nephrology in 2 weeks time. Patient is to continue with fluid restrictions as discussed, Prilosec, and Remeron per psychiatry recommendations. Total time taken is 35 minutes. History of present illness This is a 68-year-old male who was recently admitted with nausea vomiting and epigastric abdominal burning sensation and was being monitored closely. Patient is a history of hyponatremia which is chronic and is being followed by nephrology in the outpatient setting. During hospitalization psychiatry was consulted as the patient continues to have anxiety and depression. Per psychiatry recommendations patient is to be started on Remeron 15 mg at bed and will follow-up in the outpatient setting. Patient is to be on fluid restrictions a 60 mL's per day and is to continue with ensure 3 times daily between meals and increase his oral intake of foods. Discussed with the patient at length about limiting his oral intake of water and to follow-up with nephrology in 2 weeks. Patient denies any chest pain, shortness of breath, or palpitations at this time. Patient states he does have some periods of nausea with no vomiting. Patient is afebrile. Patient's condition is stable and able for discharge today. Patient will follow-up with primary care provider upon discharge as well. On exam vital signs are stable. Blood pressure is 145/74, pulse is 89, respirations are 18, temp is 98.6F, oxygen saturation is 98% on room air. Cardio S1 and S2 are heard. Respiratory system shows clear to auscultation. Abdomen is soft, thin, nontender. Nervous system shows no focal deficits and gait is steady. Please refer to medication reconciliation sheet for a list of medications. Patient Condition at Discharge: Fair Plan - Discharge Summary Discharge Rx Participant: No New Discharge Prescriptions: New Nicotine 21Mg/24Hr Patch [Habitrol] 1 patch TRANSDERM DAILY #20 patch Omeprazole [PriLOSEC] 20 mg PO AC-BID 30 Days #60 cap Ensure 1 can PO TID BETWEEN MEALS #18 can Mirtazapine [Remeron] 15 mg PO HS 30 Days #30 tab Continue Pravastatin Sodium [Pravachol] 10 mg PO HS Omeprazole 20 mg PO DAILY Acetaminophen Tab [Tylenol] 650 mg PO Q6H PRN PRN Reason: Pain Dicyclomine [Bentyl] 20 mg PO TID amLODIPine [Norvasc] 5 mg PO DAILY tab Lisinopril [Zestril] 20 mg PO DAILY tab Discontinued Ranitidine HCl [Zantac] 150 mg PO BID Discharge Medication List Pravastatin Sodium [Pravachol] 10 mg PO HS 04/28/19 [History] Acetaminophen Tab [Tylenol] 650 mg PO Q6H PRN 05/13/19 [History] Omeprazole 20 mg PO DAILY 05/13/19 [History] Dicyclomine [Bentyl] 20 mg PO TID 05/17/19 [History] Lisinopril [Zestril] 20 mg PO DAILY tab 05/18/19 [Rx] amLODIPine [Norvasc] 5 mg PO DAILY tab 05/18/19 [Rx] Ensure 1 can PO TID BETWEEN MEALS #18 can 05/24/19 [Rx] Mirtazapine [Remeron] 15 mg PO HS 30 Days #30 tab 05/24/19 [Rx] Nicotine 21Mg/24Hr Patch [Habitrol] 1 patch TRANSDERM DAILY #20 patch 05/24/19 [Rx] Omeprazole [PriLOSEC] 20 mg PO AC-BID 30 Days #60 cap 05/24/19 [Rx] Follow up Appointment(s)/Referral(s): Matty Vizcaino DO [STAFF PHYSICIAN] - 2 Weeks () [facility],Clinic [Primary Care Provider] - 1 Week (Per Opal, office will call you with appointment time. ) Ambulatory/Diagnostic Orders: Basic Metabolic Panel [LAB.AMB] Time Frame: 5 Days, Location: None Selected Patient Instructions/Handouts: Peptic Ulcer (DC), Hyponatremia (DC) Activity/Diet/Wound Care/Special Instructions: Regular diet, continue 60ml fluid restriction per day per nephrology. Continue with ensure drinks 3 times daily in between meals and focus on eating more so than fluid intake. Activity as tolerated. Follow up with nephrology in 2 weeks Follow-up with primary care provider upon discharge Repeat labs in 5 days NO smoking, cessation information given. Informed pt for the need to wait and get Remeron script. Refused to stay, states he will not take it anyway.
--- NOTE | 2019-05-24 15:32 | P.CN ---
Psychiatric Consult - . Consult date: 05/24/19 Consult:: 05/24/19 15:22 IDENTIFYING DATA: This patient is a 68-year-old male who has 2 kids, lives with his son and his son's and kids and is retired HISTORY OF PRESENT ILLNESS: The patient presented to the ER with weakness nausea vomiting for the past 2 days. He was found to have a sodium level of 128 and chronically low sodium. Patient was treated symptomatically and sodium level has improved since admission however patient was noted yesterday to be crying at the bedside about doctors not knowing what's wrong with him and why he's feeling sick. Psychiatry was consulted for depression and seen at the bedside. Patient was agreeable to talk to chief underwriter and states that he has been dealing with any stressors in the past 3 years including his passing away and his son is well. He is claims that he has depressed mood however still able to function and does not feel isolated at his home. He claims that he is also frustrated with his health problems including being changed around his medications and being hospitalized is causing him stress. He states that he just got over an intestinal infection. Patient also claims that she has significant weight loss since January due to poor intake and unwillingness to eat. He states that he is underwent multiple tests which have come back inconclusive. Patient claims that his body is "very delicate" with regards to dehydration and being outside claims that he is always monitoring is volume loss and how much he drinks. He also complained of his legs hurting. Patient expressed that he feels "angry" at not being able to leave the hospital however was cooperative and joking around with chief underwriter. Patient denies any access to guns or weapons. He claims that his sleep is poor his appetite is poor over his energy level is fair. He admits to chronic anxiety. Patient explained multiple times that he does not want any more medications and wants to be discharged from the hospital. He admits to occasional marijuana use. At this time patient denies any suicidal or homical ideations, intent or plan. Patient denies any auditory, visual hallucinations and denies any paranoia or delusions. PAST PSYCHIATRIC HISTORY: Patient denies any psychiatric care in the past h owever does claim that he is a chronic history of anxiety. He denies a previous suicide attempts or any previous hospitalizations in a psych facility. PAST MEDICAL HISTORY: Hyponatremia, hyperlipidemia, hypertension, CVA/TIA, GERD. ALLERGIES: NO KNOWN DRUG ALLERGIES. CHEMICAL DEPENDENCY HISTORY: as per HPI. 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 He claims that he was in college for 2 years. He has 2 kids is currently and lives with his son and his family.. MENTAL STATUS EXAM: General Appearance: Patient appears to be stated age is alert, pleasant, and cooperative. Patient has fair hygiene and fair grooming. Behavior: Patient is calmly lying in bed without any agitated behavior. Speech: Patient's speech is fluent and nonpressured. Mood/Affect: Patient reports their mood is "angry", affect is congruent normal range. Suicidality/Homicidality: Patient denies having any suicidal or homicidal ideation intent or plan. Perceptions: Patient denies any auditory or visual hallucinations. Though content/process: There is no evidence of any delusional thought content and thought process is linear and goal-directed. Patient is preoccupied with discharge and not taking any more medications. Memory and concentration: AOX3, grossly intact for the purposes of this session. Can spell "WORLD" backwards Judgment and insight: fair IMPRESSIONS: Depressive disorder unspecified Cannabis use disorder PLAN: -At this time patient does NOT meet criteria for inpatient psychiatric admission. -Would recommend the following medication changes/additions: Remeron 15 mg daily at bedtime for insomnia, mood and appetite. I spoke with this patient being great detail about the medication and its benefits risks and side effects over for patient claims that she does not want to take any more medication at this point. I offered patient do outpatient therapy however patient also declined this as well. -Patient does not have any access to guns or weapons and no previous suicide attempts and currently endorses his son and his health as a protective factor and denies any suicidal or homicidal ideations intent or plan. Patient is agreeable to close follow-up with his primary care doctor for further workup for his weight loss and health problems. -Psychiatry will sign off at this point
[2019-05-24] MEDS ORDERED: PANTOPRAZOLE 40 MG TABLET PO SCH (17:30)
== END 2019-05-24 15:24 | disposition home or self-care (01) | DRG 384 ==
LOC: EC 02:22 → 4SSUR 04:57 → 4MS4W 15:23
PROVIDERS: ADMIT Hospitalist; ATTEND Hospitalist
DX: K27.9 Peptic ulcer, site unspecified, unspecified as acute or chronic, without hemorrhage or perforation (principal); E22.2 Syndrome of inappropriate secretion of antidiuretic hormone; E86.1 Hypovolemia; K76.9 Liver disease, unspecified; F32.9 Major depressive disorder, single episode, unspecified; F41.9 Anxiety disorder, unspecified; I10 Essential (primary) hypertension; K21.9 Gastro-esophageal reflux disease without esophagitis; E78.5 Hyperlipidemia, unspecified; G47.00 Insomnia, unspecified; F17.210 Nicotine dependence, cigarettes, uncomplicated; Z71.6 Tobacco abuse counseling; Z79.899 Other long term (current) drug therapy; Z86.73 Personal history of transient ischemic attack (TIA), and cerebral infarction without residual deficits; Z86.010 Personal history of colon polyps; Z86.19 Personal history of other infectious and parasitic diseases; Z98.890 Other specified postprocedural states; Z82.49 Family history of ischemic heart disease and other diseases of the circulatory system; Z80.0 Family history of malignant neoplasm of digestive organs
CPT/HCPCS: 36415; 80053; 81003; 82150; 82570; 83690; 83930; 83935; 84300; 84443; 84484; 84550; 85025; 93005; 96361; 96374; 99285

== ENCOUNTER → 2019-05-25 | Outpatient (CLI) | payer OTHER ==
--- NOTE | 2019-05-25 10:52 | US ---
EXAMINATION TYPE: US thyroid st tissue head/neck DATE OF EXAM: 05/25/2019 COMPARISON: NONE CLINICAL HISTORY: R94.6 Abnormal thyroid results function. Thyroiditis MEASUREMENTS: GLAND SIZE: Right Lobe: 3.9 x 2.0 x 1.4 cm Left Lobe: 4.0 x 1.6 x 1.5 cm Isthmus Thickness: 0.6 cm NODULES RIGHT: # of nodules measured on right: 0 LEFT: # of nodules measured on left: 0 ISTHMUS: # of nodules measured within isthmus: 0 Bilateral neck scanned, no evidence of lymphadenopathy. IMPRESSION: 1. No sizable thyroid nodule identified. Thyroid gland measures within in normal size.
== END ==
LOC: RADUSMAIN 09:00
DX: E06.9 Thyroiditis, unspecified (principal)
CPT/HCPCS: 76536

== ENCOUNTER 2019-05-28 15:13 | Emergency (ER) | payer OTHER, MEDICARE ==
--- NOTE | 2019-05-28 16:18 | ED ---
General Adult HPI - General Chief complaint: Nausea/Vomiting/Diarrhea Stated complaint: "sick" Time Seen by Provider: 05/28/19 16:07 Source: patient, family Mode of arrival: ambulatory Limitations: no limitations - History of Present Illness Initial comments: Patient presents to the ED with his son complaining of feeling "sick". Patient states that he has felt very anxious since last night, and he states that he has not slept since last night. Patient also states that he feels nauseated. Patient's son states that the patient has been unable to fill the Remeron that he was recently prescribed. Patient denies having any pain, trauma or injury, f ever or chills, headache, focal neuro deficit, chest pain, dyspnea, cough or cold symptoms, palpitations, dizziness, vomiting or diarrhea, abdominal pain, bloody or melanotic stool, dysuria or urinary symptoms, suicidal ideations, hallucinations, drug or alcohol abuse, or any other symptoms or complaints. - Related Data Home Medications Medication Instructions Recorded Confirmed Pravastatin Sodium [Pravachol] 10 mg PO HS 04/28/19 05/28/19 Acetaminophen Tab [Tylenol] 650 mg PO Q6H PRN 05/13/19 05/28/19 Omeprazole 20 mg PO DAILY 05/13/19 05/28/19 Dicyclomine [Bentyl] 20 mg PO TID 05/17/19 05/28/19 Previous Rx's Medication Instructions Recorded Lisinopril [Zestril] 20 mg PO DAILY tab 05/18/19 amLODIPine [Norvasc] 5 mg PO DAILY tab 05/18/19 Ensure 1 can PO TID BETWEEN MEALS #18 can 05/24/19 Allergies Allergy/AdvReac Type Severity Reaction Status Date / Time No Known Allergies Allergy Verified 05/28/19 16:55 Review of Systems ROS Statement: Those systems with pertinent positive or pertinent negative responses have been documented in the HPI. ROS Other: All systems not noted in ROS Statement are negative. Past Medical History Past Medical History: CVA/TIA, GERD/Reflux, Hyperlipidemia, Hypertension Additional Past Medical History / Comment(s): Low sodium, Hepatitis C History of Any Multi-Drug Resistant Organisms: None Reported Past Surgical History: Back Surgery, Tonsillectomy Past Anesthesia/Blood Transfusion Reactions: No Reported Reaction Past Psychological History: Anxiety Smoking Status: Current every day smoker Past Alcohol Use History: None Reported Past Drug Use History: None Reported - Past Family History Mother History Unknown: Yes Additional Family Medical History / Comment(s): of a heart attack Father Family Medical History: Cancer Additional Family Medical History / Comment(s): thoart cancer General Exam Limitations: no limitations General appearance: alert, anxious Head exam: Present: atraumatic, normocephalic Eye exam: Present: normal appearance, PERRL, EOMI ENT exam: Present: mucous membranes moist Neck exam: Absent: tenderness, meningismus Respiratory exam: Present: normal lung sounds bilaterally. Absent: respiratory distress, wheezes, rales, rhonchi Cardiovascular Exam: Present: regular rate, normal rhythm, normal heart sounds, other (Normal radial pulses bilaterally) GI/Abdominal exam: Present: soft, normal bowel sounds. Absent: distended, tenderness, guarding Extremities exam: Absent: tenderness, pedal edema, calf tenderness Neurological exam: Present: alert, oriented X3. Absent: motor sensory deficit Psychiatric exam: Present: other (Patient is very anxious in appearance) Skin exam: Present: warm, dry, intact, normal color Course Vital Signs 05/28/19 05/28/19 05/28/19 15:32 17:00 18:35 Temperature 97.6 F Pulse Rate 89 83 80 Respiratory 18 20 16 Rate Blood Pressure 146/91 160/86 162/87 O2 Sat by Pulse 100 100 98 Oximetry 05/28/19 05/28/19 19:15 21:20 Temperature 97.5 F L Pulse Rate 78 79 Respiratory 17 20 Rate Blood Pressure 141/82 139/80 O2 Sat by Pulse 97 98 Oximetry - Reevaluation(s) Reevaluation #1: 05/28/19 22:25 Patient was given Ativan 1 mg by mouth in the ED, and he states that he is now feeling better. Patient states that his anxiety has improved. Patient remains alert and breathing comfortably. Patient and son are aware of the patient's test results, and they both feel comfortable with the patient going home at this time. Patient was instructed to, and agrees to, follow-up closely with [facility]. Patient's son agrees to take the patient home tonight. Medical Decision Making - Medical Decision Making Patient is mildly hyponatremic, but his labs are otherwise fairly unremarkable. Patient's vital signs are reassuring. EPS nurse has evaluated the patient in the ED, and she states that the patient has agreed to follow-up with the [facility] as an outpatient. Patient and son were counseled about anxiety, and patient feels comfortable going home at this time. Patient was clearly e xplained return and follow-up instructions - Lab Data Result diagrams: 05/28/19 16:55 05/28/19 16:55 Lab Results 05/28/19 05/28/19 05/28/19 Range/Units 16:55 16:55 17:12 WBC 7.5 (3.8-10.6) k/uL RBC 3.86 L (4.30-5.90) m/uL Hgb 12.1 L (13.0-17.5) gm/dL Hct 35.6 L (39.0-53.0) % MCV 92.2 (80.0-100.0) fL MCH 31.2 (25.0-35.0) pg MCHC 33.9 (31.0-37.0) g/dL RDW 14.0 (11.5-15.5) % Plt Count 252 (150-450) k/uL Neutrophils % 82 % Lymphocytes % 10 % Monocytes % 5 % Eosinophils % 1 % Basophils % 1 % Neutrophils # 6.1 (1.3-7.7) k/uL Lymphocytes # 0.7 L (1.0-4.8) k/uL Monocytes # 0.4 (0-1.0) k/uL Eosinophils # 0.0 (0-0.7) k/uL Basophils # 0.1 (0-0.2) k/uL Sodium 129 L (137-145) mmol/L Potassium 4.6 (3.5-5.1) mmol/L Chloride 94 L (98-107) mmol/L Carbon Dioxide 27 (22-30) mmol/L Anion Gap 8 mmol/L BUN 29 H (9-20) mg/dL Creatinine 0.93 (0.66-1.25) mg/dL Est GFR (CKD-EPI)AfAm >90 (>60 ml/min/1.73 sqM) Est GFR (CKD-EPI)NonAf 83 (>60 ml/min/1.73 sqM) Glucose 89 (74-99) mg/dL Calcium 9.0 (8.4-10.2) mg/dL Total Bilirubin 0.2 (0.2-1.3) mg/dL AST 14 L (17-59) U/L ALT 19 L (21-72) U/L Alkaline Phosphatase 57 (38-126) U/L Total Protein 6.2 L (6.3-8.2) g/dL Albumin 3.7 (3.5-5.0) g/dL Lipase 205 (23-300) U/L Urine Color Light Yellow Urine Appearance Clear (Clear) Urine pH 6.0 (5.0-8.0) Ur Specific [place] 1.013 (1.001-1.035) Urine Protein Negative (Negative) Urine Glucose (UA) Negative (Negative) Urine Ketones Negative (Negative) Urine Blood Negative (Negative) Urine Nitrite Negative (Negative) Urine Bilirubin Negative (Negative) Urine Urobilinogen <2.0 (<2.0) mg/dL Ur Leukocyte Esterase Negative (Negative) Urine Opiates Screen Not Detected (NotDetected) Ur Oxycodone Screen Not Detected (NotDetected) Urine Methadone Screen Not Detected (NotDetected) Ur Propoxyphene Screen Not Detected (NotDetected) Ur Barbiturates Screen Not Detected (NotDetected) U Tricyclic Antidepress Not Detected (NotDetected) Ur Phencyclidine Scrn Not Detected (NotDetected) Ur Amphetamines Screen Not Detected (NotDetected) U Methamphetamines Scrn Not Detected (NotDetected) U Benzodiazepines Scrn Not Detected (NotDetected) Urine Cocaine Screen Not Detected (NotDetected) U Marijuana (THC) Screen Detected H (NotDetected) Serum Alcohol <10 mg/dL Disposition Clinical Impression: Anxiety Disposition: HOME SELF-CARE Condition: Stable Instructions (If sedation given, give patient instructions): Mood Disorders (ED) Additional Instructions: Return to the ER immediately should you develop any significant pain, a fever, shortness of breath, feeling dizzy or faint, vomiting, thoughts of self-harm, or new or worsening symptoms. Is patient prescribed a controlled substance at d/c from ED?: No Referrals: [facility],Clinic [Primary Care Provider] - 1-2 days Time of Disposition: 22:30
[2019-05-28 17:09] LABS: Basophils # (A) 0.1 k/uL (0-0.2); Basophils % (A) 1 %; Eosinophils % (A) 1 %; HCT 35.6 % (39.0-53.0); HGB 12.1 gm/dL (13.0-17.5); Lymphocytes # (A) 0.7 k/uL (1.0-4.8); Lymphocytes % (A) 10 %; MCH 31.2 pg (25.0-35.0); MCHC 33.9 g/dL (31.0-37.0); MCV 92.2 fL (80.0-100.0); Mean Platelet Volume 6.4; Monocytes # (A) 0.4 k/uL (0-1.0); Monocytes % (A) 5 %; Neutrophils # (A) 6.1 k/uL (1.3-7.7); Neutrophils % (A) 82 %; Platelet Count 252 k/uL (150-450); RBC 3.86 m/uL (4.30-5.90); WBC 7.5 k/uL (3.8-10.6)
[2019-05-28 17:32] LABS: Appearance,Urine Clear (Clear); Bilirubin,Urine Negative (Negative); Blood,Urine Negative (Negative); Color,Urine Light Yellow; Glucose,Urine (UA) Negative (Negative); Ketones,Urine Negative (Negative); Leukocyte Esterase,Urine Negative (Negative); Nitrite,Urine Negative (Negative); Protein,Urine Negative (Negative); Specific Gravity,Urine 1.013 (1.001-1.035); Urobilinogen,Urine <2.0 mg/dL (<2.0)
[2019-05-28 17:44] LABS: ALT 19 U/L (21-72); AST 14 U/L (17-59); African American GFR (CKD) >90 (>60 ml/min/1.73 sqM); Albumin 3.7 g/dL (3.5-5.0); Alcohol <10 mg/dL; Alkaline Phosphatase 57 U/L (38-126); Anion Gap 8 mmol/L; Blood Urea Nitrogen 29 mg/dL (9-20); Carbon Dioxide 27 mmol/L (22-30); Chloride 94 mmol/L (98-107); Glucose 89 mg/dL (74-99); Non-African American GFR(CKD) 83 (>60 ml/min/1.73 sqM); Potassium 4.6 mmol/L (3.5-5.1); Sodium 129 mmol/L (137-145); Total Bilirubin 0.2 mg/dL (0.2-1.3); Total Protein 6.2 g/dL (6.3-8.2)
[2019-05-28 17:44] LABS: Amphetamine Screen,Urine Not Detected (NotDetected); Barbiturate Screen,Urine Not Detected (NotDetected); Benzodiazepines Screen,Urine Not Detected (NotDetected); Cocaine Screen,Urine Not Detected (NotDetected); Methadone Screen, Urine Not Detected (NotDetected); Opiate Screen,Urine Not Detected (NotDetected); Oxycodone Screen, Urine Not Detected (NotDetected); Phencyclidine Screen,Urine Not Detected (NotDetected); Tricyclic Antidepressant,Urine Not Detected (NotDetected); Urn Cannabinoid Scrn Detected (NotDetected)
[2019-05-28 20:12] VITALS: TEMP 97.5
[2019-05-28] MEDS ORDERED: LORazepam 1 MG TAB PO STA (20:27)
[2019-05-28 23:02] VITALS: BP 99/54; PULSE 80; RESP 14
== END 2019-05-28 22:57 | disposition home or self-care (01) ==
LOC: EC 15:13
DX: F41.9 Anxiety disorder, unspecified (principal); E87.1 Hypo-osmolality and hyponatremia; K21.9 Gastro-esophageal reflux disease without esophagitis; E78.5 Hyperlipidemia, unspecified; F17.200 Nicotine dependence, unspecified, uncomplicated; Z79.899 Other long term (current) drug therapy; Z86.73 Personal history of transient ischemic attack (TIA), and cerebral infarction without residual deficits
CPT/HCPCS: 36415; 80053; 80306; 80320; 81003; 83690; 85025; 99284

== ENCOUNTER 2019-05-30 11:10 | Emergency (ER) | payer OTHER, MEDICARE ==
[2019-05-30] MEDS ORDERED: SODIUM CHLORIDE 0.9% 1,000 ML IV STA (12:18)
[2019-05-30] MEDS ORDERED: LORazepam 2 MG/ML INJ IV STA ×2 (12:19→20:39)
[2019-05-30 12:51] LABS: Basophils # (A) 0.1 k/uL (0-0.2); Basophils % (A) 1 %; Eosinophils % (A) 1 %; HCT 40.8 % (39.0-53.0); HGB 13.3 gm/dL (13.0-17.5); Lymphocytes # (A) 0.8 k/uL (1.0-4.8); Lymphocytes % (A) 10 %; MCH 30.7 pg (25.0-35.0); MCHC 32.6 g/dL (31.0-37.0); MCV 94.2 fL (80.0-100.0); Mean Platelet Volume 6.3; Monocytes # (A) 0.4 k/uL (0-1.0); Monocytes % (A) 5 %; Neutrophils # (A) 6.7 k/uL (1.3-7.7); Neutrophils % (A) 83 %; Platelet Count 268 k/uL (150-450); RBC 4.34 m/uL (4.30-5.90)
[2019-05-30 13:01] LABS: ALT 16 U/L (21-72); AST 16 U/L (17-59); African American GFR (CKD) >90 (>60 ml/min/1.73 sqM); Albumin 4.3 g/dL (3.5-5.0); Alkaline Phosphatase 56 U/L (38-126); Anion Gap 9 mmol/L; Blood Urea Nitrogen 19 mg/dL (9-20); Calcium 9.6 mg/dL (8.4-10.2); Carbon Dioxide 29 mmol/L (22-30); Chloride 94 mmol/L (98-107); Glucose 101 mg/dL (74-99); Magnesium 2.2 mg/dL (1.6-2.3); Sodium 132 mmol/L (137-145); Total Bilirubin 0.6 mg/dL (0.2-1.3); Total Protein 7.4 g/dL (6.3-8.2)
--- NOTE | 2019-05-30 13:19 | ED ---
General Adult HPI - General Chief complaint: Recheck/Abnormal Lab/Rx Stated complaint: High BP-revisit Time Seen by Provider: 05/30/19 11:30 Source: patient Mode of arrival: wheelchair Limitations: no limitations - History of Present Illness Initial comments: The patient is a 68-year-old male who presents emergency Department with reported insomnia and hypertension. The patient has been seen multiple times recently within the past month for generalized weakness and hyponatremia. Son accompanies patient at bedside. He states that his father is convinced that he is "very ill." he states that his father fixates on this. It causes him to be extremely nauseated and have a poor appetite. His hyponatremia has been attributed to poor solute intake. Patient's son reports that he hasn't slept in days because he is so anxious. He frequently has to come to the hospital to be evaluated. Son will attempt to refuse however the patient will attempt to get the car and drive himself here. The son states it's been very hard to take care of him and believe he does need psychiatric help. The patient was recently hospitalized and saw a psychiatrist. He placed him on Remeron. the patient reports that he has yet to get the medication in the mail. As he hasn't been sleeping, she has felt anxious. He is taking his blood pressure at home and has been high. Patient states he continues blood pressure medication as directed. Patient feels as if he has that is wits end and therefore reports being suicidal. No plan reported. No alleviating, precipitating or or modifying factors - Related Data Home Medications Medication Instructions Recorded Confirmed Pravastatin Sodium [Pravachol] 10 mg PO HS 04/28/19 05/30/19 Acetaminophen Tab [Tylenol] 650 mg PO Q6H PRN 05/13/19 05/30/19 Dicyclomine [Bentyl] 20 mg PO TID 05/17/19 05/30/19 Famotidine [Pepcid AC] 10 mg PO DAILY PRN 05/30/19 05/30/19 Melatonin 5 mg PO HS 05/30/19 05/30/19 Omeprazole 40 mg PO DAILY 05/30/19 05/30/19 Previous Rx's Medication Instructions Recorded Lisinopril [Zestril] 20 mg PO DAILY tab 05/18/19 amLODIPine [Norvasc] 5 mg PO DAILY tab 05/18/19 Allergies Allergy/AdvReac Type Severity Reaction Status Date / Time No Known Allergies Allergy Verified 05/30/19 11:42 Review of Systems ROS Statement: Those systems with pertinent positive or pertinent negative responses have been documented in the HPI. ROS Other: All systems not noted in ROS Statement are negative. Past Medical History Past Medical History: CVA/TIA, GERD/Reflux, Hyperlipidemia, Hypertension Additional Past Medical History / Comment(s): Low sodium, Hepatitis C History of Any Multi-Drug Resistant Organisms: None Reported Past Surgical History: Back Surgery, Tonsillectomy Past Anesthesia/Blood Transfusion Reactions: No Reported Reaction Past Psychological History: Anxiety Smoking Status: Current every day smoker Past Alcohol Use History: None Reported Past Drug Use History: None Reported - Past Family History Mother History Unknown: Yes Additional Family Medical History / Comment(s): of a heart attack Father Family Medical History: Cancer Additional Family Medical History / Comment(s): thoart cancer General Exam Limitations: no limitations General appearance: alert, anxious Head exam: Present: atraumatic, normocephalic, normal inspection Eye exam: Present: normal appearance, PERRL, EOMI. Absent: scleral icterus, conjunctival injection, periorbital swelling ENT exam: Present: normal exam, mucous membranes moist Neck exam: Present: normal inspection. Absent: tenderness, meningismus, lymphadenopathy Respiratory exam: Present: normal lung sounds bilaterally. Absent: respiratory distress, wheezes, rales, rhonchi, stridor Cardiovascular Exam: Present: regular rate, normal rhythm, normal heart sounds. Absent: systolic murmur, diastolic murmur, rubs, gallop, clicks GI/Abdominal exam: Present: soft, normal bowel sounds. Absent: distended, tenderness, guarding, rebound, rigid Extremities exam: Present: normal inspection, full ROM, normal capillary refill. Absent: tenderness, pedal edema, joint swelling, calf tenderness Back exam: Present: normal inspection Neurological exam: Present: alert, oriented X3, CN II-XII intact Psychiatric exam: Present: anxious, manic, suicidal ideation Skin exam: Present: warm, dry, intact, normal color. Absent: rash Course Vital Signs 05/30/19 05/30/19 05/30/19 11:27 11:37 12:00 Temperature 97.5 F L Pulse Rate 69 Respiratory 16 Rate Blood Pressure 149/90 171/91 O2 Sat by Pulse 97 99 98 Oximetry 05/30/19 05/30/19 05/30/19 12:30 13:00 13:30 Temperature Pulse Rate 80 80 95 Respiratory 26 H 27 H 22 Rate Blood Pressure 166/88 170/93 165/92 O2 Sat by Pulse 98 99 96 Oximetry 05/30/19 05/30/19 05/30/19 14:00 14:30 15:00 Temperature Pulse Rate 79 77 71 Respiratory 5 L 13 13 Rate Blood Pressure 192/89 152/92 124/82 O2 Sat by Pulse 99 99 97 Oximetry 05/30/19 05/30/19 05/30/19 15:30 16:00 16:30 Temperature Pulse Rate 90 80 81 Respiratory 17 15 15 Rate Blood Pressure 110/73 168/92 147/98 O2 Sat by Pulse Oximetry 05/30/19 05/30/19 05/30/19 17:00 17:30 18:00 Temperature Pulse Rate 80 78 82 Respiratory 14 14 17 Rate Blood Pressure 140/79 137/87 125/75 O2 Sat by Pulse Oximetry 05/30/19 05/30/19 05/30/19 19:19 21:25 22:19 Temperature 98.2 F 98.1 F Pulse Rate 80 76 Respiratory 17 18 16 Rate Blood Pressure 143/82 133/68 O2 Sat by Pulse 97 98 Oximetry 05/31/19 05/31/19 05/31/19 01:50 04:04 06:07 Temperature 98.2 F Pulse Rate 69 Respiratory 17 16 19 Rate Blood Pressure 138/87 O2 Sat by Pulse 99 Oximetry 05/31/19 08:22 Temperature Pulse Rate 72 Respiratory 16 Rate Blood Pressure 140/86 O2 Sat by Pulse Oximetry EKG Findings - EKG Comments: EKG Findings:: EKG demonstrates a normal sinus rhythm with a ventricular rate of 81. KS interval 184. QRS 68. QTC 413. There are no acute ST segment elevations or depressions concerning for ischemic changes or infarction. Medical Decision Making - Medical Decision Making The patient's patient room 6. Her history and physical exam was performed. I did recommend laboratory studies as the patient does have a history of hyponatremia in the past. Laboratory studies demonstrated an unremarkable CBC. CMP shows a sodium of 132, chloride 94, glucose 101. Urine drug screen shows positive benzos and marijuana. The [facility] does have an available bed. At 8:30 PM I did speak with the psychiatrist at the [facility] who reported that the patient was refused by their facility. As the patient does have Medicare, we will search for other placement options at this time. I do believe the patient needs to be hospitalized because of his reported suicidal ideations and manic behavior. He is also extremely paranoid with the thought of dying. Provided hi m with a dose of Ativan at arrival. I then ordered a second dose at 8:30. The patient currently remains awaiting placement - Lab Data Result diagrams: 05/30/19 12:35 05/30/19 12:35 Lab Results 05/30/19 05/30/19 05/30/19 Range/Units 12:35 12:35 12:35 WBC 8.0 (3.8-10.6) k/uL RBC 4.34 (4.30-5.90) m/uL Hgb 13.3 (13.0-17.5) gm/dL Hct 40.8 (39.0-53.0) % MCV 94.2 (80.0-100.0) fL MCH 30.7 (25.0-35.0) pg MCHC 32.6 (31.0-37.0) g/dL RDW 14.0 (11.5-15.5) % Plt Count 268 (150-450) k/uL Neutrophils % 83 % Lymphocytes % 10 % Monocytes % 5 % Eosinophils % 1 % Basophils % 1 % Neutrophils # 6.7 (1.3-7.7) k/uL Lymphocytes # 0.8 L (1.0-4.8) k/uL Monocytes # 0.4 (0-1.0) k/uL Eosinophils # 0.0 (0-0.7) k/uL Basophils # 0.1 (0-0.2) k/uL Sodium 132 L (137-145) mmol/L Potassium 5.0 (3.5-5.1) mmol/L Chloride 94 L (98-107) mmol/L Carbon Dioxide 29 (22-30) mmol/L Anion Gap 9 mmol/L BUN 19 (9-20) mg/dL Creatinine 0.93 (0.66-1.25) mg/dL Est GFR (CKD-EPI)AfAm >90 (>60 ml/min/1.73 sqM) Est GFR (CKD-EPI)NonAf 83 (>60 ml/min/1.73 sqM) Glucose 101 H (74-99) mg/dL Calcium 9.6 (8.4-10.2) mg/dL Magnesium 2.2 (1.6-2.3) mg/dL Total Bilirubin 0.6 (0.2-1.3) mg/dL AST 16 L (17-59) U/L ALT 16 L (21-72) U/L Alkaline Phosphatase 56 (38-126) U/L Total Protein 7.4 (6.3-8.2) g/dL Albumin 4.3 (3.5-5.0) g/dL TSH 1.380 (0.465-4.680) mIU/L Urine Color Urine Appearance (Clear) Urine pH (5.0-8.0) Ur Specific [place] (1.001-1.035) Urine Protein (Negative) Urine Glucose (UA) (Negative) Urine Ketones (Negative) Urine Blood (Negative) Urine Nitrite (Negative) Urine Bilirubin (Negative) Urine Urobilinogen (<2.0) mg/dL Ur Leukocyte Esterase (Negative) Urine Opiates Screen (NotDetected) Ur Oxycodone Screen (NotDetected) Urine Methadone Screen (NotDetected) Ur Propoxyphene Screen (NotDetected) Ur Barbiturates Screen (NotDetected) U Tricyclic Antidepress (NotDetected) Ur Phencyclidine Scrn (NotDetected) Ur Amphetamines Screen (NotDetected) U Methamphetamines Scrn (NotDetected) U Benzodiazepines Scrn (NotDetected) Urine Cocaine Screen (NotDetected) U Marijuana (THC) Screen (NotDetected) 05/30/19 05/30/19 Range/Units 18:18 18:18 WBC (3.8-10.6) k/uL RBC (4.30-5.90) m/uL Hgb (13.0-17.5) gm/dL Hct (39.0-53.0) % MCV (80.0-100.0) fL MCH (25.0-35.0) pg MCHC (31.0-37.0) g/dL RDW (11.5-15.5) % Plt Count (150-450) k/uL Neutrophils % % Lymphocytes % % Monocytes % % Eosinophils % % Basophils % % Neutrophils # (1.3-7.7) k/uL Lymphocytes # (1.0-4.8) k/uL Monocytes # (0-1.0) k/uL Eosinophils # (0-0.7) k/uL Basophils # (0-0.2) k/uL Sodium (137-145) mmol/L Potassium (3.5-5.1) mmol/L Chloride (98-107) mmol/L Carbon Dioxide (22-30) mmol/L Anion Gap mmol/L BUN (9-20) mg/dL Creatinine (0.66-1.25) mg/dL Est GFR (CKD-EPI)AfAm (>60 ml/min/1.73 sqM) Est GFR (CKD-EPI)NonAf (>60 ml/min/1.73 sqM) Glucose (74-99) mg/dL Calcium (8.4-10.2) mg/dL Magnesium (1.6-2.3) mg/dL Total Bilirubin (0.2-1.3) mg/dL AST (17-59) U/L ALT (21-72) U/L Alkaline Phosphatase (38-126) U/L Total Protein (6.3-8.2) g/dL Albumin (3.5-5.0) g/dL TSH (0.465-4.680) mIU/L Urine Color Light Yellow Urine Appearance Clear (Clear) Urine pH 7.5 (5.0-8.0) Ur Specific [place] 1.008 (1.001-1.035) Urine Protein Negative (Negative) Urine Glucose (UA) Negative (Negative) Urine Ketones Negative (Negative) Urine Blood Negative (Negative) Urine Nitrite Negative (Negative) Urine Bilirubin Negative (Negative) Urine Urobilinogen <2.0 (<2.0) mg/dL Ur Leukocyte Esterase Negative (Negative) Urine Opiates Screen Not Detected (NotDetected) Ur Oxycodone Screen Not Detected (NotDetected) Urine Methadone Screen Not Detected (NotDetected) Ur Propoxyphene Screen Not Detected (NotDetected) Ur Barbiturates Screen Not Detected (NotDetected) U Tricyclic Antidepress Not Detected (NotDetected) Ur Phencyclidine Scrn Not Detected (NotDetected) Ur Amphetamines Screen Not Detected (NotDetected) U Methamphetamines Scrn Not Detected (NotDetected) U Benzodiazepines Scrn Detected H (NotDetected) Urine Cocaine Screen Not Detected (NotDetected) U Marijuana (THC) Screen Detected H (NotDetected) Disposition Clinical Impression: Vomiting, Nausea, Anxiety Disposition: TRANSFER TO PSYCH HOSP/UNIT Condition: Stable Referrals: [facility],Clinic [Primary Care Provider] - 1-2 days
[2019-05-30] MEDS ORDERED: PRAVASTATIN SODIUM 20 MG TAB PO STA (16:11)
[2019-05-30] MEDS ORDERED: DICYCLOMINE 20 MG TAB PO STA (16:11)
[2019-05-30 18:35] LABS: Amphetamine Screen,Urine Not Detected (NotDetected); Barbiturate Screen,Urine Not Detected (NotDetected); Benzodiazepines Screen,Urine Detected (NotDetected); Cocaine Screen,Urine Not Detected (NotDetected); Methadone Screen, Urine Not Detected (NotDetected); Opiate Screen,Urine Not Detected (NotDetected); Oxycodone Screen, Urine Not Detected (NotDetected); Phencyclidine Screen,Urine Not Detected (NotDetected); Tricyclic Antidepressant,Urine Not Detected (NotDetected); Urn Cannabinoid Scrn Detected (NotDetected)
[2019-05-31 02:04] LABS: Appearance,Urine Clear (Clear); Bilirubin,Urine Negative (Negative); Blood,Urine Negative (Negative); Color,Urine Light Yellow; Glucose,Urine (UA) Negative (Negative); Ketones,Urine Negative (Negative); Leukocyte Esterase,Urine Negative (Negative); Nitrite,Urine Negative (Negative); PH, Urine 7.5 (5.0-8.0); Protein,Urine Negative (Negative); Specific Gravity,Urine 1.008 (1.001-1.035); Urobilinogen,Urine <2.0 mg/dL (<2.0)
[2019-05-31 06:08] VITALS: TEMP 98.2
[2019-05-31 08:23] VITALS: BP 140/86; PULSE 72; RESP 16
== END 2019-05-31 08:37 ==
LOC: EC 11:10
DX: F41.9 Anxiety disorder, unspecified (principal); R82.5 Elevated urine levels of drugs, medicaments and biological substances; R45.851 Suicidal ideations; F30.9 Manic episode, unspecified; F22 Delusional disorders; K21.9 Gastro-esophageal reflux disease without esophagitis; E78.5 Hyperlipidemia, unspecified; I10 Essential (primary) hypertension; F17.200 Nicotine dependence, unspecified, uncomplicated; Z79.899 Other long term (current) drug therapy
CPT/HCPCS: 82075; 36415; 93005; 80053; 83735; 84443; 85025; 81003; 80306; 99285; 96374; 96376; J2060

== ENCOUNTER 2019-06-11 14:19 | Observation (INO) | payer OTHER, MEDICARE ==
[2019-06-11] MEDS ORDERED: SODIUM CHLORIDE 0.9% 1,000 ML IV STA (14:59)
--- NOTE | 2019-06-11 15:03 | ED ---
General Adult HPI <Romel Duarte - Last Filed: 06/11/19 18:00> - General Source: patient, family Mode of arrival: wheelchair Limitations: no limitations <Jaren Perez - Last Filed: 06/11/19 18:21> - General Chief complaint: Recheck/Abnormal Lab/Rx Stated complaint: Low B/P Time Seen by Provider: 06/11/19 14:40 - History of Present Illness Initial comments: Patient is a 68-year-old male with history of hypertension and anxiety is presenting to emergency Department with a chief complaint of hypotension. Patient reports he was discharged from [facility] and was started on 4 new psychiatric medications. Patient reports over the last 2 days he has developed hypotension. Patient reports he contacted his primary care at the [facility] who suggested he cut the dose in half of his antihypertensive medication (lisinopril and amlodapine). Patient reports he obtained his blood pressure today around noon and it was decreased. Patient reports he contacted his primary care who is just that he come to the ED for evaluation. Patient does report lightheadedness whenever he attempts to stand up too quickly, otherwise at this time patient denies any blurry vision, chest pain, shortness of breath, dizziness, nausea, vomiting, abdominal pain, back pain. (Jaren Collins) - Related Data Home Medications Medication Instructions Recorded Confirmed Acetaminophen Tab [Tylenol] 650 mg PO Q6H PRN 05/13/19 06/11/19 Dicyclomine [Bentyl] 20 mg PO TID 05/17/19 06/11/19 Famotidine [Pepcid AC] 10 mg PO DAILY 05/30/19 06/11/19 Nicotine 21Mg/24Hr Patch [Habitrol] 21 mg TRANSDERM DAILY 06/11/19 06/11/19 Pantoprazole Sodium [Protonix] 40 mg PO DAILY 06/11/19 06/11/19 Pravastatin Sodium [Pravachol] 10 mg PO HS 06/11/19 06/11/19 QUEtiapine [SEROquel] 25 mg PO TID PRN 06/11/19 06/11/19 QUEtiapine [SEROquel] 50 mg PO HS 06/11/19 06/11/19 Sertraline [Zoloft] 100 mg PO DAILY 06/11/19 06/11/19 traZODone HCL 50 mg PO HS PRN 06/11/19 06/11/19 Previous Rx's Medication Instructions Recorded Lisinopril [Zestril] 20 mg PO DAILY tab 05/18/19 amLODIPine [Norvasc] 5 mg PO DAILY tab 05/18/19 Allergies Allergy/AdvReac Type Severity Reaction Status Date / Time No Known Allergies Allergy Verified 06/11/19 17:14 Review of Systems ROS Other: All systems not noted in ROS Statement are negative. <Romel Duarte - Last Filed: 06/11/19 18:00> ROS Other: All systems not noted in ROS Statement are negative. <Jaren Perez - Last Filed: 06/11/19 18:21> ROS Statement: Those systems with pertinent positive or pertinent negative responses have been documented in the HPI. Past Medical History Past Medical History: CVA/TIA, GERD/Reflux, Hyperlipidemia, Hypertension Additional Past Medical History / Comment(s): Low sodium, Hepatitis C History of Any Multi-Drug Resistant Organisms: None Reported Past Surgical History: Back Surgery, Tonsillectomy Past Anesthesia/Blood Transfusion Reactions: No Reported Reaction Past Psychological History: Anxiety Smoking Status: Current every day smoker Past Alcohol Use History: None Reported Past Drug Use History: None Reported - Past Family History Mother History Unknown: Yes Additional Family Medical History / Comment(s): of a heart attack Father Family Medical History: Cancer Additional Family Medical History / Comment(s): thoart cancer <Jaren Perez - Last Filed: 06/11/19 18:21> General Exam Limitations: no limitations General appearance: alert, in no apparent distress Head exam: Present: atraumatic, normocephalic, normal inspection Eye exam: Present: normal appearance, PERRL, EOMI. Absent: scleral icterus, conjunctival injection Pupils: Present: normal accommodation ENT exam: Present: normal exam, mucous membranes moist, normal external ear exam Neck exam: Present: normal inspection, full ROM. Absent: tenderness, lymphadenopathy Respiratory exam: Present: normal lung sounds bilaterally Cardiovascular Exam: Present: regular rate, normal rhythm, normal heart sounds Extremities exam: Present: normal inspection, full ROM, normal capillary refill, other (+2 ulnar and radial pulses bilaterally.) Back exam: Present: normal inspection, full ROM Neurological exam: Present: alert, oriented X3 Psychiatric exam: Present: normal affect, normal mood Skin exam: Present: warm, intact, normal color <Jaren Perez - Last Filed: 06/11/19 18:21> Course Vital Signs 06/11/19 06/11/19 06/11/19 14:21 14:42 15:58 Temperature 98.3 F Pulse Rate 97 86 90 Respiratory 18 18 18 Rate Blood Pressure 101/56 105/62 127/62 O2 Sat by Pulse 99 98 100 Oximetry 06/11/19 17:53 Temperature Pulse Rate 80 Respiratory 18 Rate Blood Pressure 145/81 O2 Sat by Pulse 100 Oximetry Medical Decision Making - Lab Data Result diagrams: 06/11/19 15:00 06/11/19 15:00 <Romel Duarte - Last Filed: 06/11/19 18:00> - Lab Data Result diagrams: 06/11/19 15:00 06/11/19 15:00 <Jaren Perez - Last Filed: 06/11/19 18:21> - Medical Decision Making Medical decision making; this is a 68-year-old male who had a low blood pressure at home. He reports that it was in the 80 range. The patient reports been on some new and hypertensive medications. This comes emergency room. The receiving a liter of fluid his blood pressure stabilized currently 127/62. The patient's labs also showed significant change in his hemoglobin and past 12 days dropping from 13-9.9. Patient states that he had colonoscopy approximately 3 weeks ago one polyp was removed. He occasionally sees blood but not recently. The stool guaiac is negative. Other numbers are elevated show acute kidney injury with a BUN of 43 creatinine 1.35 with a GFR 53. I discussed the case with Dr. Bryan's nurse practitioner Adina Tovar. Patient be admitted to Dr. Bryan service with further evaluation. Dr. Duarte (Romel Duarte) - Lab Data Lab Results 06/11/19 06/11/19 06/11/19 Range/Units 15:00 15:00 16:00 WBC 8.3 (3.8-10.6) k/uL RBC 3.10 L (4.30-5.90) m/uL Hgb 9.9 L D (13.0-17.5) gm/dL Hct 28.7 L (39.0-53.0) % MCV 92.4 (80.0-100.0) fL MCH 32.0 (25.0-35.0) pg MCHC 34.6 (31.0-37.0) g/dL RDW 14.0 (11.5-15.5) % Plt Count 198 (150-450) k/uL Sodium 130 L (137-145) mmol/L Potassium 4.7 (3.5-5.1) mmol/L Chloride 100 (98-107) mmol/L Carbon Dioxide 23 (22-30) mmol/L Anion Gap 7 mmol/L BUN 43 H (9-20) mg/dL Creatinine 1.35 H (0.66-1.25) mg/dL Est GFR (CKD-EPI)AfAm 61 (>60 ml/min/1.73 sqM) Est GFR (CKD-EPI)NonAf 53 (>60 ml/min/1.73 sqM) Glucose 98 (74-99) mg/dL Calcium 8.5 (8.4-10.2) mg/dL Total Bilirubin 0.2 (0.2-1.3) mg/dL AST 17 (17-59) U/L ALT 20 L (21-72) U/L Alkaline Phosphatase 65 (38-126) U/L Total Protein 5.6 L (6.3-8.2) g/dL Albumin 3.2 L (3.5-5.0) g/dL Urine Color Yellow Urine Appearance Clear (Clear) Urine pH 5.5 (5.0-8.0) Ur Specific [place] 1.019 (1.001-1.035) Urine Protein Negative (Negative) Urine Glucose (UA) Negative (Negative) Urine Ketones Negative (Negative) Urine Blood Negative (Negative) Urine Nitrite Negative (Negative) Urine Bilirubin Negative (Negative) Urine Urobilinogen <2.0 (<2.0) mg/dL Ur Leukocyte Esterase Negative (Negative) Stool Occult Blood (Negative) 06/11/19 Range/Units 16:48 WBC (3.8-10.6) k/uL RBC (4.30-5.90) m/uL Hgb (13.0-17.5) gm/dL Hct (39.0-53.0) % MCV (80.0-100.0) fL MCH (25.0-35.0) pg MCHC (31.0-37.0) g/dL RDW (11.5-15.5) % Plt Count (150-450) k/uL Sodium (137-145) mmol/L Potassium (3.5-5.1) mmol/L Chloride (98-107) mmol/L Carbon Dioxide (22-30) mmol/L Anion Gap mmol/L BUN (9-20) mg/dL Creatinine (0.66-1.25) mg/dL Est GFR (CKD-EPI)AfAm (>60 ml/min/1.73 sqM) Est GFR (CKD-EPI)NonAf (>60 ml/min/1.73 sqM) Glucose (74-99) mg/dL Calcium (8.4-10.2) mg/dL Total Bilirubin (0.2-1.3) mg/dL AST (17-59) U/L ALT (21-72) U/L Alkaline Phosphatase (38-126) U/L Total Protein (6.3-8.2) g/dL Albumin (3.5-5.0) g/dL Urine Color Urine Appearance (Clear) Urine pH (5.0-8.0) Ur Specific [place] (1.001-1.035) Urine Protein (Negative) Urine Glucose (UA) (Negative) Urine Ketones (Negative) Urine Blood (Negative) Urine Nitrite (Negative) Urine Bilirubin (Negative) Urine Urobilinogen (<2.0) mg/dL Ur Leukocyte Esterase (Negative) Stool Occult Blood Negative (Negative) Disposition <Romel Duarte - Last Filed: 06/11/19 18:00> Is patient prescribed a controlled substance at d/c from ED?: No Time of Disposition: 18:21 <Jaren Perez - Last Filed: 06/11/19 18:21> Clinical Impression: Anemia, Acute kidney injury, Hypotension Disposition: ADMITTED IP TO THIS HOSP Condition: Stable Additional Instructions: Patient will be admitted Referrals: [facility],Clinic [Primary Care Provider] - 1-2 days
[2019-06-11 15:19] LABS: HCT 28.7 % (39.0-53.0); MCHC 34.6 g/dL (31.0-37.0); MCV 92.4 fL (80.0-100.0); Mean Platelet Volume 6.7; Platelet Count 198 k/uL (150-450); WBC 8.3 k/uL (3.8-10.6)
[2019-06-11 15:20] LABS: HGB 9.9 gm/dL (13.0-17.5)
[2019-06-11 15:22] LABS: Albumin 3.2 g/dL (3.5-5.0); Calcium 8.5 mg/dL (8.4-10.2); Potassium 4.7 mmol/L (3.5-5.1); Total Bilirubin 0.2 mg/dL (0.2-1.3); Total Protein 5.6 g/dL (6.3-8.2)
[2019-06-11 16:17] LABS: Appearance,Urine Clear (Clear); Bilirubin,Urine Negative (Negative); Blood,Urine Negative (Negative); Color,Urine Yellow; Glucose,Urine (UA) Negative (Negative); Ketones,Urine Negative (Negative); Leukocyte Esterase,Urine Negative (Negative); Nitrite,Urine Negative (Negative); PH, Urine 5.5 (5.0-8.0); Protein,Urine Negative (Negative); Specific Gravity,Urine 1.019 (1.001-1.035); Urobilinogen,Urine <2.0 mg/dL (<2.0)
[2019-06-11] MEDS ORDERED: NALOXONE 0.4 MG/ML 1 ML VIAL IV PRN (19:05)
[2019-06-11] MEDS ORDERED: traZODone HCL 50 MG TAB PO ONE (19:58)
[2019-06-11] MEDS ORDERED: NICOTINE 21MG/24HR PATCH TRANSDERM STA (19:58)
[2019-06-11] MEDS ORDERED: QUEtiapine 50 MG TAB PO STA (19:58)
[2019-06-11] MEDS ORDERED: TEMAZEPAM 15 MG CAP PO PRN (23:32)
[2019-06-11] MEDS ORDERED: HYDROcodone/APAP 5-325MG 1 EACH TAB PO PRN (23:32)
[2019-06-11] MEDS ORDERED: ACETAMINOPHEN TAB 325 MG TAB PO PRN (23:33)
--- NOTE | 2019-06-11 23:51 | XR ---
EXAMINATION TYPE: XR chest 1V portable DATE OF EXAM: 06/11/2019 COMPARISON: 04/28/2019 HISTORY: Heart failure TECHNIQUE: Single frontal view of the chest is obtained. FINDINGS: There is no heart failure nor confluent pneumonic infiltrate. Costophrenic angles are dale r. There are chest leads. IMPRESSION: No active cardiopulmonary disease. Normal heart. No change.
[2019-06-12] MEDS: PANTOPRAZOLE 40 MG TABLET PO SCH (06:27)
[2019-06-12 07:31] LABS: Basophils % (A) 1 %; Eosinophils # (A) 0.1 k/uL (0-0.7); Eosinophils % (A) 2 %; HCT 34.7 % (39.0-53.0); HGB 11.4 gm/dL (13.0-17.5); Lymphocytes % (A) 20 %; MCH 31.6 pg (25.0-35.0); MCHC 32.9 g/dL (31.0-37.0); MCV 95.9 fL (80.0-100.0); Mean Platelet Volume 6.9; Monocytes # (A) 0.3 k/uL (0-1.0); Monocytes % (A) 5 %; Neutrophils # (A) 3.6 k/uL (1.3-7.7); Neutrophils % (A) 70 %; Platelet Count 221 k/uL (150-450); RBC 3.62 m/uL (4.30-5.90); RDW 14.1 % (11.5-15.5); WBC 5.1 k/uL (3.8-10.6)
[2019-06-12 08:16] LABS: Calcium 8.9 mg/dL (8.4-10.2); Potassium 4.6 mmol/L (3.5-5.1)
[2019-06-12] MEDS: FAMOTIDINE 20 MG TAB PO SCH (08:33)
[2019-06-12] MEDS: DICYCLOMINE 20 MG TAB PO SCH ×3 (08:33→20:30)
[2019-06-12] MEDS: HEPARIN SODIUM,PORCINE 5,000 UNIT/ML 1 ML VIAL SQ SCH ×2 (08:33→20:30)
[2019-06-12] MEDS: NICOTINE 21MG/24HR PATCH TRANSDERM SCH (08:33)
--- NOTE | 2019-06-12 09:26 | HP ---
HISTORY AND PHYSICAL DATE OF SERVICE: 06/11/2019 CHIEF COMPLAINT: Dizziness and hypertension. HISTORY OF PRESENT ILLNESS: This 68-year-old gentleman with a past medical history of multiple medical problems including CVA, TIA, GERD, hypertension, hyperlipidemia, history of hepatitis C, being followed by discharged in [place] [facility], was recently admitted to [facility]. Patient discharged on multiple psych medications at least four and the patient had dizziness and patient had hypotension. The patient came to [facility] and was admitted for further evaluation and treatment. The hypertensive dose medications, lisinopril and Amlodipine dose has to be reduced per [place] recommendations. There is no history of fever, rigors or chills. No history of headache, loss of consciousness or seizures. PAST MEDICAL HISTORY: History of CVA, TIA, history of GERD, hyperlipidemia hypertension, history hepatitis C, back surgery. History of anxiety. MEDICATIONS: 1. Trazodone 50 mg q.h.s. p.r.n. 2. Seroquel 50 mg q.h.s. 3. Pravachol 10 mg q.h.s. 4. Habitrol 21 daily. 5. Protonix 40 mg p.o. daily. 6. Zestril 20 mg p.o. daily. 7. Norvasc 5 mg daily. 8. Pepcid AC 10 mg p.o. daily. 9. Bentyl 20 mg p.o. daily. 10.Tylenol 650 q.6h. 11.Zoloft 100 mg p.o. daily. 12.Seroquel 25 mg t.i.d. p.r.n. ALLERGIES: None. FAMILY HISTORY: Family history of coronary artery disease and heart attack in the family. SOCIAL HISTORY: History of smoking, currently ongoing. No history of alcohol intake. REVIEW OF SYSTEMS: ENT: No diminished vision. No diminished hearing. CARDIOVASCULAR: No angina. RESPIRATORY: As mentioned earlier. GI no nausea or vomiting. no dysuria or hematuria. NERVOUS SYSTEM: No numbness or weakness. ALLERGY/IMMUNOLOGY: No asthma or hayfever. MUSCULOSKELETAL as mentioned earlier. HEMATOLOGY/ONCOLOGY: No history of anemia. ENDOCRINE: No history of diabetes or hypothyroidism. CONSTITUTIONAL: As mentioned earlier. DERMATOLOGY: Negative. RHEUMATOLOGY negative. PSYCHIATRY as mentioned earlier. PHYSICAL EXAMINATION: Alert and oriented x3. Pulse is 81. Blood pressure 147/88, respiration 18, temperature 97.7, pulse ox 98% on room air. HEENT: Conjunctivae normal. Oral mucosa moist. Neck is no jugular venous distention. No carotid bruit. No lymph node enlargement. Cardiovascular system: S1, S2 muffled. No S3, no S4. RESPIRATION: Breath sounds diminished in the bases. No rhonchi. No crackles. ABDOMEN: Soft, nontender. No mass palpable. LEGS: No edema. No swelling. NERVOUS SYSTEM: Higher functions as mentioned earlier. Moves all 4 limbs. No focal motor or sensory deficits. lymphatics: No lymph nodes palpable in the neck, axillae or groin. SKIN: No ulcer, no rash and no bleeding. JOINTS: No active deforming arthropathy. LABS: At this time shows WBC 8.2, hemoglobin 9.9, sodium 130, and creatinine is 1.35. Albumin is 3.2. Stool OB is negative. ASSESSMENT: 1. Hypotension, multifactorial, possibly medication induced. 2. Anemia, normocytic. 3. Hyponatremia. 4. Increased creatinine with possibly chronic kidney stage III. 5. History of cerebrovascular accident and transient ischemic attack. 6. Gastroesophageal reflux disease. 7. History of hypertension. 8. History of hyperlipidemia. 9. History of hyponatremia. 10.History hepatitis C. 11.History of back surgery. 12.History of anxiety. 13.History of nicotine dependence. 14.FULL CODE. RECOMMENDATIONS AND DISCUSSION: In this 68-year-old gentleman who presented with multiple complex medical issues, at this time, I recommend continue with current medications. Hold antihypertensive medications. Cardiology consultation. Set of troponins. Otherwise, I will recommend to continue the rest of the medications and continue to monitor. Further recommendations to follow. The patient had recent significant evaluation for weight loss and no evidence of malignancy was detected. Once again, the prognosis is guarded. Further recommendations to follow. MMODL / IJN: [id number] / MTDD
--- NOTE | 2019-06-12 14:40 | P.CN ---
Psychiatric Consult - . Consult date: 06/12/19 Consult:: 06/12/19 14:29 IDENTIFYING DATA: This patient is a 68-year-old male who window or has one kid and when no one is and currently lives alone and is retired HISTORY OF PRESENT ILLNESS: The patient presented to the hospital with the chief complaint of hypotension for 2 days. Patient had stated that he recently had been discharged from a psychiatric hospital in [facility] and was there for approximately 2 weeks and came home for 2 days. Patient claimed that when he got home he felt good for 1 day and then the next day he stated that he "pushed myself" physically as he was trying to do physical work and move would to [place] fireplace [place] and began feeling dizzy. He states that his blood pressure was in the 80s systolic and he came to the hospital. He states that he was put on new psychiatric medications are helping however claims that they may have been too much for him. Patient also presented with acute kidney injury and low sodium. Patient spoke about his son passing away 8 years ago and his passing away 4 years ago and him feeling anxious since then and finding it difficult to cope. He states that he does have some depression however complains mainly of anxiety. Patient was cooperative and directable during the interview and appeared to be future oriented. He spoke about wanting to get discharged as soon as he can but wants to be safe on medications. He states that he has poor sleep and fair energy and appetite. At this time patient denies any suicidal or homical ideations, intent or plan. Patient denies any auditory, visual hallucinations and denies any paranoia or delusions. PAST PSYCHIATRIC HISTORY: [Patient has a history of depression and anxiety and denies any outpatient psychiatric follow-up. Patient was recently admitted to [facility] psychiatric facility for approximately 2 weeks and discharged on Zoloft, trazodone, Seroquel. Patient denies any previous suicide attempts PAST MEDICAL HISTORY: admits to high blood pressure, hyperlipidemia, GERD, CVA ALLERGIES: as per EMR. CHEMICAL DEPENDENCY HISTORY: She admits to smoking marijuana approximately 2 times a day for anxiety. FAMILY PSYCHIATRIC/SUBSTANCE USE HISTORY: denies SOCIAL HISTORY: He claims that he was born and raised in [facility] and served in the [employer] and is a and went to [place]. 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 Patient claims that he was and is now a and has one son is alive and one that was . MENTAL STATUS EXAM: General Appearance: Patient appears to be stated age is alert, pleasant, and cooperative. Patient does appear anxious at times and has fair hygiene fair grooming. Behavior: Patient is calmly lying in bed without any agitated behavior. Speech: Patient's speech is fluent and nonpressured. Mood/Affect: Patient reports their mood is "anxious", affect is congruent Suicidality/Homicidality: Patient denies having any suicidal or homicidal ideation intent or plan. Perceptions: Patient denies any auditory or visual hallucinations. Though content/process: There is no evidence of any delusional thought content and thought process is linear and goal-directed. Memory and concentration: AOX3, grossly intact for the purposes of this session. Can spell "WORLD" backwards Judgment and insight: fair IMPRESSIONS: Anxiety disorder unspecified Cannabis use disorder PLAN: -At this time patient does NOT meet criteria for inpatient psychiatric admission. -Would recommend the following medication changes/additions: We'll restart Zoloft at 100 mg daily for mood/anxiety. We'll also restart trazodone however at a dose of 25 mg daily at bedtime. Discontinued Seroquel at this time. BuSpar 7.5 mg twice a day for anxiety. Discontinued Restoril. -It was likely that the combination of Seroquel and trazodone caused the hypotension. Patient was also on 2 antihypertensives and these are now on hold and should be reevaluated further for their need. -Patient was encouraged to follow up with his memory care provider at the [facility] and attempt to get connected to the psychiatric services for further medical evaluation/treatment. -Psychiatry will sign off at this point 06/12/19 14:34
[2019-06-12] MEDS: SERTRALINE 100 MG TAB PO SCH (15:18)
--- NOTE | 2019-06-12 16:40 | PN ---
PROGRESS NOTE DATE OF SERVICE: 06/12/2019. This 68-year-old gentleman who was admitted with hypotension as well as dizziness is being closely monitored at this time. We are awaiting psychiatric evaluation regarding adjustment of psych medications. Please note: The patient was started on multiple psych medications which probably resulted in the hypotension at this time. PHYSICAL EXAMINATION: Alert and oriented x3. The pulse is 75, blood pressure 129/60, respiration 18, temperature 97.9, pulse ox 98% on room air. HEENT: Conjunctivae normal. NECK: No jugular venous distention. CARDIOVASCULAR SYSTEM: S1, S2 muffled. RESPIRATORY SYSTEM: Breath sounds diminished at the bases. No rhonchi. No crackles. ABDOMEN: Soft, non-tender. No mass palpable. LEGS: No edema. No swelling. NERVOUS SYSTEM: No focal deficit. LABS: WBC 5.1, hemoglobin 11.4. Sodium 133, potassium 4.6. Stool OB is negative. ASSESSMENT: 1. Hypotension, multifactorial, possibly medication-induced hypotension. 2. Anemia, normocytic. 3. Hyponatremia. 4. Increased creatinine with possible chronic kidney disease, stage III. 5. History of cerebrovascular accident, transient ischemic attack. 6. Gastroesophageal reflux disease. 7. Hypertension. 8. Hyperlipidemia. 9. Hyponatremia. 10.History of hepatitis C. 11.History of back surgery. 12.History of anxiety. 13.Remote history of nicotine dependence. 14.FULL CODE. RECOMMENDATIONS AND DISCUSSION: I recommend to continue current medications, continue with symptomatic treatment. Otherwise, we will continue to monitor. Will follow the psychiatric recommendations. Monitor blood pressure closely. Further recommendations to follow. MMODL / IJN: [id number] /
[2019-06-12] MEDS ORDERED: SIMETHICONE 80 MG CHEWABLE PO SCH (18:00)
[2019-06-12] MEDS: SIMETHICONE 80 MG CHEWABLE PO PRN (19:03)
[2019-06-12] MEDS: busPIRone HCl 5 MG TAB PO SCH (20:29)
[2019-06-12] MEDS ORDERED: traZODone HCL 50 MG TAB PO SCH (21:00)
[2019-06-12] MEDS ORDERED: PRAVASTATIN SODIUM 20 MG TAB PO SCH (21:00)
[2019-06-13 08:24] LABS: Basophils % (A) 0 %; Eosinophils % (A) 1 %; HCT 34.4 % (39.0-53.0); HGB 11.3 gm/dL (13.0-17.5); Lymphocytes # (A) 0.7 k/uL (1.0-4.8); Lymphocytes % (A) 13 %; Mean Platelet Volume 6.5; Monocytes # (A) 0.2 k/uL (0-1.0); Monocytes % (A) 5 %; Neutrophils # (A) 3.9 k/uL (1.3-7.7); Neutrophils % (A) 79 %; Platelet Count 230 k/uL (150-450); RBC 3.66 m/uL (4.30-5.90); WBC 4.9 k/uL (3.8-10.6)
[2019-06-13] MEDS ORDERED: ONDANSETRON 4 MG/2 ML VIAL IVP PRN (08:24)
[2019-06-13 08:27] LABS: Potassium 4.7 mmol/L (3.5-5.1)
[2019-06-13] MEDS: PANTOPRAZOLE 40 MG TABLET PO SCH (08:33)
[2019-06-13] MEDS: SERTRALINE 100 MG TAB PO SCH (08:33)
[2019-06-13] MEDS: FAMOTIDINE 20 MG TAB PO SCH (08:33)
[2019-06-13] MEDS: HEPARIN SODIUM,PORCINE 5,000 UNIT/ML 1 ML VIAL SQ SCH (08:33)
[2019-06-13] MEDS: NICOTINE 21MG/24HR PATCH TRANSDERM SCH (08:33)
[2019-06-13 08:46] VITALS: RESP 18
[2019-06-13] MEDS: busPIRone HCl 5 MG TAB PO SCH (09:09)
[2019-06-13] MEDS: DICYCLOMINE 20 MG TAB PO SCH (09:09)
[2019-06-13 11:32] VITALS: BP 136/91; PULSE 82; TEMP 97.7
[2019-06-13] MEDS: SIMETHICONE 80 MG CHEWABLE PO PRN (12:24)
--- NOTE | 2019-06-13 23:18 | DS ---
DISCHARGE SUMMARY DATE OF SERVICE: 06/13/2019. FINAL DIAGNOSES: 1. Hypotension multifactorial possibly medication induced improved. 2. Anemia, normocytic. 3. Hyponatremia. 4. Increased creatinine with possible chronic kidney disease stage III. 5. History of cerebrovascular accident, transient ischemic attack. 6. History of gastroesophageal reflux disease. 7. Hypertension. 8. Hyperlipidemia. 9. Hyponatremia. 10.Hepatitis C. 11.History of back surgery. 12.Anxiety, depression. 13.Remote history of nicotine dependence. 14.FULL CODE. DISCHARGE DISPOSITION: The patient will be discharged in stable condition with guarded prognosis. HISTORY OF PRESENT ILLNESS: This 68-year-old gentleman with a past medical history of multiple medical problems admitted with hypotension which was multifactorial, medication induced. Patient was monitored closely. The patient improved significantly. Medications adjusted. Psychiatry saw the patient. See orders for further details. On exam, vitals are stable. Cardiovascular: S1, S2. Abdomen soft. Nervous system: No focal deficits. DISCHARGE ADVICE AND MEDICATION: 1. Discharge diet is cardiac diet. 2. Activity limited until followup. 3. Follow up with Dr. Rothman in 1-2 days. 4. Follow up with Psychiatric as recommended. DISCHARGE MEDICATIONS: 1. Bentyl 20 mg p.o. t.i.d. 2. Habitrol 21 daily. 3. Pepcid AC 10 mg daily. 4. Pravachol 10 mg q.h.s. 5. Protonix 40 mg p.o. daily. 6. Tylenol 650 p.o. q.6h p.r.n. 7. Zoloft 100 mg p.o. daily. 8. BuSpar 7.5 mg p.o. b.i.d. 9. Desyrel 25 mg q.h.s. 10.Norvasc 5 mg p.o. daily. 11.Zestril 10 mg p.o. daily. Once again, the patient being discharged in stable condition with guarded prognosis. MMODL / IJN: [id number] /
== END 2019-06-13 13:50 | disposition home or self-care (01) ==
LOC: EC 14:19 → 3SCARD 21:21 → 3NMEDONC 06-12 20:43
PROVIDERS: ADMIT Hospitalist; ATTEND Hospitalist
DX: I95.9 Hypotension, unspecified (principal); D64.9 Anemia, unspecified; N17.9 Acute kidney failure, unspecified; E87.1 Hypo-osmolality and hyponatremia; I10 Essential (primary) hypertension; K21.9 Gastro-esophageal reflux disease without esophagitis; E78.5 Hyperlipidemia, unspecified; B19.20 Unspecified viral hepatitis C without hepatic coma; F17.200 Nicotine dependence, unspecified, uncomplicated; R63.4 Abnormal weight loss; F32.9 Major depressive disorder, single episode, unspecified; F41.9 Anxiety disorder, unspecified; Z79.899 Other long term (current) drug therapy; Z86.73 Personal history of transient ischemic attack (TIA), and cerebral infarction without residual deficits; Z86.010 Personal history of colon polyps; Z82.49 Family history of ischemic heart disease and other diseases of the circulatory system; Z80.0 Family history of malignant neoplasm of digestive organs
CPT/HCPCS: 96372 ×2; 96360; 96361; 99285; 36415; 80053; 80048 ×2; 84484; 85025 ×2; 85027; 82272; 81003; 71045; G0378 ×3; S4990 ×3; J1644 ×2; 93005

== ENCOUNTER 2019-06-15 17:02 | Inpatient (IN) | payer OTHER, MEDICARE ==
[2019-06-15] MEDS ORDERED: ONDANSETRON 4 MG/2 ML VIAL IVP STA (19:49)
[2019-06-15] MEDS ORDERED: LORazepam 2 MG/ML INJ IV STA (19:50)
[2019-06-15] MEDS ORDERED: SODIUM CHLORIDE 0.9% 1,000 ML IV STA (19:50)
--- NOTE | 2019-06-15 19:53 | ED ---
General Adult HPI - General Source: patient, RN notes reviewed Mode of arrival: ambulatory Limitations: no limitations <Meet Kasper - Last Filed: 06/21/19 07:20> <Vivi Pierce - Last Filed: 06/23/19 03:30> - General Chief complaint: Nausea/Vomiting/Diarrhea Stated complaint: NAUSEA, POSS MED REACTION Time Seen by Provider: 06/15/19 17:15 - History of Present Illness Initial comments: This is a 68-year-old male who presents emergency Department with the past medical history significant for severe anxiety. Patient comes to the emergency department complaining of his anxiety getting out of control and also being extremely nauseated. Patient states he started BuSpar 2 days ago and he believes as causing his nausea and causing him to have some diarrhea. Patient believes most of his symptoms are related to his anxiety. Recent denies any actual vomiting just nausea. Patient denies patient denies any fever chills. Patient denies any dysuria hematuria urinary frequency. Patient denies any ana st pain palpitations or difficulty breathing. (Meet Kasper) - Related Data Home Medications Medication Instructions Recorded Confirmed Acetaminophen Tab [Tylenol] 650 mg PO Q6H PRN 05/13/19 06/15/19 Dicyclomine [Bentyl] 20 mg PO TID 05/17/19 06/15/19 Famotidine [Pepcid AC] 10 mg PO DAILY 05/30/19 06/15/19 Nicotine 21Mg/24Hr Patch [Habitrol] 21 mg TRANSDERM DAILY PRN 06/11/19 06/15/19 Pantoprazole Sodium [Protonix] 40 mg PO DAILY 06/11/19 06/15/19 Pravastatin Sodium [Pravachol] 10 mg PO HS 06/11/19 06/15/19 Sertraline [Zoloft] 100 mg PO DAILY 06/11/19 06/15/19 Ondansetron HCl [Zofran] 8 mg PO TID PRN 06/15/19 06/15/19 Previous Rx's Medication Instructions Recorded Lisinopril [Zestril] 20 mg PO DAILY tab 05/18/19 amLODIPine [Norvasc] 5 mg PO DAILY tab 05/18/19 busPIRone HCl [Buspar] 7.5 mg PO BID #60 tab 06/13/19 traZODone HCL [Desyrel] 25 mg PO HS tab 06/13/19 Allergies Allergy/AdvReac Type Severity Reaction Status Date / Time No Known Allergies Allergy Verified 06/15/19 19:39 Review of Systems ROS Other: All systems not noted in ROS Statement are negative. <Meet Kasper - Last Filed: 06/21/19 07:20> ROS Other: All systems not noted in ROS Statement are negative. <Vivi Pierce - Last Filed: 06/23/19 03:30> ROS Statement: Those systems with pertinent positive or pertinent negative responses have been documented in the HPI. Past Medical History Past Medical History: CVA/TIA, GERD/Reflux, Hyperlipidemia, Hypertension Additional Past Medical History / Comment(s): Low sodium, Hepatitis C History of Any Multi-Drug Resistant Organisms: None Reported Past Surgical History: Back Surgery, Tonsillectomy Past Anesthesia/Blood Transfusion Reactions: No Reported Reaction Past Psychological History: Anxiety Smoking Status: Current every day smoker Past Alcohol Use History: None Reported Past Drug Use History: None Reported - Past Family History Mother History Unknown: Yes Additional Family Medical History / Comment(s): of a heart attack Father Family Medical History: Cancer Additional Family Medical History / Comment(s): thoart cancer <Meet Kasper - Last Filed: 06/21/19 07:20> General Exam Limitations: no limitations <Meet Kasper - Last Filed: 06/21/19 07:20> - General Exam Comments Initial Comments: GENERAL: Patient is well-developed and well-nourished. Patient is nontoxic and well- hydrated and is in mild distress. ENT: Neck is soft and supple. No significant lymphadenopathy is noted. Oropharynx is clear. Moist mucous membranes. Neck has full range of motion without eliciting any pain. EYES: The sclera were anicteric and conjunctiva were pink and moist. Extraocular movements were intact and pupils were equal round and reactive to light. Eyelid s were unremarkable. PULMONARY: Unlabored respirations. Good breath sounds bilaterally. No audible rales rhonchi or wheezing was noted. CARDIOVASCULAR: There is a regular rate and rhythm without any murmurs gallops or rubs. ABDOMEN: Soft and nontender with normal bowel sounds. No palpable organomegaly was noted. There is no palpable pulsatile mass. SKIN: Skin is clear with no lesions or rashes and otherwise unremarkable. NEUROLOGIC: Patient is alert and oriented x3. Cranial nerves II through XII are grossly intact. Motor and sensory are also intact. Normal speech, volume and content. Symmetrical smile. MUSCULOSKELETAL: Normal extremities with adequate strength and full range of motion. No lower extremity swelling or edema. No calf tenderness. LYMPHATICS: No significant lymphadenopathy is noted PSYCHIATRIC: Patient is extremely anxious. (Meet Kasper) Course Vital Signs 06/15/19 06/15/19 06/16/19 17:13 22:41 04:30 Temperature 97.8 F 98 F Pulse Rate 79 77 72 Pulse Rate [ Pulse Oximetery ] Respiratory 18 18 18 Rate Blood Pressure 159/80 160/98 148/93 Blood Pressure [Left Arm] O2 Sat by Pulse 100 100 98 Oximetry 06/16/19 09:25 Temperature 98.4 F Pulse Rate Pulse Rate [ 70 Pulse Oximetery ] Respiratory 17 Rate Blood Pressure Blood Pressure 147/69 [Left Arm] O2 Sat by Pulse 97 Oximetry Medical Decision Making - Lab Data Result diagrams: 06/17/19 08:34 06/17/19 08:34 <Meet Kasper - Last Filed: 06/21/19 07:20> - Lab Data Result diagrams: 06/17/19 08:34 06/17/19 08:34 <Vivi Pierce - Last Filed: 06/23/19 03:30> - Medical Decision Making Dr. Pierce will be taking over the care of this patient at 9 PM (Meet Kasper) - Lab Data Lab Results 06/15/19 06/15/19 Range/Units 20:00 20:00 WBC 7.3 (3.8-10.6) k/uL RBC 3.58 L (4.30-5.90) m/uL Hgb 11.3 L (13.0-17.5) gm/dL Hct 32.8 L (39.0-53.0) % MCV 91.7 (80.0-100.0) fL MCH 31.5 (25.0-35.0) pg MCHC 34.4 (31.0-37.0) g/dL RDW 13.7 (11.5-15.5) % Plt Count 230 (150-450) k/uL Neutrophils % 76 % Lymphocytes % 16 % Monocytes % 5 % Eosinophils % 1 % Basophils % 0 % Neutrophils # 5.6 (1.3-7.7) k/uL Lymphocytes # 1.2 (1.0-4.8) k/uL Monocytes # 0.4 (0-1.0) k/uL Eosinophils # 0.0 (0-0.7) k/uL Basophils # 0.0 (0-0.2) k/uL Sodium 126 L (137-145) mmol/L Potassium 4.5 (3.5-5.1) mmol/L Chloride 91 L (98-107) mmol/L Carbon Dioxide 27 (22-30) mmol/L Anion Gap 8 mmol/L BUN 30 H (9-20) mg/dL Creatinine 1.07 (0.66-1.25) mg/dL Est GFR (CKD-EPI)AfAm 82 (>60 ml/min/1.73 sqM) Est GFR (CKD-EPI)NonAf 71 (>60 ml/min/1.73 sqM) Glucose 90 (74-99) mg/dL Calcium 9.2 (8.4-10.2) mg/dL Total Bilirubin 0.5 (0.2-1.3) mg/dL AST 18 (17-59) U/L ALT 25 (21-72) U/L Alkaline Phosphatase 52 (38-126) U/L Total Protein 6.5 (6.3-8.2) g/dL Albumin 3.8 (3.5-5.0) g/dL Amylase 72 (30-110) U/L Lipase 150 (23-300) U/L Disposition <Meet Kasper - Last Filed: 06/21/19 07:20> <Vivi Pierce - Last Filed: 06/23/19 03:30> Clinical Impression: Nausea, Dehydration, Acute kidney injury, Hyponatremia Disposition: ADMITTED IP TO THIS HOSP
[2019-06-15 20:56] LABS: Basophils % (A) 0 %; Eosinophils % (A) 1 %; HCT 32.8 % (39.0-53.0); HGB 11.3 gm/dL (13.0-17.5); Lymphocytes # (A) 1.2 k/uL (1.0-4.8); Lymphocytes % (A) 16 %; MCH 31.5 pg (25.0-35.0); MCHC 34.4 g/dL (31.0-37.0); MCV 91.7 fL (80.0-100.0); Mean Platelet Volume 5.9; Monocytes # (A) 0.4 k/uL (0-1.0); Monocytes % (A) 5 %; Neutrophils # (A) 5.6 k/uL (1.3-7.7); Neutrophils % (A) 76 %; Platelet Count 230 k/uL (150-450); RBC 3.58 m/uL (4.30-5.90); RDW 13.7 % (11.5-15.5); WBC 7.3 k/uL (3.8-10.6)
[2019-06-15 21:14] LABS: Albumin 3.8 g/dL (3.5-5.0); Calcium 9.2 mg/dL (8.4-10.2); Potassium 4.5 mmol/L (3.5-5.1); Total Bilirubin 0.5 mg/dL (0.2-1.3); Total Protein 6.5 g/dL (6.3-8.2)
[2019-06-15] MEDS ORDERED: NALOXONE 0.4 MG/ML 1 ML VIAL IV PRN (22:37)
[2019-06-15] MEDS ORDERED: ONDANSETRON 4 MG/2 ML VIAL IVP PRN (22:37)
[2019-06-15] MEDS: SODIUM CHLORIDE 0.9% 1,000 ML IV SCH (22:45)
[2019-06-16] MEDS: HEPARIN SODIUM,PORCINE 5,000 UNIT/ML 1 ML VIAL SQ SCH ×4 (02:44→23:52)
[2019-06-16] MEDS: LORazepam 1 MG TAB PO PRN ×2 (07:46→13:05)
[2019-06-16 10:27] LABS: Calcium 8.8 mg/dL (8.4-10.2); Potassium 4.5 mmol/L (3.5-5.1)
[2019-06-16 10:42] VITALS: BMI 25.0
[2019-06-16] MEDS ORDERED: NICOTINE 21MG/24HR PATCH TRANSDERM PRN (11:00)
[2019-06-16] MEDS ORDERED: ONDANSETRON 4 MG TAB PO PRN (11:00)
[2019-06-16] MEDS ORDERED: ACETAMINOPHEN TAB 325 MG TAB PO PRN (11:00)
--- NOTE | 2019-06-16 11:30 | P.NPCON ---
History of Present Illness - Reason for Consult hyponatremia - History of Present Illness Reason for consultation: Hyponatremia History of present illness: The patient is a 68-year-old male seen in renal co nsultation for hyponatremia. Patient's sodium level was 126 on admission and he was started on normal saline. Sodium level this morning is 129. He denies chest pain or shortness of breath. Urine output has been good. No hematuria or dysuria. GFR is near baseline. Patient presented to the hospital due to nausea. He also complains of diarrhea which started about 3 days ago. He denies any melena or hematochezia. Hemodynamically he's been stable. No fever or chills. Oral intake is not improving. Diarrhea has also improved. He denies use of any thiazide diuretics or nonsteroidals outpatient. He does admit to feeling quite anxious. Patient feels his anxiety medications weren't work ing. Vital signs are stable. General: The patient appeared well nourished and normally developed. HEENT: Head exam is unremarkable. Neck is without jugular venous distension. LUNGS: Lungs are clear to auscultation and percussion. Breath sounds decreased. HEART: Rate and Rhythm are regular. First and second heart sounds normal. No murmurs, rubs or gallops. ABDOMEN: Abdominal exam reveals normal bowel sounds. Non-tender and non- distended. No evidence of peritonitis. EXTREMITITES: No clubbing, cyanosis, or edema. Past Medical History Past Medical History: CVA/TIA, GERD/Reflux, Hyperlipidemia, Hypertension Additional Past Medical History / Comment(s): Low sodium, Hepatitis C History of Any Multi-Drug Resistant Organisms: None Reported Past Surgical History: Back Surgery, Tonsillectomy Past Anesthesia/Blood Transfusion Reactions: No Reported Reaction Past Psychological History: Anxiety Smoking Status: Current every day smoker Past Alcohol Use History: None Reported Additional Past Alcohol Use History / Comment(s): Start smoking at the age of 10, and still smokes a pack a day Past Drug Use History: None Reported - Past Family History Mother History Unknown: Yes Additional Family Medical History / Comment(s): of a heart attack Father Family Medical History: Cancer Additional Family Medical History / Comment(s): thoart cancer Medications and Allergies Home Medications Medication Instructions Recorded Confirmed Type Acetaminophen Tab [Tylenol] 650 mg PO Q6H PRN 05/13/19 06/15/19 History Dicyclomine [Bentyl] 20 mg PO TID 05/17/19 06/15/19 History Lisinopril [Zestril] 20 mg PO DAILY tab 05/18/19 06/15/19 Rx amLODIPine [Norvasc] 5 mg PO DAILY tab 05/18/19 06/15/19 Rx Famotidine [Pepcid AC] 10 mg PO DAILY 05/30/19 06/15/19 History Nicotine 21Mg/24Hr Patch [Habitrol] 21 mg TRANSDERM DAILY PRN 06/11/19 06/15/19 History Pantoprazole Sodium [Protonix] 40 mg PO DAILY 06/11/19 06/15/19 History Pravastatin Sodium [Pravachol] 10 mg PO HS 06/11/19 06/15/19 History Sertraline [Zoloft] 100 mg PO DAILY 06/11/19 06/15/19 History busPIRone HCl [Buspar] 7.5 mg PO BID #60 tab 06/13/19 06/15/19 Rx traZODone HCL [Desyrel] 25 mg PO HS tab 06/13/19 06/15/19 Rx Ondansetron HCl [Zofran] 8 mg PO TID PRN 06/15/19 06/15/19 History Allergies Allergy/AdvReac Type Severity Reaction Status Date / Time No Known Allergies Allergy Verified 06/15/19 19:39 Physical Exam Vitals: Vital Signs Temp Pulse Pulse Resp BP BP Pulse Ox 06/16/19 09:25 98.4 F 70 17 147/69 97 06/16/19 04:30 98 F 72 18 148/93 98 06/15/19 22:41 77 18 160/98 100 06/15/19 17:13 97.8 F 79 18 159/80 100 Intake and Output 06/15/19 06/16/19 06/16/19 22:59 06:59 14:59 Other: Weight 78.925 kg Results - Lab Results Most recent lab results Calcium 8.8 mg/dL (8.4-10.2) 06/16/19 09:23 Magnesium 2.0 mg/dL (1.6-2.3) 06/16/19 09:23 06/15/19 20:00 06/16/19 09:23 Assessment and Plan Plan: Assessment: 1. Hypovolemic hyponatremia improved with IV hydration. Also component of poor solute intake. Improving. Sodium level 129 this morning. Urine osmolality 2 71. Her recent TSH normal. 2. Benign hypertension. Controlled. 3. Anxiety. 4. Nausea. Improved. Plan: Maintain normal saline at 75 mL an hour. 1200 mL fluid restriction. Encourage oral intake, particularly protein. Repeat electrolytes in the morning. Thank you for the consultation. I will continue to follow the patient with you during his hospital stay.
[2019-06-16] MEDS: SODIUM CHLORIDE 0.9% 1,000 ML IV SCH (11:46)
[2019-06-16] MEDS: DICYCLOMINE 20 MG TAB PO SCH ×2 (18:33→21:03)
[2019-06-16] MEDS ORDERED: PRAVASTATIN SODIUM 20 MG TAB PO SCH (21:00)
[2019-06-16] MEDS ORDERED: traZODone HCL 50 MG TAB PO SCH (21:00)
[2019-06-16] MEDS: busPIRone HCl 5 MG TAB PO SCH (21:06)
--- NOTE | 2019-06-16 22:53 | P.HPIM ---
History of Present Illness H&P Date: 06/16/19 Chief Complaint: Anxiety Patient is a 68-year-old male with a known history of hypertension, hyperlipidemia, GERD and anxiety and was started on BuSpar 2 days ago came to ER with complaints of severe anxiety. Patient also having diarrhea patient's thinks that his medication is causing him diarrhea. Otherwise no nausea vomiting or abdominal pain. Patient does have poor intake otherwise. No fever no chills. No complaints of chest pain or shortness of breath. No hematemesis or melena. No headache or dizziness or lightheadedness. Denied any increased frequency of urination. No palpitations. Patient was found have sodium level of 126 on admission. Currently patient is getting IV hydration and sodium level improved to 129 Review of Systems Constitutional: Patient denies any fever or chills . No generalized weakness or weight loss. Abdomen: Patient denied nausea vomiting and abdominal pain. Patient does have diarrhea. Cardiovascular: Patient denies any chest pain or short of breath no palpitations. Respiratory: patient denied any cough is from production. No shortness of breath Neurologic: Patient denied any numbness or tingling headache. Musculoskeletal: Patient denies any complaints of joint swelling or deformity. Skin: Negative Psychiatric: Anxiety Endocrine: No heat or cold intolerance. No recent weight gain. Genitourinary: No dysuria or hematuria. All other 14 point ROS negative except the above Past Medical History Past Medical History: CVA/TIA, GERD/Reflux, Hyperlipidemia, Hypertension Additional Past Medical History / Comment(s): Low sodium, Hepatitis C History of Any Multi-Drug Resistant Organisms: None Reported Past Surgical History: Back Surgery, Tonsillectomy Past Anesthesia/Blood Transfusion Reactions: No Reported Reaction Past Psychological History: Anxiety Smoking Status: Current every day smoker Past Alcohol Use History: None Reported Additional Past Alcohol Use History / Comment(s): Start smoking at the age of 10, and still smokes a pack a day Past Drug Use History: None Reported - Past Family History Mother History Unknown: Yes Additional Family Medical History / Comment(s): of a heart attack Father Family Medical History: Cancer Additional Family Medical History / Comment(s): thoart cancer Medications and Allergies Home Medications Medication Instructions Recorded Confirmed Type Acetaminophen Tab [Tylenol] 650 mg PO Q6H PRN 05/13/19 06/15/19 History Dicyclomine [Bentyl] 20 mg PO TID 05/17/19 06/15/19 History Lisinopril [Zestril] 20 mg PO DAILY tab 05/18/19 06/15/19 Rx amLODIPine [Norvasc] 5 mg PO DAILY tab 05/18/19 06/15/19 Rx Famotidine [Pepcid AC] 10 mg PO DAILY 05/30/19 06/15/19 History Nicotine 21Mg/24Hr Patch [Habitrol] 21 mg TRANSDERM DAILY PRN 06/11/19 06/15/19 History Pantoprazole Sodium [Protonix] 40 mg PO DAILY 06/11/19 06/15/19 History Pravastatin Sodium [Pravachol] 10 mg PO HS 06/11/19 06/15/19 History Sertraline [Zoloft] 100 mg PO DAILY 06/11/19 06/15/19 History busPIRone HCl [Buspar] 7.5 mg PO BID #60 tab 06/13/19 06/15/19 Rx traZODone HCL [Desyrel] 25 mg PO HS tab 06/13/19 06/15/19 Rx Ondansetron HCl [Zofran] 8 mg PO TID PRN 06/15/19 06/15/19 History Allergies Allergy/AdvReac Type Severity Reaction Status Date / Time No Known Allergies Allergy Verified 06/15/19 19:39 Physical Exam Vitals: Vital Signs Temp Pulse Pulse Resp BP BP Pulse Ox 06/16/19 09:25 98.4 F 70 17 147/69 97 06/16/19 04:30 98 F 72 18 148/93 98 06/15/19 22:41 77 18 160/98 100 06/15/19 17:13 97.8 F 79 18 159/80 100 Intake and Output 06/15/19 06/16/19 06/16/19 22:59 06:59 14:59 Other: Weight 78.925 kg PHYSICAL EXAMINATION: Patient is lying in the bed comfortably, no acute distress, awake alert and oriented.. HEENT: Normocephalic. Neck is supple. Pupils reactive. Nostrils clear. Oral cavity is moist. Ears reveal no drainage. Neck reveals no JVD, carotid bruits, or thyromegaly. CHEST EXAMINATION: Trachea is central. Symmetrical expansion. Lung sanchez clear to auscultation and percussion. CARDIAC: Normal S1, S2 with no gallops. No murmurs ABDOMEN: Soft. Bowel sounds normal. No organomegaly. No abdominal bruits. Extremities: reveal no edema. No clubbing or cyanosis Neurologically awake, alert, oriented x3 with well-coordinated movements. No focal deficits noted Skin: No rash or skin lesions. Psychiatric: Coperative. Nonsuicidal area and anxious Musculoskeletal: No joint swelling or deformity. Normal range of motion. Results CBC & Chem 7: 06/15/19 20:00 06/16/19 09:23 Labs: Abnormal Lab Results - Last 24 Hours (Table) 06/15/19 06/15/19 06/16/19 Range/Units 20:00 20:00 09:23 RBC 3.58 L (4.30-5.90) m/uL Hgb 11.3 L (13.0-17.5) gm/dL Hct 32.8 L (39.0-53.0) % Sodium 126 L 129 L (137-145) mmol/L Chloride 91 L 94 L (98-107) mmol/L BUN 30 H 22 H (9-20) mg/dL Glucose 111 H (74-99) mg/dL Thrombosis Risk Factor Assmnt - DVT/VTE Prophylaxis DVT/VTE Prophylaxis: Pharmacologic Prophylaxis ordered - Choose All That Apply Each Factor Represents 1 point: Obesity (BMI >25) Other Risk Factors: Yes Each Risk Factor Represents 2 Points: Age 61-74 years Other congenital or acquired thrombophilia - If yes, enter type in comment: No Thrombosis Risk Factor Assessment Total Risk Factor Score: 3 Thrombosis Risk Factor Assessment Level: Moderate Risk Assessment and Plan Assessment: Hypovolemia likely hypervolemic due to diarrhea. Acute Diarrhea. Improved now Generalized anxiety disorder Hypertension Hyperlipidemia GERD History of CVA/TIA Hepatitis C Ongoing nicotine addiction DVT prophylaxis Plan: Patient is being continued on IV hydration. Continue with home medications and encourage oral intake. Follow up closely. Nephrology is on board. Further recommendations based on the clinical course. Anticipate discharge in next 24- 48 hours. Time with Patient: Greater than 30
[2019-06-17] MEDS: SODIUM CHLORIDE 0.9% 1,000 ML IV SCH (02:55)
[2019-06-17 06:07] VITALS: RESP 16; TEMP 98.1
[2019-06-17 06:12] VITALS: BP 163/82; PULSE 75
[2019-06-17] MEDS ORDERED: PANTOPRAZOLE 40 MG TABLET PO SCH (07:30)
[2019-06-17] MEDS: busPIRone HCl 5 MG TAB PO SCH (07:30)
[2019-06-17] MEDS: DICYCLOMINE 20 MG TAB PO SCH (07:30)
[2019-06-17] MEDS: HEPARIN SODIUM,PORCINE 5,000 UNIT/ML 1 ML VIAL SQ SCH (07:34)
[2019-06-17] MEDS: LORazepam 1 MG TAB PO PRN (07:34)
[2019-06-17 08:51] LABS: Basophils % (A) 0 %; Eosinophils % (A) 1 %; HCT 35.8 % (39.0-53.0); HGB 11.7 gm/dL (13.0-17.5); Lymphocytes # (A) 0.7 k/uL (1.0-4.8); Lymphocytes % (A) 16 %; MCH 30.7 pg (25.0-35.0); MCHC 32.7 g/dL (31.0-37.0); Monocytes # (A) 0.3 k/uL (0-1.0); Monocytes % (A) 5 %; Neutrophils # (A) 3.7 k/uL (1.3-7.7); Neutrophils % (A) 77 %; Platelet Count 248 k/uL (150-450); RBC 3.81 m/uL (4.30-5.90); RDW 13.8 % (11.5-15.5); WBC 4.8 k/uL (3.8-10.6)
[2019-06-17] MEDS ORDERED: LISINOPRIL 20 MG TAB PO SCH (09:00)
[2019-06-17] MEDS ORDERED: SERTRALINE 100 MG TAB PO SCH (09:00)
[2019-06-17] MEDS ORDERED: amLODIPine 5 MG TAB PO SCH (09:00)
[2019-06-17] MEDS ORDERED: FAMOTIDINE 20 MG TAB PO SCH (09:00)
[2019-06-17 09:01] LABS: Magnesium 2.1 mg/dL (1.6-2.3); Potassium 4.3 mmol/L (3.5-5.1)
--- NOTE | 2019-06-17 10:32 | P.PN ---
Subjective Patient is seen in follow-up for hyponatremia. Sodium level is improving with IV hydration. It is 133 this morning. Oral intake is also gradually improving. No vomiting or diarrhea. Nausea also improved. Vital signs are stable. General: The patient appeared well nourished and normally developed. HEENT: Head exam is unremarkable. Neck is without jugular venous distension. LUNGS: Lungs are clear to auscultation and percussion. Breath sounds decreased. HEART: Rate and Rhythm are regular. First and second heart sounds normal. No murmurs, rubs or gallops. ABDOMEN: Abdominal exam reveals normal bowel sounds. Non-tender and non- distended. No evidence of peritonitis. EXTREMITITES: No clubbing, cyanosis, or edema. Objective - Vital Signs Vital signs: Vital Signs Temp 98.1 F 06/17/19 05:18 Pulse 75 06/17/19 05:18 Resp 16 06/17/19 05:18 BP 163/82 06/17/19 05:18 Pulse Ox 99 06/17/19 05:18 Intake & Output 06/16/19 06/17/19 06/17/19 18:59 06:59 18:59 Intake Total 960 Balance 960 Intake: Oral 960 Other: # Voids 2 3 - Labs CBC & Chem 7: 06/17/19 08:34 06/17/19 08:34 Labs: Abnormal Lab Results - Last 24 Hours (Table) 06/16/19 06/17/19 06/17/19 Range/Units 09:23 08:34 08:34 RBC 3.81 L (4.30-5.90) m/uL Hgb 11.7 L (13.0-17.5) gm/dL Hct 35.8 L (39.0-53.0) % Lymphocytes # 0.7 L (1.0-4.8) k/uL Sodium 129 L 133 L (137-145) mmol/L Chloride 94 L 96 L (98-107) mmol/L BUN 22 H 21 H (9-20) mg/dL Glucose 111 H (74-99) mg/dL Assessment and Plan Plan: Assessment: 1. Hypovolemic hyponatremia improving with IV hydration. Also component of poor solute intake. Improving. Sodium level 129 this morning. Urine osmolality 271. Her recent TSH normal. 2. Benign hypertension. 3. Anxiety. 4. Nausea. Improved. Plan: Decrease rate of normal saline to 50 mL an hour. 1200 mL fluid restriction. Encourage oral intake, particularly protein. Hold antihypertensives resumed. Stable to be discharged home from nephrology standpoint. Follow up outpatient in the next 1-2 weeks.
--- NOTE | 2019-06-27 23:38 | P.DS ---
Providers Date of admission: 06/15/19 22:37 Expected date of discharge: 06/17/19 Attending physician: Sylwia Bryan Consults: 06/15/19 22:38 Consult Physician Urgent Consulting Provider: Matty Vizcaino Consult Reason/Comments: hyponatremia - recurrent Do you want consulting provider notified?: Yes, Notify in am Primary care physician: [facility] Hospital Course: Discharge Diagnosis Hypovolemia likely hypervolemic due to diarrhea. Acute Diarrhea. Improved now Generalized anxiety disorder Hypertension Hyperlipidemia GERD History of CVA/TIA Hepatitis C Ongoing nicotine addiction DVT prophylaxis Hospital course Patient is a 68-year-old male with a known history of hypertension, hyperlipidemia, GERD and anxiety and was started on BuSpar 2 days ago came to ER with complaints of severe anxiety. Patient also having diarrhea patient's thinks that his medication is causing him diarrhea. Otherwise no nausea vomiting or abdominal pain. Patient does have poor intake otherwise. No fever no chills. No complaints of chest pain or shortness of breath. No hematemesis or melena. No headache or dizziness or lightheadedness. Denied any increased frequency of urination. No palpitations. Patient was found have sodium level of 126 on admission. Currently patient is getting IV hydration and sodium level improved to 129 06/17/19 Pt. is Awake alert and oriented x3 today. Sodium level improved to 133. Patient was continued on IV hydration. Patient will be started back on his home psychiatric medications. Diarrhea has improved. Patient is being discharged home today. Vital Signs Temp 98.1 F 06/17/19 05:18 Pulse 75 06/17/19 05:18 Resp 16 06/17/19 05:18 BP 163/82 06/17/19 05:18 Pulse Ox 99 06/17/19 05:18 Intake & Output 06/16/19 06/17/19 06/17/19 18:59 06:59 18:59 Intake Total 960 Balance 960 Intake: Oral 960 Other: # Voids 2 3 - Labs CBC & Chem 7: 06/17/19 08:34 06/17/19 08:34 Labs: Abnormal Lab Results - Last 24 Hours (Table) 06/16/19 06/17/19 06/17/19 Range/Units 09:23 08:34 08:34 RBC 3.81 L (4.30-5.90) m/uL Hgb 11.7 L (13.0-17.5) gm/dL Hct 35.8 L (39.0-53.0) % Lymphocytes # 0.7 L (1.0-4.8) k/uL Sodium 129 L 133 L (137-145) mmol/L Chloride 94 L 96 L (98-107) mmol/L BUN 22 H 21 H (9-20) mg/dL Glucose 111 H (74-99) mg/dL PHYSICAL EXAMINATION: Patient is lying in the bed comfortably, no acute distress, awake alert and oriented.. HEENT: Normocephalic. Neck is supple. Pupils reactive. Nostrils clear. Oral cavity is moist. Ears reveal no drainage. Neck reveals no JVD, carotid bruits, or thyromegaly. CHEST EXAMINATION: Trachea is central. Symmetrical expansion. Lung sanchez clear to auscultation and percussion. CARDIAC: Normal S1, S2 with no gallops. No murmurs ABDOMEN: Soft. Bowel sounds normal. No organomegaly. No abdominal bruits. Extremities: reveal no edema. No clubbing or cyanosis Neurologically awake, alert, oriented x3 with well-coordinated movements. No focal deficits noted Skin: No rash or skin lesions. Psychiatric: Coperative. Nonsuicidal area and anxious Musculoskeletal: No joint swelling or deformity. Normal range of motion. Patient Condition at Discharge: Good Plan - Discharge Summary Discharge Rx Participant: No New Discharge Prescriptions: Continue Acetaminophen Tab [Tylenol] 650 mg PO Q6H PRN PRN Reason: Pain Dicyclomine [Bentyl] 20 mg PO TID amLODIPine [Norvasc] 5 mg PO DAILY tab Lisinopril [Zestril] 20 mg PO DAILY tab Famotidine [Pepcid AC] 10 mg PO DAILY Nicotine 21Mg/24Hr Patch [Habitrol] 21 mg TRANSDERM DAILY PRN PRN Reason: CRAVINGS Sertraline [Zoloft] 100 mg PO DAILY Pravastatin Sodium [Pravachol] 10 mg PO HS Pantoprazole Sodium [Protonix] 40 mg PO DAILY busPIRone HCl [Buspar] 7.5 mg PO BID #60 tab traZODone HCL [Desyrel] 25 mg PO HS tab Ondansetron HCl [Zofran] 8 mg PO TID PRN PRN Reason: Nausea And Vomiting Discharge Medication List Acetaminophen Tab [Tylenol] 650 mg PO Q6H PRN 05/13/19 [History] Dicyclomine [Bentyl] 20 mg PO TID 05/17/19 [History] Lisinopril [Zestril] 20 mg PO DAILY tab 05/18/19 [Rx] amLODIPine [Norvasc] 5 mg PO DAILY tab 05/18/19 [Rx] Famotidine [Pepcid AC] 10 mg PO DAILY 05/30/19 [History] Nicotine 21Mg/24Hr Patch [Habitrol] 21 mg TRANSDERM DAILY PRN 06/11/19 [History] Pantoprazole Sodium [Protonix] 40 mg PO DAILY 06/11/19 [History] Pravastatin Sodium [Pravachol] 10 mg PO HS 06/11/19 [History] Sertraline [Zoloft] 100 mg PO DAILY 06/11/19 [History] busPIRone HCl [Buspar] 7.5 mg PO BID #60 tab 06/13/19 [Rx] traZODone HCL [Desyrel] 25 mg PO HS tab 06/13/19 [Rx] Ondansetron HCl [Zofran] 8 mg PO TID PRN 06/15/19 [History] Follow up Appointment(s)/Referral(s): Matty Vizcaino DO [STAFF PHYSICIAN] - 1 Week [facility] [Primary Care Provider] - 1-2 days ([facility] will call you with appt. time and date) Activity/Diet/Wound Care/Special Instructions: no new meds. diet as tolerated. activity as tolerated. Discharge Disposition: HOME SELF-CARE
== END 2019-06-17 12:09 | disposition home or self-care (01) | DRG 641 ==
LOC: EC 17:02 → 4MS4W 22:37
PROVIDERS: ADMIT Hospitalist; ATTEND Hospitalist
DX: E87.1 Hypo-osmolality and hyponatremia (principal); B19.20 Unspecified viral hepatitis C without hepatic coma; E78.5 Hyperlipidemia, unspecified; E86.0 Dehydration; E86.1 Hypovolemia; F17.200 Nicotine dependence, unspecified, uncomplicated; F41.1 Generalized anxiety disorder; I10 Essential (primary) hypertension; K21.9 Gastro-esophageal reflux disease without esophagitis; Z79.899 Other long term (current) drug therapy; Z82.49 Family history of ischemic heart disease and other diseases of the circulatory system; Z86.73 Personal history of transient ischemic attack (TIA), and cerebral infarction without residual deficits
CPT/HCPCS: 36415; 80048; 80053; 82150; 82310; 82570; 83690; 83735; 83935; 84133; 84300; 84560; 85025; 96361; 96374; 96375; 99284

== ENCOUNTER 2019-07-11 12:11 | Emergency (ER) | payer OTHER ==
[2019-07-11 12:27] VITALS: RESP 16; TEMP 97.9
[2019-07-11] MEDS ORDERED: SODIUM CHLORIDE 0.9% 1,000 ML IV STA (12:59)
--- NOTE | 2019-07-11 13:01 | ED ---
General Adult HPI - General Chief complaint: Recheck/Abnormal Lab/Rx Stated complaint: Fatigue Time Seen by Provider: 07/11/19 12:50 Source: patient, RN notes reviewed Mode of arrival: ambulatory Limitations: no limitations - History of Present Illness Initial comments: Patient is a pleasant 68-year-old male presenting to the emergency department for fatigue. Patient states he has felt this way the last couple of days. Patient states is a chronic problem that he has that is usually associated with low sodium. Patient states he has been here probably a dozen times previously associated with low sodium levels. Patient states he ran out of his sodium pills a few days ago. Patient states he took an extra ensure today. Patient believes his sodium levels normally go down low because he does not eat well. Patient does also admit to some chronic nausea however this is unchanged and does not need any additional medication. no Confusion or isolated area of weakness. - Related Data Home Medications Medication Instructions Recorded Confirmed Acetaminophen Tab [Tylenol] 650 mg PO Q6H PRN 05/13/19 06/15/19 Dicyclomine [Bentyl] 20 mg PO TID 05/17/19 06/15/19 Famotidine [Pepcid AC] 10 mg PO DAILY 05/30/19 06/15/19 Nicotine 21Mg/24Hr Patch [Habitrol] 21 mg TRANSDERM DAILY PRN 06/11/19 06/15/19 Pantoprazole Sodium [Protonix] 40 mg PO DAILY 06/11/19 06/15/19 Pravastatin Sodium [Pravachol] 10 mg PO HS 06/11/19 06/15/19 Sertraline [Zoloft] 100 mg PO DAILY 06/11/19 06/15/19 Ondansetron HCl [Zofran] 8 mg PO TID PRN 06/15/19 06/15/19 Previous Rx's Medication Instructions Recorded Lisinopril [Zestril] 20 mg PO DAILY tab 05/18/19 amLODIPine [Norvasc] 5 mg PO DAILY tab 05/18/19 busPIRone HCl [Buspar] 7.5 mg PO BID #60 tab 06/13/19 traZODone HCL [Desyrel] 25 mg PO HS tab 06/13/19 Allergies Allergy/AdvReac Type Severity Reaction Status Date / Time No Known Allergies Allergy Verified 11/17/19 12:27 Review of Systems ROS Statement: Those systems with pertinent positive or pertinent negative responses have been documented in the HPI. ROS Other: All systems not noted in ROS Statement are negative. Constitutional: Denies: fever Eyes: Denies: eye pain ENT: Denies: ear pain Respiratory: Denies: cough, dyspnea Cardiovascular: Denies: chest pain Endocrine: Reports: fatigue Gastrointestinal: Reports: nausea. Denies: abdominal pain, vomiting Genitourinary: Denies: urgency Musculoskeletal: Denies: back pain Skin: Denies: rash Neurological: Denies: weakness, confusion Past Medical History Past Medical History: CVA/TIA, GERD/Reflux, Hyperlipidemia, Hypertension Additional Past Medical History / Comment(s): Low sodium, Hepatitis C History of Any Multi-Drug Resistant Organisms: None Reported Past Surgical History: Back Surgery, Tonsillectomy Past Anesthesia/Blood Transfusion Reactions: No Reported Reaction Past Psychological History: Anxiety Smoking Status: Current every day smoker Past Alcohol Use History: None Reported Past Drug Use History: None Reported - Past Family History Mother History Unknown: Yes Additional Family Medical History / Comment(s): of a heart attack Father Family Medical History: Cancer Additional Family Medical History / Comment(s): thoart cancer General Exam Limitations: no limitations General appearance: alert, in no apparent distress Head exam: Present: normocephalic Eye exam: Present: normal appearance, PERRL ENT exam: Present: normal oropharynx Neck exam: Present: normal inspection Respiratory exam: Present: normal lung sounds bilaterally Cardiovascular Exam: Present: regular rate, normal rhythm GI/Abdominal exam: Present: soft. Absent: tenderness Extremities exam: Present: normal inspection Neurological exam: Present: alert, oriented X3, CN II-XII intact. Absent: motor sensory deficit Expanded Patient oriented to: Present: person, place, time Speech: Present: fluid speech Motor strength exam: RUE: 5, LUE: 5, RLE: 5, LLE: 5 Eye Response: (4) open spontaneously Motor Response: (6) obeys commands Verbal Response: (5) oriented Psychiatric exam: Present: normal affect, normal mood Skin exam: Present: normal color Course Vital Signs 07/11/19 12:25 Temperature 97.9 F Pulse Rate 78 Respiratory 16 Rate Blood Pressure 140/79 O2 Sat by Pulse 99 Oximetry Medical Decision Making - Medical Decision Making Patient reevaluated and updated. Patient resting comfortably in bed and feels better and is comfortable discharge home. - Lab Data Result diagrams: 07/11/19 13:16 07/11/19 13:16 Lab Results 07/11/19 07/11/19 07/11/19 Range/Units 13:16 13:16 13:26 WBC 6.3 (3.8-10.6) k/uL RBC 3.75 L (4.30-5.90) m/uL Hgb 12.2 L (13.0-17.5) gm/dL Hct 36.0 L (39.0-53.0) % MCV 96.2 (80.0-100.0) fL MCH 32.7 (25.0-35.0) pg MCHC 34.0 (31.0-37.0) g/dL RDW 14.3 (11.5-15.5) % Plt Count 262 (150-450) k/uL Neutrophils % 84 % Lymphocytes % 10 % Monocytes % 4 % Eosinophils % 1 % Basophils % 0 % Neutrophils # 5.3 (1.3-7.7) k/uL Lymphocytes # 0.6 L (1.0-4.8) k/uL Monocytes # 0.3 (0-1.0) k/uL Eosinophils # 0.0 (0-0.7) k/uL Basophils # 0.0 (0-0.2) k/uL Sodium 135 L (137-145) mmol/L Potassium 3.9 (3.5-5.1) mmol/L Chloride 103 (98-107) mmol/L Carbon Dioxide 25 (22-30) mmol/L Anion Gap 7 mmol/L BUN 16 (9-20) mg/dL Creatinine 0.94 (0.66-1.25) mg/dL Est GFR (CKD-EPI)AfAm >90 (>60 ml/min/1.73 sqM) Est GFR (CKD-EPI)NonAf 82 (>60 ml/min/1.73 sqM) Glucose 96 (74-99) mg/dL Calcium 8.7 (8.4-10.2) mg/dL Magnesium 2.0 (1.6-2.3) mg/dL Total Bilirubin 0.3 (0.2-1.3) mg/dL AST 12 L (17-59) U/L ALT 14 L (21-72) U/L Alkaline Phosphatase 58 (38-126) U/L Total Protein 6.3 (6.3-8.2) g/dL Albumin 3.6 (3.5-5.0) g/dL Urine Color Light Yellow Urine Appearance Clear (Clear) Urine pH 5.5 (5.0-8.0) Ur Specific [place] 1.010 (1.001-1.035) Urine Protein Negative (Negative) Urine Glucose (UA) Negative (Negative) Urine Ketones Negative (Negative) Urine Blood Negative (Negative) Urine Nitrite Negative (Negative) Urine Bilirubin Negative (Negative) Urine Urobilinogen <2.0 (<2.0) mg/dL Ur Leukocyte Esterase Negative (Negative) Disposition Clinical Impression: Fatigue Disposition: HOME SELF-CARE Condition: Stable Instructions (If sedation given, give patient instructions): Fatigue (ED) Additional Instructions: Please follow-up with your primary care physician in the next couple days for recheck. Return for increased nausea, vomiting, weakness or fatigue, worsening symptoms or other concerns. Is patient prescribed a controlled substance at d/c from ED?: No Referrals: [facility],Clinic [Primary Care Provider] - 1-2 days Time of Disposition: 14:26
[2019-07-11 13:33] LABS: Appearance,Urine Clear (Clear); Bilirubin,Urine Negative (Negative); Blood,Urine Negative (Negative); Color,Urine Light Yellow; Glucose,Urine (UA) Negative (Negative); Ketones,Urine Negative (Negative); Leukocyte Esterase,Urine Negative (Negative); Nitrite,Urine Negative (Negative); PH, Urine 5.5 (5.0-8.0); Protein,Urine Negative (Negative); Urobilinogen,Urine <2.0 mg/dL (<2.0)
[2019-07-11 13:47] LABS: ALT 14 U/L (21-72); AST 12 U/L (17-59); African American GFR (CKD) >90 (>60 ml/min/1.73 sqM); Albumin 3.6 g/dL (3.5-5.0); Alkaline Phosphatase 58 U/L (38-126); Anion Gap 7 mmol/L; Blood Urea Nitrogen 16 mg/dL (9-20); Calcium 8.7 mg/dL (8.4-10.2); Carbon Dioxide 25 mmol/L (22-30); Chloride 103 mmol/L (98-107); Glucose 96 mg/dL (74-99); Potassium 3.9 mmol/L (3.5-5.1); Sodium 135 mmol/L (137-145); Total Bilirubin 0.3 mg/dL (0.2-1.3); Total Protein 6.3 g/dL (6.3-8.2)
[2019-07-11 13:58] LABS: Basophils % (A) 0 %; Eosinophils % (A) 1 %; HGB 12.2 gm/dL (13.0-17.5); Lymphocytes # (A) 0.6 k/uL (1.0-4.8); Lymphocytes % (A) 10 %; MCH 32.7 pg (25.0-35.0); MCV 96.2 fL (80.0-100.0); Mean Platelet Volume 5.8; Monocytes # (A) 0.3 k/uL (0-1.0); Monocytes % (A) 4 %; Neutrophils # (A) 5.3 k/uL (1.3-7.7); Neutrophils % (A) 84 %; Platelet Count 262 k/uL (150-450); RBC 3.75 m/uL (4.30-5.90); RDW 14.3 % (11.5-15.5); WBC 6.3 k/uL (3.8-10.6)
[2019-07-11 14:48] VITALS: BP 169/89; PULSE 77
== END 2019-07-11 14:48 | disposition home or self-care (01) ==
LOC: EC 12:11
DX: R53.83 Other fatigue (principal); R11.0 Nausea; K21.9 Gastro-esophageal reflux disease without esophagitis; E78.5 Hyperlipidemia, unspecified; F41.9 Anxiety disorder, unspecified; F17.200 Nicotine dependence, unspecified, uncomplicated; Z86.73 Personal history of transient ischemic attack (TIA), and cerebral infarction without residual deficits; Z79.899 Other long term (current) drug therapy
CPT/HCPCS: 36415; 80053; 81003; 83735; 85025; 96360; 99283

== ENCOUNTER 2019-07-19 07:22 | Emergency (ER) | payer OTHER, MEDICARE ==
[2019-07-19 07:26] VITALS: TEMP 97.9
[2019-07-19] MEDS ORDERED: ONDANSETRON 4 MG/2 ML VIAL IVP STA (07:39)
[2019-07-19] MEDS ORDERED: LORazepam 2 MG/ML INJ IV STA (07:55)
[2019-07-19] MEDS ORDERED: SODIUM CHLORIDE 0.9% 500 ML 500 ML IV ONE (07:55)
[2019-07-19 07:56] LABS: Basophils % (A) 1 %; Eosinophils % (A) 0 %; HCT 39.3 % (39.0-53.0); HGB 13.4 gm/dL (13.0-17.5); Lymphocytes # (A) 0.7 k/uL (1.0-4.8); Lymphocytes % (A) 8 %; MCH 33.3 pg (25.0-35.0); MCHC 34.2 g/dL (31.0-37.0); MCV 97.4 fL (80.0-100.0); Mean Platelet Volume 5.7; Monocytes # (A) 0.3 k/uL (0-1.0); Monocytes % (A) 4 %; Neutrophils # (A) 7.1 k/uL (1.3-7.7); Neutrophils % (A) 86 %; Platelet Count 290 k/uL (150-450); RBC 4.03 m/uL (4.30-5.90); WBC 8.3 k/uL (3.8-10.6)
[2019-07-19 08:04] LABS: ALT 22 U/L (21-72); AST 16 U/L (17-59); African American GFR (CKD) >90 (>60 ml/min/1.73 sqM); Albumin 4.1 g/dL (3.5-5.0); Alkaline Phosphatase 56 U/L (38-126); Anion Gap 9 mmol/L; Blood Urea Nitrogen 10 mg/dL (9-20); Calcium 9.1 mg/dL (8.4-10.2); Carbon Dioxide 26 mmol/L (22-30); Chloride 101 mmol/L (98-107); Glucose 100 mg/dL (74-99); Non-African American GFR(CKD) 87 (>60 ml/min/1.73 sqM); Potassium 3.7 mmol/L (3.5-5.1); Sodium 136 mmol/L (137-145); Total Bilirubin 0.5 mg/dL (0.2-1.3); Total Protein 7.2 g/dL (6.3-8.2)
--- NOTE | 2019-07-19 08:16 | ED ---
General Adult HPI - General Chief complaint: Nausea/Vomiting/Diarrhea Stated complaint: low sodium Time Seen by Provider: 07/19/19 07:25 Source: patient, RN notes reviewed, old records reviewed Mode of arrival: ambulatory Limitations: no limitations - History of Present Illness Initial comments: This is a 5-year-old male with a past medical history significant for anxiety. Patient returns to the emergency department today stating he feels weak and is anxious. Patient states he believes his sodium was low. Patient states he comes in all the time and states his sodium is low and even though it's barely low he feels as though this is his problem. Patient denies any headache patient denies numbness weakness. Patient denies any lightheadedness or dizziness. Patient denies any chest pain difficulty breathing shortness of breath per patient denies any abdominal pain patient denies any vomiting but states he is nauseated. Patient denies any diarrhea. Patient denies any recent injury or trauma. - Related Data Home Medications Medication Instructions Recorded Confirmed Acetaminophen Tab [Tylenol] 650 mg PO Q6H PRN 05/13/19 06/15/19 Dicyclomine [Bentyl] 20 mg PO TID 05/17/19 06/15/19 Famotidine [Pepcid AC] 10 mg PO DAILY 05/30/19 06/15/19 Nicotine 21Mg/24Hr Patch [Habitrol] 21 mg TRANSDERM DAILY PRN 06/11/19 06/15/19 Pantoprazole Sodium [Protonix] 40 mg PO DAILY 06/11/19 06/15/19 Pravastatin Sodium [Pravachol] 10 mg PO HS 06/11/19 06/15/19 Sertraline [Zoloft] 100 mg PO DAILY 06/11/19 06/15/19 Ondansetron HCl [Zofran] 8 mg PO TID PRN 06/15/19 06/15/19 Previous Rx's Medication Instructions Recorded Lisinopril [Zestril] 20 mg PO DAILY tab 05/18/19 amLODIPine [Norvasc] 5 mg PO DAILY tab 05/18/19 busPIRone HCl [Buspar] 7.5 mg PO BID #60 tab 06/13/19 traZODone HCL [Desyrel] 25 mg PO HS tab 06/13/19 Allergies Allergy/AdvReac Type Severity Reaction Status Date / Time No Known Allergies Allergy Verified 07/19/19 07:23 Review of Systems ROS Statement: Those systems with pertinent positive or pertinent negative responses have been documented in the HPI. ROS Other: All systems not noted in ROS Statement are negative. Past Medical History Past Medical History: CVA/TIA, GERD/Reflux, Hyperlipidemia, Hypertension Additional Past Medical History / Comment(s): Low sodium, Hepatitis C History of Any Multi-Drug Resistant Organisms: None Reported Past Surgical History: Back Surgery, Tonsillectomy Past Anesthesia/Blood Transfusion Reactions: No Reported Reaction Past Psychological History: Anxiety Smoking Status: Current every day smoker Past Alcohol Use History: None Reported Past Drug Use History: None Reported - Past Family History Mother History Unknown: Yes Additional Family Medical History / Comment(s): of a heart attack Father Family Medical History: Cancer Additional Family Medical History / Comment(s): oart cancer General Exam - General Exam Comments Initial Comments: GENERAL: Patient is well-developed and well-nourished. Patient is nontoxic and well- hydrated and is in no acute distress. ENT: Neck is soft and supple. No significant lymphadenopathy is noted. Oropharynx is clear. Moist mucous membranes. Neck has full range of motion without eliciting any pain. EYES: The sclera were anicteric and conjunctiva were pink and moist. Extraocular movements were intact and pupils were equal round and reactive to light. Eyelids were unremarkable. PULMONARY: Unlabored respirations. Good breath sounds bilaterally. No audible rales rhonchi or wheezing was noted. CARDIOVASCULAR: There is a regular rate and rhythm without any murmurs gallops or rubs. ABDOMEN: Soft and nontender with normal bowel sounds. No palpable organomegaly was noted. There is no palpable pulsatile mass. SKIN: Skin is clear with no lesions or rashes and otherwise unremarkable. NEUROLOGIC: Patient is alert and oriented x3. Cranial nerves II through XII are grossly intact. Motor and sensory are also intact. Normal speech, volume and content. Symmetrical smile. MUSCULOSKELETAL: Normal extremities with adequate strength and full range of motion. No lower extremity swelling or edema. No calf tenderness. LYMPHATICS: No significant lymphadenopathy is noted PSYCHIATRIC: Patient is very anxious Limitations: no limitations Course Vital Signs 07/19/19 07:23 Temperature 97.9 F Pulse Rate 85 Respiratory 18 Rate Blood Pressure 157/83 O2 Sat by Pulse 98 Oximetry Medical Decision Making - Medical Decision Making Patient has a sodium of 136 per patient received 500 cc of normal saline - Lab Data Result diagrams: 07/19/19 07:39 07/19/19 07:39 Lab Results 07/19/19 07/19/19 Range/Units 07:39 07:39 WBC 8.3 (3.8-10.6) k/uL RBC 4.03 L (4.30-5.90) m/uL Hgb 13.4 (13.0-17.5) gm/dL Hct 39.3 (39.0-53.0) % MCV 97.4 (80.0-100.0) fL MCH 33.3 (25.0-35.0) pg MCHC 34.2 (31.0-37.0) g/dL RDW 14.0 (11.5-15.5) % Plt Count 290 (150-450) k/uL Neutrophils % 86 % Lymphocytes % 8 % Monocytes % 4 % Eosinophils % 0 % Basophils % 1 % Neutrophils # 7.1 (1.3-7.7) k/uL Lymphocytes # 0.7 L (1.0-4.8) k/uL Monocytes # 0.3 (0-1.0) k/uL Eosinophils # 0.0 (0-0.7) k/uL Basophils # 0.0 (0-0.2) k/uL Sodium 136 L (137-145) mmol/L Potassium 3.7 (3.5-5.1) mmol/L Chloride 101 (98-107) mmol/L Carbon Dioxide 26 (22-30) mmol/L Anion Gap 9 mmol/L BUN 10 (9-20) mg/dL Creatinine 0.88 (0.66-1.25) mg/dL Est GFR (CKD-EPI)AfAm >90 (>60 ml/min/1.73 sqM) Est GFR (CKD-EPI)NonAf 87 (>60 ml/min/1.73 sqM) Glucose 100 H (74-99) mg/dL Calcium 9.1 (8.4-10.2) mg/dL Total Bilirubin 0.5 (0.2-1.3) mg/dL AST 16 L (17-59) U/L ALT 22 (21-72) U/L Alkaline Phosphatase 56 (38-126) U/L Total Protein 7.2 (6.3-8.2) g/dL Albumin 4.1 (3.5-5.0) g/dL Disposition Clinical Impression: Anxiety Disposition: HOME SELF-CARE Condition: Good Instructions (If sedation given, give patient instructions): Anxiety (ED) Is patient prescribed a controlled substance at d/c from ED?: No Referrals: [facility],Clinic [Primary Care Provider] - 1-2 days Time of Disposition: 08:16
[2019-07-19 08:37] VITALS: BP 123/71; PULSE 72; RESP 16
== END 2019-07-19 08:30 | disposition home or self-care (01) ==
LOC: EC 07:22
DX: F41.9 Anxiety disorder, unspecified (principal); K21.9 Gastro-esophageal reflux disease without esophagitis; E78.5 Hyperlipidemia, unspecified; I10 Essential (primary) hypertension; F17.200 Nicotine dependence, unspecified, uncomplicated; Z79.899 Other long term (current) drug therapy; Z53.20 Procedure and treatment not carried out because of patient's decision for unspecified reasons
CPT/HCPCS: 36415; 80053; 85025; 99284; 96374; J2405

== ENCOUNTER 2021-02-02 11:18 | Emergency (ER) | payer OTHER, MEDICARE ==
[2021-02-02 11:26] VITALS: BP 172/92; PULSE 83; RESP 18; TEMP 97.8
[2021-02-02] MEDS ORDERED: LIDOCAINE 1% INJ 10MG/ML (20 ML MDV) SQ ONE (11:29)
--- NOTE | 2021-02-02 12:08 | ED ---
Wound/Laceration HPI - General Chief Complaint: Wound/Laceration Stated Complaint: R Foot Injury Time Seen by Provider: 02/02/21 11:27 Source: patient, family Mode of arrival: wheelchair Limitations: no limitations - History of Present Illness Initial Comments: 70-year-old male presents to emergency Department with a chief complaint of laceration. This occurred about one hour prior to arrival. Patient reports he accidentally cut himself on a franco. His tetanus is up-to-date. Reports some bleeding which is since resolved. Denies blood thinners or paresthesias. Reports some pain at the laceration site. Denies taking medication to alleviate the symptoms. Denies alleviating or gravity factors. - Related Data Home Medications Medication Instructions Recorded Confirmed Acetaminophen Tab [Tylenol] 650 mg PO Q6H PRN 05/13/19 06/15/19 Dicyclomine [Bentyl] 20 mg PO TID 05/17/19 06/15/19 Famotidine [Pepcid AC] 10 mg PO DAILY 05/30/19 06/15/19 Nicotine 21Mg/24Hr Patch [Habitrol] 21 mg TRANSDERM DAILY PRN 06/11/19 06/15/19 Pantoprazole Sodium [Protonix] 40 mg PO DAILY 06/11/19 06/15/19 Pravastatin Sodium [Pravachol] 10 mg PO HS 06/11/19 06/15/19 Sertraline [Zoloft] 100 mg PO DAILY 06/11/19 06/15/19 ondansetron HCL [Zofran] 8 mg PO TID PRN 06/15/19 06/15/19 Previous Rx's Medication Instructions Recorded amLODIPine [Norvasc] 5 mg PO DAILY tab 05/18/19 lisinopriL [Zestril] 20 mg PO DAILY tab 05/18/19 busPIRone HCl [Buspar] 7.5 mg PO BID #60 tab 06/13/19 traZODone HCL [Desyrel] 25 mg PO HS tab 06/13/19 Allergies Allergy/AdvReac Type Severity Reaction Status Date / Time No Known Allergies Allergy Verified 02/02/21 11:26 Review of Systems ROS Statement: Those systems with pertinent positive or pertinent negative responses have been documented in the HPI. ROS Other: All systems not noted in ROS Statement are negative. Past Medical History Past Medical History: CVA/TIA, GERD/Reflux, Hyperlipidemia, Hypertension Additional Past Medical History / Comment(s): Low sodium, Hepatitis C History of Any Multi-Drug Resistant Organisms: None Reported Past Surgical History: Back Surgery, Tonsillectomy Past Anesthesia/Blood Transfusion Reactions: No Reported Reaction Past Psychological History: Anxiety Smoking Status: Current every day smoker Past Alcohol Use History: None Reported Past Drug Use History: None Reported - Past Family History Mother History Unknown: Yes Additional Family Medical History / Comment(s): of a heart attack Father Family Medical History: Cancer Additional Family Medical History / Comment(s): thoart cancer General Exam Limitations: no limitations General appearance: alert, in no apparent distress Head exam: Present: atraumatic, normocephalic, normal inspection Eye exam: Present: normal appearance, PERRL, EOMI Pupils: Present: normal accommodation ENT exam: Present: normal exam, normal oropharynx, mucous membranes moist Neck exam: Present: normal inspection, full ROM. Absent: tenderness Respiratory exam: Present: normal lung sounds bilaterally. Absent: respiratory distress Cardiovascular Exam: Present: regular rate, normal rhythm, normal heart sounds Extremities exam: Present: full ROM, tenderness (Mild tenderness lacerated site), normal capillary refill, other (Palpable DP and PT bilaterally). Absent: normal inspection (3 cm laceration on the medial aspect of her right foot), pedal edema, joint swelling, calf tenderness Back exam: Present: normal inspection, full ROM Neurological exam: Present: alert, oriented X3 Psychiatric exam: Present: normal affect, normal mood Skin exam: Present: warm, dry, intact, normal color Course Vital Signs 02/02/21 11:22 Temperature 97.8 F Pulse Rate 83 Respiratory 18 Rate Blood Pressure 172/92 O2 Sat by Pulse 97 Oximetry Procedures - Laceration Laceration #1 Consent Obtained: verbal consent Indication: laceration Site: foot (Right foot) Size (cm): 3 Description: linear, clean Depth: simple, single layer Sedation/Analgesia: none Anesthetic Used: lidocaine 1% Anesthesia Technique: local infiltration Amount (mls): 5 Pre-repair: irrigated extensively, deep structures intact Type of Sutures: nylon Size of Sutures: 4-0 Number of Sutures: 5 Technique: simple, interrupted Patient Tolerated Procedure: well, no complications Medical Decision Making - Medical Decision Making 70-year-old male presents to emergency department with a chief complaint laceration. Laceration site was thoroughly irrigated with saline water and Betadine. Local anesthesia with lidocaine. Laceration site repaired with 5 sutures. Patient's daughter procedure well. His tetanus is up-to-date. Return parameters were discussed patient is an attending agreeable. Case discussed with Dr. Ferrari. Disposition Clinical Impression: Laceration Disposition: HOME SELF-CARE Condition: Stable Instructions (If sedation given, give patient instructions): Care For Your Stitches (DC), Laceration (DC) Additional Instructions: Please return to the emergency room in 10-12 days to have sutures removed. Please watch for any signs of infection which may include increased pain, swelling, redness, fever or chills. Please return to emergency room for any signs of infection do occur. Please use clean soap and water over the area to prevent scabbing over your stitches. Please leave wound covered for the first 24-48 hours and then leave wound open to air. Please return to the emergency room for any other concerns. Is patient prescribed a controlled substance at d/c from ED?: No Referrals: [facility],Clinic [Primary Care Provider] - 1-2 days Time of Disposition: 12:08
== END 2021-02-02 12:45 | disposition home or self-care (01) ==
LOC: EC 11:18
DX: S91.311A Laceration without foreign body, right foot, initial encounter (principal); I10 Essential (primary) hypertension; E78.5 Hyperlipidemia, unspecified; K21.9 Gastro-esophageal reflux disease without esophagitis; F41.9 Anxiety disorder, unspecified; F17.200 Nicotine dependence, unspecified, uncomplicated; Z86.73 Personal history of transient ischemic attack (TIA), and cerebral infarction without residual deficits; W26.8XXA Contact with other sharp object(s), not elsewhere classified, initial encounter
CPT/HCPCS: 99282; 12002; J2001

== ENCOUNTER 2023-06-26 13:27 | Inpatient (IN) | payer OTHER, MEDICARE ==
--- NOTE | 2023-06-26 14:23 | ED ---
General Adult HPI - General Source: patient, RN notes reviewed Mode of arrival: ambulatory Limitations: no limitations <Stacy Hughes - Last Filed: 06/26/23 14:21> <Meet Kasper - Last Filed: 06/26/23 19:34> - General Chief complaint: Weakness Stated complaint: Dehydration - History of Present Illness Initial comments: 72-year-old male presents to the emergency department chief complaint of generalized weakness. He states this is been an ongoing issue which is been getting worse. He reports that his sodium was low last time it was checked and he feels dehydrated. He recently was diagnosed with a lung mass but has not followed up on it. He denies chest pain, shortness of breath. (Stacy Hughes) This is a 72-year-old male who presents to the emergency department because he's been feeling extremely weak lately he went to see his primary medical care doctor they did some blood work on him his sodium was very low so they sent him in the emergency department. 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 Patient himself does not believe this is new he states he thinks he heard about this years ago. Patient is not very cooperative as far as wanting to follow-up with primary medical care doctor wanted him admitted and having oncology scene. Patient denies any fever chills. Patient denies any chest pain difficulty breathing shortness breath per patient denies abdominal pain patient denies nausea vomiting diarrhea. (Meet Kasper) - Related Data Home Medications Medication Instructions Recorded Confirmed Acetaminophen Tab [Tylenol] 650 mg PO Q6H PRN 05/13/19 06/15/19 Dicyclomine [Bentyl] 20 mg PO TID 05/17/19 06/15/19 Famotidine [Pepcid AC] 10 mg PO DAILY 05/30/19 06/15/19 Nicotine 21Mg/24Hr Patch [Habitrol] 21 mg TRANSDERM DAILY PRN 06/11/19 06/15/19 Pantoprazole Sodium [Protonix] 40 mg PO DAILY 06/11/19 06/15/19 Pravastatin Sodium [Pravachol] 10 mg PO HS 06/11/19 06/15/19 Sertraline [Zoloft] 100 mg PO DAILY 06/11/19 06/15/19 ondansetron HCL [Zofran] 8 mg PO TID PRN 06/15/19 06/15/19 Previous Rx's Medication Instructions Recorded amLODIPine [Norvasc] 5 mg PO DAILY tab 05/18/19 lisinopriL [Zestril] 20 mg PO DAILY tab 05/18/19 busPIRone HCl [Buspar] 7.5 mg PO BID #60 tab 06/13/19 traZODone HCL [Desyrel] 25 mg PO HS tab 06/13/19 Allergies Allergy/AdvReac Type Severity Reaction Status Date / Time No Known Allergies Allergy Verified 06/26/23 14:17 Review of Systems ROS Other: All systems not noted in ROS Statement are negative. <Stacy Hughes - Last Filed: 06/26/23 14:21> ROS Other: All systems not noted in ROS Statement are negative. <Meet Kasper - Last Filed: 06/26/23 19:34> ROS Statement: Those systems with pertinent positive or pertinent negative responses have been documented in the HPI. Past Medical History Past Medical History: CVA/TIA, GERD/Reflux, Hyperlipidemia, Hypertension Additional Past Medical History / Comment(s): Low sodium, Hepatitis C History of Any Multi-Drug Resistant Organisms: None Reported Past Surgical History: Back Surgery, Tonsillectomy Past Anesthesia/Blood Transfusion Reactions: No Reported Reaction Past Psychological History: Anxiety Smoking Status: Current every day smoker Past Alcohol Use History: None Reported Past Drug Use History: None Reported - Past Family History Mother History Unknown: Yes Additional Family Medical History / Comment(s): of a heart attack Father Family Medical History: Cancer Additional Family Medical History / Comment(s): thoart cancer <Stacy Hughes - Last Filed: 06/26/23 14:21> General Exam Limitations: no limitations <Stacy Hughes - Last Filed: 06/26/23 14:21> <Meet Kasper - Last Filed: 06/26/23 19:34> - General Exam Comments Initial Comments: Visual Physical Exam Vital signs reviewed General: Well-appearing, nontoxic, no acute distress. Head: Normocephalic, atraumatic Eyes: PERRLA, EOMI ENT: Airway patent Chest: Nonlabored breathing Skin: No visual rash, normal skin tone Neuro: Alert and oriented 3 Musculoskeletal: No gross abnormalities (Stacy Hughes) GENERAL: Patient is well-developed and well-nourished. Patient is nontoxic and well- hydrated and is in mild distress. ENT: Neck is soft and supple. No significant lymphadenopathy is noted. Oropharynx is clear. Moist mucous membranes. Neck has full range of motion without eliciting any pain. EYES: The sclera were anicteric and conjunctiva were pink and moist. Extraocular movements were intact and pupils were equal round and reactive to light. Eyelids were unremarkable. PULMONARY: Unlabored respirations. Good breath sounds bilaterally. No audible rales rhonchi or wheezing was noted. CARDIOVASCULAR: There is a regular rate and rhythm without any murmurs gallops or rubs. ABDOMEN: Soft and nontender with normal bowel sounds. SKIN: Skin is clear with no lesions or rashes and otherwise unremarkable. NEUROLOGIC: Patient is alert and oriented x3. Cranial nerves II through XII are grossly intact. Motor and sensory are also intact. Normal speech, volume and content. Symmetrical smile. MUSCULOSKELETAL: Normal extremities with adequate strength and full range of motion. LYMPHATICS: No significant lymphadenopathy is noted PSYCHIATRIC: Normal psychiatric evaluation. (Meet Kasper) Course Vital Signs 06/26/23 06/26/23 14:13 18:09 Temperature 98.2 F Pulse Rate 85 98 Respiratory 17 24 Rate Blood Pressure 123/74 130/90 O2 Sat by Pulse 95 97 Oximetry Medical Decision Making <Stacy Hughes - Last Filed: 06/26/23 14:21> - Lab Data Result diagrams: 06/26/23 14:27 06/26/23 14:27 <Meet Kasper - Last Filed: 06/26/23 19:34> - Medical Decision Making I preformed the quick note portion of this chart. Electronically signed by Stacy Hughes PA-C (Stacy Hughes) EKG was interpreted by myself. EKG shows sinus rhythm at 86 bpm with occasional PAC. Patient's QRS 70 QT interval 370 QTC is 422 patient's EKG shows no ST segment elevation or depression Was pt. sent in by a medical professional or institution ([facility], [facility] [employer], urgent care, hospital, or prison...) When possible be specific @ -Patient was sent in by the primary medical care doctor Did you speak to anyone other than the patient for history (EMS, parent, family, police, friend...)? What history was obtained from this source @ -Son gave quite a bit of the history Did you review nursing and triage notes (agree or disagree)? Why? @ -I reviewed and agree with nursing and triage notes Were old charts reviewed (outside hosp., previous admission, EMS record, old EKG, old radiological studies, urgent care reports/EKG's, prison records)? Report findings @ -I reviewed prior charts apart elaborate on this patient Differential Diagnosis (chest pain, altered mental status, abdominal pain women, abdominal pain men, vaginal bleeding, weakness, fever, dyspnea, syncope, headache, dizziness, GI bleed, back pain, seizure, CVA, palpatations, mental health, musculoskeletal)? @ -Differential Weakness: Hypoglycemia, shock, sepsis, hyponatremia, anemia, infection, PR, ETOH, adverse medicine reaction, overdose, stroke, this is not meant to be an all-inclusive list. EKG interpreted by me (3pts min.). @ -As above X-rays interpreted by me (1pt min.). @ -None done CT interpreted by me (1pt min.). @ -None done U/S interpreted by me (1pt. min.). @ -None done What testing was considered but not performed or refused? (CT, X-rays, U/S, labs)? Why? @ -None What meds were considered but not given or refused? Why? @ -None Did you discuss the management of the patient with other professionals (professionals i.e. , PA, [facility] [employer], lab, RT, psych nurse, social media campaign manager, elevator starter, teacher, community relations officer, telephonic nurse case manager)? Give summary @ -I spoke with sound physician's and the agreed to admit the patient Was smoking cessation discussed for >3mins.? @ -No Was critical care preformed (if so, how long)? @ -No Were there social determinants of health that impacted care today? How? (Homelessness, low income, unemployed, alcoholism, drug addiction, transportation, low edu. Level, literacy, decrease access to med. care, fpc, rehab)? @ -No Was there de-escalation of care discussed even if they declined (Discuss DNR or withdrawal of care, Hospice)? DNR status @ -No What co-morbidities impacted this encounter? (DM, HTN, Smoking, COPD, CAD, Cancer, CVA, ARF, Chemo, Hep., AIDS, mental health diagnosis, sleep apnea, morbid obesity)? @ -None Was patient admitted / discharged? Hospital course, mention meds given and route, prescriptions, significant lab abnormalities, going to OR and other pertinent info. @ -Patient has a sodium of 125. Patient was in agreement with seeing the scene oncology here however the son states if he goes home he will see oncology because he doesn't believe the tumors or significant. Undiagnosed new problem with uncertain prognosis? @ -No Drug Therapy requiring intensive monitoring for toxicity (Heparin, Nitro, Ins ulin, Cardizem)? @ -No Were any procedures done? @ -No Diagnosis/symptom? @ -Hyponatremia Acute, or Chronic, or Acute on Chronic? @ -Acute Uncomplicated (without systemic symptoms) or Complicated (systemic symptoms)? @ -Complicated Side effects of treatment? @ -No Exacerbation, Progression, or Severe Exacerbation? @ -No Poses a threat to life or bodily function? How? (Chest pain, USA, PR, pneumonia, PE, COPD, DKA, ARF, appy, cholecystitis, CVA, Diverticulitis, Homicidal, Suicidal, threat to staff... and all critical care pts) @ -No Diagnosis/symptom? @ -Lung liver and adrenal mass Acute, or Chronic, or Acute on Chronic? @ -Acute on chronic Uncomplicated (without systemic symptoms) or Complicated (systemic symptoms)? @ -Complicated Side effects of treatment? @ -none Exacerbation, Progression, or Severe Exacerbation] @ -no Poses a threat to life or bodily function? @ -no (Meet Kasper) - Lab Data Lab Results 06/26/23 06/26/23 06/26/23 Range/Units 14:27 14:27 14:27 WBC 12.3 H (3.8-10.6) k/uL RBC 4.30 (4.30-5.90) m/uL Hgb 12.8 L (13.0-17.5) gm/dL Hct 37.7 L (39.0-53.0) % MCV 87.8 (80.0-100.0) fL MCH 29.8 (25.0-35.0) pg MCHC 34.0 (31.0-37.0) g/dL RDW 13.7 (11.5-15.5) % Plt Count 236 (150-450) k/uL MPV 8.0 Neutrophils % 85 % Lymphocytes % 8 % Monocytes % 5 % Eosinophils % 0 % Basophils % 0 % Neutrophils # 10.5 H (1.3-7.7) k/uL Lymphocytes # 1.0 (1.0-4.8) k/uL Monocytes # 0.6 (0-1.0) k/uL Eosinophils # 0.1 (0-0.7) k/uL Basophils # 0.0 (0-0.2) k/uL PT 11.4 (10.0-12.5) sec INR 1.1 (<1.2) APTT 25.9 (22.0-30.0) sec Sodium 125 L (137-145) mmol/L Potassium 3.6 (3.5-5.1) mmol/L Chloride 89 L (98-107) mmol/L Carbon Dioxide 23 (22-30) mmol/L Anion Gap 13 mmol/L BUN 15 (9-20) mg/dL Creatinine 0.96 (0.66-1.25) mg/dL Est GFR (CKD-EPI)AfAm >90 (>60 ml/min/1.73 sqM) Est GFR (CKD-EPI)NonAf 78 (>60 ml/min/1.73 sqM) Glucose 105 H (74-99) mg/dL Plasma Lactic Acid Arsenio (0.7-2.0) mmol/L Calcium 8.8 (8.4-10.2) mg/dL Magnesium 1.7 (1.6-2.3) mg/dL Total Bilirubin 1.1 (0.2-1.3) mg/dL AST 62 H (17-59) U/L ALT 36 (4-49) U/L Alkaline Phosphatase 72 (38-126) U/L Total Protein 7.0 (6.3-8.2) g/dL Albumin 4.0 (3.5-5.0) g/dL Urine Color Urine Appearance (Clear) Urine pH (5.0-8.0) Ur Specific [place] (1.001-1.035) Urine Protein (Negative) Urine Glucose (UA) (Negative) Urine Ketones (Negative) Urine Blood (Negative) Urine Nitrite (Negative) Urine Bilirubin (Negative) Urine Urobilinogen (<2.0) mg/dL Ur Leukocyte Esterase (Negative) Urine RBC (0-5) /hpf Urine WBC (0-5) /hpf Ur Squamous Epith Cells (0-4) /hpf Urine Mucus (None) /hpf Coronavirus (PCR) (Not Detectd) 06/26/23 06/26/23 06/26/23 Range/Units 18:14 18:14 18:23 WBC (3.8-10.6) k/uL RBC (4.30-5.90) m/uL Hgb (13.0-17.5) gm/dL Hct (39.0-53.0) % MCV (80.0-100.0) fL MCH (25.0-35.0) pg MCHC (31.0-37.0) g/dL RDW (11.5-15.5) % Plt Count (150-450) k/uL MPV Neutrophils % % Lymphocytes % % Monocytes % % Eosinophils % % Basophils % % Neutrophils # (1.3-7.7) k/uL Lymphocytes # (1.0-4.8) k/uL Monocytes # (0-1.0) k/uL Eosinophils # (0-0.7) k/uL Basophils # (0-0.2) k/uL PT (10.0-12.5) sec INR (<1.2) APTT (22.0-30.0) sec Sodium (137-145) mmol/L Potassium (3.5-5.1) mmol/L Chloride (98-107) mmol/L Carbon Dioxide (22-30) mmol/L Anion Gap mmol/L BUN (9-20) mg/dL Creatinine (0.66-1.25) mg/dL Est GFR (CKD-EPI)AfAm (>60 ml/min/1.73 sqM) Est GFR (CKD-EPI)NonAf (>60 ml/min/1.73 sqM) Glucose (74-99) mg/dL Plasma Lactic Acid Arsenio 1.5 (0.7-2.0) mmol/L Calcium (8.4-10.2) mg/dL Magnesium (1.6-2.3) mg/dL Total Bilirubin (0.2-1.3) mg/dL AST (17-59) U/L ALT (4-49) U/L Alkaline Phosphatase (38-126) U/L Total Protein (6.3-8.2) g/dL Albumin (3.5-5.0) g/dL Urine Color Yellow Urine Appearance Clear (Clear) Urine pH 6.0 (5.0-8.0) Ur Specific [place] 1.014 (1.001-1.035) Urine Protein 1+ H (Negative) Urine Glucose (UA) Negative (Negative) Urine Ketones Trace H (Negative) Urine Blood Negative (Negative) Urine Nitrite Negative (Negative) Urine Bilirubin Negative (Negative) Urine Urobilinogen 3.0 (<2.0) mg/dL Ur Leukocyte Esterase Negative (Negative) Urine RBC <1 (0-5) /hpf Urine WBC 1 (0-5) /hpf Ur Squamous Epith Cells <1 (0-4) /hpf Urine Mucus Rare H (None) /hpf Coronavirus (PCR) Not Detected (Not Detectd) Disposition <Stacy Hughes - Last Filed: 06/26/23 14:21> Time of Disposition: 19:34 <Meet Kasper - Last Filed: 06/26/23 19:34> Clinical Impression: Hyponatremia, Generalized weakness, Lung mass, Liver mass, Adrenal mass Disposition: ADMITTED IP TO THIS HOSP [facility]errals: [facility] [Primary Care Provider] - 1-2 days
[2023-06-26 14:39] LABS: Basophils % (A) 0 %; Eosinophils # (A) 0.1 k/uL (0-0.7); Eosinophils % (A) 0 %; HCT 37.7 % (39.0-53.0); HGB 12.8 gm/dL (13.0-17.5); Lymphocytes % (A) 8 %; MCH 29.8 pg (25.0-35.0); MCV 87.8 fL (80.0-100.0); Monocytes # (A) 0.6 k/uL (0-1.0); Monocytes % (A) 5 %; Neutrophils # (A) 10.5 k/uL (1.3-7.7); Neutrophils % (A) 85 %; Platelet Count 236 k/uL (150-450); RDW 13.7 % (11.5-15.5); WBC 12.3 k/uL (3.8-10.6)
[2023-06-26 14:50] LABS: ALT 36 U/L (4-49); AST 62 U/L (17-59); African American GFR (CKD) >90 (>60 ml/min/1.73 sqM); Alkaline Phosphatase 72 U/L (38-126); Anion Gap 13 mmol/L; Blood Urea Nitrogen 15 mg/dL (9-20); Calcium 8.8 mg/dL (8.4-10.2); Carbon Dioxide 23 mmol/L (22-30); Chloride 89 mmol/L (98-107); Glucose 105 mg/dL (74-99); Magnesium 1.7 mg/dL (1.6-2.3); Non-African American GFR(CKD) 78 (>60 ml/min/1.73 sqM); Potassium 3.6 mmol/L (3.5-5.1); Sodium 125 mmol/L (137-145); Total Bilirubin 1.1 mg/dL (0.2-1.3)
[2023-06-26 14:54] LABS: INR 1.1 (<1.2); Partial Thromboplastin Time 25.9 sec (22.0-30.0); Prothrombin Time 11.4 sec (10.0-12.5)
--- NOTE | 2023-06-26 15:20 | XR ---
EXAMINATION TYPE: XR chest 2V DATE OF EXAM: 06/26/2023 COMPARISON: 06/17/2023 TECHNIQUE: PA and lateral views submitted. HISTORY: Pain FINDINGS: The lungs are clear and there is no pneumothorax, pleural effusion, or focal pneumonia. Heart size normal and no overt failure. Osseous structures demonstrate hypertrophic and degenerative changes of the spine. Underlying emphysematous changes. There is a large right upper mediastinal or right upper lobe lung mass displacing the trachea to the left. Atherosclerotic change of the aorta. There is a ro unded large mass seen in the right lower lobe best seen on the lateral view measuring 5.5 cm. IMPRESSION: 1. Large right upper lobe or mediastinal mass displacing the trachea to the left. 2. Additional right lower lobe lung mass noted within the right lower lobe measuring approximately 5. 5 cm.
[2023-06-26] MEDS ORDERED: SODIUM CHLORIDE 0.9% 500 ML 500 ML IV ONE (18:31)
[2023-06-26 19:20] LABS: Appearance,Urine Clear (Clear); Bilirubin,Urine Negative (Negative); Blood,Urine Negative (Negative); Color,Urine Yellow; Glucose,Urine (UA) Negative (Negative); Ketones,Urine Trace (Negative); Leukocyte Esterase,Urine Negative (Negative); Mucus,Urine Rare /hpf; Nitrite,Urine Negative (Negative); Protein,Urine 1+ (Negative); RBC,Urine <1 /hpf (0-5); Specific Gravity,Urine 1.014 (1.001-1.035); Squamous Epithelial Cell,Urine <1 /hpf (0-4); WBC,Urine 1 /hpf (0-5)
[2023-06-26] MEDS ORDERED: SODIUM CHLORIDE 0.9% 1,000 ML IV ONE (19:37)
[2023-06-27] MEDS: traZODone HCL 50 MG TAB PO SCH ×2 (01:35→20:29)
[2023-06-27] MEDS ORDERED: ALPRAZolam 0.25 MG TAB PO STA (02:10)
[2023-06-27] MEDS: SODIUM CHLORIDE 0.9% 1,000 ML IV SCH ×3 (02:19→16:47)
[2023-06-27 04:37] LABS: African American GFR (CKD) >90 (>60 ml/min/1.73 sqM); Anion Gap 10 mmol/L; Blood Urea Nitrogen 15 mg/dL (9-20); Calcium 8.6 mg/dL (8.4-10.2); Carbon Dioxide 25 mmol/L (22-30); Chloride 92 mmol/L (98-107); Glucose 100 mg/dL (74-99); Non-African American GFR(CKD) 80 (>60 ml/min/1.73 sqM); Potassium 3.6 mmol/L (3.5-5.1); Sodium 127 mmol/L (137-145)
--- NOTE | 2023-06-27 05:44 | P.HPIM ---
History of Present Illness H&P Date: 06/26/23 Chief Complaint: generalized weakness 72 year old male with hypertension patient coming in for generlalized weakness, denies any falls. reports feeling very tired. he was recently diagnosed with ear infection , and treated with antibiotics, then he started having diarrhea for the past 1 week. denies any abd pain , nausea or vomtiing, denies any falls. he feels very weak and tired, no focal neuro deficits. he reports feeling very thirsty and dehydrated . denies feeling dizzy or lightheaded, denies any palpitations or chest pain , denies any SOB patient is known to have a lung mass but has not had a workup for it. today his PCP recommended he comes to the ED for low Na that they found out on blood work done recently . in the ED patient son , reported the patient having lung, liver and adrenal mass, but the patient in denial and has been refusing workup , its not clear how long has this been found. review of systems Pertinent positives as noted in HPI. All other systems were reviewed and are negative on exam Constitutional: No acute distress, conversant, pleasant Eyes: Anicteric sclerae, moist conjunctiva, Pupils equal round reactive to light ENMT: NC/AT Oropharynx clear, no erythema, or exudates Neck: Supple, no masses, or JVD No carotid bruits No thyromegaly Lungs: Clear to auscultation Clear to percussion Normal respiratory effort, no accessory muscle use Cardiovascular: Heart regular in rate and rhythm, No murmurs, gallops, or rubs No peripheral edema Abdominal: Soft Nontender, no guarding, rebound or rigidity Abdomen moving with respiration Normoactive bowel sounds No hepatomegaly, No splenomegaly No palpable mass No abdominal wall hernia noted Extremities: No digital cyanosis No clubbing Pedal pulses intact and symmetrical Radial pulses intact and symmetrical No calf tenderness Psychiatric: Alert and oriented to person, place and time Neuro Muscles Strength 4/5 in all 4 extremities Sensation to light touch grossly present throughout Cranial nerves II-XII grossly intact Lymphatics: no palpable cervical or supraclavicular lymph nodes Past Medical History Past Medical History: CVA/TIA, GERD/Reflux, Hyperlipidemia, Hypertension Additional Past Medical History / Comment(s): Low sodium, Hepatitis C History of Any Multi-Drug Resistant Organisms: None Reported Past Surgical History: Back Surgery, Tonsillectomy Past Anesthesia/Blood Transfusion Reactions: No Reported Reaction Past Psychological History: Anxiety Smoking Status: Current every day smoker Past Alcohol Use History: None Reported Additional Past Alcohol Use History / Comment(s): Start smoking at the age of 10, and still smokes a pack a day Past Drug Use History: None Reported - Past Family History Mother History Unknown: Yes Additional Family Medical History / Comment(s): of a heart attack Father Family Medical History: Cancer Additional Family Medical History / Comment(s): thoart cancer Medications and Allergies Home Medications Medication Instructions Recorded Confirmed Type Pravastatin Sodium [Pravachol] 10 mg PO HS 06/11/19 06/26/23 History Omeprazole 40 mg PO DAILY 06/26/23 06/26/23 History amLODIPine [Norvasc] 5 mg PO BID 06/26/23 06/26/23 History traZODone HCL [Desyrel] 50 mg PO HS 06/26/23 06/26/23 History Allergies Allergy/AdvReac Type Severity Reaction Status Date / Time No Known Allergies Allergy Verified 06/26/23 20:06 Physical Exam Vitals: Vital Signs Temp Pulse Pulse Resp BP BP Pulse Ox 06/26/23 22:50 98.0 F 86 16 131/69 95 06/26/23 20:00 98.6 F 82 16 140/94 95 06/26/23 18:09 98 24 130/90 97 06/26/23 14:13 98.2 F 85 17 123/74 95 Intake and Output 06/26/23 06/26/23 06/27/23 14:59 22:59 06:59 Other: Weight 97.976 kg 97.976 kg Results CBC & Chem 7: 06/26/23 14:27 06/27/23 04:04 Labs: Abnormal Lab Results - Last 24 Hours (Table) 06/26/23 06/26/23 06/26/23 Range/Units 14:27 14:27 18:14 WBC 12.3 H (3.8-10.6) k/uL Hgb 12.8 L (13.0-17.5) gm/dL Hct 37.7 L (39.0-53.0) % Neutrophils # 10.5 H (1.3-7.7) k/uL Sodium 125 L (137-145) mmol/L Chloride 89 L (98-107) mmol/L Glucose 105 H (74-99) mg/dL AST 62 H (17-59) U/L Urine Protein 1+ H (Negative) Urine Ketones Trace H (Negative) Urine Mucus Rare H (None) /hpf Assessment and Plan Assessment: 72 year old male with hypertension ,coming in for generalized weakness, Patient is known to have lung mass but he has not had a workup or diagnosis , I discussed the case with ED doc and I accepted the admission for hyponatremia , andn known lung mass with anticipated length of stay < 2 midnights hyponatremia diarrhea check c diff , patient reports recent use of antibiotcs for ear infection IVF hydration with normal saline 125 cc per hour repeat BMP to trend Na CXR showing large right upper lobe /mediastinal mass displacing the trachea to the left , right lower lobe lung mass measuring 5.5 cm oncology consult supportive care Xanax prn for anxiety EKG normal sinus rhythm COVID negative hypertension amlodipine blood work showing WBC 12.3 , Hgb 12.8 LA 1.5 DVT PPX heparin sc tid full code
[2023-06-27] MEDS ORDERED: PANTOPRAZOLE 40 MG TABLET PO SCH (07:30)
[2023-06-27] MEDS: HEPARIN SODIUM,PORCINE 5,000 UNIT/ML 1 ML VIAL SQ SCH ×3 (09:06→23:08)
[2023-06-27] MEDS: amLODIPine 5 MG TAB PO SCH ×2 (09:06→20:29)
[2023-06-27 11:33] LABS: African American GFR (CKD) >90 (>60 ml/min/1.73 sqM); Anion Gap 12 mmol/L; Blood Urea Nitrogen 13 mg/dL (9-20); Calcium 8.6 mg/dL (8.4-10.2); Carbon Dioxide 21 mmol/L (22-30); Chloride 95 mmol/L (98-107); Glucose 114 mg/dL (74-99); Non-African American GFR(CKD) 84 (>60 ml/min/1.73 sqM); Potassium 3.2 mmol/L (3.5-5.1); Sodium 128 mmol/L (137-145)
--- NOTE | 2023-06-27 13:55 | P.PN ---
Subjective Progress Note Date: 06/27/23 No new complaints today. Gen: awake, alert HEENT: normocephalic, atraumatic, good hearing acuity, moist mucous membranes Resp: good air exchange, breathing comfortably with no accessory muscle use CVS: good distal perfusion x 4, GI: soft, NTTP, ND : no SPT, no CVAT, montgomery catheter not present MSK: no pitting edema, no clubbing Neuro: non-focal, moving all extremities Psych: cooperative, euthymic mood Assessment/plan: 72 year old male with hypertension ,coming in for generalized weakness, Patient is known to have lung mass but he has not had a workup or diagnosis , I discussed the case with ED doc and I accepted the admission for hyponatremia , andn known lung mass with anticipated length of stay < 2 midnights hyponatremia diarrhea check c diff , patient reports recent use of antibiotcs for ear infection = pending IVF hydration with normal saline 125 cc per hour repeat BMP to trend Na, order placed for q6h SOsm/UOsm, Julian orders placed CXR showing large right upper lobe /mediastinal mass displacing the trachea to the left , right lower lobe lung mass measuring 5.5 cm oncology consult supportive care Xanax prn for anxiety EKG normal sinus rhythm COVID negative hypertension amlodipine DVT PPX heparin sc tid full code Objective - Vital Signs Vital signs: Vital Signs Temp 97.8 F 06/27/23 11:43 Pulse 75 06/27/23 11:43 Resp 16 06/27/23 11:43 BP 163/80 06/27/23 11:43 Pulse Ox 95 06/27/23 11:43 FiO2 Intake & Output 06/26/23 06/27/23 06/27/23 18:59 06:59 18:59 Intake Total 1800 Balance 1800 Weight 97.976 kg 97.976 kg Intake: Intake, IV Titration 1200 Amount Sodium Chloride 0.9% 1, 1200 000 ml @ 125 mls/hr IV . Q8H DAWIT Rx#:[id number] Oral 600 Other: # Voids 3 - Labs CBC & Chem 7: 06/26/23 14:27 06/27/23 10:20 Labs: Abnormal Lab Results - Last 24 Hours (Table) 06/26/23 06/26/23 06/26/23 Range/Units 14:27 14:27 18:14 WBC 12.3 H (3.8-10.6) k/uL Hgb 12.8 L (13.0-17.5) gm/dL Hct 37.7 L (39.0-53.0) % Neutrophils # 10.5 H (1.3-7.7) k/uL Sodium 125 L (137-145) mmol/L Potassium (3.5-5.1) mmol/L Chloride 89 L (98-107) mmol/L Carbon Dioxide (22-30) mmol/L Glucose 105 H (74-99) mg/dL AST 62 H (17-59) U/L Urine Protein 1+ H (Negative) Urine Ketones Trace H (Negative) Urine Mucus Rare H (None) /hpf 06/27/23 06/27/23 Range/Units 04:04 10:20 WBC (3.8-10.6) k/uL Hgb (13.0-17.5) gm/dL Hct (39.0-53.0) % Neutrophils # (1.3-7.7) k/uL Sodium 127 L 128 L (137-145) mmol/L Potassium 3.2 L (3.5-5.1) mmol/L Chloride 92 L 95 L (98-107) mmol/L Carbon Dioxide 21 L (22-30) mmol/L Glucose 100 H 114 H (74-99) mg/dL AST (17-59) U/L Urine Protein (Negative) Urine Ketones (Negative) Urine Mucus (None) /hpf
[2023-06-27] MEDS ORDERED: RX INFO: IV CONTRAST WAS GIVEN 1 EACH MISC MISCELLANE PRN (14:36)
--- NOTE | 2023-06-27 16:26 | CT ---
EXAMINATION TYPE: CT chest w con DATE OF EXAM: 06/27/2023 COMPARISON: 04/29/2019 HISTORY: 72-year-old male malignancy evaluation, cough, possible lung mets TECHNIQUE: Contiguous axial scanning of the chest after the administration of 100 mL of Isovue 300. Coronal/sagittal reconstructions performed. CT DLP: 574mGycm. Automatic exposure control utilized for a dose reduction. FINDINGS: The heart is normal size with small anterior pericardial effusion measuring 1.1 cm thick. Three-vesse l coronary artery calcifications are present. Aorta normal caliber. Moderate atherosclerotic arch calcifications with conventional arch vessel bran donte anatomy. Extensive conglomerate adenopathy along the right paratracheal region displacing the trachea slightly towards the left. Taylor mass measures up to 12.5 cm craniocaudal and 8.9 cm wide by 10.5 cm AP) exte nding up to the thoracic inlet and down to the subcarinal and right hilar region encasing some of the right hilar structures and extrinsically compressing the lower left brachiocephalic vein and SVC. Po ssibly some invasion into the SVC, refer to axial image 24. Additional abnormal adenopathy left AP window measuring 1.6 cm and right bronchial adenopathy measuri ng up to 2.0 cm. Left bronchial adenopathy measures up to 1.4 cm. There is a medial right lower lobe lobulated mass measuring 5.0 cm contacting the pleural surface. As sociated trace right pleural effusion. Moderate emphysematous change. Calcified granuloma lateral right upper lobe. A view calcified granulomas left midlung Otherwise, no consolidation or pleural effusion. Large indeterminate mass showing heterogeneous arterial enhancement filling the left liver lobe measu ring up to 12.9 cm. 3.6 cm right renal cortical cyst. Unchanged nonspecific mild thickening left adrenal gland. Bones: No osseous destructive process seen. Mild degenerative disc disease throughout. IMPRESSION: 1. Indeterminate large mass filling the left hepatic lobe measuring up to 12.9 cm. Appropriate furthe r workup is advised. 2. Large conglomerate adenopathy extending along the right paratracheal region up to the thoracic inl et and down to the subcarinal region with encasement of right hilar structures. This spans up to 12.5 x 8.9 x 10.5 cm. Narrowing and possible invasion of the SVC. 3. Additional medial right lower lobe mass measuring 5.0 cm with adjacent trace pleural effusion. 4. COPD with moderate emphysema.
--- NOTE | 2023-06-27 16:55 | P.CONS ---
History of Present Illness - Reason for Consult Consult date: 06/27/23 liver and lung mass Requesting physician: Meet Kasper - Chief Complaint weakness - History of Present Illness Patient is a 72-year-old male with this a history of Hepatitis C and liver mass noted in 2018. He is a newly established patient of Dr. Larson. He initially p resented around the end of April 2023 with earaches and congestion,was treated with antibiotics then he developed diarrhea and went to [facility] ER on 06/17/2023, had CXR which revealed tiny 0.[address] scan of abdodmen/pelvis revealed 12 cm mass in left hepatic lobe and a mass in RLL of lung. He has a history of hepatitis C, treated by Dr Hutson, in 2000 and accordingly,he has been in remission. He also used to drink, quitting in 2000. He was admitted to [facility] in 04/2019 for diarrhea and he had CT abdomen/pelvis and liver US which revealed a lesion in left hepatic lobe,. MRCP done on 04/29/2019 which identified a solid lesion measured 3.7 cm in left hepatic lobe, however patient had no follow up after that. During that admission, on 04/29/2019, he had an EGD which showed mild gastritis, and also had a colonoscopy and small sigmoid polyp was removed. It was discussed with patient the clinical and radiographic picture are highly suggestive of HCC. The RLL lung lesion may represent metastatic disease vs different primary. CT chest was ordered but patient missed appt. CT guided liver biopsy was ordered and is currently awaiting appt. Patient presented to the ER with complaints of generalized weakness and dehydration. Patient denies dizziness shortness of breath and chest pain. Denies nausea vomiting and diarrhea. Denies fever and chills. Reports he has had decreased oral intake and feels like he may have been dehydrated. Upon admission chest x-ray revealed large right upper lobe her mediastinal mass displacing the trachea to the left. Additional right lower lobe lung mass noted within the right lower lobe measuring partly 5.5 cm. Upon admission sodium was noted at 125. CBC revealed WBC 12.3, hemoglobin 12.8, platelets 236,000. Creatinine 0.90, GFR > 90. COVID testing negative. UA negative for acute UTI. C diff testing ordered. Pt afebrile Review of Systems 10 point ROS is negative except as stated in the HPI Past Medical History Past Medical History: CVA/TIA, GERD/Reflux, Hyperlipidemia, Hypertension Additional Past Medical History / Comment(s): Low sodium, Hepatitis C History of Any Multi-Drug Resistant Organisms: None Reported Past Surgical History: Back Surgery, Tonsillectomy Past Anesthesia/Blood Transfusion Reactions: No Reported Reaction Past Psychological History: Anxiety Smoking Status: Current every day smoker Past Alcohol Use History: None Reported Additional Past Alcohol Use History / Comment(s): Start smoking at the age of 10, and still smokes a pack a day Past Drug Use History: None Reported - Past Family History Mother History Unknown: Yes Additional Family Medical History / Comment(s): of a heart attack Father Family Medical History: Cancer Additional Family Medical History / Comment(s): thoart cancer Medications and Allergies Home Medications Medication Instructions Recorded Confirmed Type Pravastatin Sodium [Pravachol] 10 mg PO HS 06/11/19 06/26/23 History Omeprazole 40 mg PO DAILY 06/26/23 06/26/23 History amLODIPine [Norvasc] 5 mg PO BID 06/26/23 06/26/23 History traZODone HCL [Desyrel] 50 mg PO HS 06/26/23 06/26/23 History Allergies Allergy/AdvReac Type Severity Reaction Status Date / Time No Known Allergies Allergy Verified 06/26/23 20:06 Physical Exam Vitals: Vital Signs Temp Pulse Pulse Resp BP BP Pulse Ox 06/27/23 11:43 97.8 F 75 16 163/80 95 06/27/23 07:22 97.4 F L 96 16 155/83 96 06/27/23 02:48 97.5 F L 84 17 126/71 96 06/26/23 22:50 98.0 F 86 16 131/69 95 06/26/23 20:00 98.6 F 82 16 140/94 95 06/26/23 18:09 98 24 130/90 97 06/26/23 14:13 98.2 F 85 17 123/74 95 Intake and Output 06/26/23 06/27/23 06/27/23 22:59 06:59 14:59 Intake Total 1800 Balance 1800 Intake: Intake, IV Titration 1200 Amount Sodium Chloride 0.9% 1, 1200 000 ml @ 125 mls/hr IV . Q8H [facility] Rx#:[id number] Oral 600 Other: # Voids 3 Weight 97.976 kg - Constitutional General appearance: no acute distress - EENT Eyes: anicteric sclerae, EOMI ENT: hearing grossly normal - Respiratory Respiratory: bilateral: CTA - Cardiovascular Rhythm: regular Heart sounds: normal: S1, S2 - Gastrointestinal General gastrointestinal: soft, no tenderness - Integumentary Integumentary: no cyanotic - Neurologic grossly intact - Musculoskeletal Musculoskeletal: strength equal bilaterally - Psychiatric Psychiatric: A&O x's 3 Results CBC & Chem 7: 06/26/23 14:27 06/27/23 10:20 Labs: Abnormal Lab Results - Last 24 Hours (Table) 06/26/23 06/26/23 06/26/23 Range/Units 14:27 14:27 18:14 WBC 12.3 H (3.8-10.6) k/uL Hgb 12.8 L (13.0-17.5) gm/dL Hct 37.7 L (39.0-53.0) % Neutrophils # 10.5 H (1.3-7.7) k/uL Sodium 125 L (137-145) mmol/L Potassium (3.5-5.1) mmol/L Chloride 89 L (98-107) mmol/L Carbon Dioxide (22-30) mmol/L Glucose 105 H (74-99) mg/dL AST 62 H (17-59) U/L Urine Protein 1+ H (Negative) Urine Ketones Trace H (Negative) Urine Mucus Rare H (None) /hpf 06/27/23 06/27/23 Range/Units 04:04 10:20 WBC (3.8-10.6) k/uL Hgb (13.0-17.5) gm/dL Hct (39.0-53.0) % Neutrophils # (1.3-7.7) k/uL Sodium 127 L 128 L (137-145) mmol/L Potassium 3.2 L (3.5-5.1) mmol/L Chloride 92 L 95 L (98-107) mmol/L Carbon Dioxide 21 L (22-30) mmol/L Glucose 100 H 114 H (74-99) mg/dL AST (17-59) U/L Urine Protein (Negative) Urine Ketones (Negative) Urine Mucus (None) /hpf Chest x-ray: report reviewed Assessment and Plan (1) Dehydration Current Visit: Yes Status: Acute Priority: High Code(s): E86.0 - DEHYDRATION SNOMED Code(s): 66199544 (2) Generalized weakness Current Visit: Yes Status: Acute Priority: High Code(s): R53.1 - WEAKNESS SNOMED Code(s): 49646263 (3) Lung mass Current Visit: Yes Status: Acute Priority: High Code(s): R91.8 - OTHER NONSPECIFIC ABNORMAL FINDING OF LUNG FIELD SNOMED Code(s): 761275384 (4) Liver mass Current Visit: Yes Status: Acute Priority: High Code(s): R16.0 - HEPATOMEGALY, NOT ELSEWHERE CLASSIFIED SNOMED Code(s): 023307376 Plan: Liver/lung mass: -Full history in HPI -Liver lesion first noted in 2019, no f/u at that time -Went to [facility] ER on 06/17/2023, had CXR which revealed tiny 0.[address] scan of abdomen/pelvis revealed 12 cm mass in left hepatic lobe and a mass in RLL of lung. -It was discussed with patient the clinical and radiographic picture are highly suggestive of HCC. The RLL lung lesion may represent metastatic disease vs different primary. CT chest was ordered but patient missed appt. CT guided liver biopsy was ordered and is currently awaiting appt. -Will obtain CT chest while inpt -Clinic f/u with Dr. Larson will be scheduled once biopsy obtained to discuss goals of care and treatment plan
[2023-06-27 18:05] LABS: African American GFR (CKD) 89 (>60 ml/min/1.73 sqM); Anion Gap 13 mmol/L; Blood Urea Nitrogen 13 mg/dL (9-20); Calcium 8.8 mg/dL (8.4-10.2); Carbon Dioxide 24 mmol/L (22-30); Chloride 93 mmol/L (98-107); Glucose 103 mg/dL (74-99); Non-African American GFR(CKD) 77 (>60 ml/min/1.73 sqM); Potassium 3.5 mmol/L (3.5-5.1); Sodium 130 mmol/L (137-145)
[2023-06-27] MEDS ORDERED: PRAVASTATIN SODIUM 20 MG TAB PO SCH (21:00)
[2023-06-27 22:22] LABS: African American GFR (CKD) 88 (>60 ml/min/1.73 sqM); Anion Gap 12 mmol/L; Blood Urea Nitrogen 14 mg/dL (9-20); Calcium 8.6 mg/dL (8.4-10.2); Carbon Dioxide 23 mmol/L (22-30); Chloride 94 mmol/L (98-107); Glucose 98 mg/dL (74-99); Non-African American GFR(CKD) 76 (>60 ml/min/1.73 sqM); Potassium 3.5 mmol/L (3.5-5.1); Sodium 129 mmol/L (137-145)
[2023-06-28] MEDS: SODIUM CHLORIDE 0.9% 1,000 ML IV SCH (01:36)
[2023-06-28 05:31] LABS: Basophils % (A) 0 %; Eosinophils % (A) 0 %; HCT 34.9 % (39.0-53.0); HGB 11.4 gm/dL (13.0-17.5); Lymphocytes # (A) 0.7 k/uL (1.0-4.8); Lymphocytes % (A) 7 %; MCH 29.6 pg (25.0-35.0); MCHC 32.8 g/dL (31.0-37.0); MCV 90.3 fL (80.0-100.0); Monocytes # (A) 0.5 k/uL (0-1.0); Monocytes % (A) 5 %; Neutrophils # (A) 8.4 k/uL (1.3-7.7); Neutrophils % (A) 87 %; Platelet Count 219 k/uL (150-450); RBC 3.86 m/uL (4.30-5.90); RDW 13.9 % (11.5-15.5); WBC 9.7 k/uL (3.8-10.6)
[2023-06-28 05:47] LABS: African American GFR (CKD) >90 (>60 ml/min/1.73 sqM); Anion Gap 10 mmol/L; Blood Urea Nitrogen 13 mg/dL (9-20); Calcium 8.3 mg/dL (8.4-10.2); Carbon Dioxide 23 mmol/L (22-30); Chloride 97 mmol/L (98-107); Glucose 101 mg/dL (74-99); Non-African American GFR(CKD) 82 (>60 ml/min/1.73 sqM); Potassium 3.3 mmol/L (3.5-5.1); Sodium 130 mmol/L (137-145)
[2023-06-28 07:34] VITALS: BP 169/86; PULSE 98; RESP 18; TEMP 97.8
--- NOTE | 2023-06-28 10:32 | P.DS ---
Providers Date of admission: 06/26/23 19:37 Expected date of discharge: 06/28/23 Attending physician: Jerardo Barrios MD Consults: 06/26/23 19:37 Consult Physician Urgent Consulting Provider: Landry Benites Consult Reason/Comments: Liver lung and adrenal masses Do you want consulting provider notified?: Yes Primary care physician: [facility] Course: SIADH diarrhea CXR showing large right upper lobe /mediastinal mass displacing the trachea to the left , right lower lobe lung mass measuring 5.5 cm hypertension 72 year old male with hypertension ,coming in for generalized weakness, Patient is known to have lung mass but he has not had a workup or diagnosis , I discussed the case with ED doc and I accepted the admission for hyponatremia , andn known lung mass with anticipated length of stay < 2 midnights . Patient was placed on fluid restriction with every 6 hours BMP checks, serum osmolality, urine osmolality consistent with SIADH. Patient was seen by oncology regarding his masses and underwent computed tomography scan which demonstrated attentional of SVC encroachment of the mass. Oncology recommended biopsy. Patient's sodium had improved to 130 from 127, however, patient wanted to leave AGAINST MEDICAL ADVICE today despite being counseled about his lung mass and need for follow-up as well as biopsy. He was counseled on the risks including progression of disease and . Gen: awake, alert HEENT: normocephalic, atraumatic, good hearing acuity, moist mucous membranes Resp: good air exchange, breathing comfortably with no accessory muscle use CVS: good distal perfusion x 4, GI: soft, NTTP, ND : no SPT, no CVAT, montgomery catheter not present MSK: no pitting edema, no clubbing Neuro: non-focal, moving all extremities Psych: cooperative, euthymic mood Patient Condition at Discharge: Fair Plan - Discharge Summary Discharge Rx Participant: No New Discharge Prescriptions: No Action Pravastatin Sodium [Pravachol] 10 mg PO HS traZODone HCL [Desyrel] 50 mg PO HS amLODIPine [Norvasc] 5 mg PO BID Omeprazole 40 mg PO DAILY Discharge Medication List Pravastatin Sodium [Pravachol] 10 mg PO HS 06/11/19 [History] Omeprazole 40 mg PO DAILY 06/26/23 [History] amLODIPine [Norvasc] 5 mg PO BID 06/26/23 [History] traZODone HCL [Desyrel] 50 mg PO HS 06/26/23 [History] Follow up Appointment(s)/Referral(s): [facility],Clinic [Primary Care Provider] - 1-2 days Discharge Disposition: LEFT AGAINST MEDICAL ADVICE
== END 2023-06-28 08:36 | disposition left against medical advice (07) | DRG 645 ==
LOC: EC 13:27 → 5NMEDONC 19:37
PROVIDERS: ADMIT Internal Medicine; ATTEND Internal Medicine
DX: E22.2 Syndrome of inappropriate secretion of antidiuretic hormone (principal); R16.0 Hepatomegaly, not elsewhere classified; I10 Essential (primary) hypertension; E27.9 Disorder of adrenal gland, unspecified; E86.0 Dehydration; E78.5 Hyperlipidemia, unspecified; K21.9 Gastro-esophageal reflux disease without esophagitis; F17.210 Nicotine dependence, cigarettes, uncomplicated; R22.2 Localized swelling, mass and lump, trunk; R91.8 Other nonspecific abnormal finding of lung field; Z53.29 Procedure and treatment not carried out because of patient's decision for other reasons; Z20.822 Contact with and (suspected) exposure to COVID-19; Z28.311 Partially vaccinated for COVID-19; Z87.19 Personal history of other diseases of the digestive system; Z79.899 Other long term (current) drug therapy; Z86.19 Personal history of other infectious and parasitic diseases; Z86.73 Personal history of transient ischemic attack (TIA), and cerebral infarction without residual deficits
CPT/HCPCS: 36415; 71046; 71260; 80048; 80053; 81001; 83605; 83735; 83930; 83935; 84300; 85025; 85610; 85730; 87635; 93005; 96360; 96361; 96374; 99285

== ENCOUNTER 2023-06-30 09:15 | Inpatient (IN) | payer OTHER, MEDICARE ==
--- NOTE | 2023-06-30 10:06 | ED ---
General Adult HPI - General Chief complaint: Anxiety Stated complaint: Anxiety Time Seen by Provider: 06/30/23 09:21 Source: EMS, RN notes reviewed, old records reviewed Mode of arrival: EMS Limitations: no limitations - History of Present Illness Initial comments: 72-year-old male presents for reevaluation. Patient had recent diagnosis of cancer. He states that he had left the hospital AGAINST MEDICAL ADVICE but was instructed by his primary care provider to return to the hospital for further evaluation and treatment. Patient also had a left foot abnormalities and significant generalized weakness. He states that the weakness has not improved his having a difficult time at home. - Related Data Home Medications Medication Instructions Recorded Confirmed Pravastatin Sodium [Pravachol] 10 mg PO HS 06/11/19 06/30/23 Omeprazole 40 mg PO DAILY 06/26/23 06/30/23 amLODIPine [Norvasc] 5 mg PO BID 06/26/23 06/30/23 traZODone HCL [Desyrel] 50 mg PO HS 06/26/23 06/30/23 Allergies Allergy/AdvReac Type Severity Reaction Status Date / Time No Known Allergies Allergy Verified 06/30/23 11:03 Review of Systems ROS Statement: Those systems with pertinent positive or pertinent negative responses have been documented in the HPI. ROS Other: All systems not noted in ROS Statement are negative. Past Medical History Past Medical History: Cancer, CVA/TIA, GERD/Reflux, Hyperlipidemia, Hypertension Additional Past Medical History / Comment(s): Low sodium, Hepatitis C, recent diagnosis of liver, lung and adrenal gland cancer (2022) History of Any Multi-Drug Resistant Organisms: None Reported Past Surgical History: Back Surgery, Tonsillectomy Past Anesthesia/Blood Transfusion Reactions: No Reported Reaction Past Psychological History: Anxiety Smoking Status: Current every day smoker Past Alcohol Use History: None Reported Past Drug Use History: None Reported - Past Family History Mother History Unknown: Yes Additional Family Medical History / Comment(s): of a heart attack Father Family Medical History: Cancer Additional Family Medical History / Comment(s): thoart cancer General Exam Limitations: no limitations General appearance: alert, in no apparent distress ENT exam: Present: normal exam Neck exam: Present: normal inspection Cardiovascular Exam: Present: normal rhythm, tachycardia GI/Abdominal exam: Present: soft. Absent: distended, tenderness, guarding Neurological exam: Present: alert Psychiatric exam: Present: anxious Skin exam: Present: warm, dry, intact Course Vital Signs 06/30/23 09:17 Temperature 97.5 F L Pulse Rate 126 H Respiratory 20 Rate Blood Pressure 138/88 O2 Sat by Pulse 96 Oximetry Medical Decision Making - Medical Decision Making Was pt. sent in by a medical professional or institution (GEOVANNA Harrison, [employer], urgent care, hospital, or prison...) When possible be specific @ -No Did you speak to anyone other than the patient for history (EMS, parent, family, police, friend...)? What history was obtained from this source @ -No Did you review nursing and triage notes (agree or disagree)? Why? @ -I reviewed and agree with nursing and triage notes Were old charts reviewed (outside hosp., previous admission, EMS record, old EKG, old radiological studies, urgent care reports/EKG's, prison records)? Report findings @ -No old charts were reviewed Differential Diagnosis (chest pain, altered mental status, abdominal pain women, abdominal pain men, vaginal bleeding, weakness, fever, dyspnea, syncope, headache, dizziness, GI bleed, back pain, seizure, CVA, palpatations, mental health, musculoskeletal)? @ -[Differential Weakness: Hypoglycemia, shock, sepsis, hyponatremia, anemia, infection, TX, ETOH, adverse medicine reaction, overdose, stroke, this is not meant to be an all-inclusive list. EKG interpreted by me (3pts min.). @ -Sinus tachycardia rate of 107, DE interval 175, QRS duration 64, QTC [address] segment elevation. X-rays interpreted by me (1pt min.). @ -[Chest x-ray showing right lower lobe mass and right upper lobe mass CT interpreted by me (1pt min.). @ -None done U/S interpreted by me (1pt. min.). @ -None done What testing was considered but not performed or refused? (CT, X-rays, U/S, labs)? Why? @ -None What meds were considered but not given or refused? Why? @ -None Did you discuss the management of the patient with other professionals (rosales amos i.e. GEOVANNA Harrison, [employer], lab, RT, psych nurse, foster care social worker, brush clearer surveying, teacher, assault amphibious vehicle officer, case technician)? Give summary @ -[Dr. Frye Was smoking cessation discussed for >3mins.? @ -No Was critical care preformed (if so, how long)? @ -No Were there social determinants of health that impacted care today? How? (Homelessness, low income, unemployed, alcoholism, drug addiction, tr ansportation, low edu. Level, literacy, decrease access to med. care, shelter, rehab)? @ -No Was there de-escalation of care discussed even if they declined (Discuss DNR or withdrawal of care, Hospice)? DNR status @ -No What co-morbidities impacted this encounter? (DM, HTN, Smoking, COPD, CAD, Cancer, CVA, ARF, Chemo, Hep., AIDS, mental health diagnosis, sleep apnea, morbid obesity)? @ -Recent cancer diagnosis Was patient admitted / discharged? Hospital course, mention meds given and route, prescriptions, significant lab abnormalities, going to OR and other pertinent info. @ -[Patient will be admitted for further evaluation treatment. Left AGAINST MEDICAL ADVICE awaiting biopsy with recent cancer diagnosis. Patient has elected abnormalities including hyponatremia, hypokalemia, hypomagnesemia. These lites are replaced the emergency department. Admitted to sound physician group. Undiagnosed new problem with uncertain prognosis? @ -No Drug Therapy requiring intensive monitoring for toxicity (Heparin, Nitro, Insulin, Cardizem)? @ -No Were any procedures done? @ -No] Diagnosis/symptom? @Lung mass, recent cancer diagnosis Acute, or Chronic, or Acute on Chronic? @ -Acute Uncomplicated (without systemic symptoms) or Complicated (systemic symptoms)? @Complicated Side effects of treatment? @ -[No] Exacerbation, Progression, or Severe Exacerbation? @ -[No] Poses a threat to life or bodily function? How? (Chest pain, [place], [place], pneumonia, PE, COPD, DKA, ARF, appy, cholecystitis, CVA, Diverticulitis, Homicidal, Suicidal, threat to staff... and all critical care pts) @Yes, metastatic cancer - Lab Data Result diagrams: 06/30/23 10:18 06/30/23 10:18 Lab Results 06/30/23 06/30/23 06/30/23 Range/Units 10:18 10:18 10:18 WBC 12.3 H (3.8-10.6) k/uL RBC 3.85 L (4.30-5.90) m/uL Hgb 11.6 L (13.0-17.5) gm/dL Hct 33.9 L (39.0-53.0) % MCV 88.1 (80.0-100.0) fL MCH 30.1 (25.0-35.0) pg MCHC 34.1 (31.0-37.0) g/dL RDW 13.9 (11.5-15.5) % Plt Count 248 (150-450) k/uL MPV 8.1 Neutrophils % 88 % Lymphocytes % 6 % Monocytes % 4 % Eosinophils % 0 % Basophils % 0 % Neutrophils # 10.8 H (1.3-7.7) k/uL Lymphocytes # 0.8 L (1.0-4.8) k/uL Monocytes # 0.5 (0-1.0) k/uL Eosinophils # 0.0 (0-0.7) k/uL Basophils # 0.0 (0-0.2) k/uL PT 11.8 (10.0-12.5) sec INR 1.1 (<1.2) APTT 26.2 (22.0-30.0) sec Sodium 128 L (137-145) mmol/L Potassium 3.3 L (3.5-5.1) mmol/L Chloride 93 L (98-107) mmol/L Carbon Dioxide 24 (22-30) mmol/L Anion Gap 11 mmol/L BUN 19 (9-20) mg/dL Creatinine 0.97 (0.66-1.25) mg/dL Est GFR (CKD-EPI)AfAm 89 (>60 ml/min/1.73 sqM) Est GFR (CKD-EPI)NonAf 77 (>60 ml/min/1.73 sqM) Glucose 107 H (74-99) mg/dL Plasma Lactic Acid Arsenio (0.7-2.0) mmol/L Calcium 8.5 (8.4-10.2) mg/dL Magnesium 1.5 L (1.6-2.3) mg/dL Total Bilirubin 1.6 H (0.2-1.3) mg/dL AST 64 H (17-59) U/L ALT 42 (4-49) U/L Alkaline Phosphatase 91 (38-126) U/L Troponin I (0.000-0.034) ng/mL Total Protein 6.4 (6.3-8.2) g/dL Albumin 3.5 (3.5-5.0) g/dL 06/30/23 06/30/23 Range/Units 10:18 10:18 WBC (3.8-10.6) k/uL RBC (4.30-5.90) m/uL Hgb (13.0-17.5) gm/dL Hct (39.0-53.0) % MCV (80.0-100.0) fL MCH (25.0-35.0) pg MCHC (31.0-37.0) g/dL RDW (11.5-15.5) % Plt Count (150-450) k/uL MPV Neutrophils % % Lymphocytes % % Monocytes % % Eosinophils % % Basophils % % Neutrophils # (1.3-7.7) k/uL Lymphocytes # (1.0-4.8) k/uL Monocytes # (0-1.0) k/uL Eosinophils # (0-0.7) k/uL Basophils # (0-0.2) k/uL PT (10.0-12.5) sec INR (<1.2) APTT (22.0-30.0) sec Sodium (137-145) mmol/L Potassium (3.5-5.1) mmol/L Chloride (98-107) mmol/L Carbon Dioxide (22-30) mmol/L Anion Gap mmol/L BUN (9-20) mg/dL Creatinine (0.66-1.25) mg/dL Est GFR (CKD-EPI)AfAm (>60 ml/min/1.73 sqM) Est GFR (CKD-EPI)NonAf (>60 ml/min/1.73 sqM) Glucose (74-99) mg/dL Plasma Lactic Acid Arsenio 1.5 (0.7-2.0) mmol/L Calcium (8.4-10.2) mg/dL Magnesium (1.6-2.3) mg/dL Total Bilirubin (0.2-1.3) mg/dL AST (17-59) U/L ALT (4-49) U/L Alkaline Phosphatase (38-126) U/L Troponin I <0.012 (0.000-0.034) ng/mL Total Protein (6.3-8.2) g/dL Albumin (3.5-5.0) g/dL Disposition Clinical Impression: Hyponatremia, Liver mass, Lung mass Disposition: ADMITTED IP TO THIS HOSP Condition: Stable Is patient prescribed a controlled substance at d/c from ED?: No Referrals: [facility],Clinic [Primary Care Provider] - 1-2 days Time of Disposition: 11:24
[2023-06-30 10:33] LABS: Basophils % (A) 0 %; Eosinophils % (A) 0 %; HCT 33.9 % (39.0-53.0); HGB 11.6 gm/dL (13.0-17.5); Lymphocytes # (A) 0.8 k/uL (1.0-4.8); Lymphocytes % (A) 6 %; MCH 30.1 pg (25.0-35.0); MCHC 34.1 g/dL (31.0-37.0); MCV 88.1 fL (80.0-100.0); Mean Platelet Volume 8.1; Monocytes # (A) 0.5 k/uL (0-1.0); Monocytes % (A) 4 %; Neutrophils # (A) 10.8 k/uL (1.3-7.7); Neutrophils % (A) 88 %; Platelet Count 248 k/uL (150-450); RBC 3.85 m/uL (4.30-5.90); RDW 13.9 % (11.5-15.5); WBC 12.3 k/uL (3.8-10.6)
[2023-06-30 10:44] LABS: ALT 42 U/L (4-49); AST 64 U/L (17-59); African American GFR (CKD) 89 (>60 ml/min/1.73 sqM); Albumin 3.5 g/dL (3.5-5.0); Alkaline Phosphatase 91 U/L (38-126); Anion Gap 11 mmol/L; Blood Urea Nitrogen 19 mg/dL (9-20); Calcium 8.5 mg/dL (8.4-10.2); Carbon Dioxide 24 mmol/L (22-30); Chloride 93 mmol/L (98-107); Glucose 107 mg/dL (74-99); INR 1.1 (<1.2); Magnesium 1.5 mg/dL (1.6-2.3); Non-African American GFR(CKD) 77 (>60 ml/min/1.73 sqM); Partial Thromboplastin Time 26.2 sec (22.0-30.0); Potassium 3.3 mmol/L (3.5-5.1); Prothrombin Time 11.8 sec (10.0-12.5); Sodium 128 mmol/L (137-145); Total Bilirubin 1.6 mg/dL (0.2-1.3); Total Protein 6.4 g/dL (6.3-8.2)
--- NOTE | 2023-06-30 11:13 | XR ---
EXAMINATION TYPE: XR chest 2V DATE OF EXAM: 06/30/2023 COMPARISON: 06/26/2023 TECHNIQUE: PA and lateral views submitted. HISTORY: Weakness FINDINGS: The lungs are clear and there is no pneumothorax, pleural effusion, or focal pneumonia. Heart size no rmal and no overt failure. Osseous structures demonstrate hypertrophic and degenerative changes of th e spine. Underlying emphysematous changes. There is a large right upper mediastinal or right upper lo be lung mass displacing the trachea to the left. Atherosclerotic change of the aorta. There is a roun ded large mass seen in the right lower lobe best seen on the lateral view measuring 5.5 cm. IMPRESSION: 1. Large right upper lobe or mediastinal mass displacing the trachea to the left. 2. Additional right lower lobe lung mass noted within the right lower lobe measuring approximately 5. 5 cm.
[2023-06-30] MEDS ORDERED: POTASSIUM CHLORIDE ER 20 MEQ TAB.ER PO STA (11:20)
[2023-06-30] MEDS ORDERED: MAGNESIUM SULFATE-D5W PMX 1 GM in DEXTROSE/WATER 1 100ML.BAG IVPB ONE (11:21)
[2023-06-30] MEDS ORDERED: NALOXONE 0.4 MG/ML 1 ML VIAL IV PRN ×2 (11:21→11:22)
[2023-06-30] MEDS ORDERED: MELATONIN 3 MG TABLET PO PRN (11:22)
[2023-06-30] MEDS ORDERED: ONDANSETRON 4 MG/2 ML VIAL IVP PRN (11:22)
[2023-06-30] MEDS ORDERED: HYDROcodone/APAP 5-325MG 1 EACH TAB PO PRN (11:22)
[2023-06-30] MEDS ORDERED: ACETAMINOPHEN TAB 325 MG TAB PO PRN (11:22)
--- NOTE | 2023-06-30 12:31 | P.HPIM ---
History of Present Illness H&P Date: 06/30/23 Chief Complaint: generalized weakness, loss of appetite 72-year-old man with significant smoking history, with history of lung and liver masses presented for generalized weakness, loss of appetite. Patient was recently discharged here for the same was found to have hyponatremia as well as large lung mass encasing the SVC and was due for biopsy and workup of liver mass. However, patient left AGAINST MEDICAL ADVICE with the promise that he would workup everything outpatient. Today, he saw his primary care physician who reiterated that patient likely has cancer and should come back to the emergency room for the workup. Patient says that since his left he lost his ap petite and has been feeling generally weak. He otherwise denies fevers, chills, nausea, vomiting, chest pain, palpitations, dyspnea, numbness/weakness of extremities. His diarrhea from prior admission has resolved. In the emergency room, patient was afebrile, 138/88, heart rate 126, 96% on room air. CBC showed leukocytosis at 12.3, mild anemia at 11.6. Basic metabolic panel shows sodium of 128, potassium of 3.3, chloride of 93. Magnesium is 1.5. Liver function tests shows total bilirubin of 1.6, AST of 64, ALT of 42. Troponin was less than 0.012. Coags unremarkable. EKG demonstrated sinus tachycardia with a ventricular rate of 107, no evidence of ischemia, normal axis. Chest x-ray reviewed demonstrates findings of large right upper lobe her mediastinal mass displacing the trachea to the left, as well as right lower lobe lung mass measuring about 5.5 cm. Case was discussed with the emergency room provider incision was made with the patient the hospital for further evaluation of lung mass. Notably, patient's prior computed tomography scan to history of findings of mediastinal mass encroaching into the SVC causing significant narrowing. All Systems reviewed and pertinent positives and negatives noted in HPI, all other symptoms are negative Gen: in no apparent distress, resting comfortably in bed Eyes: PERRL, no scleral injection or icterus HENT: normocephalic, atraumatic, good hearing acuity, moist mucous membranes Neck: no tracheal deviation, full range of motion Resp: good air exchange, breathing comfortably with no accessory muscle use, no tactile fremitus, clear to auscultation bilaterally CVS: good distal perfusion x 4, no pitting edema, regular rate and rhythm without murmurs GI: soft, NTTP, ND, no hepatosplenomegaly : no suprapubic tenderness, no CVAT, montgomery catheter not present MSK: no clubbing, no cyanosis, no noted contractures of extremities, there is asymmetric swelling of right greater than left arm with engorgement of veins in the chest Skin: no noted rashes, petechiae; temperature of skin is appropriate Neuro: moving all extremities without signs of weakness, CN II-XII intact Psych: cooperative, euthymic mood, insight and judgment intact Labs and imaging as above Assessment/plan: 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 Generalized weakness -Admit the patient to the hospital for further workup -Basic metabolic panel every 6 hours -Serum osmolality, urine osmolality -IV fluids: Normal saline at 75 mL per hour Lung mass Liver mass SVC syndrome -Oncology consult, discussed with them today and they recommended radiation oncology consult -Radiation oncology consult Hyperlipidemia Hypertension Anxiety Nicotine dependence -Start nicotine patch 14 mg per 24 hours -Start Xanax 0.5 mg every 6 hours when necessary for anxiety -Continue patient's amlodipine 5 mg twice a day -Continue patient's trazodone 50 mg at bedtime Past Medical History Past Medical History: Cancer, CVA/TIA, GERD/Reflux, Hyperlipidemia, Hypertension Additional Past Medical History / Comment(s): Low sodium, Hepatitis C, recent diagnosis of liver, lung and adrenal gland cancer (2022) History of Any Multi-Drug Resistant Organisms: None Reported Past Surgical History: Back Surgery, Tonsillectomy Past Anesthesia/Blood Transfusion Reactions: No Reported Reaction Past Psychological History: Anxiety Smoking Status: Current every day smoker Past Alcohol Use History: None Reported Past Drug Use History: None Reported - Past Family History Mother History Unknown: Yes Additional Family Medical History / Comment(s): of a heart attack Father Family Medical History: Cancer Additional Family Medical History / Comment(s): thoart cancer Medications and Allergies Home Medications Medication Instructions Recorded Confirmed Type Pravastatin Sodium [Pravachol] 10 mg PO HS 06/11/19 06/30/23 History Omeprazole 40 mg PO DAILY 06/26/23 06/30/23 History amLODIPine [Norvasc] 5 mg PO BID 06/26/23 06/30/23 History traZODone HCL [Desyrel] 50 mg PO HS 06/26/23 06/30/23 History Allergies Allergy/AdvReac Type Severity Reaction Status Date / Time No Known Allergies Allergy Verified 06/30/23 11:03 Physical Exam Osteopathic Statement: *. No significant issues noted on an osteopathic structural exam other than those noted in the History and Physical/Consult. Vitals: Vital Signs Temp Pulse Resp BP Pulse Ox 06/30/23 09:17 97.5 F L 126 H 20 138/88 96 Intake and Output 06/29/23 06/30/23 06/30/23 22:59 06:59 14:59 Other: Weight 97.522 kg Results CBC & Chem 7: 06/30/23 10:18 06/30/23 10:18 Labs: Abnormal Lab Results - Last 24 Hours (Table) 06/30/23 06/30/23 Range/Units 10:18 10:18 WBC 12.3 H (3.8-10.6) k/uL RBC 3.85 L (4.30-5.90) m/uL Hgb 11.6 L (13.0-17.5) gm/dL Hct 33.9 L (39.0-53.0) % Neutrophils # 10.8 H (1.3-7.7) k/uL Lymphocytes # 0.8 L (1.0-4.8) k/uL Sodium 128 L (137-145) mmol/L Potassium 3.3 L (3.5-5.1) mmol/L Chloride 93 L (98-107) mmol/L Glucose 107 H (74-99) mg/dL Magnesium 1.5 L (1.6-2.3) mg/dL Total Bilirubin 1.6 H (0.2-1.3) mg/dL AST 64 H (17-59) U/L
[2023-06-30] MEDS: amLODIPine 5 MG TAB PO SCH ×2 (12:46→20:59)
[2023-06-30] MEDS: SODIUM CHLORIDE 0.9% 1,000 ML IV SCH (12:46)
[2023-06-30] MEDS ORDERED: CALCIUM CARBONATE 500 MG CHEWABLE PO PRN (13:12)
[2023-06-30] MEDS: traZODone HCL 50 MG TAB PO SCH (20:59)
[2023-06-30] MEDS: ALPRAZolam 0.25 MG TAB PO PRN (20:59)
[2023-06-30] MEDS: PRAVASTATIN SODIUM 20 MG TAB PO SCH (20:59)
[2023-07-01] MEDS: SODIUM CHLORIDE 0.9% 1,000 ML IV SCH ×3 (02:07→15:45)
--- NOTE | 2023-07-01 07:08 | P.CNPUL ---
History of Present Illness Consult date: 07/01/23 Requesting physician: Keon Jeter Reason for consult: lung mass Chief complaint: Generalized weakness History of present illness: I am seeing this patient in new consultation today 07/01/2023 for concern for metastatic cancer with multiple masses involving the liver, right lower lobe, mediastinum, and hilum. There is narrowing and possible invasion of the SVC. There is also a large left hepatic lobe mass measuring 12.9 cm. Patient is a 72-year-old white male with past medical history significant for chronic ongoing tobacco dependence, hepatitis C, hyperlipidemia, hypertension, CVA/TIA, GERD. Patient did have a 3.7 x 3 cm left hepatic mass found back in 2019, and it does not look like he followed up. Patient was just recently admitted to the hospital back on 06/27/2023. He was found to have a medial right lower lobe mass measuring 5 cm with an adjacent trace pleural effusion, large conglomerate adenopathy extending along the right paratracheal region up to the thoracic inlet and down to the subcarinal region with encasement of the right hilar structures. This spans 12.5 x 8.9 x 10.5 cm. There is narrowing and possible invasion of the superior vena cava. There is a large hepatic mass measuring 12.9 cm. He left AGAINST MEDICAL ADVICE before any workup could be done. He was reportedly scheduled for a liver biopsy, I am unsure if this was completed. Patient returned to the hospital yesterday morning. Apparently, his primary care provider insisted that he come back to the emergency room for his cancer workup. Admits complaints of generalized weakness, but denies any other complaints. Patient is currently sitting up in bed, on room air, in no acute distress. He is a very poor historian. CBC on arrival showed a WBC count of 12.3, hemoglobin 11.6, hematocrit 33.9, platelets 248. Sodium was low at 128, potassium 3.3, chloride 93, bicarb 24, BUN 19, creatinine 0.97, glucose 107. AST was 64, ALT 42, ALP 91. Troponin less than 0.012. Patient is currently stable, and be monitored on the general medical floor. Review of Systems REVIEW OF SYSTEMS: CONSTITUTIONAL: Denies any recent significant weight loss or weight gain. Admits generalized weakness and fatigue EYES: Denies change in vision. EARS, NOSE, MOUTH, THROAT: Denies headaches, denies sore throat. CARDIOVASCULAR: Denies chest pain, palpitations or syncopal episodes. RESPIRATORY: Denies shortness of breath, cough, congestion or hemoptysis. GASTROINTESTINAL: Denies change in appetite, abdominal pain, nausea and vomiting, or diarrhea GENITOURINARY: Denies hematuria, denies infections. MUSKULOSKELETAL: Denies pain, denies swelling. INTEGUMENTARY: Denies rash, denies eczema. NEUROLOGICAL: Denies recent memory loss, no recent seizure activity. PSYCHIATRIC: Denies anxiety, denies depression. HEMATOLOGIC/LYMPHATIC: Denies anemia, denies enlarged lymph node Past Medical History Past Medical History: Cancer, CVA/TIA, GERD/Reflux, Hyperlipidemia, Hypertension Additional Past Medical History / Comment(s): Low sodium, Hepatitis C, recent diagnosis of liver, lung and adrenal gland cancer (2022) History of Any Multi-Drug Resistant Organisms: None Reported Past Surgical History: Back Surgery, Tonsillectomy Past Anesthesia/Blood Transfusion Reactions: No Reported Reaction Smoking Status: Current every day smoker - Past Family History Mother History Unknown: Yes Additional Family Medical History / Comment(s): of a heart attack Father Family Medical History: Cancer Additional Family Medical History / Comment(s): thoart cancer Medications and Allergies Home Medications Medication Instructions Recorded Confirmed Type Pravastatin Sodium [Pravachol] 10 mg PO HS 06/11/19 06/30/23 History Omeprazole 40 mg PO DAILY 06/26/23 06/30/23 History amLODIPine [Norvasc] 5 mg PO BID 06/26/23 06/30/23 History traZODone HCL [Desyrel] 50 mg PO HS 06/26/23 06/30/23 History Allergies Allergy/AdvReac Type Severity Reaction Status Date / Time No Known Allergies Allergy Verified 06/30/23 11:03 Physical Exam Vitals: Vital Signs Temp Pulse Pulse Resp BP BP Pulse Ox 07/01/23 00:58 98.4 F 106 H 19 116/67 93 L 06/30/23 20:00 19 06/30/23 19:19 98.7 F 98 19 123/66 92 L 06/30/23 15:26 78 18 146/75 99 06/30/23 14:00 100 18 136/78 06/30/23 13:30 93 18 06/30/23 13:00 134 H 15 06/30/23 12:30 16 06/30/23 12:00 0 L 15 136/82 06/30/23 11:30 133 H 18 06/30/23 11:00 128 H 11 L 06/30/23 10:30 114 H 18 06/30/23 10:00 117 H 15 138/88 94 L 06/30/23 09:30 138/88 92 L 06/30/23 09:17 97.5 F L 126 H 20 138/88 94 L Intake and Output 06/30/23 06/30/23 07/01/23 14:59 22:59 06:59 Intake Total 475 240 Output Total 400 Balance 75 240 Intake: Intake, IV Titration 475 Amount Magnesium Sulfate-D5w Pmx 100 1 gm In Dextrose/Water 1 100ml.bag @ 100 mls/hr IVPB ONCE ONE Rx#: [id number] Sodium Chloride 0.9% 1, 375 000 ml @ 75 mls/hr IV . [id number] Rx#:[id number] Oral 240 Output: Urine 400 Other: Voiding Method Toilet Urinal # Voids 3 Weight 97.522 kg 97.522 kg GENERAL EXAM: Alert, 72-year-old obese white male, comfortable in no apparent distress. HEAD: Normocephalic and atraumatic. No significant facial swelling. EYES: Normal reaction of pupils, equal size. NOSE: Clear with pink turbinates. THROAT: No erythema or exudates. No stridor or respiratory compromise. NECK: No masses, no JVD. No tracheal deviation CHEST: No chest wall deformity. LUNGS: Equal air entry with no crackles, wheeze, rhonchi or dullness. on room air. No conversational dyspnea or accessory muscle use.. CVS: S1 and S2 normal with no audible murmur, regular rhythm. No extra heart sounds ABDOMEN: No hepatosplenomegaly, active bowel sounds, no guarding or rigidity. SPINE: No scoliosis or deformity SKIN: No rashes CENTRAL NERVOUS SYSTEM: No focal deficits, tone is normal in all 4 extremities. EXTREMITIES: There is slight asymmetric swelling of the upper extremities, right> left. No clubbing, or cyanosis. Peripheral pulses are intact. Results - Laboratory Findings CBC and BMP: 06/30/23 10:18 06/30/23 10:18 PT/INR, D-dimer PT 11.8 sec (10.0-12.5) 06/30/23 10:18 INR 1.1 (<1.2) 06/30/23 10:18 Abnormal lab findings: Abnormal Labs 06/30/23 06/30/23 06/30/23 10:18 10:18 11:25 WBC 12.3 H RBC 3.85 L Hgb 11.6 L Hct 33.9 L Neutrophils # 10.8 H Lymphocytes # 0.8 L Sodium 128 L Potassium 3.3 L Chloride 93 L Glucose 107 H Osmolality 263 L Magnesium 1.5 L Total Bilirubin 1.6 H AST 64 H - Diagnostic Findings Chest x-ray: image reviewed CT scan - chest: image reviewed Assessment and Plan Assessment: Lung mass, there is a medial right lower lobe mass measuring 5 cm with an adjacent trace pleural effusion, large conglomerate adenopathy extending along the right paratracheal region up to the thoracic inlet and down to the subcarinal region with encasement of the right hilar structures. This spans 12.5 x 8.9 x 10.5 cm. There is narrowing and possible invasion of the superior vena cava Liver mass measuring 12.9 cm Possible SVC syndrome History of hepatitis C Hyperlipidemia Hypertension CVA/TIA Chronic ongoing tobacco dependence GERD Obesity with a BMI of 32.7 kg/m Plan: Findings were present on his most recent admission earlier this June, however, he left AMA before further workup could be completed. We were consulted for possible SVC syndrome. No significant facial or neck edema or airway compromise. On room air Patient will need follow-up biopsy, I will discuss this with Dr. Guthrie in the morning. Unsure, if the patient had a liver biopsy. Oncology and Radiation services consulted. smoking cessation counseling performed We will continue to follow, and further recognitions are forthcoming I have personally seen and examined the patient, performed the documentation and the assessment and plan as written. Number of minutes spent on the visit:20 Time with Patient: Greater than 30
[2023-07-01] MEDS: PANTOPRAZOLE 40 MG TABLET PO SCH (08:13)
[2023-07-01] MEDS: NICOTINE 14MG/24HR PATCH TRANSDERM SCH ×2 (08:13→23:30)
[2023-07-01] MEDS: amLODIPine 5 MG TAB PO SCH ×2 (08:13→20:18)
[2023-07-01] MEDS: ALPRAZolam 0.25 MG TAB PO PRN ×2 (08:13→20:17)
[2023-07-01] MEDS ORDERED: ENOXAPARIN 40 MG/0.4 ML SYRINGE SQ SCH (09:00)
[2023-07-01 10:53] LABS: Basophils # (A) 0.03 X 10*3/uL (0.00-0.10); Basophils % (A) 0.2 %; Eosinophils # (A) 0.02 X 10*3/uL (0.04-0.35); Eosinophils % (A) 0.1 %; HCT 32.8 % (39.6-50.0); HGB 10.9 d/dL (13.0-17.0); Lymphocytes # (A) 0.68 X 10*3/uL (0.90-5.00); Lymphocytes % (A) 4.8 %; MCH 29.1 pg (27.0-32.0); MCHC 33.2 d/dL (32.0-37.0); MCV 87.7 FL (80.0-97.0); Monocytes # (A) 0.82 X 10*3/uL (0.20-1.00); Monocytes % (A) 5.8 %; NRBC Per 100 WBC 0 X 10*3/uL (0.00-0.01); Neutrophils # (A) 12.47 X 10*3/uL (1.80-7.70); Neutrophils % (A) 88.5 %; Platelet Count 245 X 10*3/uL (140-440); RBC 3.74 X 10*6/uL (4.40-5.60); RDW 14.5 % (11.5-14.5); WBC 14.11 X 10*3/uL (4.50-10.00)
[2023-07-01 11:32] LABS: Blood Urea Nitrogen 18.4 mg/dL (9.0-27.0); Calcium 8.4 mg/dL (8.7-10.3); Carbon Dioxide 22.9 mmol/L (21.6-31.8); Chloride 94 mmol/L (96-109); Glucose 107 mg/dL (70-110); Magnesium 1.7 mg/dL (1.5-2.4); Potassium 3.5 mmol/L (3.5-5.5); Sodium 131 mmol/L (135-145)
--- NOTE | 2023-07-01 14:03 | P.PN ---
Subjective Progress Note Date: 07/01/23 72-year-old man with significant smoking history, with history of lung and liver masses presented for generalized weakness, loss of appetite. Patient was recently discharged here for the same was found to have hyponatremia as well as large lung mass encasing the SVC and was due for biopsy and workup of liver mass. However, patient left AGAINST MEDICAL ADVICE with the promise that he would workup everything outpatient. Today, he saw his primary care physician who reiterated that patient likely has cancer and should come back to the emergency room for the workup. Patient says that since his left he lost his appetite and has been feeling generally weak. He otherwise denies fevers, chills, nausea, vomiting, chest pain, palpitations, dyspnea, numbness/weakness of extremities. His diarrhea from prior admission has resolved. In the emergency room, patient was afebrile, 138/88, heart rate 126, 96% on room air. CBC showed leukocytosis at 12.3, mild anemia at 11.6. Basic metabolic panel shows sodium of 128, potassium of 3.3, chloride of 93. Magnesium is 1.5. Liver function tests shows total bilirubin of 1.6, AST of 64, ALT of 42. Troponin was less than 0.012. Coags unremarkable. EKG demonstrated sinus tachycardia with a ventricular rate of 107, no evidence of ischemia, normal axis. Chest x-ray reviewed demonstrates findings of large right upper lobe her mediastinal mass displacing the trachea to the left, as well as right lower lobe lung mass measuring about 5.5 cm. Case was discussed with the emergency room provider incision was made with the patient the hospital for further evaluation of lung mass. Notably, patient's prior computed tomography scan to history of findings of mediastinal mass encroaching into the SVC causing significant narrowing. 07/01 Patient was seen and examined. Extremly tearful and appears anxious. Denies SI or HI. CBC shows WBC 14.11, Hg 10.9. BMP Na 131, Cl 94, anion gap 14.1, Ca 8.4. Mag 1.7. 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 Patient has an acute diagnosis of large lung mass and liver mass. Pulmonology and IR consulted for biopsy of mass. Lung mass: Pulmonology on board. Liver mass: IR consulted. Apparently high risk for bleeding, unable to obtain IR biopsy. 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 Hyperlipidemia: Pravastatin 10 mg PO QHS. Hypertension: Amlodipine 5 mg PO BID. Anxiety: Xanax 0.5 mg PO Q6H PRN for anxiety. Nicotine dependence: Nicotine patch. Lovenox SQ for DVT prophylaxis. FULL CODE. I have reviewed the following [facility] consultant notes: Pulmonology note. I have reviewed the results of the following tests: CBC, BMP. Mag. I have ordered the following tests: I have discussed the care of this patient with the following independent historian: I have independently interpreted the following test below: I have discussed the management of this patient with the following physician: Objective - Vital Signs Vital signs: Vital Signs Temp 97.6 F 07/01/23 07:20 Pulse 118 H 07/01/23 07:20 Resp 19 07/01/23 07:20 BP 130/64 07/01/23 07:20 Pulse Ox 92 L 07/01/23 07:20 FiO2 Intake & Output 06/30/23 07/01/23 07/01/23 18:59 06:59 18:59 Intake Total 475 240 Output Total 400 Balance 75 240 Weight 97.522 kg Intake: Intake, IV Titration 475 Amount Magnesium Sulfate-D5w Pmx 100 1 gm In Dextrose/Water 1 100ml.bag @ 100 mls/hr IVPB ONCE ONE Rx#: [id number] Sodium Chloride 0.9% 1, 375 000 ml @ 75 mls/hr IV . [id number] [facility] Rx#:[id number] Oral 240 Output: Urine 400 Other: Voiding Method Toilet Urinal # Voids 3 - Labs CBC & Chem 7: 07/01/23 07:01 07/01/23 07:01 Labs: Abnormal Lab Results - Last 24 Hours (Table) 06/30/23 07/01/23 07/01/23 Range/Units 11:25 07:01 07:01 WBC 14.11 H (4.50-10.00) X 10*3/uL RBC 3.74 L (4.40-5.60) X 10*6/uL Hgb 10.9 L (13.0-17.0) d/dL Hct 32.8 L (39.6-50.0) % Neutrophils # 12.47 H (1.80-7.70) X 10*3/uL Lymphocytes # 0.68 L (0.90-5.00) X 10*3/uL Eosinophils # 0.02 L (0.04-0.35) X 10*3/uL Sodium 131 L (135-145) mmol/L Chloride 94 L (96-109) mmol/L Anion Gap 14.10 H (4.00-12.00) mmol/L Osmolality 263 L (280-301) mosm/kg Calcium 8.4 L (8.7-10.3) mg/dL
--- NOTE | 2023-07-01 14:27 | P.CONS ---
History of Present Illness - Reason for Consult Consult date: 07/01/23 SVC syndrome Requesting physician: Oanh Larson - Chief Complaint "I have cancer" - History of Present Illness Mr. Gray is a 72-year-old male with a large liver mass and paratracheal conglomerate of lymph nodes with SVC compression/invasion. The patient has a remote history of hepatitis C, treated in 2000. In 2019, he was found to have a liver mass but was lost to follow-up. More recently, he presented with progressive weakness. He was being worked up as an outpatient per Dr. Larson. CT chest on 06/27/2023 demonstrated a 12.9 cm liver mass as well as 12.5 cm right hilar/paratracheal adenopathy with possible invasion of the SVC. There was also a 5.0 cm right lower lobe mass. He left AMA from the hospital but returned yesterday at the urging of his PCP. He is hyponatremic with concern for SIADH. Today, he notes he is doing well. He denies facial swelling or headaches. He denies dyspnea. His only complaint is generalized weakness. He has never had cancer before. He does not have a pacemaker. He has never received radiation therapy. Review of Systems as per HPI Past Medical History Past Medical History: Cancer, CVA/TIA, GERD/Reflux, Hyperlipidemia, Hypertension Additional Past Medical History / Comment(s): Low sodium, Hepatitis C, recent diagnosis of liver, lung and adrenal gland cancer (2022) History of Any Multi-Drug Resistant Organisms: None Reported Past Surgical History: Back Surgery, Tonsillectomy Past Anesthesia/Blood Transfusion Reactions: No Reported Reaction Smoking Status: Current every day smoker - Past Family History Mother History Unknown: Yes Additional Family Medical History / Comment(s): of a heart attack Father Family Medical History: Cancer Additional Family Medical History / Comment(s): thoart cancer Medications and Allergies Home Medications Medication Instructions Recorded Confirmed Type Pravastatin Sodium [Pravachol] 10 mg PO HS 06/11/19 06/30/23 History Omeprazole 40 mg PO DAILY 06/26/23 06/30/23 History amLODIPine [Norvasc] 5 mg PO BID 06/26/23 06/30/23 History traZODone HCL [Desyrel] 50 mg PO HS 06/26/23 06/30/23 History Allergies Allergy/AdvReac Type Severity Reaction Status Date / Time No Known Allergies Allergy Verified 06/30/23 11:03 Physical Exam Vitals: Vital Signs Temp Pulse Pulse Resp BP BP Pulse Ox 07/01/23 07:20 97.6 F 118 H 19 130/64 92 L 07/01/23 00:58 98.4 F 106 H 19 116/67 93 L 06/30/23 20:00 19 06/30/23 19:19 98.7 F 98 19 123/66 92 L 06/30/23 15:26 78 18 146/75 99 Intake and Output 06/30/23 07/01/23 07/01/23 22:59 06:59 14:59 Intake Total 475 240 Output Total 400 Balance 75 240 Intake: Intake, IV Titration 475 Amount Magnesium Sulfate-D5w Pmx 100 1 gm In Dextrose/Water 1 100ml.bag @ 100 mls/hr IVPB ONCE ONE Rx#: [id number] Sodium Chloride 0.9% 1, 375 000 ml @ 75 mls/hr IV . [id number] [facility] Rx#:[id number] Oral 240 Output: Urine 400 Other: Voiding Method Toilet Urinal # Voids 3 Weight 97.522 kg - Constitutional General appearance: average body habitus, no acute distress - Neck negative for erythema or edema of subcutaneous tissues - Respiratory Respiratory: negative: prolonged expiration, prolonged inspiration - Psychiatric Psychiatric: A&O x's 3, appropriate affect, intact judgment & insight Results CBC & Chem 7: 07/01/23 07:01 07/01/23 07:01 Labs: Abnormal Lab Results - Last 24 Hours (Table) 06/30/23 07/01/23 07/01/23 Range/Units 11:25 07:01 07:01 WBC 14.11 H (4.50-10.00) X 10*3/uL RBC 3.74 L (4.40-5.60) X 10*6/uL Hgb 10.9 L (13.0-17.0) d/dL Hct 32.8 L (39.6-50.0) % Neutrophils # 12.47 H (1.80-7.70) X 10*3/uL Lymphocytes # 0.68 L (0.90-5.00) X 10*3/uL Eosinophils # 0.02 L (0.04-0.35) X 10*3/uL Sodium 131 L (135-145) mmol/L Chloride 94 L (96-109) mmol/L Anion Gap 14.10 H (4.00-12.00) mmol/L Osmolality 263 L (280-301) mosm/kg Calcium 8.4 L (8.7-10.3) mg/dL Assessment and Plan Assessment: Mr. Gray is a 72-year-old male with a large liver mass and paratracheal conglomerate of lymph nodes with SVC compression/invasion. Plan: The patient's CT imaging is concerning for an oncological process. The paratracheal disease is compressing and possibly invading the SVC. However, he has no signs or symptoms of SVC syndrome. Hence, urgent treatment is not recommended. I would recommend tissue sampling for definitive diagnosis. I discussed with oncology and the patient may need to be transferred for such. I explained to the patient that if he is confirmed to have cancer the recommendation would be for palliative radiation to the paratracheal disease to prevent sequelae of SVC syndrome in the future. He expressed understanding and agreement and would like treatment locally. Ryan Alegria MD Radiation Oncology Time with Patient: Greater than 30
[2023-07-01 15:52] LABS: BUN/Creat Ratio 17.45 Ratio (12.00-20.00); Blood Urea Nitrogen 19.2 mg/dL (9.0-27.0); Carbon Dioxide 22.2 mmol/L (21.6-31.8); Chloride 94 mmol/L (96-109); Glucose 106 mg/dL (70-110); Potassium 3.3 mmol/L (3.5-5.5); Sodium 131 mmol/L (135-145)
[2023-07-01] MEDS ORDERED: POTASSIUM CHLORIDE ER 20 MEQ TAB.ER PO STA (16:48)
[2023-07-01 19:05] LABS: African American GFR (CKD) 84 (>60 ml/min/1.73 sqM); Anion Gap 8 mmol/L; Blood Urea Nitrogen 20 mg/dL (9-20); Carbon Dioxide 24 mmol/L (22-30); Chloride 95 mmol/L (98-107); Glucose 121 mg/dL (74-99); Non-African American GFR(CKD) 72 (>60 ml/min/1.73 sqM); Potassium 3.2 mmol/L (3.5-5.1); Sodium 127 mmol/L (137-145)
[2023-07-01] MEDS: traZODone HCL 50 MG TAB PO SCH (20:18)
[2023-07-01] MEDS: PRAVASTATIN SODIUM 20 MG TAB PO SCH (20:39)
[2023-07-02 00:27] LABS: African American GFR (CKD) 86 (>60 ml/min/1.73 sqM); Anion Gap 10 mmol/L; Blood Urea Nitrogen 21 mg/dL (9-20); Calcium 7.7 mg/dL (8.4-10.2); Carbon Dioxide 21 mmol/L (22-30); Chloride 96 mmol/L (98-107); Glucose 129 mg/dL (74-99); Non-African American GFR(CKD) 75 (>60 ml/min/1.73 sqM); Potassium 3.4 mmol/L (3.5-5.1); Sodium 127 mmol/L (137-145)
[2023-07-02] MEDS: ENOXAPARIN 40 MG/0.4 ML SYRINGE SQ SCH (09:05)
[2023-07-02] MEDS: PANTOPRAZOLE 40 MG TABLET PO SCH (09:06)
[2023-07-02] MEDS: amLODIPine 5 MG TAB PO SCH ×2 (09:06→20:24)
[2023-07-02] MEDS: ALPRAZolam 0.25 MG TAB PO PRN ×2 (09:10→20:30)
--- NOTE | 2023-07-02 11:23 | P.PN ---
Subjective Progress Note Date: 07/02/23 72-year-old man with significant smoking history, with history of lung and liver masses presented for generalized weakness, loss of appetite. Patient was recently discharged here for the same was found to have hyponatremia as well as large lung mass encasing the SVC and was due for biopsy and workup of liver mass. However, patient left AGAINST MEDICAL ADVICE with the promise that he would workup everything outpatient. Today, he saw his primary care physician who reiterated that patient likely has cancer and should come back to the emergency room for the workup. Patient says that since his left he lost his appetite and has been feeling generally weak. He otherwise denies fevers, chills, nausea, vomiting, chest pain, palpitations, dyspnea, numbness/weakness of extremities. His diarrhea from prior admission has resolved. In the emergency room, patient was afebrile, 138/88, heart rate 126, 96% on room air. CBC showed leukocytosis at 12.3, mild anemia at 11.6. Basic metabolic panel shows sodium of 128, potassium of 3.3, chloride of 93. Magnesium is 1.5. Liver function tests shows total bilirubin of 1.6, AST of 64, ALT of 42. Troponin was less than 0.012. Coags unremarkable. EKG demonstrated sinus tachycardia with a ventricular rate of 107, no evidence of ischemia, normal axis. Chest x-ray reviewed demonstrates findings of large right upper lobe her mediastinal mass displacing the trachea to the left, as well as right lower lobe lung mass measuring about 5.5 cm. Case was discussed with the emergency room provider incision was made with the patient the hospital for further evaluation of lung mass. Notably, patient's prior computed tomography scan to history of findings of mediastinal mass encroaching into the SVC causing significant narrowing. 07/01 Patient was seen and examined. Extremly tearful and appears anxious. Denies SI or HI. CBC shows WBC 14.11, Hg 10.9. BMP Na 131, Cl 94, anion gap 14.1, Ca 8.4. Mag 1.7. 07/02 Patient was seen and examined. Continues to complain of anxiousness. No chest pain or shortness of breath. Case discussed with [facility] yesterday. Patient accepted for transfer for higher level of care. Accepting physician is Dr. Connor Dwyer. Pending bed availability. BMP shows Na 127, K 3.4, Cl 96, bicarb 21, BUN 21, glucose 129, Ca 7.7. 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 Patient has an acute diagnosis of large lung mass and liver mass. Pulmonology and IR consulted for biopsy of mass. Lung mass: Pulmonology on board. Liver mass: IR consulted. Apparently high risk for bleeding, unable to obtain IR biopsy. 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 Hyperlipidemia: Pravastatin 10 mg PO QHS. Hypertension: Amlodipine 5 mg PO BID. Anxiety: Xanax 0.5 mg PO Q6H PRN for anxiety. Nicotine dependence: Nicotine patch. Lovenox SQ for DVT prophylaxis. FULL CODE. I have reviewed the following managed services consultant notes: Pulmonology note. I have reviewed the results of the following tests: BMP I have ordered the following tests: Echo I have discussed the care of this patient with the following independent historian: I have independently interpreted the following test below: I have discussed the management of this patient with the following physician: Discussed with Dr. Guthrie. Objective - Vital Signs Vital signs: Vital Signs Temp 97.4 F L 07/02/23 07:15 Pulse 130 H 07/02/23 10:42 Resp 18 07/02/23 10:42 BP 158/77 07/02/23 07:15 Pulse Ox 92 L 07/02/23 10:42 FiO2 Intake & Output 07/01/23 07/02/23 07/02/23 18:59 06:59 18:59 Intake Total 900 400 Output Total 200 Balance 900 200 Intake: Intake, IV Titration 900 Amount Sodium Chloride 0.9% 1, 900 000 ml @ 75 mls/hr IV . [id number] [facility] Rx#:[id number] Oral 400 Output: Urine 200 Other: Voiding Method Toilet Urinal # Voids 1 - Labs CBC & Chem 7: 07/01/23 07:01 07/02/23 00:03 Labs: Abnormal Lab Results - Last 24 Hours (Table) 07/01/23 07/01/23 07/01/23 Range/Units 07:01 12:15 18:28 Sodium 131 L 131 L 127 L (135-145) mmol/L Potassium 3.3 L 3.2 L (3.5-5.5) mmol/L Chloride 94 L 94 L 95 L (96-109) mmol/L Carbon Dioxide (22-30) mmol/L Anion Gap 14.10 H 14.80 H (4.00-12.00) mmol/L BUN (9-20) mg/dL Glucose 121 H (74-99) mg/dL Calcium 8.4 L 8.0 L 8.0 L (8.7-10.3) mg/dL 07/02/23 Range/Units 00:03 Sodium 127 L (135-145) mmol/L Potassium 3.4 L (3.5-5.5) mmol/L Chloride 96 L (96-109) mmol/L Carbon Dioxide 21 L (22-30) mmol/L Anion Gap (4.00-12.00) mmol/L BUN 21 H (9-20) mg/dL Glucose 129 H (74-99) mg/dL Calcium 7.7 L (8.7-10.3) mg/dL
--- NOTE | 2023-07-02 11:47 | P.PN ---
Subjective Progress Note Date: 07/02/23 I am seeing this patient in new consultation today 07/01/2023 for concern for metastatic cancer with multiple masses involving the liver, right lower lobe, mediastinum, and hilum. There is narrowing and possible invasion of the SVC. There is also a large left hepatic lobe mass measuring 12.9 cm. Patient is a 72-year-old white male with past medical history significant for chronic ongoing tobacco dependence, hepatitis C, hyperlipidemia, hypertension, CVA/TIA, GERD. Patient did have a 3.7 x 3 cm left hepatic mass found back in 2019, and it does not look like he followed up. Patient was just recently admitted to the hospital back on 06/27/2023. He was found to have a medial right lower lobe mass me asuring 5 cm with an adjacent trace pleural effusion, large conglomerate adenopathy extending along the right paratracheal region up to the thoracic inlet and down to the subcarinal region with encasement of the right hilar structures. This spans 12.5 x 8.9 x 10.5 cm. There is narrowing and possible invasion of the superior vena cava. There is a large hepatic mass measuring 12.9 cm. He left AGAINST MEDICAL ADVICE before any workup could be done. He was reportedly scheduled for a liver biopsy, I am unsure if this was completed. Patient returned to the hospital yesterday morning. Apparently, his primary care provider insisted that he come back to the emergency room for his cancer workup. Admits complaints of generalized weakness, but denies any other complaints. Patient is currently sitting up in bed, on room air, in no acute distress. He is a very poor historian. CBC on arrival showed a WBC count of 12.3, hemoglobin 11.6, hematocrit 33.9, platelets 248. Sodium was low at 128, potassium 3.3, chloride 93, bicarb 24, BUN 19, creatinine 0.97, glucose 107. AST was 64, ALT 42, ALP 91. Troponin less than 0.012. Patient is currently stable, and be monitored on the general medical floor. The patient is seen today 07/02/2023 in follow-up on the regular medical floor. He is currently sitting up in bed. Awake and alert in no acute distress. Eating breakfast. Maintaining O2 saturations in the 90s on 2 L/m per nasal cannula. He is afebrile. Sodium 127. Potassium 3.4. Bicarb 21. BUN 21. Creatinine 0.99. Glucose 129. He remains on Lovenox for DVT prophylaxis. NicoDerm patches in place. The patient is needing a tissue biopsy. The plan will be for transfer to a tertiary care center for liver biopsy. Objective - Vital Signs Vital signs: Vital Signs Temp 97.4 F L 07/02/23 07:15 Pulse 130 H 07/02/23 10:42 Resp 18 07/02/23 10:42 BP 158/77 07/02/23 07:15 Pulse Ox 92 L 07/02/23 10:42 FiO2 Intake & Output 07/01/23 07/02/23 07/02/23 18:59 06:59 18:59 Intake Total 900 400 Output Total 200 Balance 900 200 Intake: Intake, IV Titration 900 Amount Sodium Chloride 0.9% 1, 900 000 ml @ 75 mls/hr IV . [id number] Rx#:[id number] Oral 400 Output: Urine 200 Other: Voiding Method Toilet Urinal # Voids 1 - Exam GENERAL EXAM: Alert, anxious 72-year-old obese male, sitting up in bed. On 2 L nasal cannula. Comfortable in no apparent distress. HEAD: Normocephalic and atraumatic. No significant facial swelling. EYES: Normal reaction of pupils, equal size. NOSE: Clear with pink turbinates. THROAT: No erythema or exudates. No stridor or respiratory compromise. NECK: No masses, no JVD. No tracheal deviation CHEST: No chest wall deformity. LUNGS: Equal air entry with no crackles, wheeze, rhonchi or dullness. No conversational dyspnea. CVS: S1 and S2 normal with no audible murmur, regular rhythm. No extra heart sounds ABDOMEN: No hepatosplenomegaly, active bowel sounds, no guarding or rigidity. SPINE: No scoliosis or deformity SKIN: No rashes CENTRAL NERVOUS SYSTEM: No focal deficits, tone is normal in all 4 extremities. EXTREMITIES: There is slight asymmetric swelling of the upper extremities, right> left. No clubbing, or cyanosis. Peripheral pulses are intact. - Labs CBC & Chem 7: 07/01/23 07:01 07/02/23 00:03 Labs: Abnormal Lab Results - Last 24 Hours (Table) 07/01/23 07/01/23 07/02/23 Range/Units 12:15 18:28 00:03 Sodium 131 L 127 L 127 L (135-145) mmol/L Potassium 3.3 L 3.2 L 3.4 L (3.5-5.5) mmol/L Chloride 94 L 95 L 96 L (96-109) mmol/L Carbon Dioxide 21 L (22-30) mmol/L Anion Gap 14.80 H (4.00-12.00) mmol/L BUN 21 H (9-20) mg/dL Glucose 121 H 129 H (74-99) mg/dL Calcium 8.0 L 8.0 L 7.7 L (8.7-10.3) mg/dL Assessment and Plan Assessment: Lung mass, there is a medial right lower lobe mass measuring 5 cm with an adjacent trace pleural effusion, large conglomerate adenopathy extending along the right paratracheal region up to the thoracic inlet and down to the subcarinal region with encasement of the right hilar structures. This spans 12 .5 x 8.9 x 10.5 cm. There is narrowing and possible invasion of the superior vena cava Liver mass measuring 12.9 cm Possible SVC syndrome History of hepatitis C Hyperlipidemia Hypertension CVA/TIA Chronic ongoing tobacco dependence GERD Obesity with a BMI of 32.7 kg/m Plan: The patient was seen and evaluated Labs and medications reviewed The patient does need tissue biopsy Plan is for transfer to tertiary care center for a liver biopsy Oncology and radiation oncology following Continue Lovenox for DVT prophylaxis Educated regarding the importance of complete smoking cessation NicoDerm patch in place This patient was seen independently by the nurse practitioner I have personally seen and examined the patient, performed the documentation and the assessment and plan as written. Number of minutes spent on the visit: 24.
[2023-07-02 13:53] LABS: Blood Urea Nitrogen 18.7 mg/dL (9.0-27.0); Calcium 8.1 mg/dL (8.7-10.3); Carbon Dioxide 19.6 mmol/L (21.6-31.8); Chloride 94 mmol/L (96-109); Glucose 122 mg/dL (70-110); Potassium 3.7 mmol/L (3.5-5.5); Sodium 129 mmol/L (135-145)
--- NOTE | 2023-07-02 16:30 | P.CONS ---
History of Present Illness - Reason for Consult Consult date: 07/01/23 lung and liver mass Requesting physician: William Frye - Chief Complaint weakness - History of Present Illness Patient is a 72-year-old male with this a history of Hepatitis C and liver mass noted in 2018. He is a newly established patient of Dr. Larson. He initially presented around the end of April 2023 with earaches and congestion,was treated with antibiotics then he developed diarrhea and went to [facility] ER on 06/17/2023, had CXR which revealed tiny 0.[address] scan of abdodmen/pelvis revealed 12 cm mass in left hepatic lobe and a mass in RLL of lung. He has a history of hepatitis C, treated by Dr Hutson, in 2000 and accordingly,he has been in remission. He also used to drink, quitting in 2000. He was admitted to [facility] in 04/2019 for diarrhea and he had CT abdomen/pelvis and liver US which revealed a lesion in left hepatic lobe,. MRCP done on 04/29/2019 which identified a solid lesion measured 3.7 cm in left hepatic lobe, however patient had no follow up after that. During that admission, on 04/29/2019, he had an EGD which showed mild gastritis, and also had a colonoscopy and small sigmoid polyp was removed. It was discussed with patient the clinical and radiographic picture are highly suggestive of HCC. The RLL lung lesion may represent metastatic disease vs different primary. At patient's last clinic visit a CT chest was ordered as well as liver biopsy with interventional radiology, however interventional radiology department declined procedure due to risk of bleeding. Patient was then referred to [facility] for biopsy, however patient had declined further workup after last visit. Of note patient was just admitted to [facility] last week due to weakness and dehydration but had left AMA. CT chest was obtained at that time revealing intermittent large mass filling the left hepatic lobe measuring up to 12.9 cm. Large conglomerate right adenopathy extending along the right paratracheal region up to the thoracic inlet and down to the subcarinal region with encasement of the right hilar structures. This spans up to 12.5 x 8.9 x 10.5 cm, narrowing and possible invasion of the SVC. Additional medial right lower lobe mass measuring 5.0 cm with adjacent trace pleural effusion. Upon discharge from hospital patient did have follow-up with primary care doctor who at that time referred patient back to the ER to complete cancer workup. Patient reports having some mild generalized weakness but otherwise is feeling fine. Denies shortness of breath, chest pain, dizziness and palpitations. Denies hemoptysis. Denies n/v/d. Reports diet is somewhat diminished but is tolerating oral intake. Pt does admit to being anxious regarding diagnosis and being scared and is tearful at todays visit. Review of Systems 10 point ROS is negative except as stated in the HPI Past Medical History Past Medical History: Cancer, CVA/TIA, GERD/Reflux, Hyperlipidemia, Hypertension Additional Past Medical History / Comment(s): Low sodium, Hepatitis C, recent diagnosis of liver, lung and adrenal gland cancer (2022) History of Any Multi-Drug Resistant Organisms: None Reported Past Surgical History: Back Surgery, Tonsillectomy Past Anesthesia/Blood Transfusion Reactions: No Reported Reaction Smoking Status: Current every day smoker - Past Family History Mother History Unknown: Yes Additional Family Medical History / Comment(s): of a heart attack Father Family Medical History: Cancer Additional Family Medical History / Comment(s): thoart cancer Medications and Allergies Home Medications Medication Instructions Recorded Confirmed Type Pravastatin Sodium [Pravachol] 10 mg PO HS 06/11/19 06/30/23 History Omeprazole 40 mg PO DAILY 06/26/23 06/30/23 History amLODIPine [Norvasc] 5 mg PO BID 06/26/23 06/30/23 History traZODone HCL [Desyrel] 50 mg PO HS 06/26/23 06/30/23 History Allergies Allergy/AdvReac Type Severity Reaction Status Date / Time No Known Allergies Allergy Verified 06/30/23 11:03 Physical Exam Vitals: Vital Signs Temp Pulse Pulse Resp BP BP Pulse Ox 07/01/23 07:20 97.6 F 118 H 19 130/64 92 L 07/01/23 00:58 98.4 F 106 H 19 116/67 93 L 06/30/23 20:00 19 06/30/23 19:19 98.7 F 98 19 123/66 92 L 06/30/23 15:26 78 18 146/75 99 06/30/23 14:00 100 18 136/78 06/30/23 13:30 93 18 06/30/23 13:00 134 H 15 06/30/23 12:30 16 06/30/23 12:00 0 L 15 136/82 06/30/23 11:30 133 H 18 06/30/23 11:00 128 H 11 L 06/30/23 10:30 114 H 18 06/30/23 10:00 117 H 15 138/88 94 L Intake and Output 06/30/23 07/01/23 07/01/23 22:59 06:59 14:59 Intake Total 475 240 Output Total 400 Balance 75 240 Intake: Intake, IV Titration 475 Amount Magnesium Sulfate-D5w Pmx 100 1 gm In Dextrose/Water 1 100ml.bag @ 100 mls/hr IVPB ONCE ONE Rx#: [id number] Sodium Chloride 0.9% 1, 375 000 ml @ 75 mls/hr IV . [id number] [facility] Rx#:[id number] Oral 240 Output: Urine 400 Other: Voiding Method Toilet Urinal # Voids 3 Weight 97.522 kg - Constitutional General appearance: average body habitus, no acute distress - EENT Eyes: anicteric sclerae, EOMI ENT: hearing grossly normal - Respiratory Respiratory: bilateral: CTA - Cardiovascular Rhythm: regular Heart sounds: normal: S1, S2 - Gastrointestinal General gastrointestinal: soft, no tenderness - Integumentary Integumentary: no cyanotic - Neurologic Grossly intact - Musculoskeletal Musculoskeletal: generalized weakness - Psychiatric anxious, tearful Psychiatric: A&O x's 3 Results CBC & Chem 7: 07/01/23 07:01 07/02/23 06:09 Labs: Abnormal Lab Results - Last 24 Hours (Table) 06/30/23 06/30/23 06/30/23 Range/Units 10:18 10:18 11:25 WBC 12.3 H (3.8-10.6) k/uL RBC 3.85 L (4.30-5.90) m/uL Hgb 11.6 L (13.0-17.5) gm/dL Hct 33.9 L (39.0-53.0) % Neutrophils # 10.8 H (1.3-7.7) k/uL Lymphocytes # 0.8 L (1.0-4.8) k/uL Sodium 128 L (137-145) mmol/L Potassium 3.3 L (3.5-5.1) mmol/L Chloride 93 L (98-107) mmol/L Glucose 107 H (74-99) mg/dL Osmolality 263 L (280-301) mosm/kg Magnesium 1.5 L (1.6-2.3) mg/dL Total Bilirubin 1.6 H (0.2-1.3) mg/dL AST 64 H (17-59) U/L CT scan - chest: report reviewed Assessment and Plan (1) Liver mass Current Visit: Yes Status: Acute Priority: High Code(s): R16.0 - HEPATOMEGALY, NOT ELSEWHERE CLASSIFIED SNOMED Code(s): 488944546 (2) Lung mass Current Visit: Yes Status: Acute Priority: High Code(s): R91.8 - OTHER NONSPECIFIC ABNORMAL FINDING OF LUNG FIELD SNOMED Code(s): 117037055 Plan: Liver/lung mass: -Full history in HPI -Liver lesion first noted in 2019, no f/u at that time -Went to [facility] ER on 06/17/2023, had CXR which revealed tiny 0.[address] scan of abdomen/pelvis revealed 12 cm mass in left hepatic lobe and a mass in RLL of lung. -Patient then f/u with Dr. Larson in clinic and it was discussed with patient the clinical and radiographic picture are highly suggestive of HCC. The RLL lung lesion may represent metastatic disease vs different primary. CT chest and liver biopsy was ordered, but had yet to be obtained -CT chest was obtained during last admission revealing intermittent large mass filling the left hepatic lobe measuring up to 12.9 cm. Large conglomerate right adenopathy extending along the right paratracheal region up to the thoracic inlet and down to the subcarinal region with encasement of the right hilar structures. This spans up to 12.5 x 8.9 x 10.5 cm, narrowing and possible invasion of the SVC. Additional medial right lower lobe mass measuring 5.0 cm with adjacent trace pleural effusion -Pt had left AMA during last admission, but was readmitted after encouraged by his PCP. Since IR at [facility] had previously declined biopsy, pulm was consulted for eval for bronch with biopsy, however, spoke with pulm team and they recommended biopsy of liver. IR consult was placed, and again has been declined. Spoke with IM and requested transfer to a different facility for liver biopsy, transfer currently pending -Rad onc consulted for SVC syndrome. Spoke with Dr. Alegria regarding case, as pt has no signs or symptoms of SVC syndrome, urgent treatment is not recommended. Rad onc will plan to f/u outpt once diagnosis is confirmed with plans for palliative radiation to the paratracheal disease to prevent sequelae of SVC syndrome -Clinic f/u with Dr. Larson will be scheduled once biopsy obtained to discuss goals of care and treatment plan Above was discussed in detail with pt and he was agreeable to proceed
--- NOTE | 2023-07-02 18:32 | CA ---
Transthoracic Echo Report Name: Ronnie Gray Age: 72 Gender: M : 1950 Exam Date: 07/02/2023 17:09 Exam Location: [place] [facility] Ht (in): 68 Wt (lb): 215 Ordering Physician: Glenna Proctor MD Attending/Referring Phys: Asphalt Tamper Ricky Vizcarra Procedure CPT: Indications: pericardiac effusion? Cardiac Hx: Technical Quality: Technically difficult study Contrast 1: Total Dose (mL): Contrast 2: Total Dose (mL): MEASUREMENTS (Male / Female) Normal Values 2D ECHO LV Diastolic Diameter PLAX 4.1 cm 4.2 - 5.9 / 3.9 - 5.3 cm LV Systolic Diameter PLAX 2.7 cm IVS Diastolic Thickness 1.2 cm 0.6 - 1.0 / 0.6 - 0.9 cm LVPW Diastolic Thickness 1.1 cm 0.6 - 1.0 / 0.6 - 0.9 cm LV Relative Wall Thickness 0.6 RV Internal Dim ED PLAX 2.8 cm LVOT Diameter 2.0 cm Aortic Root Diameter 3.0 cm LA Systolic Diameter LX 3.0 cm 3.0 - 4.0 / 2.7 - 3.8 cm LV Diastolic Volume MOD BP 53.1 cm??? 67 - 155 / 56 - 104 cm??? LV Systolic Volume MOD BP 31.8 cm??? 22 - 58 / 19 - 49 cm??? LV Ejection Fraction MOD BP 40.1 % >= 55 % LV Cardiac Index MOD BP 1212.2 cm???/min???m??? LV Diastolic Volume MOD 4C 65.5 cm??? LV Systolic Volume MOD 4C 38.6 cm??? LV Ejection Fraction MOD 4C 41.0 % LV Cardiac Index MOD 4C 1528.8 cm???/min???m??? LV Diastolic Length 4C 7.1 cm LV Systolic Length 4C 6.9 cm LV Diastolic Volume MOD 2C 37.3 cm??? LV Systolic Volume MOD 2C 21.4 cm??? LV Ejection Fraction MOD 2C 42.5 % LV Cardiac Index MOD 2C 901.7 cm???/min???m??? LV Diastolic Length 2C 6.1 cm LV Systolic Length 2C 5.6 cm LA Volume 39.7 cm??? 18 - 58 / 22 - 52 cm??? LA Volume Index 18.1 cm???/m??? 16 - 28 cm???/m??? DOPPLER AV Peak Velocity 165.5 cm/s AV Peak Gradient 11.0 mmHg LVOT Peak Velocity 122.8 cm/s LVOT Peak Gradient 6.0 mmHg LVOT Velocity Time Integral 16.1 cm LVOT Stroke Volume 51.7 cm??? LVOT Stroke Volume Index 24.5 ml/m??? LVOT Cardiac Index 2943.6 cm???/min???m??? AV Area Cont Eq pk 2.4 cm??? MV Peak Velocity 152.3 cm/s MV Peak Gradient 9.3 mmHg MV Mean Velocity 68.2 cm/s MV Mean Gradient 2.5 mmHg MV Velocity Time Integral 23.7 cm MR Peak Velocity 294.8 cm/s MR Peak Gradient 34.8 mmHg Mitral E Point Velocity 124.1 cm/s Mitral A Point Velocity 57.8 cm/s Mitral E to A Ratio 2.1 MV Deceleration Time 139.7 ms MV E' Velocity 8.5 cm/s Mitral E to MV E' Ratio 14.6 TR Peak Velocity 289.8 cm/s TR Peak Gradient 33.6 mmHg Right Ventricular Systolic Press 38.7 mmHg FINDINGS Left Ventricle Normal LV size and wall thickness. Left ventricular ejection fraction is estimated at 55-60 %.normal left ventricular wall motion. Right Ventricle Normal right ventricular size. RVSP= 39mmHg. moderator band noted Right Atrium Normal right atrial size. Left Atrium Normal left atrial size. LA Volume index= 18.8ml/m2 Mitral Valve Structurally normal mitral valve. Trace MR.mitral annular calcification. Aortic Valve Grossly Normal.trileaflet aortic valve. No aortic valve stenosis or regurgitation. Tricuspid Valve Tricuspid valve not well visualized. Mild TR. Pulmonic Valve Pulmonic valve not well visualized. No pulmonic regurgitation. Pericardium Qdxvz-vh-[id number] pericardial effusion Aorta Normal size aortic root CONCLUSIONS 1. Normal left ventricular size and systolic function 2. Mild tricuspid regurgitation with mild pulmonary hypertension 3. [id number] pericardial effusion Previewed by: Dr. Yani Kat MD (Electronically Signed) Final Date: 02 July 2023 18:31
[2023-07-02] MEDS: PRAVASTATIN SODIUM 20 MG TAB PO SCH (20:24)
[2023-07-02] MEDS: traZODone HCL 50 MG TAB PO SCH (20:24)
[2023-07-03 01:09] LABS: African American GFR (CKD) 77 (>60 ml/min/1.73 sqM); Anion Gap 12 mmol/L; Blood Urea Nitrogen 25 mg/dL (9-20); Carbon Dioxide 19 mmol/L (22-30); Chloride 97 mmol/L (98-107); Glucose 103 mg/dL (74-99); Non-African American GFR(CKD) 67 (>60 ml/min/1.73 sqM); Potassium 3.5 mmol/L (3.5-5.1); Sodium 128 mmol/L (137-145)
[2023-07-03 02:32] LABS: BUN/Creat Ratio 18.33 Ratio (12.00-20.00); Calcium 8.4 mg/dL (8.7-10.3); Carbon Dioxide 21.8 mmol/L (21.6-31.8); Chloride 95 mmol/L (96-109); Glucose 117 mg/dL (70-110); Potassium 3.6 mmol/L (3.5-5.5); Sodium 131 mmol/L (135-145)
[2023-07-03 02:33] LABS: Blood Urea Nitrogen 19.9 mg/dL (9.0-27.0); Calcium 8.1 mg/dL (8.7-10.3); Carbon Dioxide 21.6 mmol/L (21.6-31.8); Chloride 95 mmol/L (96-109); Glucose 108 mg/dL (70-110); Potassium 3.4 mmol/L (3.5-5.5); Sodium 131 mmol/L (135-145)
[2023-07-03 08:59] LABS: BUN/Creat Ratio 21.36 Ratio (12.00-20.00); Blood Urea Nitrogen 23.5 mg/dL (9.0-27.0); Calcium 8.4 mg/dL (8.7-10.3); Carbon Dioxide 22.2 mmol/L (21.6-31.8); Chloride 96 mmol/L (96-109); Glucose 106 mg/dL (70-110); Potassium 3.6 mmol/L (3.5-5.5); Sodium 131 mmol/L (135-145)
[2023-07-03] MEDS: ENOXAPARIN 40 MG/0.4 ML SYRINGE SQ SCH (09:04)
[2023-07-03] MEDS: carvediloL 3.125 MG TAB PO SCH ×2 (09:05→17:27)
[2023-07-03] MEDS: NICOTINE 14MG/24HR PATCH TRANSDERM SCH (09:05)
[2023-07-03] MEDS: amLODIPine 5 MG TAB PO SCH ×2 (09:05→20:49)
[2023-07-03] MEDS: PANTOPRAZOLE 40 MG TABLET PO SCH (09:05)
--- NOTE | 2023-07-03 11:06 | P.PN ---
Subjective Progress Note Date: 07/03/23 72-year-old man with significant smoking history, with history of lung and liver masses presented for generalized weakness, loss of appetite. Patient was recently discharged here for the same was found to have hyponatremia as well as large lung mass encasing the SVC and was due for biopsy and workup of liver mass. However, patient left AGAINST MEDICAL ADVICE with the promise that he would workup everything outpatient. Today, he saw his primary care physician who reiterated that patient likely has cancer and should come back to the emergency room for the workup. Patient says that since his left he lost his appetite and has been feeling generally weak. He otherwise denies fevers, chills, nausea, vomiting, chest pain, palpitations, dyspnea, numbness/weakness of extremities. His diarrhea from prior admission has resolved. In the emergency room, patient was afebrile, 138/88, heart rate 126, 96% on room air. CBC showed leukocytosis at 12.3, mild anemia at 11.6. Basic metabolic panel shows sodium of 128, potassium of 3.3, chloride of 93. Magnesium is 1.5. Liver function tests shows total bilirubin of 1.6, AST of 64, ALT of 42. Troponin was less than 0.012. Coags unremarkable. EKG demonstrated sinus tachycardia with a ventricular rate of 107, no evidence of ischemia, normal axis. Chest x-ray reviewed demonstrates findings of large right upper lobe her mediastinal mass displacing the trachea to the left, as well as right lower lobe lung mass measuring about 5.5 cm. Case was discussed with the emergency room provider incision was made with the patient the hospital for further evaluation of lung mass. Notably, patient's prior computed tomography scan to history of findings of mediastinal mass encroaching into the SVC causing significant narrowing. 07/01 Patient was seen and examined. Extremly tearful and appears anxious. Denies SI or HI. CBC shows WBC 14.11, Hg 10.9. BMP Na 131, Cl 94, anion gap 14.1, Ca 8.4. Mag 1.7. 07/02 Patient was seen and examined. Continues to complain of anxiousness. No chest pain or shortness of breath. Case discussed with [facility] yesterday. Patient accepted for transfer for higher level of care. Accepting physician is Dr. Connor Dwyer. Pending bed availability. BMP shows Na 127, K 3.4, Cl 96, bicarb 21, BUN 21, glucose 129, Ca 7.7. 07/03 Patient was seen and examined. No complaints today. HR persistently elevated in the 120-130s, started on low dose Coreg. Echo shows normal LV systolic function, mild TR, mild pulmonary HTN, small-mod pericardial effusion. BMP shows Na 131, anion gap 12.8, BUN/Cr 21.36, Ca 8.4. Pending bed [facility] at [facility]. 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 Patient has an acute diagnosis of large lung mass and liver mass. Pulmonology and IR consulted for biopsy of mass. Lung mass: Pulmonology on board. Liver mass: IR consulted. Apparently high risk for bleeding, unable to obtain IR biopsy. 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 Hyperlipidemia: Pravastatin 10 mg PO QHS. Hypertension: Amlodipine 5 mg PO BID. Anxiety: Xanax 0.5 mg PO Q6H PRN for anxiety. Nicotine dependence: Nicotine patch. Lovenox SQ for DVT prophylaxis. FULL CODE. I have reviewed the following platform consultant notes: Pulm note. I have reviewed the results of the following tests: BMP, Echo I have ordered the following tests: I have discussed the care of this patient with the following independent historian: I have independently interpreted the following test below: I have discussed the management of this patient with the following physician: Objective - Vital Signs Vital signs: Vital Signs Temp 98.0 F 07/03/23 07:13 Pulse 134 H 07/03/23 07:13 Resp 20 07/03/23 07:13 BP 143/72 07/03/23 07:13 Pulse Ox 94 L 07/03/23 07:13 FiO2 Intake & Output 07/02/23 07/03/23 07/03/23 18:59 06:59 18:59 Output Total 300 50 Balance -300 -50 Output: Urine 300 50 Other: Voiding Method Toilet Toilet Urinal Urinal # Voids 1 - Labs CBC & Chem 7: 07/01/23 07:01 07/03/23 05:38 Labs: Abnormal Lab Results - Last 24 Hours (Table) 07/02/23 07/02/23 07/02/23 Range/Units 06:09 13:02 18:50 Sodium 129 L 131 L 131 L (135-145) mmol/L Potassium 3.4 L (3.5-5.5) mmol/L Chloride 94 L 95 L 95 L (96-109) mmol/L Carbon Dioxide 19.6 L (21.6-31.8) mmol/L Anion Gap 15.40 H 14.40 H 14.20 H (4.00-12.00) mmol/L BUN (9-20) mg/dL BUN/Creatinine Ratio (12.00-20.00) Ratio Glucose 122 H 117 H (70-110) mg/dL Calcium 8.1 L 8.1 L 8.4 L (8.7-10.3) mg/dL 07/02/23 07/03/23 Range/Units 23:56 05:38 Sodium 128 L 131 L (135-145) mmol/L Potassium (3.5-5.5) mmol/L Chloride 97 L (96-109) mmol/L Carbon Dioxide 19 L (21.6-31.8) mmol/L Anion Gap 12.80 H (4.00-12.00) mmol/L BUN 25 H (9-20) mg/dL BUN/Creatinine Ratio 21.36 H (12.00-20.00) Ratio Glucose 103 H (70-110) mg/dL Calcium 8.0 L 8.4 L (8.7-10.3) mg/dL
[2023-07-03 11:41] LABS: African American GFR (CKD) 89 (>60 ml/min/1.73 sqM); Anion Gap 14 mmol/L; Blood Urea Nitrogen 26 mg/dL (9-20); Calcium 8.5 mg/dL (8.4-10.2); Carbon Dioxide 19 mmol/L (22-30); Chloride 97 mmol/L (98-107); Glucose 113 mg/dL (74-99); Non-African American GFR(CKD) 77 (>60 ml/min/1.73 sqM); Potassium 3.8 mmol/L (3.5-5.1); Sodium 130 mmol/L (137-145)
--- NOTE | 2023-07-03 11:45 | P.PN ---
Subjective Progress Note Date: 07/03/23 I am seeing this patient in new consultation today 07/01/2023 for concern for metastatic cancer with multiple masses involving the liver, right lower lobe, mediastinum, and hilum. There is narrowing and possible invasion of the SVC. There is also a large left hepatic lobe mass measuring 12.9 cm. Patient is a 72-year-old white male with past medical history significant for chronic ongoing tobacco dependence, hepatitis C, hyperlipidemia, hypertension, CVA/TIA, GERD. Patient did have a 3.7 x 3 cm left hepatic mass found back in 2019, and it does not look like he followed up. Patient was just recently admitted to the hospital back on 06/27/2023. He was found to have a medial right lower lobe mass me asuring 5 cm with an adjacent trace pleural effusion, large conglomerate adenopathy extending along the right paratracheal region up to the thoracic inlet and down to the subcarinal region with encasement of the right hilar structures. This spans 12.5 x 8.9 x 10.5 cm. There is narrowing and possible invasion of the superior vena cava. There is a large hepatic mass measuring 12.9 cm. He left AGAINST MEDICAL ADVICE before any workup could be done. He was reportedly scheduled for a liver biopsy, I am unsure if this was completed. Patient returned to the hospital yesterday morning. Apparently, his primary care provider insisted that he come back to the emergency room for his cancer workup. Admits complaints of generalized weakness, but denies any other complaints. Patient is currently sitting up in bed, on room air, in no acute distress. He is a very poor historian. CBC on arrival showed a WBC count of 12.3, hemoglobin 11.6, hematocrit 33.9, platelets 248. Sodium was low at 128, potassium 3.3, chloride 93, bicarb 24, BUN 19, creatinine 0.97, glucose 107. AST was 64, ALT 42, ALP 91. Troponin less than 0.012. Patient is currently stable, and be monitored on the general medical floor. The patient is seen today 07/02/2023 in follow-up on the regular medical floor. He is currently sitting up in bed. Awake and alert in no acute distress. Eating breakfast. Maintaining O2 saturations in the 90s on 2 L/m per nasal cannula. He is afebrile. Sodium 127. Potassium 3.4. Bicarb 21. BUN 21. Creatinine 0.99. Glucose 129. He remains on Lovenox for DVT prophylaxis. NicoDerm patches in place. The patient is needing a tissue biopsy. The plan will be for transfer to a tertiary care center for liver biopsy. The patient is seen today 07/03/2023 in follow-up on the regular medical floor. He is awake and alert in no acute distress. Sitting up in bed. Denies any worsening shortness of breath, cough or congestion. He is still maintaining O2 saturations in the 90s on 3 L/m per nasal cannula. He is continued on Lovenox for DVT prophylaxis. NicoDerm patch in place. Sodium 131. Potassium 3.6. Bicarb 22. BUN 24. Creatinine 1.1. Glucose 106. Objective - Vital Signs Vital signs: Vital Signs Temp 98.0 F 07/03/23 07:13 Pulse 134 H 07/03/23 07:13 Resp 20 07/03/23 07:13 BP 143/72 07/03/23 07:13 Pulse Ox 94 L 07/03/23 07:13 FiO2 Intake & Output 07/02/23 07/03/23 07/03/23 18:59 06:59 18:59 Output Total 300 50 Balance -300 -50 Output: Urine 300 50 Other: Voiding Method Toilet Toilet Urinal Urinal # Voids 1 - Exam GENERAL EXAM: Alert, oriented 72-year-old male, sitting up in bed. On 2 L nasal cannula. Comfortable in no apparent distress. HEAD: Normocephalic and atraumatic. No significant facial swelling. EYES: Normal reaction of pupils, equal size. NOSE: Clear with pink turbinates. THROAT: No erythema or exudates. No stridor or respiratory compromise. NECK: No masses, no JVD. No tracheal deviation CHEST: No chest wall deformity. LUNGS: Equal air entry with bilateral scattered coarse rhonchi. No conversational dyspnea. CVS: S1 and S2 normal with no audible murmur, regular rhythm. No extra heart sounds ABDOMEN: No hepatosplenomegaly, active bowel sounds, no guarding or rigidity. SPINE: No scoliosis or deformity SKIN: No rashes CENTRAL NERVOUS SYSTEM: No focal deficits, tone is normal in all 4 extremities. EXTREMITIES: There is slight asymmetric swelling of the upper extremities, right> left. No clubbing, or cyanosis. Peripheral pulses are intact. - Labs CBC & Chem 7: 07/01/23 07:01 07/03/23 05:38 Labs: Abnormal Lab Results - Last 24 Hours (Table) 07/02/23 07/02/23 07/02/23 Range/Units 06:09 13:02 18:50 Sodium 129 L 131 L 131 L (135-145) mmol/L Potassium 3.4 L (3.5-5.5) mmol/L Chloride 94 L 95 L 95 L (96-109) mmol/L Carbon Dioxide 19.6 L (21.6-31.8) mmol/L Anion Gap 15.40 H 14.40 H 14.20 H (4.00-12.00) mmol/L BUN (9-20) mg/dL BUN/Creatinine Ratio (12.00-20.00) Ratio Glucose 122 H 117 H (70-110) mg/dL Calcium 8.1 L 8.1 L 8.4 L (8.7-10.3) mg/dL 07/02/23 07/03/23 Range/Units 23:56 05:38 Sodium 128 L 131 L (135-145) mmol/L Potassium (3.5-5.5) mmol/L Chloride 97 L (96-109) mmol/L Carbon Dioxide 19 L (21.6-31.8) mmol/L Anion Gap 12.80 H (4.00-12.00) mmol/L BUN 25 H (9-20) mg/dL BUN/Creatinine Ratio 21.36 H (12.00-20.00) Ratio Glucose 103 H (70-110) mg/dL Calcium 8.0 L 8.4 L (8.7-10.3) mg/dL Assessment and Plan Assessment: Lung mass, there is a medial right lower lobe mass measuring 5 cm with an adjacent trace pleural effusion, large conglomerate adenopathy extending along the right paratracheal region up to the thoracic inlet and down to the subcarinal region with encasement of the right hilar structures. This spans 12.5 x 8.9 x 10.5 cm. There is narrowing and possible invasion of the superior vena cava Liver mass measuring 12.9 cm, the plan is for transfer to a tertiary care center for a liver biopsy Possible SVC syndrome History of hepatitis C Hyperlipidemia Hypertension CVA/TIA Chronic ongoing tobacco dependence GERD Obesity with a BMI of 32.7 kg/m Plan: The patient was seen and evaluated Labs and medications reviewed Plan is for transfer to tertiary care center for a liver biopsy Continue Lovenox for DVT prophylaxis Continue bronchodilators Again educated regarding the importance of complete smoking cessation NicoDerm patch in place This patient was seen independently by the nurse practitioner I have personally seen and examined the patient, performed the documentation and the assessment and plan as written. Number of minutes spent on the visit: 22.
[2023-07-03 14:27] VITALS: RESP 20
[2023-07-03] MEDS: IPRATROPIUM-ALBUTEROL 3 ML NEB INHALATION SCH ×3 (14:46→20:57)
--- NOTE | 2023-07-03 18:52 | P.DS ---
Providers Date of admission: 06/30/23 11:21 Expected date of discharge: 07/03/23 Attending physician: William Frye MD Consults: 06/30/23 11:24 Consult Physician Routine Consulting Provider: Giovanni Martinez Consult Reason/Comments: lung, liver mass, SVC syndrom Do you want consulting provider notified?: Yes Consult Physician Routine Consulting Provider: Farhad Vieira Consult Reason/Comments: SVC syndrome Do you want consulting provider notified?: Yes 06/30/23 14:03 Consult Physician Routine Consulting Provider: Stella Escalante Consult Reason/Comments: lung mass, eval for biopsy Do you want consulting provider notified?: Yes Primary care physician: [facility] Hospital Course: 72-year-old man with significant smoking history, with history of lung and liver masses presented for generalized weakness, loss of appetite. Patient was recently discharged here for the same was found to have hyponatremia as well as large lung mass encasing the SVC and was due for biopsy and workup of liver mass. However, patient left AGAINST MEDICAL ADVICE with the promise that he would workup everything outpatient. Today, he saw his primary care physician who reiterated that patient likely has cancer and should come back to the emergency room for the workup. Patient says that since his left he lost his appetite and has been feeling generally weak. He otherwise denies fevers, chills, nausea, vomiting, chest pain, palpitations, dyspnea, numbness/weakness of extremities. His diarrhea from prior admission has resolved. In the emergency room, patient was afebrile, 138/88, heart rate 126, 96% on room air. CBC showed leukocytosis at 12.3, mild anemia at 11.6. Basic metabolic panel shows sodium of 128, potassium of 3.3, chloride of 93. Magnesium is 1.5. Liver function tests shows total bilirubin of 1.6, AST of 64, ALT of 42. Troponin was less than 0.012. Coags unremarkable. EKG demonstrated sinus tachycardia with a ventricular rate of 107, no evidence of ischemia, normal axis. Chest x-ray reviewed demonstrates findings of large right upper lobe her mediastinal mass displacing the trachea to the left, as well as right lower lobe lung mass measuring about 5.5 cm. Case was discussed with the emergency room provider incision was made with the patient the hospital for further evaluation of lung mass. Notably, patient's prior computed tomography scan to history of findings of mediastinal mass encroaching into the SVC causing significant narrowing. 07/01 Patient was seen and examined. Extremly tearful and appears anxious. Denies SI or HI. CBC shows WBC 14.11, Hg 10.9. BMP Na 131, Cl 94, anion gap 14.1, Ca 8.4. Mag 1.7. 07/02 Patient was seen and examined. Continues to complain of anxiousness. No chest pain or shortness of breath. Case discussed with [facility] yesterday. Patient accepted for transfer for higher level of care. Accepting physician is Dr. Connor Dwyer. Pending bed availability. BMP shows Na 127, K 3.4, Cl 96, bicarb 21, BUN 21, glucose 129, Ca 7.7. 07/03 Patient was seen and examined. No complaints today. HR persistently elevated in the 120-130s, started on low dose Coreg. Echo shows normal LV systolic function, mild TR, mild pulmonary HTN, small-mod pericardial effusion. BMP shows Na 131, anion gap 12.8, BUN/Cr 21.36, Ca 8.4. Pending bed availability at [facility]. Patient was able to get a bed at [facility]. Plans for transfer today. Discussed with Dr.Scott Dwyer. Pertinent studies include CXR, Echo. 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 Hyperlipidemia Hypertension Anxiety Nicotine dependence Patient Condition at Discharge: Stable Plan - Discharge Summary Discharge Rx Participant: No New Discharge Prescriptions: No Action Pravastatin Sodium [Pravachol] 10 mg PO HS traZODone HCL [Desyrel] 50 mg PO HS amLODIPine [Norvasc] 5 mg PO BID Omeprazole 40 mg PO DAILY Discharge Medication List Pravastatin Sodium [Pravachol] 10 mg PO HS 06/11/19 [History] Omeprazole 40 mg PO DAILY 06/26/23 [History] amLODIPine [Norvasc] 5 mg PO BID 06/26/23 [History] traZODone HCL [Desyrel] 50 mg PO HS 06/26/23 [History] Follow up Appointment(s)/Referral(s): [facility]inic [Primary Care Provider] - 1-2 days Discharge/Stand Alone Forms: Outpatient Counseling
[2023-07-03] MEDS: traZODone HCL 50 MG TAB PO SCH (20:49)
[2023-07-03] MEDS: PRAVASTATIN SODIUM 20 MG TAB PO SCH (20:49)
[2023-07-03 23:19] VITALS: BP 122/75; PULSE 100; TEMP 98
--- NOTE | 2023-07-04 11:19 | CDI ---
Documentation Clarification Form Date: 07/04/2023 11:06:06 AM From: Shelly Molina Admit Date: 06/30/2023 11:21:00 AM Patient Name: Ronnie Gray Visit Number: [id number] Discharge Date: 07/03/2023 11:30:00 PM ATTENTION: The Clinical Documentation Specialists (CDI) and [facility] Coding Staff appreciate your assistance in clarifying documentation. Please respond to the clarification below the line at the bottom and electronically sign. The CDI & [facility] Coding staff will review the response and follow-up if needed. Please note: Queries are made part of the Legal Health Record. If you have any questions, please contact the author of this message via ITS. Dr. Glenna Proctor Conflicting documentation has been found in the medical record. As attending physician, please provide clarification. 07/01/23 Medical consult "Recent diagnosis of liver, lung and adrenal gland cancer 2022." 07/03/23 DCS "Lung mass, liver mass." History/Risk Factors: Smoker, mediastinal mass displacing the trachea to the left enroaching into the SVC Clinical Indicators: CXR Large RUL, RLL mediastinal mass Treatment: Work up outpatient Please clarify which diagnosis is most appropriate: [ x ] recent diagnosis of liver, lung and adrenal gland cancer [ ] Lung and liver masses [ ] Other (please specify) [ ] Unable to determine MTDD
== END 2023-07-03 23:30 | disposition short-term general hospital (02) | DRG 644 ==
LOC: EC 09:15 → 5NMEDONC 11:21
PROVIDERS: ADMIT Internal Medicine; ATTEND Internal Medicine
DX: E22.2 Syndrome of inappropriate secretion of antidiuretic hormone (principal); C34.91 Malignant neoplasm of unspecified part of right bronchus or lung; I31.39 Other pericardial effusion (noninflammatory); I87.1 Compression of vein; C78.7 Secondary malignant neoplasm of liver and intrahepatic bile duct; C79.70 Secondary malignant neoplasm of unspecified adrenal gland; F41.1 Generalized anxiety disorder; E66.9 Obesity, unspecified; Z68.32 Body mass index [BMI] 32.0-32.9, adult; E83.42 Hypomagnesemia; E78.5 Hyperlipidemia, unspecified; E86.1 Hypovolemia; E87.6 Hypokalemia; F17.210 Nicotine dependence, cigarettes, uncomplicated; F41.9 Anxiety disorder, unspecified; I10 Essential (primary) hypertension; I27.20 Pulmonary hypertension, unspecified; K21.9 Gastro-esophageal reflux disease without esophagitis; I07.1 Rheumatic tricuspid insufficiency; Z28.311 Partially vaccinated for COVID-19; Z79.899 Other long term (current) drug therapy; Z82.49 Family history of ischemic heart disease and other diseases of the circulatory system; Z86.19 Personal history of other infectious and parasitic diseases; Z86.010 Personal history of colon polyps; Z80.8 Family history of malignant neoplasm of other organs or systems; Z53.29 Procedure and treatment not carried out because of patient's decision for other reasons; Z86.73 Personal history of transient ischemic attack (TIA), and cerebral infarction without residual deficits
CPT/HCPCS: 36415; 71046; 80048; 80053; 83605; 83735; 83930; 83935; 84484; 85025; 85610; 85730; 93005; 93306; 94640; 96361; 96365; 99285

== ENCOUNTER 2023-09-17 12:14 | Inpatient (IN) | payer OTHER, MEDICARE ==
--- NOTE | 2023-09-17 13:51 | ED ---
General Adult HPI - General Source: patient, family, RN notes reviewed Mode of arrival: wheelchair <Stacy Hughes - Last Filed: 09/17/23 13:46> <Jigar Gallegos - Last Filed: 09/17/23 15:28> - General Chief complaint: Chest Pain Stated complaint: SOB Time Seen by Provider: 09/17/23 13:46 - History of Present Illness Initial comments: 73-year-old presents to the emergency department for evaluation of generalized weakness and overall not feeling well with associated chest discomfort. Patient states that he has a history of lung cancer and follows with Dr. Larson. Was scheduled to receive chemotherapy yesterday but based on the patient's symptoms he was unable to receive it. He did get IV fluids and nausea medicine which he states did not help. (Stacy Hughes) Patient with primary lung and primary liver cancer presenting with chest discomfort, weakness. Patient's EKG was obtained at 2-hour point within his ER stay at 1414. This shows significant ST segment elevation consistent with acute [place]. Sales Representative Sales Manager was activated. However the patient has very poor prognosis and ultimately felt to not benefit from cardiac intervention at this time. This was discussed with the patient, the patient's son, the oncologist Dr. Larson and the roller coaster operator Dr. Kat. Patient does prefer comfort care and possible hospice. (Jigar Gallegos) - Related Data Home Medications Medication Instructions Recorded Confirmed Omeprazole 40 mg PO DAILY 06/26/23 09/17/23 amLODIPine [Norvasc] 5 mg PO DAILY PRN 06/26/23 09/17/23 traZODone HCL [Desyrel] 50 mg PO HS 06/26/23 09/17/23 Fluticasone Nasal [place] [Flonase 1 spray EA NOSTRIL DAILY 09/17/23 09/17/23 Nasal [place]] Fluticasone Propion/Salmeterol 1 puff INHALATION RT-BID 09/17/23 09/17/23 [Wixela 250-50 Inhub] Melatonin 6 mg PO HS PRN 09/17/23 09/17/23 Metoprolol Tartrate [Lopressor] 25 mg PO BID 09/17/23 09/17/23 Ondansetron Odt [Zofran Odt] 4 mg PO Q8HR PRN 09/17/23 09/17/23 Pravastatin Sodium [Pravachol] 10 mg PO HS 09/17/23 09/17/23 Tiotropium 2.5 Mcg/Puff [Spiriva 1 puff INHALATION RT-DAILY 09/17/23 09/17/23 Respimat 2.5 Mcg] Allergies Allergy/AdvReac Type Severity Reaction Status Date / Time No Known Allergies Allergy Verified 09/17/23 12:38 Review of Systems ROS Other: All systems not noted in ROS Statement are negative. <Stacy Hughes - Last Filed: 09/17/23 13:46> ROS Other: All systems not noted in ROS Statement are negative. <Jigar Gallegos - Last Filed: 09/17/23 15:28> ROS Statement: Those systems with pertinent positive or pertinent negative responses have been documented in the HPI. Past Medical History Past Medical History: Cancer, CVA/TIA, GERD/Reflux, Hyperlipidemia, Hypertension Additional Past Medical History / Comment(s): Low sodium, Hepatitis C, recent diagnosis of liver, lung and adrenal gland cancer (2022) History of Any Multi-Drug Resistant Organisms: None Reported Past Surgical History: Back Surgery, Tonsillectomy Past Anesthesia/Blood Transfusion Reactions: No Reported Reaction Past Psychological History: Anxiety Smoking Status: Current every day smoker - Past Family History Mother History Unknown: Yes Additional Family Medical History / Comment(s): of a heart attack Father Family Medical History: Cancer Additional Family Medical History / Comment(s): thoart cancer <Stacy Hughes - Last Filed: 09/17/23 13:46> General Exam <Stacy Hughes - Last Filed: 09/17/23 13:46> General appearance: alert, lethargic, in distress Eye exam: Present: PERRL Respiratory exam: Present: respiratory distress, rhonchi Cardiovascular Exam: Present: normal rhythm, tachycardia GI/Abdominal exam: Present: soft. Absent: distended, tenderness Neurological exam: Present: alert, oriented X3 Psychiatric exam: Present: anxious Skin exam: Present: warm, dry, pallor <Jigar Gallegos - Last Filed: 09/17/23 15:28> - General Exam Comments Initial Comments: Visual Physical Exam Vital signs reviewed General: Well-appearing, nontoxic, no acute distress. Head: Normocephalic, atraumatic Eyes: PERRLA, EOMI ENT: Airway patent Chest: Nonlabored breathing Skin: No visual rash, normal skin tone Neuro: Alert and oriented 3 Musculoskeletal: No gross abnormalities (Stacy Hughes) Course Vital Signs 09/17/23 09/17/23 09/17/23 12:34 14:30 14:33 Temperature 97.9 F Pulse Rate 116 H 110 H Respiratory 18 22 Rate Blood Pressure 91/56 110/60 108/82 O2 Sat by Pulse 92 L 98 Oximetry Medical Decision Making <Stacy Hughes - Last Filed: 09/17/23 13:46> - Lab Data Result diagrams: 09/17/23 14:33 09/17/23 14:33 <Jigar Gallegos - Last Filed: 09/17/23 15:28> - Medical Decision Making Quick note preformed by Stacy Hughes PA-C (Stacy Hughes) Was pt. sent in by a medical professional or institution ([facility], [facility], urgent care, hospital, or usp...) When possible be specific @ -No Did you speak to anyone other than the patient for history (EMS, parent, family, police, friend...)? What history was obtained from this source @ -Patient's son Did you review nursing and triage notes (agree or disagree)? Why? @ -I reviewed and agree with nursing and triage notes Were old charts reviewed (outside hosp., previous admission, EMS record, old EKG, old radiological studies, urgent care reports/EKG's, usp records)? Report findings @ -No old charts were reviewed Differential Diagnosis (chest pain, altered mental status, abdominal pain women, abdominal pain men, vaginal bleeding, weakness, fever, dyspnea, syncope, headache, dizziness, GI bleed, back pain, seizure, CVA, palpatations, mental health, musculoskeletal)? @ -[Differential Chest Pain: Stable Angina, Unstable Angina, STEMI, NSTEMI Aortic Dissection, Pneumothorax, Musculoskeletal, Esophageal Spasm GERD, Cholecystitis, Pancreatitis, Zoster, this is not meant to be an all-inclusive list. EKG interpreted by me (3pts min.). @ -Sinus tachycardia, rate of 114, inferior elevation with depression in aVL as well as V1 and V2 consistent with acute [place], [place] interval 147, QRS duration 77, QTc 385 X-rays interpreted by me (1pt min.). @ -None done CT interpreted by me (1pt min.). @ -None done U/S interpreted by me (1pt. min.). @ -None done What testing was considered but not performed or refused? (CT, X-rays, U/S, labs)? Why? @ -None What meds were considered but not given or refused? Why? @ -None Did you discuss the management of the patient with other professionals (mansoor wilkinson i.e. , PA, [facility], lab, RT, psych nurse, criminal justice social worker, forest economist, teacher, environmental protection officer, child support case officer)? Give summary @ -[facility], Dr. Valerio, roller coaster operator Dr. Kat Was smoking cessation discussed for >3mins.? @ -No Was critical care preformed (if so, how long)? @ -[Yes, 35 minutes Were there social determinants of health that impacted care today? How? (Homelessness, low income, unemployed, alcoholism, drug addiction, transportation, low edu. Level, literacy, decrease access to med. care, [place] [facility], rehab)? @ -No Was there de-escalation of care discussed even if they declined (Discuss DNR or withdrawal of care, Hospice)? DNR status @DNR What co-morbidities impacted this encounter? (DM, HTN, Smoking, COPD, CAD, Cancer, CVA, ARF, Chemo, Hep., AIDS, mental health diagnosis, sleep apnea, morbid obesity)? @ -[Lung cancer, liver cancer, coronary disease Was patient admitted / discharged? Hospital course, mention meds given and route, prescriptions, significant lab abnormalities, going to OR and other pertinent info. @73-year-old male presenting with weakness, chest pain. Initial EKG shows ST segment elevation in the Sales Representative Sales Manager was activated. However after discussion with the patient, patient's son and the roller coaster operator Dr. Kat felt that this patient will not benefit from acute cardiac intervention given his poor prognosis from both lung cancer and liver cancer. Patient is considering the possibility of hospice but would like to discuss this further with his on cologist Dr. Larson. He will be admitted for both pain control, comfort measures, and evaluation by oncology regarding his overall prognosis. No further cardiac intervention at this time. Patient is a DNR after discussion both with the patient and the patient's son who is at bedside. Undiagnosed new problem with uncertain prognosis? @ -No Drug Therapy requiring intensive monitoring for toxicity (Heparin, Nitro, Insulin, Cardizem)? @ -No Were any procedures done? @ -No Diagnosis/symptom? @ -ACS, lung CA, liver CA, comfort care Acute, or Chronic, or Acute on Chronic? @ -Default Uncomplicated (without systemic symptoms) or Complicated (systemic symptoms)? @ -Default Side effects of treatment? @ -No Exacerbation, Progression, or Severe Exacerbation? @ -No Poses a threat to life or bodily function? How? (Chest pain, [place], [place], pneumonia, PE, COPD, DKA, ARF, appy, cholecystitis, CVA, Diverticulitis, Homicidal, Suicidal, threat to staff... and all critical care pts) @ -Yes, poor overall prognosis. (Jigar Gallegos) - Lab Data Lab Results 09/17/23 09/17/23 09/17/23 Range/Units 14:33 14:33 14:33 WBC 38.2 H (3.8-10.6) k/uL RBC 3.04 L (4.30-5.90) m/uL Hgb 8.8 L (13.0-17.5) gm/dL Hct 27.8 L (39.0-53.0) % MCV 91.3 (80.0-100.0) fL MCH 28.8 (25.0-35.0) pg MCHC 31.6 (31.0-37.0) g/dL RDW 19.1 H (11.5-15.5) % Plt Count 510 H (150-450) k/uL MPV 8.8 Neutrophils % 91 % Lymphocytes % 3 % Monocytes % 5 % Eosinophils % 0 % Basophils % 0 % Neutrophils # 34.8 H (1.3-7.7) k/uL Lymphocytes # 1.0 (1.0-4.8) k/uL Monocytes # 1.8 H (0-1.0) k/uL Eosinophils # 0.0 (0-0.7) k/uL Basophils # 0.1 (0-0.2) k/uL Manual Slide Review Performed RBC Morphology Normal Hypochromasia Moderate Anisocytosis Slight Macrocytosis Slight PT 14.0 H (10.0-12.5) sec INR 1.3 H (<1.2) APTT 27.2 (22.0-30.0) sec Sodium 133 L (137-145) mmol/L Potassium 4.3 (3.5-5.1) mmol/L Chloride 101 (98-107) mmol/L Carbon Dioxide 20 L (22-30) mmol/L Anion Gap 12 mmol/L BUN 15 (9-20) mg/dL Creatinine 1.16 (0.66-1.25) mg/dL Est GFR (CKD-EPI)AfAm 71 (>60 ml/min/1.73 sqM) Est GFR (CKD-EPI)NonAf 62 (>60 ml/min/1.73 sqM) Glucose 117 H (74-99) mg/dL Calcium 8.3 L (8.4-10.2) mg/dL Magnesium 1.3 L (1.6-2.3) mg/dL Total Bilirubin 1.1 (0.2-1.3) mg/dL AST 24 (17-59) U/L ALT 39 (4-49) U/L Alkaline Phosphatase 167 H (38-126) U/L Troponin I (0.000-0.034) ng/mL Total Protein 6.8 (6.3-8.2) g/dL Albumin 3.0 L (3.5-5.0) g/dL 09/17/23 Range/Units 14:33 WBC (3.8-10.6) k/uL RBC (4.30-5.90) m/uL Hgb (13.0-17.5) gm/dL Hct (39.0-53.0) % MCV (80.0-100.0) fL MCH (25.0-35.0) pg MCHC (31.0-37.0) g/dL RDW (11.5-15.5) % Plt Count (150-450) k/uL MPV Neutrophils % % Lymphocytes % % Monocytes % % Eosinophils % % Basophils % % Neutrophils # (1.3-7.7) k/uL Lymphocytes # (1.0-4.8) k/uL Monocytes # (0-1.0) k/uL Eosinophils # (0-0.7) k/uL Basophils # (0-0.2) k/uL Manual Slide Review RBC Morphology Hypochromasia Anisocytosis Macrocytosis PT (10.0-12.5) sec INR (<1.2) APTT (22.0-30.0) sec Sodium (137-145) mmol/L Potassium (3.5-5.1) mmol/L Chloride (98-107) mmol/L Carbon Dioxide (22-30) mmol/L Anion Gap mmol/L BUN (9-20) mg/dL Creatinine (0.66-1.25) mg/dL Est GFR (CKD-EPI)AfAm (>60 ml/min/1.73 sqM) Est GFR (CKD-EPI)NonAf (>60 ml/min/1.73 sqM) Glucose (74-99) mg/dL Calcium (8.4-10.2) mg/dL Magnesium (1.6-2.3) mg/dL Total Bilirubin (0.2-1.3) mg/dL AST (17-59) U/L ALT (4-49) U/L Alkaline Phosphatase (38-126) U/L Troponin I 0.209 H* (0.000-0.034) ng/mL Total Protein (6.3-8.2) g/dL Albumin (3.5-5.0) g/dL Disposition <Stacy Hughes - Last Filed: 09/17/23 13:46> Is patient prescribed a controlled substance at d/c from ED?: No Time of Disposition: 15:28 <Jigar Gallegos - Last Filed: 09/17/23 15:28> Clinical Impression: Generalized weakness, Liver mass, Lung mass Disposition: ADMITTED IP TO THIS HOSP Condition: Serious Referrals: [facility],Clinic [Primary Care Provider] - 1-2 days
[2023-09-17] MEDS ORDERED: ASPIRIN 325 MG TAB PO STA (14:23)
[2023-09-17] MEDS ORDERED: NALOXONE 0.4 MG/ML 1 ML VIAL IV PRN (14:24)
[2023-09-17] MEDS ORDERED: ASPIRIN 81 MG PO STA (14:26)
[2023-09-17] MEDS ORDERED: SODIUM CHLORIDE 0.9% 1,000 ML IV ONE (14:26)
[2023-09-17] MEDS ORDERED: ATORVASTATIN 80 MG TAB PO STA (14:27)
[2023-09-17] MEDS ORDERED: HEPARIN SODIUM 1,000 UN/ML (10ML VL) IVP STA (14:29)
[2023-09-17] MEDS ORDERED: fentaNYL (PF) 50 MCG/ML 2 ML AMP IVP STA (14:29)
[2023-09-17] MEDS ORDERED: VERAPAMIL 2.5 MG/ML 2 ML AMP ONE (14:31)
[2023-09-17] MEDS ORDERED: fentaNYL (PF) 50 MCG/ML 2 ML AMP ONE (14:31)
[2023-09-17] MEDS ORDERED: HEPARIN SODIUM 1,000 UN/ML (10ML VL) ONE (14:32)
--- NOTE | 2023-09-17 14:47 | XR ---
EXAMINATION TYPE: XR chest 2V DATE OF EXAM: 09/17/2023 2:04 PM CLINICAL INDICATION:Male, 73 years old with history of Chest Pain, hx lung mass; [facility] COMPARISON: 06/30/2023 CT TECHNIQUE: XR chest 2V Frontal and lateral views of the chest. FINDINGS: Lungs/Pleura: Right posterior pulmonary mass measuring 5.0 x 4.1 cm on radiography remains present. T here is no evidence of pleural effusion, or pneumothorax. Pulmonary vascularity: Unremarkable. Heart/mediastinum: Cardiomediastinal silhouette is unremarkable. Musculoskeletal: No acute osseous pathology. Other findings: None IMPRESSION: 1. Bibasilar lower lobe airspace opacities correlate for pneumonia. 2. Right posterior pulmonary mass measuring 5.0 x 4.1 cm on radiography remains present.
[2023-09-17 14:55] LABS: Anisocytosis Slight; Basophils # (A) 0.1 k/uL (0-0.2); Basophils % (A) 0 %; Eosinophils % (A) 0 %; HCT 27.8 % (39.0-53.0); Hypochromasia Moderate; Lymphocytes % (A) 3 %; MCH 28.8 pg (25.0-35.0); MCHC 31.6 g/dL (31.0-37.0); MCV 91.3 fL (80.0-100.0); Macrocytosis Slight; Mean Platelet Volume 8.8; Monocytes # (A) 1.8 k/uL (0-1.0); Monocytes % (A) 5 %; Neutrophils # (A) 34.8 k/uL (1.3-7.7); Neutrophils % (A) 91 %; Platelet Count 510 k/uL (150-450); RBC 3.04 m/uL (4.30-5.90); RDW 19.1 % (11.5-15.5); WBC 38.2 k/uL (3.8-10.6)
[2023-09-17 14:57] LABS: HGB 8.8 gm/dL (13.0-17.5); INR 1.3 (<1.2); Partial Thromboplastin Time 27.2 sec (22.0-30.0)
[2023-09-17 15:02] LABS: ALT 39 U/L (4-49); AST 24 U/L (17-59); African American GFR (CKD) 71 (>60 ml/min/1.73 sqM); Alkaline Phosphatase 167 U/L (38-126); Anion Gap 12 mmol/L; Blood Urea Nitrogen 15 mg/dL (9-20); Calcium 8.3 mg/dL (8.4-10.2); Carbon Dioxide 20 mmol/L (22-30); Chloride 101 mmol/L (98-107); Glucose 117 mg/dL (74-99); Magnesium 1.3 mg/dL (1.6-2.3); Non-African American GFR(CKD) 62 (>60 ml/min/1.73 sqM); Potassium 4.3 mmol/L (3.5-5.1); Sodium 133 mmol/L (137-145); Total Bilirubin 1.1 mg/dL (0.2-1.3); Total Protein 6.8 g/dL (6.3-8.2)
--- NOTE | 2023-09-17 15:07 | P.CRDCN ---
History of Present Illness History of present illness: HISTORY OF PRESENT ILLNESS: This is a 73-year-old male with a past medical history significant for hypertension, hyperlipidemia, primary lung cancer, and primary liver cancer. Patient does not follow with a neck skewer. We have been asked to see the patient in consultation for STEMI. Patient examined at the bedside in the emergency room. Patient presented to the hospital with chief complaint of chest pain. He has been experiencing chest pain for the past 4 days. Patient's son is at the bedside and provides additional history. He states that the patient has 2 primary cancers 1 lung and 1 is liver. He is currently undergoing chemotherapy. He does report that the overall prognosis is poor. Dr. Kat discussed the patient's prognosis with Dr. Larson who also confirmed that his prognosis is poor. Patient was supposed to begin another round of chemotherapy yesterday however this was canceled as patient was extremely weak and required IV fluids. EKG on arrival revealed ST elevation in inferior leads and V3V6 with ST depression in aVL and V2. REVIEW OF SYSTEMS: At the time of my exam: CONSTITUTIONAL: Denies fever or chills. Reports weakness. Reports feeling gen erally unwell. HEENT: Denies blurred vision, vision changes, or eye pain. Denies hemoptysis CARDIOVASCULAR: Reports chest pain. Denies orthopnea. Denies PND. Denies palpitations RESPIRATORY: Denies shortness of breath. GASTROINTESTINAL: Denies abdominal pain. Denies nausea or vomiting. HEMATOLOGIC: Denies bleeding disorders. GENITOURINARY: Denies any blood in urine. SKIN: Denies pruitis. Denies rash. PHYSICAL EXAM: VITAL SIGNS: Reviewed. GENERAL: Well-developed in no distress. Patient appears frail. He is pale and also jaundiced. HEENT: Head is normocephalic. Pupils are equal, round. Sclerae anicteric. Mucous membranes of the mouth are moist. Neck supple. No JVD or thyromegaly LUNGS: Respirations even and unlabored. Lungs essentially clear to auscultation bilaterally. HEART: Regular rate and rhythm. S1 and S2 heard. ABDOMEN: Soft. Nondistended. Nontender. EXTREMITIES: Normal range of motion. No clubbing or cyanosis. Peripheral pulses intact. No lower extremity edema NEUROLOGIC: Awake and alert. ASSESSMENT: STEMI Primary lung cancer and primary liver cancer, undergoing chemotherapy, with poor prognosis Hypertension Hyperlipidemia Anemia, hemoglobin 8.8 Significant leukocytosis PLAN: Dr. Kat spoke with ER physician and also patient's oncologist, Dr. Larson who stated that the patient's overall prognosis in terms of his cancer is very poor. The patient is not a candidate for invasive procedures such as cardiac catheterization. This was discussed with the patient and also his son at the bedside in the emergency room who are both in agreement. Discussed possible hospice consultation in which the patient and his son were in agreement. Nurse practitioner note has been reviewed by physician. Signing provider agrees with the documented findings, assessment, and plan of care documented by [employer] as a scribe. Past Medical History Past Medical History: Cancer, CVA/TIA, GERD/Reflux, Hyperlipidemia, Hypertension Additional Past Medical History / Comment(s): Low sodium, Hepatitis C, recent diagnosis of liver, lung and adrenal gland cancer (2022) History of Any Multi-Drug Resistant Organisms: None Reported Past Surgical History: Back Surgery, Tonsillectomy Past Anesthesia/Blood Transfusion Reactions: No Reported Reaction Past Psychological History: Anxiety Smoking Status: Current every day smoker - Past Family History Mother History Unknown: Yes Additional Family Medical History / Comment(s): of a heart attack Father Family Medical History: Cancer Additional Family Medical History / Comment(s): thoart cancer Medications and Allergies Home Medications Medication Instructions Recorded Confirmed Type Omeprazole 40 mg PO DAILY 06/26/23 09/17/23 History amLODIPine [Norvasc] 5 mg PO DAILY PRN 06/26/23 09/17/23 History traZODone HCL [Desyrel] 50 mg PO HS 06/26/23 09/17/23 History Fluticasone Nasal [place] [Flonase 1 spray EA NOSTRIL DAILY 09/17/23 09/17/23 Hi story Nasal [place]] Fluticasone Propion/Salmeterol 1 puff INHALATION RT-BID 09/17/23 09/17/23 History [Wixela 250-50 Inhub] Melatonin 6 mg PO HS PRN 09/17/23 09/17/23 History Metoprolol Tartrate [Lopressor] 25 mg PO BID 09/17/23 09/17/23 History Ondansetron Odt [Zofran Odt] 4 mg PO Q8HR PRN 09/17/23 09/17/23 History Pravastatin Sodium [Pravachol] 10 mg PO HS 09/17/23 09/17/23 History Tiotropium 2.5 Mcg/Puff [Spiriva 1 puff INHALATION RT-DAILY 09/17/23 09/17/23 History Respimat 2.5 Mcg] Allergies Allergy/AdvReac Type Severity Reaction Status Date / Time No Known Allergies Allergy Verified 09/17/23 12:38 Physical Exam Vitals: Vital Signs Temp Pulse Resp BP Pulse Ox 09/17/23 14:33 108/82 09/17/23 14:30 110 H 22 110/60 98 09/17/23 12:34 97.9 F 116 H 18 91/56 92 L Intake and Output 09/17/23 09/17/23 09/17/23 06:59 14:59 22:59 Other: Weight 74.843 kg Results 09/17/23 14:33 09/17/23 14:33 Coagulation 09/17/23 Range/Units 14:33 PT 14.0 H (10.0-12.5) sec APTT 27.2 (22.0-30.0) sec CBC 09/17/23 Range/Units 14:33 WBC 38.2 H (3.8-10.6) k/uL RBC 3.04 L (4.30-5.90) m/uL Hgb 8.8 L (13.0-17.5) gm/dL Hct 27.8 L (39.0-53.0) % Plt Count 510 H (150-450) k/uL Current Medications Generic Name Dose Route Start Last Admin Trade Name Freq PRN Reason Stop Dose Admin Hydromorphone HCl 0.5 mg 09/17/23 14:50 Hydromorphone 0.5 Mg/0.5 Ml Syringe IVP Q3HR PRN Pain Sodium Chloride 1,000 mls @ 999 mls/hr 09/17/23 14:26 09/17/23 14:27 Saline 0.9% IV 09/17/23 15:26 999 mls/hr .Q1H1M ONE Administration Naloxone HCl 0.2 mg 09/17/23 14:24 Naloxone 0.4 Mg/Ml 1 Ml Vial IV Q2M PRN Opioid Reversal Intake and Output 01/24/24 01/24/24 01/24/24 06:59 14:59 22:59 Other: Weight 74.843 kg Patient Weight 09/18/23 06:59 Weight 74.843 kg 09/17/23 14:33
[2023-09-17 15:24] LABS: RBC Morphology Normal
--- NOTE | 2023-09-17 15:57 | P.HPIM ---
History of Present Illness H&P Date: 09/17/23 Chief Complaint: chest pain Patient is a 72-year-old male with a past medical history of stage IV lung cancer with liver metastasis and lung mass compressing the SVC who presents to the ED with chest pain. Yesterday patient went to the clinic for his fourth round of chemotherapy however he was not feeling well so he was sent home. Patient comes into the ED today due to 10 out of 10 burning chest pain in the middle of his chest. He states that the pain started 2 days ago. He did not come to the ED immediately because he thought that the pain was due to his lung cancer. In the ED patient was found to have ST elevations in V4 V5 and V6. Patient was seen by cardiology and due to his poor prognosis recommended no heart catheterization. Patient was seen by the hospice nurse. Son wants to hold off on hospice for now because he wants to speak with his oncologist to find out if there is anything else they can do for him. Son wants to know if the chemotherapy is working. Son does understand that his father has a poor prognosis however for peace of mind he wants to hear from his oncologist. Son states that he wants to keep his father comfortable. Son understands that the patient may pass away before oncology sees him. Son wants the patient's CODE STATUS to be DNR/DNI. I confirmed this with the patient himself. Patient keeps on telling me that he is going to . Patient currently states that he feels nauseous. However he is currently denying any chest pain. ROS: 10 ROS reviewed and are negative except as noted in HPI Physical exam General: [No acute distress, appears chronically debilitated]. Eye: [PERRL, EOMI, pale conjunctiva]. HENT: [Normocephalic, clear tympanic membranes, normal hearing, moist oral mucosa, no scleral icterus, no sinus tenderness]. Neck: [Supple, non-tender, no carotid bruits, no JVD, no lymphadenopathy]. Lungs: [Diminished breath sounds bilaterally, non-labored respiration]. Heart: [Normal rate, regular rhythm, no murmur, gallop or edema]. Abdomen: [Soft, non-tender, non-distended, normal bowel sounds, no masses]. Musculoskeletal: [Normal range of motion and strength, no tenderness or swelling]. Neurologic: [Awake, alert, and oriented X3, CN II-XII intact]. Psychiatric: [Somnolent and lethargic]. Assessment and plan STEMI Cardiology spoke with patient's oncologist who said that patient is overall prognosis is very poor. Per cardiology patient is not a candidate for cardiac catheterization. Son would like to keep his father comfort care until seen by oncology. Pain control with IV Dilaudid Lung cancer with metastasis Patient was getting chemotherapy outpatient Will have oncology see the patient to discuss goals of care After oncology discusses prognosis with the patient then we will reconsult h ospice. Patient will likely be made GIP Chronic conditions Hypertension GERD Hyperlipidemia COPD -Hold off on home meds as patient is comfort care DVT prophylaxis: Hold off on anticoagulation due to comfort care CODE STATUS: DNR/DNI. Discussed with both patient and son Past Medical History Past Medical History: Cancer, CVA/TIA, GERD/Reflux, Hyperlipidemia, Hypertension Additional Past Medical History / Comment(s): Low sodium, Hepatitis C, recent diagnosis of liver, lung and adrenal gland cancer (2022) History of Any Multi-Drug Resistant Organisms: None Reported Past Surgical History: Back Surgery, Tonsillectomy Past Anesthesia/Blood Transfusion Reactions: No Reported Reaction Past Psychological History: Anxiety Smoking Status: Current every day smoker - Past Family History Mother History Unknown: Yes Additional Family Medical History / Comment(s): of a heart attack Father Family Medical History: Cancer Additional Family Medical History / Comment(s): thoart cancer Medications and Allergies Home Medications Medication Instructions Recorded Confirmed Type Omeprazole 40 mg PO DAILY 06/26/23 09/17/23 History amLODIPine [Norvasc] 5 mg PO DAILY PRN 06/26/23 09/17/23 History traZODone HCL [Desyrel] 50 mg PO HS 06/26/23 09/17/23 History Fluticasone Nasal [place] [Flonase 1 spray EA NOSTRIL DAILY 09/17/23 09/17/23 History Nasal [place]] Fluticasone Propion/Salmeterol 1 puff INHALATION RT-BID 09/17/23 09/17/23 History [Wixela 250-50 Inhub] Melatonin 6 mg PO HS PRN 09/17/23 09/17/23 History Metoprolol Tartrate [Lopressor] 25 mg PO BID 09/17/23 09/17/23 History Ondansetron Odt [Zofran Odt] 4 mg PO Q8HR PRN 09/17/23 09/17/23 History Pravastatin Sodium [Pravachol] 10 mg PO HS 09/17/23 09/17/23 History Tiotropium 2.5 Mcg/Puff [Spiriva 1 puff INHALATION RT-DAILY 09/17/23 09/17/23 History Respimat 2.5 Mcg] Allergies Allergy/AdvReac Type Severity Reaction Status Date / Time No Known Allergies Allergy Verified 09/17/23 12:38 Physical Exam Osteopathic Statement: *. No significant issues noted on an osteopathic structural exam other than those noted in the History and Physical/Consult. Vitals: Vital Signs Temp Pulse Resp BP Pulse Ox 09/17/23 14:33 108/82 09/17/23 14:30 110 H 22 110/60 98 09/17/23 12:34 97.9 F 116 H 18 91/56 92 L Intake and Output 09/17/23 09/17/23 09/17/23 06:59 14:59 22:59 Other: Weight 74.843 kg Results CBC & Chem 7: 09/17/23 14:33 09/17/23 14:33 Labs: Abnormal Lab Results - Last 24 Hours (Table) 09/17/23 09/17/23 09/17/23 Range/Units 14:33 14:33 14:33 WBC 38.2 H (3.8-10.6) k/uL RBC 3.04 L (4.30-5.90) m/uL Hgb 8.8 L (13.0-17.5) gm/dL Hct 27.8 L (39.0-53.0) % RDW 19.1 H (11.5-15.5) % Plt Count 510 H (150-450) k/uL Neutrophils # 34.8 H (1.3-7.7) k/uL Monocytes # 1.8 H (0-1.0) k/uL PT 14.0 H (10.0-12.5) sec INR 1.3 H (<1.2) Sodium 133 L (137-145) mmol/L Carbon Dioxide 20 L (22-30) mmol/L Glucose 117 H (74-99) mg/dL Calcium 8.3 L (8.4-10.2) mg/dL Magnesium 1.3 L (1.6-2.3) mg/dL Alkaline Phosphatase 167 H (38-126) U/L Troponin I (0.000-0.034) ng/mL Albumin 3.0 L (3.5-5.0) g/dL 09/17/23 Range/Units 14:33 WBC (3.8-10.6) k/uL RBC (4.30-5.90) m/uL Hgb (13.0-17.5) gm/dL Hct (39.0-53.0) % RDW (11.5-15.5) % Plt Count (150-450) k/uL Neutrophils # (1.3-7.7) k/uL Monocytes # (0-1.0) k/uL PT (10.0-12.5) sec INR (<1.2) Sodium (137-145) mmol/L Carbon Dioxide (22-30) mmol/L Glucose (74-99) mg/dL Calcium (8.4-10.2) mg/dL Magnesium (1.6-2.3) mg/dL Alkaline Phosphatase (38-126) U/L Troponin I 0.209 H* (0.000-0.034) ng/mL Albumin (3.5-5.0) g/dL
[2023-09-17] MEDS: ONDANSETRON 4 MG/2 ML VIAL IVP PRN (16:10)
[2023-09-17] MEDS: PROCHLORPERAZINE INJ 10 MG/2 ML VIAL IVP PRN (17:16)
[2023-09-17] MEDS: HYDROmorphone 0.5 MG/0.5 ML SYRINGE IVP PRN (17:17)
[2023-09-17] MEDS: SODIUM CHLORIDE 0.9% 1,000 ML IV SCH (17:19)
[2023-09-18] MEDS: ONDANSETRON 4 MG/2 ML VIAL IVP PRN ×3 (02:21→16:04)
[2023-09-18] MEDS: SODIUM CHLORIDE 0.9% 1,000 ML IV SCH ×2 (02:22→15:37)
[2023-09-18] MEDS: PROCHLORPERAZINE INJ 10 MG/2 ML VIAL IVP PRN ×2 (10:19→20:40)
--- NOTE | 2023-09-18 11:34 | P.PN ---
Subjective Progress Note Date: 09/11/23 Hospital course Patient is a 72-year-old male with a past medical history of stage IV lung cancer with liver metastasis and lung mass compressing the SVC who presents to the ED with chest pain. Yesterday patient went to the clinic for his fourth round of chemotherapy however he was not feeling well so he was sent home. Patient comes into the ED today due to 10 out of 10 burning chest pain in the middle of his chest. He states that the pain started 2 days ago. He did not come to the ED immediately because he thought that the pain was due to his lung cancer. In the ED patient was found to have ST elevations in V4 V5 and V6. Patient was seen by cardiology and due to his poor prognosis recommended no heart catheterization. Patient was seen by the hospice nurse. Son wants to hold off on hospice for now because he wants to speak with his oncologist to find out if there is anything else they can do for him. Son wants to know if the chemotherapy is working. Son does understand that his father has a poor prognosis however for peace of mind he wants to hear from his oncologist. Son states that he wants to keep his father comfortable. Son understands that the patient may pass away before oncology sees him. Son wants the patient's CODE STATUS to be DNR/DNI. I confirmed this with the patient himself. Patient keeps on telling me that he is going to . Patient currently states that he feels nauseous. However he is currently denying any chest pain. Today patient states that he is still feeling nauseous. He states that the IV Dilaudid is helping with his pain. Patient is not sure if he spoke with hematology this morning. Nurse said that the hematology had already come in and spoken with the patient. 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 Per cardiology patient is not a candidate for cardiac catheterization. Lung cancer with metastasis Patient was getting chemotherapy outpatient Awaiting for oncology to speak with the son Chronic conditions Hypertension GERD Hyperlipidemia COPD -Hold off on home meds as patient is comfort care DVT prophylaxis: Hold off on anticoagulation due to comfort care I anticipate patient will go home with hospice CODE STATUS: DNR/DNI. Discussed with both patient and son Objective - Vital Signs Vital signs: Vital Signs Temp 97.1 F L 09/18/23 07:53 Pulse 109 H 09/18/23 07:53 Resp 20 09/18/23 07:53 BP 123/73 09/18/23 07:53 Pulse Ox 98 09/18/23 07:53 FiO2 Intake & Output 09/17/23 09/18/23 09/18/23 18:59 06:59 18:59 Intake Total 120 Balance 120 Weight 74.843 kg 74.843 kg Intake: Oral 120 Other: Voiding Method Urinal Urinal # Voids 1 - Labs CBC & Chem 7: 09/17/23 14:33 09/17/23 14:33 Labs: Abnormal Lab Results - Last 24 Hours (Table) 09/17/23 09/17/23 09/17/23 Range/Units 14:33 14:33 14:33 WBC 38.2 H (3.8-10.6) k/uL RBC 3.04 L (4.30-5.90) m/uL Hgb 8.8 L (13.0-17.5) gm/dL Hct 27.8 L (39.0-53.0) % RDW 19.1 H (11.5-15.5) % Plt Count 510 H (150-450) k/uL Neutrophils # 34.8 H (1.3-7.7) k/uL Monocytes # 1.8 H (0-1.0) k/uL PT 14.0 H (10.0-12.5) sec INR 1.3 H (<1.2) Sodium 133 L (137-145) mmol/L Carbon Dioxide 20 L (22-30) mmol/L Glucose 117 H (74-99) mg/dL Calcium 8.3 L (8.4-10.2) mg/dL Magnesium 1.3 L (1.6-2.3) mg/dL Alkaline Phosphatase 167 H (38-126) U/L Troponin I (0.000-0.034) ng/mL Albumin 3.0 L (3.5-5.0) g/dL 09/17/23 Range/Units 14:33 WBC (3.8-10.6) k/uL RBC (4.30-5.90) m/uL Hgb (13.0-17.5) gm/dL Hct (39.0-53.0) % RDW (11.5-15.5) % Plt Count (150-450) k/uL Neutrophils # (1.3-7.7) k/uL Monocytes # (0-1.0) k/uL PT (10.0-12.5) sec INR (<1.2) Sodium (137-145) mmol/L Carbon Dioxide (22-30) mmol/L Glucose (74-99) mg/dL Calcium (8.4-10.2) mg/dL Magnesium (1.6-2.3) mg/dL Alkaline Phosphatase (38-126) U/L Troponin I 0.209 H* (0.000-0.034) ng/mL Albumin (3.5-5.0) g/dL
[2023-09-18 11:44] VITALS: BMI 25.0
[2023-09-18] MEDS: METOPROLOL TARTRATE 25 MG TAB PO SCH ×2 (12:30→21:33)
--- NOTE | 2023-09-18 18:53 | P.CONS ---
History of Present Illness - Reason for Consult Consult date: 09/18/23 Limited stage small cell lung cancer - Chief Complaint Chest pain - History of Present Illness Mr. Gray is a 73-year-old gentleman with a past medical history significant for limited stage small cell lung cancer who completed 3 cycles of carboplatin/etoposide on 08/29/2023 along with hepatocellular carcinoma of the left hepatic lobe who presented to the ED with chest pain. Initially due to st art cycle 4 of chemotherapy, but noted not feeling well and having intermittent chest discomfort, which been occurring for a few days prior. He was advised to withhold chemotherapy at that time. When he returned home, the chest discomfort persisted, prompting him to present to the ED for additional management recommendations. On presentation, he was noted to be tachycardic with heart rates ranging from the 100s to 120s. EKG on presentation revealed ST segment elevation in the inferior and lateral leads concerning for STEMI. His case was discussed between cardiology and his primary oncologist Dr. Larson, after which it was decided to not pursue aggressive cardiac interventions as he had poor performance status. Currently, he notes feeling fatigued and weak, denies any chest pain, nausea, diaphoresis, or dyspnea. Review of Systems 14 point review of systems conducted with pertinent positives and negatives as noted per HPI Past Medical History Past Medical History: Cancer, CVA/TIA, GERD/Reflux, Hyperlipidemia, Hypertension Additional Past Medical History / Comment(s): Low sodium, Hepatitis C, recent diagnosis of liver, lung and adrenal gland cancer (2022) History of Any Multi-Drug Resistant Organisms: None Reported Past Surgical History: Back Surgery, Tonsillectomy Past Anesthesia/Blood Transfusion Reactions: No Reported Reaction Past Psychological History: Anxiety Smoking Status: Current every day smoker - Past Family History Mother History Unknown: Yes Additional Family Medical History / Comment(s): of a heart attack Father Family Medical History: Cancer Additional Family Medical History / Comment(s): thoart cancer Medications and Allergies Home Medications Medication Instructions Recorded Confirmed Type Omeprazole 40 mg PO DAILY 06/26/23 09/17/23 History amLODIPine [Norvasc] 5 mg PO DAILY PRN 06/26/23 09/17/23 History traZODone HCL [Desyrel] 50 mg PO HS 06/26/23 09/17/23 History Fluticasone Nasal [place] [Flonase 1 spray EA NOSTRIL DAILY 09/17/23 09/17/23 History Nasal [place]] Fluticasone Propion/Salmeterol 1 puff INHALATION RT-BID 09/17/23 09/17/23 History [Wixela 250-50 Inhub] Melatonin 6 mg PO HS PRN 09/17/23 09/17/23 History Metoprolol Tartrate [Lopressor] 25 mg PO BID 09/17/23 09/17/23 History Ondansetron Odt [Zofran Odt] 4 mg PO Q8HR PRN 09/17/23 09/17/23 History Pravastatin Sodium [Pravachol] 10 mg PO HS 09/17/23 09/17/23 History Tiotropium 2.5 Mcg/Puff [Spiriva 1 puff INHALATION RT-DAILY 09/17/23 09/17/23 History Respimat 2.5 Mcg] Allergies Allergy/AdvReac Type Severity Reaction Status Date / Time No Known Allergies Allergy Verified 09/17/23 12:38 Physical Exam Vitals: Vital Signs Temp Pulse Pulse Resp BP Pulse Ox 09/18/23 15:39 97.9 F 92 20 121/69 97 09/18/23 11:40 97.3 F L 125 H 20 129/79 95 09/18/23 07:53 97.1 F L 109 H 20 123/73 98 09/18/23 04:18 97.9 F 109 H 17 110/64 98 09/18/23 01:27 111 H 19 09/18/23 00:52 97.7 F 111 H 19 113/67 98 09/17/23 21:27 115 H 17 Intake and Output 09/18/23 09/18/23 09/18/23 06:59 14:59 22:59 Intake Total 240 120 Balance 240 120 Intake: Oral 240 120 Other: Voiding Method Urinal Urinal # Voids 1 4 Weight 74.843 kg - Constitutional Fatigued appearing General appearance: no acute distress - EENT Eyes: EOMI - Respiratory Nonlabored breathing - Cardiovascular Warm and well-perfused - Integumentary Integumentary: pale - Neurologic Neurologic: CNII-XII intact Results CBC & Chem 7: 09/17/23 14:33 09/17/23 14:33 Assessment and Plan (1) Small cell lung cancer, overlapping sites of right lung Current Visit: Yes Status: Chronic Code(s): C34.81 - MALIGNANT NEOPLASM OF OVRLP SITES OF RIGHT BRONCHUS AND LUNG SNOMED Code(s): 196150706 (2) Hepatocellular carcinoma Current Visit: Yes Status: Chronic Code(s): C22.0 - LIVER CELL CARCINOMA SNOMED Code(s): 217896759 (3) Myocardial infarction of inferolateral wall Current Visit: Yes Status: Acute Code(s): I21.19 - STEMI INVOLVING OTH CORONARY ARTERY OF INFERIOR WALL SNOMED Code(s): 72707647 Plan: #STEMI -Noted to have chest pain of a couple days duration prompting presentation to the ED -EKG noting ST elevations in the inferior and lateral leads concerning for ST elevation myocardial infarction -Case was discussed between cardiology and his primary oncologist, who determined no aggressive cardiac interventions were warranted #Limited stage small cell lung cancer, hepatocellular carcinoma -Was receiving carboplatin/etoposide and completed cycle 3 of treatment on 08/29/2023 and was due for cycle 4 -Given the STEMI, he would not be a candidate for additional treatment at this time -Goals of care discussion was had with both Ronnie and his son Christian -We discussed that given the current condition of his heart, he would not be a candidate for additional cancer treatment, which would cause significant harm in this situation -Due to this, his malignancy would progress over time -As he is not a candidate for additional chemotherapy, hospice was recommended and reviewed -We discussed the intent of hospice as well as some of the basic logistics -Following our discussion, Christian was agreeable in terms of letting Ronnie decide whether he wanted to pursue hospice or not -Hospice team has met with Ronnie and Christian -He is DNR/DNI, which is appropriate We will continue to follow. Giovanni Martinez MD
[2023-09-19] MEDS: HYDROmorphone 0.5 MG/0.5 ML SYRINGE IVP PRN ×2 (03:18→22:54)
[2023-09-19] MEDS: SODIUM CHLORIDE 0.9% 1,000 ML IV SCH ×2 (03:19→20:39)
[2023-09-19] MEDS: METOPROLOL TARTRATE 25 MG TAB PO SCH ×2 (08:02→20:38)
[2023-09-19] MEDS: ALPRAZolam 0.5 MG TAB PO PRN (12:43)
--- NOTE | 2023-09-19 14:52 | P.PN ---
Subjective Progress Note Date: 09/19/23 Hospital course Patient is a 72-year-old male with a past medical history of stage IV lung cancer with liver metastasis and lung mass compressing the SVC who presents to the ED with chest pain. Yesterday patient went to the clinic for his fourth round of chemotherapy however he was not feeling well so he was sent home. Patient comes into the ED today due to 10 out of 10 burning chest pain in the middle of his chest. He states that the pain started 2 days ago. He did not come to the ED immediately because he thought that the pain was due to his lung cancer. In the ED patient was found to have ST elevations in V4 V5 and V6. Patient was seen by cardiology and due to his poor prognosis recommended no heart catheterization. Patient was admitted for hospice evaluation. Son requested to speak with hematology. Hematology did speak with the son who agreed to hospice. The following day hospice nurse spoke to the son and the patient who agreed to home with hospice. However per the son the furnace is not working at home so is requesting if the patient can stay over the weekend. Patient seen today. He states that he is feeling better. 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 Per cardiology patient is not a candidate for cardiac catheterization. Lung cancer with metastasis Patient was getting chemotherapy outpatient Oncology met with the son and the patient Son and patient would like to go home with hospice Son requesting the patient can stay over the weekend until the furnace is fixed. Chronic conditions Hypertension GERD Hyperlipidemia COPD -Hold off on home meds as patient is comfort care DVT prophylaxis: Hold off on anticoagulation due to comfort care Patient will go home with hospice on Friday CODE STATUS: DNR/DNI. Discussed with both patient and son Objective - Vital Signs Vital signs: Vital Signs Temp 97.4 F L 09/19/23 14:01 Pulse 116 H 09/19/23 14:01 Resp 16 09/19/23 14:01 BP 108/68 09/19/23 14:01 Pulse Ox 97 09/19/23 14:01 FiO2 Intake & Output 09/18/23 09/19/23 09/19/23 18:59 06:59 18:59 Intake Total 360 900 Output Total 1075 1075 Balance 360 -834 -1070 Weight 74.843 kg Intake: Intake, IV Titration 900 Amount Sodium Chloride 0.9% 1, 900 000 ml @ 75 mls/hr IV . [id number] [facility] Rx#:[id number] Oral 360 Output: Urine 1075 1075 Other: Voiding Method Urinal Urinal Urinal # Voids 4 1 - Labs CBC & Chem 7: 09/17/23 14:33 09/17/23 14:33
[2023-09-19] MEDS: ONDANSETRON 4 MG/2 ML VIAL IVP PRN (17:46)
[2023-09-19] MEDS: PROCHLORPERAZINE INJ 10 MG/2 ML VIAL IVP PRN (22:54)
[2023-09-20] MEDS: SODIUM CHLORIDE 0.9% 1,000 ML IV SCH (04:12)
[2023-09-20] MEDS: METOPROLOL TARTRATE 25 MG TAB PO SCH ×2 (08:59→21:10)
[2023-09-20] MEDS ORDERED: polyethylene glycoL 3350 17 GM POWD.PACK PO STA (09:18)
[2023-09-20] MEDS ORDERED: polyethylene glycoL 3350 17 GM POWD.PACK PO PRN (09:18)
[2023-09-20] MEDS ORDERED: ALBUTEROL NEBULIZED 2.5 MG/3 ML INHALATION PRN (11:46)
--- NOTE | 2023-09-20 11:48 | P.PN ---
Subjective Progress Note Date: 09/20/23 Patient is a 72-year-old male with stage IV lung cancer with mets to liver and SVC syndrome, hypertension, GERD, and COPD who presented to the ER with complaints of chest pain. Patient was unable to receive his last round of chemotherapy due to his symptoms. He therefore presented to the emergency department was found to have an EKG consistent with inferior ST segment elevated myocardial infarction. Case was discussed with Dr. Larson the patient's primary oncologist who felt that the patient's overall prognosis was very poor and he was therefore determined not to be a candidate for cardiac catheterization and revascularization cessation. Patient's lab work was remarkable for white blood cell count of 38.2 and hemoglobin of 8.8 as well as platelets of 510. After much discussion the patient elected comfort measures. Therefore his home medications were not reinitiated. They met with hospice and plan will be for discharge home with hospice Patient seen and examined at bedside. He is feeling somewhat short of breath after moving around. Overall his pain has been well-controlled. He does report constipation. He denies any nausea or vomiting. No other complaints currently. Vital signs reviewed General: Ill-appearing, no distress appears at stated age Cardiovascular: S1S2 reg, no murmur Lungs: Coarse breath sounds bilateral, no rhonchi, no rales, no accessory muscle use Abdominal: Soft, nontender to palpation, no guarding Ext: No gross muscle atrophy, no edema b/l lower extremities, no contractures Neuro: CN II-XI grossly intact, no focal neuro deficits Psych: Alert, oriented, appropriate affect Assessment/Plan: Inferior ST segment elevated myocardial infarction Constipation Lung cancer with metastasis and SVC syndrome Hypertension GERD Dyslipidemia COPD -Plan is to transition to hospice care at home. Patient is currently on comfort measures. Medications reviewed will continue Dilaudid 0.5 mg IV every 3 hours as needed for pain as patient is having good pain control with this regiment. Continue with Compazine 10 mg IV push every 6 hours for nausea and vomiting. Add MiraLAX 17 g daily as needed for constipation. Will add as needed albuterol for shortness of breath. Imaging: None new Data Review: None new DVT prophylaxis: SCDs Anticipated discharge date: 09/23/[address]: Home with hospice This dictation was prepared using [employer] voice recognition software. Though every attempt is made to correct errors during dictation some may still exist. Objective - Vital Signs Vital signs: Vital Signs Temp 97.4 F L 09/20/23 07:33 Pulse 125 H 09/20/23 08:55 Resp 18 09/20/23 08:55 BP 119/81 09/20/23 07:33 Pulse Ox 97 09/20/23 07:33 FiO2 Intake & Output 09/19/23 09/20/23 09/20/23 18:59 06:59 18:59 Output Total 1225 350 Balance -1225 -350 Output: Urine 1225 350 Other: Voiding Method Urinal Urinal Urinal # Voids 1 3 1 - Labs CBC & Chem 7: 09/17/23 14:33 09/17/23 14:33
[2023-09-20] MEDS: ALPRAZolam 0.5 MG TAB PO PRN (13:36)
[2023-09-20] MEDS: HYDROmorphone 0.5 MG/0.5 ML SYRINGE IVP PRN (14:18)
[2023-09-21] MEDS: ALPRAZolam 0.5 MG TAB PO PRN ×3 (00:34→20:18)
[2023-09-21] MEDS: ONDANSETRON 4 MG/2 ML VIAL IVP PRN ×2 (00:34→12:40)
[2023-09-21] MEDS: HYDROmorphone 0.5 MG/0.5 ML SYRINGE IVP PRN (00:34)
[2023-09-21] MEDS: SODIUM CHLORIDE 0.9% 1,000 ML IV SCH (00:38)
[2023-09-21] MEDS: METOPROLOL TARTRATE 25 MG TAB PO SCH ×2 (08:28→20:18)
[2023-09-21] MEDS ORDERED: CALCIUM CARBONATE 500 MG CHEWABLE PO PRN (13:04)
--- NOTE | 2023-09-21 13:06 | P.PN ---
Subjective Progress Note Date: 09/21/23 (delayed charting seen at 0800) Patient is a 72-year-old male with stage IV lung cancer with mets to liver and SVC syndrome, hypertension, GERD, and COPD who presented to the ER with complaints of chest pain. Patient was unable to receive his last round of chemotherapy due to his symptoms. He therefore presented to the emergency department was found to have an EKG consistent with inferior ST segment elevated myocardial infarction. Case was discussed with Dr. Larson the patient's primary oncologist who felt that the patient's overall prognosis was very poor and he was therefore determined not to be a candidate for cardiac catheterization and revascularization cessation. Patient's lab work was remarkable for white blood cell count of 38.2 and hemoglobin of 8.8 as well as platelets of 510. After much discussion the patient elected comfort measures. Therefore his home medications were not reinitiated. They met with hospice and plan will be for discharge home with hospice Patient seen and examined at bedside. He states he is feeling better than he has in quite some time. He did have bowel movement yesterday felt significant relief. Denies any nausea or vomiting. Vital signs reviewed General: Ill-appearing, no distress appears at stated age Cardiovascular: S1S2 reg, no murmur Lungs: Coarse breath sounds bilateral, no rhonchi, no rales, no accessory muscle use Abdominal: Soft, nontender to palpation, no guarding Ext: No gross muscle atrophy, no edema b/l lower extremities, no contractures Neuro: CN II-XI grossly intact, no focal neuro deficits Psych: Alert, oriented, appropriate affect Assessment/Plan: Inferior ST segment elevated myocardial infarction Constipation Lung cancer with metastasis and SVC syndrome Hypertension GERD Dyslipidemia COPD -Plan is to transition to hospice care at home. Patient is currently on comfort measures. Medications reviewed continue Dilaudid 0.5 mg IV every 3 hours as needed for pain as patient is having good pain control with this regiment. Continue with Compazine 10 mg IV push every 6 hours for nausea and vomiting, MiraLAX 17 g daily as needed for constipation, albuterol as needed for shortness of breath Imaging: None new Data Review: None new DVT prophylaxis: SCDs Anticipated discharge date: 09/23/[address]: Home with hospice This dictation was prepared using [employer] voice recognition software. Though every attempt is made to correct errors during dictation some may still exist. Objective - Vital Signs Vital signs: Vital Signs Temp 97.5 F L 09/21/23 07:43 Pulse 86 09/21/23 10:00 Resp 18 09/21/23 10:00 BP 129/77 09/21/23 07:43 Pulse Ox 97 09/21/23 07:43 FiO2 Intake & Output 09/20/23 09/21/23 09/21/23 18:59 06:59 18:59 Intake Total 360 Output Total 350 600 400 Balance 10 -600 -400 Intake: Oral 360 Output: Urine 350 600 400 Other: Voiding Method Urinal Urinal # Voids 4 3 1 # Bowel Movements 1 - Labs CBC & Chem 7: 09/17/23 14:33 09/17/23 14:33
[2023-09-21] MEDS: FAMOTIDINE 20 MG TAB PO SCH (13:08)
[2023-09-22] MEDS: METOPROLOL TARTRATE 25 MG TAB PO SCH (08:22)
[2023-09-22] MEDS: FAMOTIDINE 20 MG TAB PO SCH (08:22)
[2023-09-22 08:42] VITALS: BP 135/75; PULSE 90; RESP 18; TEMP 97.8
[2023-09-22] MEDS: ALPRAZolam 0.5 MG TAB PO PRN (12:29)
--- NOTE | 2023-09-22 14:30 | P.DS ---
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 Patient was unable to receive his last round of chemotherapy due to his symptoms. He therefore presented to the emergency department was found to have an EKG consistent with inferior ST segment elevated myocardial infarction. Case was discussed with Dr. Larson the patient's primary oncologist who felt that the patient's overall prognosis was very poor and he was therefore determined not to be a candidate for cardiac catheterization and revascularization cessation. Patient's lab work was remarkable for white blood cell count of 38.2 and hemoglobin of 8.8 as well as platelets of 510. After much discussion the patient elected comfort measures. Therefore his home medications were not reinitiated. They met with hospice, arrangements were made, and patient was discharged home with hospice. Follow-up: Patient discharged to hospice. Discussed with hospice nurse and comfort medications have been ordered through [facility]. Will also continue with metoprolol 25 mg twice daily, omeprazole 40 mg daily, and Zofran 4 mg every 8 hours as needed Patient seen and examined at bedside. Patient is currently pain-free. His breathing is at his baseline. He is excited to go home. Vital signs reviewed and stable. General: Ill-appearing, no distress appears at stated age Cardiovascular: S1S2 reg, no murmur Lungs: Coarse breath sounds bilateral, no rhonchi, no rales, no accessory muscle use Abdominal: Soft, nontender to palpation, no guarding Ext: No gross muscle atrophy, no edema b/l lower extremities, no contractures Neuro: CN II-XI grossly intact, no focal neuro deficits Psych: Alert, oriented, appropriate affect A total of 35 minutes of time were spent preparing this complex discharge summary. Patient was discharged on 09/22/2023. This dictation was prepared using [employer] voice recognition software. Though every attempt is made to correct errors during dictation some may still exist. Patient Condition at Discharge: Poor Plan - Discharge Summary Discharge Rx Participant: No New Discharge Prescriptions: Continue Ondansetron Odt [Zofran ODT] 4 mg PO Q8HR PRN PRN Reason: Nausea Omeprazole 40 mg PO DAILY Metoprolol Tartrate [Lopressor] 25 mg PO BID #60 tab Discontinued traZODone HCL [Desyrel] 50 mg PO HS amLODIPine [Norvasc] 5 mg PO DAILY PRN PRN Reason: SBP >100 Fluticasone Propion/Salmeterol [Wixela 250-50 Inhub] 1 puff INHALATION RT-BID Fluticasone Nasal [place] [Flonase Nasal [place]ial[place]] 1 spray EA NOSTRIL DAILY Pravastatin Sodium [Pravachol] 10 mg PO HS Tiotropium 2.5 Mcg/Puff [Spiriva Respimat 2.5 Mcg] 1 puff INHALATION RT-DAILY Melatonin 6 mg PO HS PRN PRN Reason: SLEEP Discharge Medication List Omeprazole 40 mg PO DAILY 06/26/23 [History] Ondansetron Odt [Zofran ODT] 4 mg PO Q8HR PRN 09/17/23 [History] Metoprolol Tartrate [Lopressor] 25 mg PO BID #60 tab 09/22/23 [Rx] Follow up Appointment(s)/Referral(s): [facility] - 1 Week Patient Instructions/Handouts: Metoprolol (By mouth) Discharge Disposition: HOME WITH HOSPICE
== END 2023-09-22 14:13 | disposition hospice, home (50) | DRG 281 ==
LOC: EC 12:14 → 3SCARD 14:24 → 2SICU 14:24 → UNDOADMIN 14:24 → 3SCARD 15:55 → 5NMEDONC 09-18 21:49
PROVIDERS: ADMIT Student in an Organized Health Care Education/Training Program; ATTEND Student in an Organized Health Care Education/Training Program
DX: I21.19 ST elevation (STEMI) myocardial infarction involving other coronary artery of inferior wall (principal); C34.91 Malignant neoplasm of unspecified part of right bronchus or lung; C79.70 Secondary malignant neoplasm of unspecified adrenal gland; I87.1 Compression of vein; C78.7 Secondary malignant neoplasm of liver and intrahepatic bile duct; J44.9 Chronic obstructive pulmonary disease, unspecified; I25.119 Atherosclerotic heart disease of native coronary artery with unspecified angina pectoris; I10 Essential (primary) hypertension; D63.0 Anemia in neoplastic disease; E78.5 Hyperlipidemia, unspecified; F17.210 Nicotine dependence, cigarettes, uncomplicated; K21.9 Gastro-esophageal reflux disease without esophagitis; K59.00 Constipation, unspecified; D72.829 Elevated white blood cell count, unspecified; Z66 Do not resuscitate; Z51.5 Encounter for palliative care; Z79.899 Other long term (current) drug therapy; Z28.311 Partially vaccinated for COVID-19; Z82.49 Family history of ischemic heart disease and other diseases of the circulatory system; Z79.51 Long term (current) use of inhaled steroids; Z86.73 Personal history of transient ischemic attack (TIA), and cerebral infarction without residual deficits; Z86.19 Personal history of other infectious and parasitic diseases; Z80.1 Family history of malignant neoplasm of trachea, bronchus and lung; Z92.21 Personal history of antineoplastic chemotherapy
CPT/HCPCS: 36415; 71046; 80053; 83735; 84484; 85025; 85610; 85730; 93005; 94760; 96361; 96374; 96375; 99285